=== PATIENT | female | born 1990 | race Caucasian/White ===

== ENCOUNTER 2017-10-27 00:52 | Emergency (ER) | payer OTHER, SELFPAY ==
[2017-10-27 00:55] VITALS: BP 104/71; PULSE 73; RESP 18; TEMP 37.1; O2SAT 98; BMI 22.6
--- NOTE | 2017-10-27 01:07 | ED.DCSUM_ITS ---
- ER Visit Summary Date of Service: 10/27/17 Chief Complaint: Left-sided neck and arm pain History of Present Illness: The patient is a 26 F who has been having the above symptoms since last evening. She does not remember any specific injury. The pain radiates down the proximal left arm. It is worse with movement. She denies any numbness or tingling. She tried ibuprofen and ice without any relief. She denies any chest pain or shortness of breath. Physical Examination: Vital signs reviewed. HEENT exam unremarkable. Heart is regular rate and rhythm without murmurs. Lungs are clear to auscultation. Abdomen is soft and nontender. She has tenderness in the left cervical paraspinal area over the trapezius muscle. Extremities reveal no edema. Skin exam normal. Neurologic exam normal. Test Results: None indicated Emergency Department Course and Treatment: Patient likely has a trapezius strain. She has no DVT or PE risk factors. I have very low suspicion for this. She may be having some cervical radicular symptoms associated with this. I will treat her with naproxen and Flexeril. She will follow-up with her PCP Treatment Plan: [] Disposition: Discharge Impression: Left trapezius strain This note was generated with [employer] dictation software. It may contain incorrect words, spelling, and punctuation that were not noted in review of the chart prior to signing ED Disposition - Plan for ED Patient: Chief Complaint: Back Referrals: Gretel Tapia DO [Primary Care Provider] -
--- NOTE | 2017-10-27 01:07 | ED.DEP ---
ED Disposition - Plan for ED Patient: Disposition: Home or Assisted Living Chief Complaint: Back Instructions: ED Neck Back Pain General Prescriptions: Naproxen [Naprosyn] 500 mg PO BID PRN #20 tab Cyclobenzaprine [Flexeril] 10 mg PO TID PRN #20 tab PRN Reason: Muscle Spasm Referrals: Gretel Tapia DO [Primary Care Provider] -
[2017-10-27] MEDS: Naproxen 500 MG Tablet PO (01:13)
[2017-10-27 01:21] VITALS: PULSE 85; RESP 18
== END 2017-10-27 01:24 | disposition home or self-care (01) ==
LOC: ED 01:15
PROVIDERS: Emergency Provider Emergency Medicine; Family Provider Internal Medicine; PCP Internal Medicine
DX: S46.812A Strain of other muscles, fascia and tendons at shoulder and upper arm level, left arm, initial encounter (principal); X58.XXXA Exposure to other specified factors, initial encounter; Y93.9 Activity, unspecified; Y92.9 Unspecified place or not applicable; Y99.9 Unspecified external cause status
CPT/HCPCS: 99283

== ENCOUNTER → 2017-11-20 18:41 | Outpatient (CLI) | payer OTHER, SELFPAY ==
[2017-11-20 19:24] LABS: Hematocrit 36.6 % (37-47); Hemoglobin 12.3 g/dl (12.0-15.0); Mean Corp Hgb Conc 33.6 g/gl (32-36); Mean Corpuscular Volume 92.2 fL (81-99); Mean Platelet Vol. 11.1 fl (6.2-12.0); Platelet Count 153 K/mm3 (150-450); RBC Distribution Width CV 13.4 % (11.6-14.6); RBC Distribution Width SD 44.7 fl (35.1-43.9); Red Blood Count 3.97 M/mm3 (4.2-5.4); White Blood Count 6.1 K/mm3 (4.4-11.0)
[2017-11-20 19:25] LABS: Scan Indicated on CBC? Y/N NO
[2017-11-20 20:07] LABS: ALB/GLOB Ratio 1.3 RATIO (0.9-2.4); AST(SGOT) 14 U/L (15-37); Alanine Aminotransfer ALT/SGPT 16 U/L (13-56); Albumin, Serum 3.9 g/dL (3.2-5.0); Alkaline Phosphatase 65 U/L (45-117); Anion Gap 5 (5-15); BUN 19 mg/dL (7-18); BUN/Creat Ratio 25.7 RATIO (10-20); Calcium,Total 8.2 mg/dL (8.5-10.1); Chloride 109 mmol/L (98-107); Creatinine, Serum 0.74 mg/dL (0.55-1.02); EST Glomerular Filtration Rate 99 mL/min (>60); Est Glom Filt Rate - Afr Amer 119 mL/min (>60); Ferritin 19 ng/mL (8-252); Globulin 2.9 g/dL (2.2-4.2); Glucose 75 mg/dL (74-106); Potassium 3.7 mmol/L (3.5-5.1); Protein, Total 6.8 g/dL (6.4-8.2); Sodium Level 142 mmol/L (136-145); T4 Free Direct 0.83 ng/dL (0.76-1.46); Thyroid Stim Hormone (TSH) 4.25 uIU/mL (0.358-3.74)
[2017-11-20 20:25] LABS: Pregnancy, Serum, hCG Quali. NEGATIVE Negative (0-9 Nonpreg)
[2017-11-20 20:29] LABS: Vitamin B12 746 pg/mL (211-911)
[2017-11-24 11:30] LABS: Vitamin D 1,25-Dihydroxy 50.2 pg/mL (19.9-79.3)
== END ==
PROVIDERS: Family Provider Internal Medicine; PCP Internal Medicine; Visit Provider Internal Medicine
DX: R53.83 Other fatigue (principal)
CPT/HCPCS: 36415; 80053; 82607; 82652; 82728; 84439; 84443; 84703; 85027

== ENCOUNTER 2017-12-22 17:52 | Emergency (ER) | payer OTHER, SELFPAY ==
[2017-12-22 17:54] VITALS: BP 97/65; PULSE 65; RESP 16; TEMP 36.8; O2SAT 100; BMI 21.7
--- NOTE | 2017-12-22 18:40 | ED.VISSUMM ---
- ER Visit Summary Date of Service: 12/22/17 Chief Complaint: Sent to ER because of low blood pressure. History of Present Illness: The patient is a 27 F who was diagnosed with hypothyroidism 3 weeks ago. She did not fill her prescription for Synthroid. Her and her are trying to have a child. Last menses 2-3 weeks ago. She complains of generalized weakness, fatigue and lack of energy. She complains of dizziness but does not describe orthostatic symptoms. She denies fever, chills night sweats. Denies weight gain or weight loss. She denies any ocular, visual or auditory symptoms. She denies cardiac respiratory symptoms. She denies myalgias, arthralgias or back pain. She denies polyuria, polydipsia polyphagia. She denies problems with bruising or any skin lesions. As I was leaving the room after completing my history and physical patient told me that she drinks a lot of water. She could not give me a specific amount. Physical Examination: Blood pressure is 97/65. Temperature 98 heart rate 65 respiratory rate 16 and pulse ox 100% on room air. She appears in no distress. Head is atraumatic normocephalic. Pupils are equal round reactive. Extraocular muscles are intact. TMs are pearly white with landmarks noted. Nares patent with no drainage. Posterior pharynx without erythema or exudate. Uvula is midline. There is no dysphonia or dysphasia. Trachea is midline. There is no stridor with auscultation of the neck. Heart is regular without murmur, gallop or rub. S1 and S2 are normal. Lungs are clear to auscultation with good movement of air bilaterally. Abdomen is soft and nontender. There is no guarding or peritoneal findings. There is no palpable pulsatile mass. There is no abdominal bruit. Tenorio sign is negative. Negative Rovsing sign. There is no evidence of inguinal or umbilical hernia. There is no asymmetry, swelling, discoloration, leg vein distention, palpable cords or tenderness along the distribution of the deep venous system. Patient is alert and oriented ?3. Motor is 5 over 5. Sensory is intact. DTRs are symmetric with no clonus or Babinski sign. Cranial 2 through 12 are intact. Cerebellar testing is normal. Test Results: BMP is unremarkable. CBC is normal. Serum test is negative. Emergency Department Course and Treatment: Patient has vague symptoms. This may be related to the fact that she has hypothyroidism and has not filled her prescription for Synthroid. Because she reports drinking significant amount of free fluid will obtain electro panel to assess for hyponatremia. A CBC was obtained to evaluate for anemia. A test was ordered as well since she and her are trying to have a child. Treatment Plan: Patient was instructed to fill her prescription for Synthroid and start taking her medication. Disposition: Discharged to home Impression: Weakness and fatigue secondary to hypothyroidism This note was generated with [employer] dictation software. It may contain incorrect words, spelling, and punctuation that were not noted in review of the chart prior to signing ED Disposition - Plan for ED Patient: Disposition: Home or Assisted Living Chief Complaint: Hypotension Instructions: ED Hypothyroidism Referrals: Gretel Tapia DO [Primary Care Provider] - 10-14 Days if not better Additional Instructions: You must feel your prescription for Synthroid and take it daily as instructed
[2017-12-22 19:00] LABS: Anion Gap 8 (5-15); BUN 19 mg/dL (7-18); BUN/Creat Ratio 22.2 RATIO (10-20); Calcium,Total 8.9 mg/dL (8.5-10.1); Chloride 106 mmol/L (98-107); Creatinine, Serum 0.86 mg/dL (0.55-1.02); EST Glomerular Filtration Rate 83 mL/min (>60); Est Glom Filt Rate - Afr Amer 101 mL/min (>60); Estimated Creatinine Clearance 79.84 ml/min; Glucose 79 mg/dL (74-106); Hematocrit 38.4 % (37-47); Mean Corp Hgb Conc 33.9 g/gl (32-36); Mean Corpuscular Hgb 30.4 pg (27.0-32.0); Mean Corpuscular Volume 89.7 fL (81-99); Mean Platelet Vol. 11.6 fl (6.2-12.0); Platelet Count 183 K/mm3 (150-450); Potassium 3.7 mmol/L (3.5-5.1); RBC Distribution Width CV 12.9 % (11.6-14.6); RBC Distribution Width SD 41.6 fl (35.1-43.9); Red Blood Count 4.28 M/mm3 (4.2-5.4); Sodium Level 143 mmol/L (136-145); White Blood Count 4.6 K/mm3 (4.4-11.0)
[2017-12-22 19:04] LABS: Scan Indicated on CBC? Y/N NO
[2017-12-22 19:05] LABS: Pregnancy, Serum, hCG Quali. NEGATIVE Negative (0-9 Nonpreg)
[2017-12-22 20:11] VITALS: BP 92/63; PULSE 61; RESP 16; O2SAT 100
--- NOTE | 2017-12-22 20:11 | ED.RN ---
REVIEWED D/C INSTRUCTIONS, FOLLOW UP CARE, AND S/S THAT WOULD WARRANT A RETURN TO THE ED WITH PT. PT VERBALIZED AN UNDERSTANDING AND DENIES FURTHER QUESTIONS FOR THIS RN. PT SKIN P/W/D, RESP EVEN AND UNLABORED, PT A&O X 3, NO DISTRESS NOTED. PT AMBULATED OUT OF ED, GAIT STEADY.
== END 2017-12-22 20:12 | disposition home or self-care (01) ==
PROVIDERS: Emergency Provider Emergency Medicine; Family Provider Internal Medicine; PCP Internal Medicine
DX: E03.9 Hypothyroidism, unspecified (principal)
CPT/HCPCS: 80048; 84703; 85027; 99283; A4216

== ENCOUNTER → 2018-01-05 14:18 | Outpatient (CLI) | payer OTHER, SELFPAY ==
[2018-01-05 14:53] LABS: Pregnancy, Serum, hCG Quali. NEGATIVE Negative (0-9 Nonpreg)
== END ==
PROVIDERS: Family Provider Internal Medicine; PCP Internal Medicine; Visit Provider Internal Medicine
DX: N92.6 Irregular menstruation, unspecified (principal)
CPT/HCPCS: 84703

== ENCOUNTER → 2018-01-23 09:46 | Outpatient (CLI) | payer OTHER, SELFPAY ==
--- NOTE | 2018-01-23 09:56 | RAD_ITS ---
STUDY: X-RAY - ESOPHAGUS (BARIUM SWALLOW) WITH FLUOROSCOPY REASON FOR EXAM: Female, 27 years old. Dysphagia. Gastroesophageal reflux disease. TECHNIQUE: 15 view(s) of the esophagus were obtained following swallowing of barium. FLUOROSCOPY TIME (if supplied): (0:29) minutes/seconds COMPARISON: Comparison is made with prior study dated May 09, 2016. FINDINGS: There is no demonstrated esophageal foreign body. There is no demonstrated stricture or mucosal abnormality. Normal gastroesophageal junction, without a demonstrated hiatal hernia. The patient ingested a 12 mm tablet of barium without any difficulty. Normal visualized aortic arch and descending thoracic aorta. Normal visualized pulmonary parenchyma. Normal visualized osseous structures of the thorax. RAD/Esophagus Only IMPRESSION: Normal plain film x-ray examination (barium swallow) of the esophagus. Electronically Signed: Nitin Young MD at 13:31 EDT Tel [phone], Service support ,
== END ==
LOC: RAD 09:48
PROVIDERS: Family Provider Internal Medicine; PCP Internal Medicine; Visit Provider Internal Medicine
DX: R13.19 Other dysphagia (principal)
CPT/HCPCS: 74220

== ENCOUNTER → 2018-02-06 20:40 | Outpatient (CLI) | payer OTHER, SELFPAY ==
[2018-02-13 09:18] LABS: HPV APTIMA, High Risk Negative (Negative)
== END ==
PROVIDERS: Visit Provider Nurse Practitioner Women's Health
DX: Z12.4 Encounter for screening for malignant neoplasm of cervix (principal)
CPT/HCPCS: 88175; G0145

== ENCOUNTER → 2018-06-13 15:22 | Outpatient (CLI) | payer OTHER, SELFPAY ==
[2018-06-13 17:38] LABS: Absolute Lymphocyte Count 1.88 X10^3/ul (0.83-4.51); Absolute Neutrophil Count 3.4 X10^3/uL (2.0-7.7); Basophil# 0.01 X10^3/uL; Basophil% 0.2 % (0-1); Eosinophil# 0.05 X10^3/uL; Eosinophils% 0.9 % (0-5); Hematocrit 37.9 % (37-47); Hemoglobin 12.9 g/dl (12.0-15.0); Lymphocyte # 1.88 X10^3/ul (4.0); Lymphocyte % 32.9 % (19-41); Mean Corpuscular Hgb 30.7 pg (27.0-32.0); Mean Corpuscular Volume 90.2 fL (81-99); Mean Platelet Vol. 12.2 fl (6.2-12.0); Monocyte# 0.42 X10^3/uL; Monocyte% 7.3 % (0-10); Neutrophil # 3.36 X10^3/uL (2.7-7.7); Neutrophil % 58.7 % (47-70); Platelet Count 205 K/mm3 (150-450); RBC Distribution Width CV 12.4 % (11.6-14.6); RBC Distribution Width SD 39.8 fl (35.1-43.9); White Blood Count 5.7 K/mm3 (4.4-11.0)
[2018-06-13 18:00] LABS: POSITIVE COUNT NO; POSITIVE DIFFERENTIAL NO; POSITIVE MORPHOLOGY NO
[2018-06-13 18:08] LABS: ALB/GLOB Ratio 1.3 RATIO (0.9-2.4); AST(SGOT) 15 U/L (15-37); Alanine Aminotransfer ALT/SGPT 19 U/L (13-56); Albumin, Serum 3.9 g/dL (3.2-5.0); Alkaline Phosphatase 54 U/L (45-117); Anion Gap 9 (5-15); BUN 27 mg/dL (7-18); BUN/Creat Ratio 22.1 RATIO (10-20); Calcium,Total 8.7 mg/dL (8.5-10.1); Chloride 103 mmol/L (98-107); Creatinine, Serum 1.22 mg/dL (0.55-1.02); EST Glomerular Filtration Rate 55 mL/min (>60); Est Glom Filt Rate - Afr Amer 67 mL/min (>60); Globulin 2.9 g/dL (2.2-4.2); Glucose 85 mg/dL (74-106); Potassium 4.3 mmol/L (3.5-5.1); Protein, Total 6.8 g/dL (6.4-8.2); Sodium Level 140 mmol/L (136-145); T4 Free Direct 1.06 ng/dL (0.76-1.46); Thyroid Stim Hormone (TSH) 1.15 uIU/mL (0.358-3.74)
== END ==
LOC: MTLAB 15:25
PROVIDERS: Family Provider Internal Medicine; PCP Internal Medicine; Referring Provider Nurse Practitioner Family; Visit Provider Nurse Practitioner Family
DX: E03.9 Hypothyroidism, unspecified (principal); Z13.0 Encounter for screening for diseases of the blood and blood-forming organs and certain disorders involving the immune mechanism
CPT/HCPCS: 36415; 80053; 84439; 84443; 85025

== ENCOUNTER → 2018-08-21 16:00 | Outpatient (CLI) | payer OTHER, SELFPAY ==
[2018-06-13 14:26] VITALS: BMI 22.4
[2018-08-21 18:15] LABS: Anion Gap 8 (5-15); BUN 15 mg/dL (7-18); BUN/Creat Ratio 20.1 RATIO (10-20); Calcium,Total 8.9 mg/dL (8.5-10.1); Chloride 106 mmol/L (98-107); Creatinine, Serum 0.75 mg/dL (0.55-1.02); EST Glomerular Filtration Rate 97 mL/min (>60); Est Glom Filt Rate - Afr Amer 117 mL/min (>60); Glucose 77 mg/dL (74-106); Sodium Level 139 mmol/L (136-145)
[2018-08-22 10:24] LABS: T4 Free Direct 0.85 ng/dL (0.76-1.46); Thyroid Stim Hormone (TSH) 2.13 uIU/mL (0.358-3.74)
== END ==
LOC: MTLAB 16:03
PROVIDERS: Family Provider Internal Medicine; PCP Internal Medicine; Referring Provider Nurse Practitioner Family; Visit Provider Nurse Practitioner Family
DX: E03.9 Hypothyroidism, unspecified (principal); R94.4 Abnormal results of kidney function studies
CPT/HCPCS: 36415; 80048; 84439; 84443

== ENCOUNTER → 2018-09-27 11:40 | Outpatient (CLI) | payer MEDICAID, SELFPAY ==
[2018-09-27 12:45] LABS: hCG Titer Quant., Serum < 1 mIU/mL (<9 non-preg)
== END ==
PROVIDERS: Family Provider Internal Medicine; PCP Internal Medicine; Visit Provider Obstetrics & Gynecology
DX: N91.2 Amenorrhea, unspecified (principal)
CPT/HCPCS: 36415; 84702

== ENCOUNTER 2018-10-21 12:44 | Emergency (ER) | payer MEDICAID, SELFPAY ==
[2018-10-21 12:46] VITALS: BP 94/55; PULSE 77; RESP 16; TEMP 36.8; O2SAT 100; BMI 23.2
--- NOTE | 2018-10-21 13:06 | US_ITS ---
STUDY: ULTRASOUND TRANSVAGINAL CLINICAL: Female, 27 years old. Pelvic pain TECHNIQUE: Transvaginal COMPARISON: None. FINDINGS: Normal uterine size measuring 7.4 x 5.4 x 4.6 cm in maximal craniocaudal dimension. There are no myometrial masses. Normal endometrial thickness measuring 13 mm. There are no endometrial masses, and there is no fluid in the endometrial cavity. Normal uterine cervix. Normal right ovary, measuring 5.5 x 3.5 x 3.3 cm. Complex right ovarian cyst measuring 3.4 x 2.1 x 3.0 cm Normal left ovary, measuring 4.7 x 2.3 x 2.4 cm. There are multiple follicles without a dominant cyst. Moderate pelvic free fluid US/Transvaginal Non- IMPRESSION: Complex right ovarian cyst with moderate pelvic free fluid. Possibly recently ruptured ovarian cyst. Remainder is within normal limits. Electronically Signed: Harvey Moyer DO at 14:44 EDT Tel , Service support ,
--- NOTE | 2018-10-21 13:08 | ED.VISSUMM ---
- ER Visit Summary Date of Service: 10/21/18 Chief Complaint: Pelvic pain History of Present Illness: The patient is a 27 F complaining of pelvic pain for the past 2 hours after intercourse. She had a similar episode about 3 days ago again after intercourse. She denies any vaginal discharge. She denies any back pain flank pain or dysuria. There is no vaginal bleeding. Last menstrual cycle was 3 weeks ago and normal. No fever or chills. Physical Examination: Otherwise she has a normal exam. She has suprapubic tenderness to palpation without any guarding or rebound. No right lower quadrant pain no pain at McBurney's. There is no CVA tenderness pelvic exam reveals a parous cervix without any cervicitis, no vaginal discharge. There is some tenderness of the cervix and uterus to palpation although this is mild most of the pain is in the suprapubic region and uterine region. Emergency Department Course and Treatment: Patient has an unremarkable workup. Her ultrasound however does show a right ovarian cyst with free fluid. This explains her symptoms. I will discharge her with reassurance and analgesia she can follow-up with her HEALTHCARE RISK CONTROL CONSULTANT, Dr. Cristina Disposition: Discharge stable condition Impression: Pelvic pain This note was generated with [employer] dictation software. It may contain incorrect words, spelling, and punctuation that were not noted in review of the chart prior to signing ED Disposition - Plan for ED Patient: Disposition: Home or Assisted Living Instructions: ED Cyst Ovarian Prescriptions: Hydrocodone Bitart/Apap 5-325 [[place] 5MG-325MG] 1 tab PO Q4H PRN PRN 2 Days #10 tab PRN Reason: Pain Naproxen [Naprosyn] 500 mg PO BID PRN #20 tab Referrals: Rosalind Cristina MD [STAFF PHYSICIAN] -
--- NOTE | 2018-10-21 13:11 | ED.DCSUM_ITS ---
- ER Visit Summary Date of Service: 10/21/18 Chief Complaint: Pelvic pain History of Present Illness: The patient is a 27 F complaining of pelvic pain for the past 2 hours after intercourse. She had a similar episode about 3 days ago again after intercourse. She denies any vaginal discharge. She denies any back pain flank pain or dysuria. There is no vaginal bleeding. Last menstrual cycle was 3 weeks ago and normal. No fever or chills. Physical Examination: Otherwise she has a normal exam. She has suprapubic tenderness to palpation without any guarding or rebound. No right lower quadrant pain no pain at McBurney's. There is no CVA tenderness pelvic exam reveals a parous cervix without any cervicitis, no vaginal discharge. There is some tenderness of the cervix and uterus to palpation although this is mild most of the pain is in the suprapubic region and uterine region. Emergency Department Course and Treatment: Patient has an unremarkable workup. Her ultrasound however does show a right ovarian cyst with free fluid. This explains her symptoms. I will discharge her with reassurance and analgesia she can follow-up with her PARAPROFESSIONAL AIDE, Dr. Cristina Disposition: Discharge stable condition Impression: Pelvic pain This note was generated with [employer] dictation software. It may contain incorrect words, spelling, and punctuation that were not noted in review of the chart prior to signing ED Disposition - Plan for ED Patient: Disposition: Home or Assisted Living Instructions: ED Cyst Ovarian Prescriptions: Hydrocodone Bitart/Apap 5-325 [[place] 5MG-325MG] 1 tab PO Q4H PRN PRN 2 Days #10 tab PRN Reason: Pain Naproxen [Naprosyn] 500 mg PO BID PRN #20 tab Referrals: Rosalind Cristina MD [STAFF PHYSICIAN] -
[2018-10-21 13:24] LABS: Bacteria 0 SEEN /hpf (None Seen); Mucous, Urine 0 SEEN /hpf (<or=2+); Red Blood Cells-Urine 0 SEEN /hpf (0-5); Squamous Epithelial Cells - UA 0 SEEN /hpf (5-10); White Blood Cells 0 SEEN /hpf (0-5)
[2018-10-21 13:34] LABS: Color, Urine Yellow (Yellow); Glucose, Dipstick Normal (Normal); Ketone-Dipstick Negative (Negative); Leukocyte Esterase-Dipstick Negative /ul (Negative); Nitrite-Dipstick Negative (Negative); Occult Blood-Urine Negative /ul (Negative); Protein-Dipstick Negative (Negative); Specific Gravity, Urine 1.005 (1.002-1.030); Urine Bilirubin Dipstick Negative (Negative); Urine Clarity Clear (Clear); Urine Urobilinogen Normal (Normal)
[2018-10-21 13:35] LABS: Internal QC Validated? YES +Cl - CLEAR BKGD; Pregnancy, Urine Negative Negative
[2018-10-21 13:42] LABS: Transitional Epithelial - Ur 0-5 SEEN /hpf (0-5)
[2018-10-21 15:31] VITALS: PULSE 88
[2018-10-21 15:34] LABS: Chlamydia Trachomatis by PCR Negative (Negative); Neisserai gonorrhoeae by PCR Negative (Negative); Probe Check PASS; Sample Adequacy Control PASS; Specimen Processing Control PASS
== END 2018-10-21 15:32 | disposition home or self-care (01) ==
PROVIDERS: Emergency Provider Emergency Medicine; Family Provider Internal Medicine; PCP Internal Medicine
DX: R10.2 Pelvic and perineal pain (principal); N83.201 Unspecified ovarian cyst, right side; Z79.899 Other long term (current) drug therapy
CPT/HCPCS: 76830; 81001; 81025; 87491; 87591; 93976; 99282

== ENCOUNTER 2018-10-22 17:03 | Emergency (ER) | payer MEDICAID, SELFPAY ==
[2018-10-21 12:46] VITALS: BMI 23.2
[2018-10-22 17:03] VITALS: BP 96/59; PULSE 88; RESP 16; TEMP 37.2; O2SAT 98; BMI 23.2
--- NOTE | 2018-10-22 17:27 | CT_ITS ---
STUDY: CT ABDOMEN AND PELVIS WITH CONTRAST REASON FOR EXAM: Female, 27 years old. Upper abdominal pain RADIATION DOSAGE (If Supplied By Facility): CTDIvol = ( 5.19 ) mGy, DLP = ( 326.74 ) mGycm TECHNIQUE: Transaxial images were obtained from the dome of the diaphragm to the symphysis pubis with oral contrast. Isovue 300 100 IV/Oral was administered. Sagittal and coronal images were reconstructed. Individualized dose optimization techniques were used for this CT. COMPARISON: October 21 2018 describing pelvic pain. FINDINGS: The visualized lung bases are unremarkable. The visualized portions of the heart are within normal limits. There is a right renal cyst measuring 1.1 x 1.1 cm. The gallbladder is contracted. Normal spleen. Normal pancreas. Normal bilateral adrenal glands. There is a 4.6 mm right renal cyst. Normal left kidney. Stomach is distended with fluid and oral contrast. There is a contrast filled appearance of the proximal small bowel within normal caliber. There is abundant stool in the colon. This is best appreciated on images such as 35 coronal views. There is a low-lying appearance of the cecum. The appendix is partially visualized and gas-filled. Normal abdominal aorta. Normal inferior vena cava. Normal retroperitoneum. The bladder is thick walled measuring up to 9.1 mm and moderately distended. The uterus is retroflexed. The endometrium almost appears septated. There is a right-sided adnexal cyst deep in the right pelvis measuring 3.6 x 2.2 cm which appears to be a embolism due to recently ruptured cyst surrounded by fluid. There is a [id number]-qqkuofnz amount of fluid within the pelvis. Normal abdominal wall. Normal osseous structures. CT/Abdomen/Pelvis WITH Contrast IMPRESSION: Moderate to severe constipation. Right adnexal cyst which may have recently partially ruptured now measuring 3.6 x 2.2 cm. This was described on the recent ultrasound pelvis. There is mild to moderate free fluid in the pelvis. The appendix is partially visualized and appears gas filled and normal in caliber. Otherwise there is a normal appearance of the small bowel. There is a too small to characterize right renal cyst. There is a 1 cm low attenuating structure within the liver which may represent a small hemangioma or cyst. Electronically Signed: Mira Cordova MD at 19:33 EDT Tel , Service support ,
--- NOTE | 2018-10-22 17:28 | ED.VISSUMM ---
- ER Visit Summary Date of Service: 10/22/18 Chief Complaint: Abdominal pain History of Present Illness: The patient is a 27 F presenting with abdominal pain. Patient was seen in the ED yesterday for lower abdominal pain. At that time she was diagnosed with a ruptured ovarian cyst. She states this pain has improved but she now has upper abdominal pain. She denies nausea, vomiting, diarrhea, constipation. Denies fever. She states it does sometimes get worse when she eats. She states she has felt bloated and has had weight gain over the past week. She denies other complaints. Physical Examination: Vitals are stable. Patient is afebrile. Alert no acute distress. HEENT exam is unremarkable. Neck is supple. Lungs are clear and equal bilaterally. Heart is regular rate and rhythm. Abdomen is soft epigastric and right upper quadrant tenderness with no rebound or guarding Extremities are unremarkable. Skin is warm and dry. Remainder of exam is unremarkable. Emergency Department Course and Treatment: Patient was given IV fluids. CBC, chemistries unremarkable. Liver lipase are normal. HCG negative. CT abdomen pelvis shows moderate to severe constipation. Right adnexal cyst which may have recently partially ruptured now measuring 3.6 x 2.2 cm. This was described on the recent ultrasound pelvis. There is mild to moderate free fluid in the pelvis. The appendix is partially visualized and appears gas filled and normal in caliber. Otherwise there is a normal appearance of the small bowel. There is a too small to characterize right renal cyst. There is a 1 cm low attenuating structure within the liver which may represent a small hemangioma or cyst. Following CT scan patient had itching. She was given Benadryl. She had improvement of her symptoms. She then complained of more epigastric pain. She was given a GI cocktail with improvement. She is now resting comfortably. She is given prescription for Bentyl, Zofran, MiraLAX. She is advised to follow-up with her primary care physician. Advised return to ED if worsening complaints. Disposition: Discharge home Impression: Abdominal pain, constipation This note was generated with [employer] dictation software. It may contain incorrect words, spelling, and punctuation that were not noted in review of the chart prior to signing ED Disposition - Plan for ED Patient: Referrals: Cat Mccoy MD [Primary Care Provider] -
[2018-10-22 18:02] LABS: Absolute Lymphocyte Count 1.99 X10^3/ul (0.83-4.51); Absolute Neutrophil Count 2.6 X10^3/uL (2.0-7.7); Basophil# 0.02 X10^3/uL; Basophil% 0.4 % (0-1); Hematocrit 37.8 % (37-47); Hemoglobin 12.5 g/dl (12.0-15.0); Lymphocyte # 1.99 X10^3/ul (4.0); Mean Corp Hgb Conc 33.1 g/gl (32-36); Mean Corpuscular Hgb 29.8 pg (27.0-32.0); Mean Corpuscular Volume 90.2 fL (81-99); Mean Platelet Vol. 11.1 fl (6.2-12.0); Monocyte# 0.29 X10^3/uL; Monocyte% 5.8 % (0-10); Neutrophil # 2.58 X10^3/uL (2.7-7.7); Neutrophil % 51.8 % (47-70); POSITIVE COUNT NO; POSITIVE DIFFERENTIAL NO; POSITIVE MORPHOLOGY NO; Platelet Count 176 K/mm3 (150-450); RBC Distribution Width SD 42.9 fl (35.1-43.9); Red Blood Count 4.19 M/mm3 (4.2-5.4)
[2018-10-22 18:16] LABS: AST(SGOT) 14 U/L (15-37); Alanine Aminotransfer ALT/SGPT 15 U/L (13-56); Alkaline Phosphatase 44 U/L (45-117); Anion Gap 1 (5-15); BUN 15 mg/dL (7-18); BUN/Creat Ratio 18.1 RATIO (10-20); Bilirubin, Direct 0.17 mg/dL (0.00-0.30); Calcium,Total 8.2 mg/dL (8.5-10.1); Chloride 112 mmol/L (98-107); Creatinine, Serum 0.83 mg/dL (0.55-1.02); EST Glomerular Filtration Rate 86 mL/min (>60); Est Glom Filt Rate - Afr Amer 104 mL/min (>60); Estimated Creatinine Clearance 82.73 ml/min; Globulin 2.4 g/dL (2.2-4.2); Glucose 76 mg/dL (74-106); Lipase 136 U/L (73-393); Potassium 4.2 mmol/L (3.5-5.1); Protein, Total 6.4 g/dL (6.4-8.2); Sodium Level 141 mmol/L (136-145)
[2018-10-22 18:21] LABS: Pregnancy, Serum, hCG Quali. NEGATIVE Negative (0-9 Nonpreg)
[2018-10-22 19:25] LABS: Bacteria 0 SEEN /hpf (None Seen); Mucous, Urine 0 SEEN /hpf (<or=2+)
[2018-10-22] MEDS: DiphenhydrAMINE 25 MG Capsule PO (19:41)
[2018-10-22 19:53] LABS: Color, Urine Straw (Yellow); Glucose, Dipstick Normal (Normal); Ketone-Dipstick Negative (Negative); Leukocyte Esterase-Dipstick Negative /ul (Negative); Nitrite-Dipstick Negative (Negative); Occult Blood-Urine Negative /ul (Negative); Protein-Dipstick Negative (Negative); Specific Gravity, Urine 1.015 (1.002-1.030); Urine Bilirubin Dipstick Negative (Negative); Urine Clarity Clear (Clear); Urine Urobilinogen Normal (Normal)
[2018-10-22 20:05] VITALS: BP 90/73; PULSE 82; RESP 16; O2SAT 100
[2018-10-22 20:21] LABS: Squamous Epithelial Cells - UA 0-5 SEEN /hpf (5-10)
[2018-10-22 20:22] LABS: Red Blood Cells-Urine 0-5 SEEN /hpf (0-5); White Blood Cells 0-5 SEEN /hpf (0-5)
[2018-10-22] MEDS: Mag Hydrox/Al Hydrox/Simeth 30 ML UDC PO (22:07)
--- NOTE | 2018-10-22 23:20 | ED.DEP ---
ED Disposition - Plan for ED Patient: Instructions: ED Abdominal Pain Unkn Cause, ED Constipation Prescriptions: Hydrocodone Bitart/Apap 5-325 [[place] 5MG-325MG] 1 tablet PO Q6H PRN PRN 3 Days #10 tablet PRN Reason: Pain Ondansetron [Zofran Odt] 4 mg PO Q8H PRN PRN #10 tablet PRN Reason: Nausea Dicyclomine HCl [Bentyl] 20 mg PO TIDAC #20 capsule Polyethylene Glycol 3350 [Miralax] 17 gm PO DAILY #7 packet Referrals: Cat Mccoy MD [Primary Care Provider] -
[2018-10-22 23:33] VITALS: BP 100/65; PULSE 84; RESP 16; O2SAT 97
== END 2018-10-22 23:37 | disposition home or self-care (01) ==
LOC: ED 17:44
PROVIDERS: Emergency Provider Emergency Medicine; Family Provider Internal Medicine; PCP Internal Medicine
DX: R10.10 Upper abdominal pain, unspecified (principal); K59.00 Constipation, unspecified; N83.201 Unspecified ovarian cyst, right side; N28.1 Cyst of kidney, acquired; Z79.899 Other long term (current) drug therapy
CPT/HCPCS: 74177; 80048; 80076; 81001; 83690; 84703; 85025; 99284; J7040; Q9967; A4216

== ENCOUNTER → 2019-01-21 17:05 | Outpatient (CLI) | payer MEDICAID, SELFPAY ==
[2019-01-21 18:16] LABS: hCG Titer Quant., Serum < 1 mIU/mL (1-3)
== END ==
PROVIDERS: Family Provider Internal Medicine; PCP Internal Medicine; Referring Provider Obstetrics & Gynecology; Visit Provider Obstetrics & Gynecology
DX: Z32.00 Encounter for pregnancy test, result unknown (principal)
CPT/HCPCS: 36415; 84702

== ENCOUNTER → 2019-01-24 13:04 | Outpatient (CLI) | payer MEDICAID, SELFPAY ==
[2019-01-24 14:41] LABS: Thyroid Stim Hormone (TSH) 2.55 uIU/mL (0.358-3.74)
== END ==
PROVIDERS: Family Provider Internal Medicine; PCP Internal Medicine; Referring Provider Family Medicine; Visit Provider Family Medicine
DX: E03.9 Hypothyroidism, unspecified (principal)
CPT/HCPCS: 36415; 84443

== ENCOUNTER 2019-04-04 16:22 | Emergency (ER) | payer MEDICAID, SELFPAY ==
[2019-03-29 10:09] VITALS: BMI 23.2
[2019-04-04 16:23] VITALS: BP 101/80; PULSE 102; RESP 17; TEMP 36.4; O2SAT 99; BMI 24.5
[2019-04-04 16:32] VITALS: RESP 16
--- NOTE | 2019-04-04 16:37 | ED.VIS.GEN ---
History of Present Illness Chief Complaint: Back Detail of Chief Complaint: Bilateral low back pain Informant: Patient Onset: Today Context: Sudden Onset Timing: Continuous Quality: Pain Location: Bilateral low back Current Severity: Mild Maximum Severity: Severe Worsened by: Any type of movement Relieved by: Nothing Associated Symptoms: None Narrative: Patient a 28-year-old woman who bent over and was pulling on something when she felt severe pain in her lower back. Silvia-lumbar discomfort right and left side without radiculopathy. There is no pain to palpation the distribution of sciatic nerve or the femoral nerve. She denies bowel bladder dysfunction. She denies saddle paresthesia or anesthesia. She prefers to stand over sitting. She did not note foot drop. She has not gone up or down steps since this occurred. She denies fever, chills or night sweats. She denies urologic symptoms. Prior similar symptoms: No Recent Illness/Hospitalization: No - Past Medical History (1) Anxiety Status: Chronic (2) Asthma Status: Chronic (3) Chronic headaches Status: Chronic Past Medical History - Allergies and Home Meds Allergies/Adverse Reactions: Allergies poison oak extract Allergy (Verified 04/04/19 16:23) Unknown Latex, Natural Rubber Adverse Reaction (Verified 04/04/19 16:23) Rash sensitive not allergic Primary Care Physician: Cat Mccoy MD [Primary Care Provider] - Prior records reviewed: Yes - Presently taking prednisone for bronchitis Surgical History: noncontributory Lives: With Family Smoking Status: Never smoker Alcohol: None Drugs: None Review of Systems General: Denies: Chills, Fever, Malaise, Subjective, Sweats, Weight loss, - ENT: Denies: Rhinorrhea, Sore throat Cardiovascular: Denies: Chest pain, Palpitations Respiratory: Denies: Dyspnea, Cough, Dyspnea on exertion Gastrointestinal: Denies: Abdominal pain, Nausea, Vomiting, Diarrhea, Melena, Hematochezia Genitourinary: Denies: Dysuria, Hematuria, Frequency Musculoskeletal: Reports: Back pain. Denies: Myalgias, Arthralgias, Neck pain, Swelling, Extremity Pain Skin: Denies: Rash, Wounds Neurological: Denies: Headache, Weakness, Parasthesia, Numbness, -, - Hematologic: Denies: Easy bruising, Easy bleeding Allergy: Denies: Uticaria, Swelling of the mouth, Swelling of the tongue Physical Exam Vital Signs/Narrative: Vital Signs Temp Pulse Resp BP Pulse Ox 04/04/19 16:32 16 04/04/19 16:23 97.5 F L 102 H 17 101/80 99 Inital Vital Signs reviewed: Yes General: Well nourished, Well developed, Acute Distress Head: Normocephalic, Atraumatic Eyes: Perrl, EOMI. Negative for: Pale conjunctiva, Scleral icterus ENT: Moist mucous membranes, No rhinorrhea, TM's clear Neck: Supple, Nontender Cardiovascular: Regular rate, Regular rhythm, No murmurs, Normal S1, Normal S2 Respiratory: No distress, CTA bilaterally, Chest nontender Abdomen: Soft, Nontender, Nondistended, Normal bowel sounds Rectal: Deferred, - - Normal perianal sensation Back: Normal Inspection, - - Straight leg test in the sitting position is negative.. Negative for: Nontender, CVA tenderness, Spinal tenderness Extremities: Nontender, No edema. Negative for: Calf Tenderness Skin: Normal color, No rash, Cyanosis, Diaphoresis, Jaundice, No Trauma Neurological: Alert, Oriented x3, Cranial nerves II-XII grossly intact, Normal Strength, Normal Sensation, Normal DTR, - - Gait observed and no foot drop. She is able to walk on her heels and toes. She is able to perform a one legged squat right and left.. Negative for: Normal Gait Psychological: Normal affect, Normal Mood Diagnostic/Tx/Re-eval - Medical Decision Making Patient with acute back pain secondary to muscle skeletal strain. She has no contraindication to NSAIDs. She states she is present on prednisone because she was recently diagnosed with bronchitis. She received first dose of Naprosyn in the department and discharged prescription for Naprosyn. She was instructed to apply ice for the next several days. She was informed that application of heat will make her pain worse. Differential is herniated disc, muscle skeletal strain, doubt epidural hematoma or abscess. ED Disposition - Plan for ED Patient: Disposition: Home or Assisted Living Diagnosis: Bilateral low back pain without sciatica Instructions: Back Sprain/Strain Prescriptions: Naproxen [Naprosyn] 500 mg PO BID #14 tab Transmission Status: Pending to [facility] Referrals: Cat Mccoy MD [Primary Care Provider] - 3-5 Days if not improving Additional Instructions: Your prescription was electronically transmitted to pharmacy of choice
[2019-04-04] MEDS: Naproxen 250 MG Tablet 500 MG PO (17:02)
[2019-04-04 17:04] VITALS: RESP 16
== END 2019-04-04 17:05 | disposition home or self-care (01) ==
LOC: ED 16:49
PROVIDERS: Emergency Provider Emergency Medicine; Family Provider Internal Medicine; PCP Internal Medicine
DX: M54.5 Low back pain (principal); J45.909 Unspecified asthma, uncomplicated; Z79.899 Other long term (current) drug therapy
CPT/HCPCS: 99283

== ENCOUNTER → 2019-06-22 13:25 | Outpatient (CLI) | payer MEDICAID, SELFPAY ==
[2019-05-29 10:31] VITALS: BMI 24.5
[2019-06-22 14:12] LABS: Estradiol 32.8 pg/mL; Prolactin 5.5 ng/mL
== END ==
PROVIDERS: Nurse Practitioner Women's Health; Family Provider Internal Medicine; PCP Internal Medicine; Visit Provider Obstetrics & Gynecology
DX: N97.0 Female infertility associated with anovulation (principal)
CPT/HCPCS: 36415; 82670; 84146

== ENCOUNTER → 2019-07-02 10:46 | Outpatient (CLI) | payer MEDICAID, SELFPAY ==
[2019-07-02 10:14] VITALS: BMI 26.4
[2019-07-02 12:52] LABS: Hematocrit 38.6 % (37-47); Hemoglobin 12.8 g/dL (12.0-15.0); Mean Corp Hgb Conc 33.2 g/dL (32-36); Mean Corpuscular Hgb 29.4 pg (27.0-32.0); Mean Corpuscular Volume 88.5 fL (81-99); Mean Platelet Vol. 11.6 fl (6.2-12.0); Platelet Count 204 K/mm3 (150-450); RBC Distribution Width SD 38.5 fl (35.1-43.9); Red Blood Count 4.36 M/mm3 (4.2-5.4); White Blood Count 3.8 K/mm3 (4.4-11.0)
[2019-07-02 13:21] LABS: T4 Free Direct 0.93 ng/dL (0.76-1.46); Thyroid Stim Hormone (TSH) 2.35 uIU/mL (0.358-3.74)
[2019-07-02 13:22] LABS: Vitamin D,25 Hydroxy 34.2 ng/mL (29.95-100.01)
== END ==
PROVIDERS: Family Provider Internal Medicine; PCP Internal Medicine; Visit Provider Nurse Practitioner Family
DX: R40.0 Somnolence (principal); R53.83 Other fatigue; E55.9 Vitamin D deficiency, unspecified
CPT/HCPCS: 36415; 82306; 84439; 84443; 85027

== ENCOUNTER → 2019-07-10 11:34 | Outpatient (CLI) | payer MEDICAID, SELFPAY ==
[2019-07-02 10:14] VITALS: BMI 26.4
== END ==
PROVIDERS: Family Provider Internal Medicine; PCP Internal Medicine; Referring Provider Nurse Practitioner Women's Health; Visit Provider Nurse Practitioner Women's Health
DX: N97.9 Female infertility, unspecified (principal)
CPT/HCPCS: 36415; 84144

== ENCOUNTER 2019-07-12 22:00 | Emergency (ER) | payer MEDICAID, SELFPAY ==
[2019-07-02 10:14] VITALS: BMI 26.4
[2019-07-12 22:00] VITALS: BP 114/71; PULSE 74; RESP 18; TEMP 36.4; O2SAT 99; BMI 26.4
--- NOTE | 2019-07-12 22:37 | US_ITS ---
STUDY: ULTRASOUND OF THE FEMALE PELVIS - COMPLETE REASON FOR EXAM: Female, 28 years old. Midline pelvic pain LMP: June 19, 2019. TECHNIQUE: Transvaginal. Transvaginal imaging is performed for improved visualization of the endometrium and adnexal regions. TECHNICAL QUALITY: Adequate. COMPARISON: Pelvic ultrasound dated October 21, 2018. FINDINGS: The uterus is anteverted and is in a midline position. The uterus measures 8.7 x 5.1 x 5.8 cm. Normal uterine cervix. The endometrium measures 18.1 mm in thickness, and is hyperechoic. There is no demonstrated endometrial mass. There is no demonstrated myometrial mass. I.U.D. - The patient does not have an I.U.D. The right ovary is visualized. The right ovary measures 5.8 x 2.5 x 3.0 cm. There are multiple follicles of the right ovary with a dominant cyst. The dominant cyst measures 3.6 x 1.8 x 2.3 cm. The cyst has some septations within it suggesting may be involuting or may have some hemorrhage within it. There is no visualized right adnexal mass or complex lesion. There is normal arterial and normal venous vascularity. The left ovary is visualized. The left ovary measures 4.3 x 2.1 x 2.0 cm. There are multiple follicles of the left ovary without a dominant cyst. There is no visualized left adnexal mass or complex lesion. There is normal arterial and normal venous vascularity. There is a large volume of fluid in the cul-de-sac. The fluid appears to have diffuse echoes within it. The urinary bladder is not visualized on this study. Polycystic ovary disease: No. US/Transvaginal Non- IMPRESSION: 1. Large amount of pelvic fluid which appears echogenic. Differential considerations include sequela of hemorrhagic cyst, or PID. 2. Normal sonographic appearance of the uterus and both ovaries. Electronically Signed: Monserrat Eddy MD at 0:13 EST , Service support ,
--- NOTE | 2019-07-12 22:39 | ED.VISSUMM ---
- ER Visit Summary Date of Service: 07/12/19 Chief Complaint: Pelvic pain History of Present Illness: The patient is a 28 F presenting with pelvic pain. She states this started suddenly during sexual intercourse approximately one hour ago. She has suprapubic pain. She has had a history of previous ovarian cyst and states this feels similar. She denies vaginal bleeding or discharge. Denies fever. She complains of dysuria. She has nausea with no vomiting. Denies other complaints. Physical Examination: Vitals are stable. Patient is afebrile. Alert no acute distress. HEENT exam is unremarkable. Neck is supple. Lungs are clear and equal bilaterally. Heart is regular rate and rhythm. Abdomen is soft suprapubic tenderness with no rebound or guarding : Cervix is normal, no cervical motion tenderness, no adnexal tenderness. Extremities are unremarkable. Skin is warm and dry. Remainder of exam is unremarkable. Emergency Department Course and Treatment: She declined IV fluids, Zofran. Urine hCG negative. Urinalysis shows 10-25 white blood cells, 0 red blood cells. Pelvic ultrasound shows large amount of pelvic fluid which appears echogenic. Differential considerations include sequela of hemorrhagic cyst, or PID. Normal sonographic appearance of the uterus and both ovaries. CBC, chemistries unremarkable. Patient remains hemodynamically stable. Discussed with Dr. Cristina. Patient will follow-up in the office. She is given prescription for [place] and Keflex. Advised return to the ED for worsening complaints. Disposition: Discharge home Impression: Ovarian cyst, UTI This note was generated with [employer] dictation software. It may contain incorrect words, spelling, and punctuation that were not noted in review of the chart prior to signing ED Disposition - Plan for ED Patient: Instructions: Ovarian Cyst Prescriptions: Cephalexin [Keflex] 500 mg PO Q12 #14 cap Prescription Printed Hydrocodone Bitart/Apap 5-325 [[place] 5MG-325MG] 1 tab PO Q6H PRN PRN 3 Days #10 tab PRN Reason: Pain Prescription Printed Referrals: Cat Mccoy MD [Primary Care Provider] - Rosalind Cristina MD [STAFF PHYSICIAN] -
--- NOTE | 2019-07-12 23:07 | ED.RN ---
PT REFUSED IV AND IV ZOFRAN, PT REQUESTED PO CHALLENGE ONLY, WATER WAS GIVEN.
[2019-07-12 23:24] LABS: Bacteria 0 SEEN /hpf (None Seen); Mucous, Urine 0 SEEN /hpf (<or=2+); Red Blood Cells-Urine 0 SEEN /hpf (0-5); Squamous Epithelial Cells - UA 0 SEEN /hpf (5-10)
[2019-07-12 23:27] LABS: Color, Urine Yellow (Yellow); Glucose, Dipstick Normal (Normal); Internal QC Validated? YES +Cl - CLEAR BKGD; Ketone-Dipstick Negative (Negative); Leukocyte Esterase-Dipstick 500 /ul (Negative); Nitrite-Dipstick Negative (Negative); Occult Blood-Urine Negative /ul (Negative); Pregnancy, Urine Negative Negative; Protein-Dipstick 30 mg/dl (Negative); Specific Gravity, Urine 1.015 (1.002-1.030); Urine Bilirubin Dipstick Negative (Negative); Urine Clarity Sl. Cloudy (Clear); Urine Urobilinogen Normal (Normal)
[2019-07-12 23:41] LABS: Amorphous Sediment 2+; White Blood Cells 10-25 SEEN /hpf (0-5)
[2019-07-13] VITALS: BP 98/62; PULSE 71; RESP 16; O2SAT 99
[2019-07-13 00:42] LABS: Absolute Lymphocyte Count 1.86 X10^3/uL (0.83-4.51); Absolute Neutrophil Count 4.3 X10^3/uL (2.0-7.7); Basophil# 0.02 X10^3/uL; Basophil% 0.3 % (0-1); Eosinophil# 0.08 X10^3/uL; Eosinophils% 1.2 % (0-5); Hematocrit 36.9 % (37-47); Hemoglobin 12.6 g/dL (12.0-15.0); Lymphocyte # 1.86 X10^3/ul (4.0); Lymphocyte % 27.8 % (19-41); Mean Corp Hgb Conc 34.1 g/dL (32-36); Mean Corpuscular Hgb 29.8 pg (27.0-32.0); Mean Corpuscular Volume 87.2 fL (81-99); Mean Platelet Vol. 10.3 fl (6.2-12.0); NRBC Flagged by Analyzer 0 % (0-5); Neutrophil # 4.32 X10^3/uL (2.7-7.7); Neutrophil % 64.6 % (47-70); Platelet Count 211 K/mm3 (150-450); RBC Distribution Width SD 38.5 fl (35.1-43.9); Red Blood Count 4.23 M/mm3 (4.2-5.4); White Blood Count 6.7 K/mm3 (4.4-11.0)
[2019-07-13 01:00] LABS: Anion Gap 6 (5-15); BUN 17 mg/dL (7-18); BUN/Creat Ratio 21.8 RATIO (10-20); Calcium,Total 8.7 mg/dL (8.5-10.1); Chloride 112 mmol/L (98-107); Creatinine, Serum 0.78 mg/dL (0.55-1.02); EST Glomerular Filtration Rate 92 mL/min (>60); Est Glom Filt Rate - Afr Amer 111 mL/min (>60); Estimated Creatinine Clearance 87.24 ml/min; Glucose 86 mg/dL (74-106); Potassium 3.8 mmol/L (3.5-5.1); Sodium Level 143 mmol/L (136-145)
--- NOTE | 2019-07-13 01:15 | ED.DEP ---
ED Disposition - Plan for ED Patient: Instructions: Ovarian Cyst Prescriptions: Cephalexin [Keflex] 500 mg PO Q12 #14 cap Prescription Printed Hydrocodone Bitart/Apap 5-325 [[place] 5MG-325MG] 1 tablet PO Q6H PRN PRN 3 Days #10 tablet PRN Reason: Pain Referrals: Cat Mccoy MD [Primary Care Provider] - Rosalind Cristina MD [STAFF PHYSICIAN] -
[2019-07-13] MEDS: Cephalexin 250 MG Capsule 500 MG PO (01:22)
--- NOTE | 2019-07-13 01:27 | ED.RN ---
pt reports dizziness. MD at bedside to evaluate patient. PT refused IV fluids. She is driving home herself as her spouse is at home with her children. pt feels safe to drive home. Cookies given to patient. All questions answered, no further concerns. PT ambulated to lobby with a steady and independent gait.
== END 2019-07-13 01:28 | disposition home or self-care (01) ==
LOC: ED 22:48
PROVIDERS: Emergency Provider Emergency Medicine; Family Provider Internal Medicine; PCP Internal Medicine
DX: N83.209 Unspecified ovarian cyst, unspecified side (principal); N39.0 Urinary tract infection, site not specified
CPT/HCPCS: 36415; 76830; 80048; 81001; 81025; 85025; 93976; 99283; J2405

== ENCOUNTER → 2019-08-27 09:25 | Outpatient (CLI) | payer SELFPAY ==
[2019-08-27 10:17] LABS: hCG Titer Quant., Serum < 1 mIU/mL (1-3)
== END ==
PROVIDERS: PCP Internal Medicine; Referring Provider Obstetrics & Gynecology; Visit Provider Obstetrics & Gynecology
DX: N91.2 Amenorrhea, unspecified (principal)
CPT/HCPCS: 36415; 84702

== ENCOUNTER → 2019-09-02 16:24 | Outpatient (CLI) | payer SELFPAY ==
[2019-09-02 17:07] LABS: hCG Titer Quant., Serum < 1 mIU/mL (1-3)
== END ==
LOC: LAB 16:26
PROVIDERS: PCP Internal Medicine; Referring Provider Nurse Practitioner Women's Health; Visit Provider Nurse Practitioner Women's Health
DX: N91.2 Amenorrhea, unspecified (principal)
CPT/HCPCS: 36415; 84702

== ENCOUNTER 2019-09-07 13:05 | Emergency (ER) | payer SELFPAY ==
[2019-09-07 13:07] VITALS: BP 104/65; PULSE 76; RESP 17; TEMP 37.1; O2SAT 98; BMI 25.9
--- NOTE | 2019-09-07 13:37 | ED.DCSUM_ITS ---
History of Present Illness Informant: Patient Onset: Days - 3 days Context: Gradual Onset Timing: Continuous Quality: Burning Location: tongue and inside of mouth on cheek Current Severity: Severe Maximum Severity: Severe Worsened by: eating/drinking Relieved by: nothing Associated Symptoms: myalgias Prior similar symptoms: No Recent Illness/Hospitalization: No <CandifamiliaQuentin - Last Filed: 09/07/19 14:04> <Jennifer Zavala - Last Filed: 09/07/19 14:40> Chief Complaint: Other, Pain/Inj Past Medical History Prior records reviewed: Yes Past Medical History: - - hypothyroidism Surgical History: noncontributory Lives: With Family Smoking Status: Never smoker <uQentin Subramanian - Last Filed: 09/07/19 14:04> <Jennifer Zavala - Last Filed: 09/07/19 14:40> - Allergies and Home Meds Allergies/Adverse Reactions: Allergies poison oak extract Allergy (Verified 09/07/19 13:06) Unknown Latex, Natural Rubber Adverse Reaction (Verified 09/07/19 13:06) Rash sensitive not allergic Primary Care Physician: Cat Mccoy MD [Primary Care Provider] - 5-7 Days Review of Systems All systems negative except as indicated General: Denies: Chills, Fever, Malaise Eyes: Denies: Visual changes - bilaterally, Blurred Vision - bilaterally, Diplopia ENT: Denies: Rhinorrhea, Sore throat Cardiovascular: Denies: Chest pain, Palpitations, Heart racing Respiratory: Denies: Dyspnea, Cough, Sputum Gastrointestinal: Denies: Abdominal pain, Nausea, Vomiting, Diarrhea Genitourinary: Denies: Dysuria, Hematuria, Frequency Musculoskeletal: Reports: Myalgias. Denies: Arthralgias, Neck pain, Back pain, Swelling, Extremity Pain Skin: Reports: Rash. Denies: Abscess, Abrasions, Wounds Neurological: Denies: Headache, Weakness, Parasthesia, Numbness Hematologic: Denies: Easy bruising, Easy bleeding <CandifamiliauQentin - Last Filed: 09/07/19 14:04> Physical Exam Vital Signs/Narrative: Vital Signs Temp Pulse Resp BP Pulse Ox 09/07/19 13:07 98.7 F 76 17 104/65 98 Inital Vital Signs reviewed: Yes General: Well nourished, Well developed, No Acute Distress Head: Normocephalic, Atraumatic Eyes: Perrl, EOMI ENT: Moist mucous membranes, - - vesicular lesions left lateral tongue and inside left cheek. Neck: Supple, Nontender Cardiovascular: Regular rate, Regular rhythm Respiratory: No distress, CTA bilaterally, Chest nontender Abdomen: Soft, Nontender, Nondistended, Normal bowel sounds Back: Nontender, Normal Inspection Extremities: Nontender, No edema. Negative for: Tenderness Skin: Normal color, Rash Neurological: Alert, Oriented x3 Psychological: Normal affect <Quentin Subramanian - Last Filed: 09/07/19 14:04> Vital Signs/Narrative: Vital Signs Temp Pulse Resp BP Pulse Ox 09/07/19 13:07 98.7 F 76 17 104/65 98 <Jennifer Zaavla - Last Filed: 09/07/19 14:40> Diagnostic/Tx/Re-eval - Medical Decision Making Patient's lesions in her mouth and on her tongue are consistent with herpes. She was offered testing to confirm with cultures but she declines because she states that her was diagnosed with this on his genitalia last week. She will be placed on acyclovir and referred back to her primary for follow-up. She is able to tolerate by mouth she has a normal airway she has no constitutional symptoms and she is agreeable with our plan of care. <Quentin Subramanian - Last Filed: 09/07/19 14:04> - Medical Decision Making Patient was seen with [facility] agree with history and physical exit exam as above, patient presents with some vesicles over her tongue and cheek indicates her recent was diagnosed with culture positive herpes on exam she does have some scattered vesicles to the tongue and the cheek her airways i ntact the rest of her exam is unremarkable she does not wish to undergo any type of testing and has appointment to see outpatient providers for all the above see the chart for full details <Jennifer Zavala - Last Filed: 09/07/19 14:40> ED Disposition <Quentin Subramanian - Last Filed: 09/07/19 14:04> <Jennifer Zavala - Last Filed: 09/07/19 14:40> - Plan for ED Patient: Disposition: Home or Assisted Living Diagnosis: Herpes simplex, Gingivostomatitis Instructions: Herpes, Herpes: Caring for Sores Prescriptions: Acyclovir 400 mg PO TID #30 tab Prescription Printed predniSONE tablet 40 mg PO DAILY #10 tab Prescription Printed Referrals: Cat Mccoy MD [Primary Care Provider] - 5-7 Days
[2019-09-07] MEDS: predniSONE 20 MG Tablet 60 MG PO (14:53)
[2019-09-07] MEDS: Acyclovir 800 MG Tablet PO (14:53)
== END 2019-09-07 15:04 | disposition home or self-care (01) ==
PROVIDERS: Emergency Provider Physician Assistant Medical; PCP Internal Medicine
DX: B00.2 Herpesviral gingivostomatitis and pharyngotonsillitis (principal); E03.9 Hypothyroidism, unspecified; Z91.040 Latex allergy status; Z79.899 Other long term (current) drug therapy
CPT/HCPCS: 99283

== ENCOUNTER → 2019-10-30 17:02 | Outpatient (CLI) | payer SELFPAY ==
[2019-10-30 18:03] LABS: hCG Titer Quant., Serum < 1 mIU/mL (1-3)
== END ==
LOC: LAB 17:04
PROVIDERS: PCP Internal Medicine; Referring Provider Obstetrics & Gynecology; Visit Provider Obstetrics & Gynecology
DX: N91.2 Amenorrhea, unspecified (principal)
CPT/HCPCS: 36415; 84702

== ENCOUNTER 2019-12-07 22:19 | Emergency (ER) | payer SELFPAY ==
[2019-12-07 22:21] VITALS: BP 139/68; PULSE 87; RESP 16; RESP 18; TEMP 36.6; O2SAT 98; BMI 25.7
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
[2019-12-08] MEDS: Ibuprofen 600 MG Tablet PO (00:21)
[2019-12-08 01:36] VITALS: RESP 16
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
[2019-12-08 02:05] VITALS: BP 106/65; PULSE 76; RESP 16; O2SAT 100
== END 2019-12-08 02:05 | disposition home or self-care (01) ==
PROVIDERS: Emergency Provider Emergency Medicine; PCP Internal Medicine
DX: S16.1XXA Strain of muscle, fascia and tendon at neck level, initial encounter (principal); M62.838 Other muscle spasm; V44.5XXA Car driver injured in collision with heavy transport vehicle or bus in traffic accident, initial encounter; Y93.9 Activity, unspecified; Y92.9 Unspecified place or not applicable; Y99.9 Unspecified external cause status; E03.9 Hypothyroidism, unspecified; Z79.899 Other long term (current) drug therapy
CPT/HCPCS: 70450; 72125; 99283

== ENCOUNTER → 2020-04-01 10:05 | Outpatient (CLI) | payer SELFPAY ==
[2020-04-01 09:37] VITALS: BMI 25.7
[2020-04-01 10:05] LABS: Bacteria 0 SEEN /hpf (None Seen); Mucous, Urine 0 SEEN /hpf (<or=2+); Red Blood Cells-Urine 0 SEEN /hpf (0-5)
[2020-04-01 12:40] LABS: Absolute Neutrophil Count 2.9 X10^3/uL (2.0-7.7); Basophil# 0.03 X10^3/uL; Basophil% 0.6 % (0-1); Eosinophil# 0.08 X10^3/uL; Eosinophils% 1.7 % (0-5); Hematocrit 39.1 % (37-47); Lymphocyte % 27.8 % (19-41); Mean Corp Hgb Conc 33.2 g/dL (32-36); Mean Corpuscular Hgb 29.9 pg (27.0-32.0); Mean Corpuscular Volume 89.9 fL (81-99); Mean Platelet Vol. 11.4 fl (6.2-12.0); Monocyte# 0.39 X10^3/uL; Monocyte% 8.4 % (0-10); NRBC Flagged by Analyzer 0 % (0-5); Neutrophil # 2.86 X10^3/uL (2.7-7.7); Neutrophil % 61.3 % (47-70); Platelet Count 202 K/mm3 (150-450); RBC Distribution Width CV 12.2 % (11.6-14.6); RBC Distribution Width SD 40.4 fl (35.1-43.9); Red Blood Count 4.35 M/mm3 (4.2-5.4); White Blood Count 4.7 K/mm3 (4.4-11.0)
[2020-04-01 12:56] LABS: Color, Urine Yellow (Yellow); Glucose, Dipstick Normal (Normal); Ketone-Dipstick Negative (Negative); Leukocyte Esterase-Dipstick 100 /ul (Negative); Nitrite-Dipstick Negative (Negative); Occult Blood-Urine Negative /ul (Negative); Protein-Dipstick Negative (Negative); Urine Bilirubin Dipstick Negative (Negative); Urine Clarity Sl. Cloudy (Clear); Urine Urobilinogen Normal (Normal)
[2020-04-01 13:06] LABS: ALB/GLOB Ratio 1.2 RATIO (0.9-2.4); AST(SGOT) 15 U/L (15-37); Alanine Aminotransfer ALT/SGPT 18 U/L (13-56); Albumin, Serum 3.7 g/dL (3.2-5.0); Alkaline Phosphatase 62 U/L (45-117); Anion Gap 5 (5-15); BUN 13 mg/dL (7-18); BUN/Creat Ratio 15.1 RATIO (10-20); Calcium,Total 8.3 mg/dL (8.5-10.1); Chloride 109 mmol/L (98-107); Creatinine, Serum 0.86 mg/dL (0.55-1.02); EST Glomerular Filtration Rate 82 mL/min (>60); Est Glom Filt Rate - Afr Amer 99 mL/min (>60); Globulin 3.1 g/dL (2.2-4.2); Glucose 76 mg/dL (74-106); Potassium 4.2 mmol/L (3.5-5.1); Protein, Total 6.8 g/dL (6.4-8.2); Sodium Level 139 mmol/L (136-145)
[2020-04-01 13:07] LABS: Squamous Epithelial Cells - UA 0-5 SEEN /hpf (5-10); White Blood Cells 10-25 SEEN /hpf (0-5)
== END ==
LOC: BIMLAB 10:05
PROVIDERS: PCP Internal Medicine; Referring Provider Internal Medicine; Visit Provider Internal Medicine
DX: E03.9 Hypothyroidism, unspecified (principal); R53.81 Other malaise; R53.83 Other fatigue; R30.0 Dysuria
CPT/HCPCS: 36415; 80053; 81001; 84443; 85025

== ENCOUNTER → 2020-07-13 15:58 | Outpatient (CLI) | payer MEDICAID, SELFPAY ==
[2020-07-13 13:48] VITALS: BMI 30.2
--- NOTE | 2020-07-13 16:01 | US_ITS ---
STUDY: ULTRASOUND OF THE FEMALE PELVIS - COMPLETE REASON FOR EXAM: Female, 29 years old. PCOS, AUB INFERTILITY LMP: 07/06/2020 TECHNIQUE: Endovaginal and transabdominal TECHNICAL QUALITY: Adequate. COMPARISON: None. FINDINGS: The uterus is retroverted and is in a midline position. The uterus measures 6.4 x 6.4 x 4.2 cm. Normal uterine cervix. The endometrium measures 6 mm in thickness, and is hyperechoic. There is no demonstrated endometrial mass. There is heterogeneity of the myometrium without defined mass. The patient does not have an I.U.D. The right ovary is visualized. The right ovary measures 4.1 x 2.4 x 1.8 cm. There is no right ovarian cyst or ovarian mass. There is no visualized right adnexal mass or complex lesion. There is normal arterial and normal venous vascularity. The left ovary is visualized. The left ovary measures 4.2 x 2.7 x 2.0 cm. There is a 1.4 cm left ovarian cyst. There is normal arterial and normal venous vascularity. There is moderate fluid in the cul-de-sac. The urinary bladder has a volume of 211 cc. US/Transvaginal Non- IMPRESSION: Retroverted uterus with heterogeneous myometrium. Moderate pelvic fluid. Left ovarian cyst. Electronically Signed: Reddy Peralta DO at 23:52 EST Tel [phone], Service support ,
--- NOTE | 2020-07-13 16:01 | US_ITS ---
STUDY: ULTRASOUND OF THE FEMALE PELVIS - COMPLETE REASON FOR EXAM: Female, 29 years old. PCOS, AUB INFERTILITY LMP: 07/06/2020 TECHNIQUE: Endovaginal and transabdominal TECHNICAL QUALITY: Adequate. COMPARISON: None. FINDINGS: The uterus is retroverted and is in a midline position. The uterus measures 6.4 x 6.4 x 4.2 cm. Normal uterine cervix. The endometrium measures 6 mm in thickness, and is hyperechoic. There is no demonstrated endometrial mass. There is heterogeneity of the myometrium without defined mass. The patient does not have an I.U.D. The right ovary is visualized. The right ovary measures 4.1 x 2.4 x 1.8 cm. There is no right ovarian cyst or ovarian mass. There is no visualized right adnexal mass or complex lesion. There is normal arterial and normal venous vascularity. The left ovary is visualized. The left ovary measures 4.2 x 2.7 x 2.0 cm. There is a 1.4 cm left ovarian cyst. There is normal arterial and normal venous vascularity. There is moderate fluid in the cul-de-sac. The urinary bladder has a volume of 211 cc. US/Pelvic (Non ) IMPRESSION: Retroverted uterus with heterogeneous myometrium. Moderate pelvic fluid. Left ovarian cyst. Electronically Signed: Redyd Peralta DO at 23:52 EST Tel [phone], Service support ,
== END ==
PROVIDERS: PCP Internal Medicine; Referring Provider Obstetrics & Gynecology; Visit Provider Obstetrics & Gynecology
DX: N93.9 Abnormal uterine and vaginal bleeding, unspecified (principal)
CPT/HCPCS: 76830; 76856

== ENCOUNTER → 2020-08-09 19:13 | Outpatient (CLI) | payer MEDICAID, SELFPAY ==
[2020-07-13 13:48] VITALS: BMI 30.2
[2020-08-09 21:03] LABS: Estradiol 33.9 pg/mL; Follicle Stimulating Hormone 5.5 mIU/mL; Luteinizing Hormone 4.9 mIU/mL; Prolactin 8.2 ng/mL; Thyroid Stim Hormone (TSH) 2.97 uIU/mL (0.358-3.74)
[2020-08-14 16:24] LABS: Anti-Mullerian Hormone,Serum 8.33 ng/mL (.)
== END ==
PROVIDERS: PCP Nurse Practitioner Family; Visit Provider Obstetrics & Gynecology
DX: N93.9 Abnormal uterine and vaginal bleeding, unspecified (principal)
CPT/HCPCS: 36415; 82627; 82670; 83001; 83002; 83516; 84146; 84403; 84443; 82626

== ENCOUNTER → 2020-09-08 15:46 | Outpatient (CLI) | payer MEDICAID, SELFPAY ==
[2020-08-13 14:18] VITALS: BMI 30.9
[2020-09-08 16:21] LABS: hCG Titer Quant., Serum < 1 mIU/mL (1-3)
== END ==
PROVIDERS: PCP Nurse Practitioner Family; Referring Provider Obstetrics & Gynecology; Visit Provider Obstetrics & Gynecology
DX: N91.2 Amenorrhea, unspecified (principal)
CPT/HCPCS: 36415; 84702

== ENCOUNTER 2020-11-27 19:43 | Emergency (ER) | payer MEDICAID, SELFPAY ==
[2020-08-13 14:18] VITALS: BMI 30.9
[2020-11-27 19:44] VITALS: BP 119/65; PULSE 83; RESP 18; TEMP 36.4; O2SAT 98; BMI 29.5
--- NOTE | 2020-11-27 20:14 | ED.DCSUM_ITS ---
History of Present Illness Chief Complaint: Cold Sx Informant: Patient Narrative: Patient is a 30-year-old female that denies any significant medical history presenting with right eye pain. Patient states that for the past week she has had pain and pressure in her right ear. Yesterday she started to get pain and her right lower eyelid. She was in urgent care who thought she might have the beginning of an ear infection. Told her to come back if her symptoms worsen. Today her ear feels better but the eye pain worsened and she said swelling the bottom inner eyelid. She is unsure if her vision is been blurry if she does not wear her glasses. She does have associated headache. She has chronic ringing in her ears which is unchanged. Patient states has had very mild sinus pressure. She denies any rhinorrhea, sore throat, fever or chills. She denies any GI symptoms. She notes that she did have an abnormal period last week as she only bled for 1 day which is unusual for her. To note she is currently trying to conceive. No other complaints at this time. No sick contacts. Past Medical History - Allergies and Home Meds Allergies/Adverse Reactions: Allergies poison oak extract Allergy (Verified 08/13/20 14:18) Unknown Latex, Natural Rubber Adverse Reaction (Verified 08/13/20 14:18) Rash sensitive not allergic Primary Care Physician: Rajeev Pino NP, [employer] [Primary Care Provider] - Surgical History: noncontributory Lives: Spouse/ Significant Other Smoking Status: Former smoker Review of Systems General: Denies: Chills, Fever, Sweats Eyes: Reports: Blurred vision - right, - - right eyelid pain and swelling . Denies: Visual changes - bilaterally, Diplopia ENT: Reports: Right ear pain. Denies: Rhinorrhea, Sore throat Cardiovascular: Denies: Chest pain, Palpitations Respiratory: Denies: Dyspnea, Cough, Dyspnea on exertion Gastrointestinal: Denies: Abdominal pain, Nausea, Vomiting, Diarrhea, Melena, Hematochezia Genitourinary: Denies: Dysuria, Hematuria, Frequency Musculoskeletal: Denies: Back pain, Extremity Pain Skin: Denies: Rash, Wounds Neurological: Reports: Headache. Denies: Weakness, Numbness Physical Exam Vital Signs/Narrative: Vital Signs Temp Pulse Resp BP Pulse Ox 11/27/20 19:44 97.5 F L 83 18 119/65 98 Inital Vital Signs reviewed: Yes General: Well nourished, Well developed, No Acute Distress Head: Normocephalic, Atraumatic Eyes: Perrl, EOMI, - - Is range of motion of the eyes. No proptosis. Minor swelling and tenderness palpation of the right medial lower eyelid. This is consistent with stye. ENT: Moist mucous membranes, No rhinorrhea, TM's clear. Negative for: Nasal congestion, Sinus tenderness Neck: Supple, Nontender, No lymphadenopathy Cardiovascular: Regular rate, Regular rhythm, No murmurs Respiratory: No distress, CTA bilaterally, Chest nontender Abdomen: Soft, Nontender, Nondistended, Normal bowel sounds Back: Nontender, Normal Inspection Extremities: Nontender, No edema Skin: Normal color, No rash Neurological: Alert, Oriented x3, Cranial nerves II-XII grossly intact Psychological: Normal affect, Normal Mood Diagnostic/Tx/Re-eval - Medical Decision Making Patient evaluated for concern of eye infection/upper respiratory infection. Physical exam is consistent with a stye. No signs of abscess. No signs of preseptal or other cellulitis. She does not appear to vision changes. I suspect she is a little bit of dry eye associated with her stye. She started on erythromycin ointment for the eye and instructed on using warm compresses. She does admit to me that she is been doing warm compresses at home and it feels better when she does it. Patient does not have findings consistent with an acute sinusitis or otitis media. I do not suspect a viral syndrome. She had an irregular. 1 week ago and will take a home test. Patient does not have meningeal signs. She has no focal neurologic deficits. Patient is counseled on signs and symptoms requiring return to the emergency room. Patient verbalizes agreement and understand this plan. Patient discharged home in stable and improved condition. ED Disposition - Plan for ED Patient: Disposition: Home or Assisted Living Diagnosis: Hordeolum internum right lower eyelid Instructions: ED Sty Prescriptions: Peg 400/Hypromellose/Glycerin [Visine Tears Drops] 1 drp OP Q6H PRN PRN #15 ml PRN Reason: Dry Eye Prescription Printed Referrals: Rajeev Pino NP, [employer] [Primary Care Provider] - Adán Schaffer MD [STAFF PHYSICIAN] - Additional Instructions: Apply erythromycin ointment to the right lower eyelid where it is painful 2-3 times a day until resolved. More importantly, continue to do warm compresses at least 4 times a day until swelling and pain resolved. If you do not have improvement of your symptoms you been referred to an eye doctor for further evaluation.
[2020-11-27] MEDS: Erythromycin Base 1 OPTH.TUBE 1 APPLIC RIGHT EYE (20:25)
[2020-11-27 20:26] VITALS: BP 103/62
== END 2020-11-27 20:33 | disposition home or self-care (01) ==
PROVIDERS: Emergency Provider Emergency Medicine; PCP Nurse Practitioner Family
DX: H00.022 Hordeolum internum right lower eyelid (principal); R51.9 Headache, unspecified; H93.13 Tinnitus, bilateral; Z87.891 Personal history of nicotine dependence
CPT/HCPCS: 99282

== ENCOUNTER 2020-11-29 22:51 | Emergency (ER) | payer MEDICAID, SELFPAY ==
[2020-11-29 22:51] VITALS: BP 111/75; PULSE 92; RESP 15; TEMP 36.8; O2SAT 98; BMI 30.1
[2020-11-29 22:54] VITALS: BP 111/75; PULSE 104; RESP 15; O2SAT 98
--- NOTE | 2020-11-29 23:01 | ED.VIS.GEN ---
History of Present Illness Chief Complaint: Fall Informant: Patient Onset: Today Current Severity: Mild Maximum Severity: Moderate Narrative: Patient presents with right hip pain after a fall. Patient was in a local store and slipped in the bathroom falling onto her right hip. She states she was able to get up and go to the restroom following this. She is unsure if she may be stating that she has recently been on fertility treatment. She denies striking her head or any other neck or back pain. - Past Medical History (1) GERD (gastroesophageal reflux disease) Status: Chronic (2) Hypothyroid Status: Chronic (3) Anxiety Status: Chronic (4) Chronic headaches Status: Chronic Past Medical History - Allergies and Home Meds Allergies/Adverse Reactions: Allergies poison oak extract Allergy (Verified 08/13/20 14:18) Unknown Latex, Natural Rubber Adverse Reaction (Verified 08/13/20 14:18) Rash sensitive not allergic Primary Care Physician: Rajeev Pino REEL REPAIRER, [employer] [Primary Care Provider] - Prior records reviewed: Yes Surgical History: noncontributory Lives: With Family Smoking Status: Former smoker Review of Systems General: Denies: Chills, Fever Eyes: Denies: Visual changes - bilaterally ENT: Denies: Bilateral ear pain Cardiovascular: Denies: Chest pain Respiratory: Denies: Dyspnea, Cough Gastrointestinal: Denies: Abdominal pain, Nausea, Vomiting Musculoskeletal: Reports: Extremity Pain Skin: Denies: Rash Neurological: Denies: Headache Hematologic: Denies: Easy bruising, Easy bleeding Allergy: Denies: Uticaria Physical Exam Vital Signs/Narrative: Vital Signs Temp Pulse Resp BP Pulse Ox 11/29/20 22:54 104 H 15 111/75 98 11/29/20 22:51 98.2 F 92 15 111/75 98 Inital Vital Signs reviewed: Yes General: Well nourished, Well developed Head: Normocephalic ENT: Moist mucous membranes Cardiovascular: Regular rate, Regular rhythm Respiratory: No distress, CTA bilaterally Abdomen: Soft, Nontender Back: - - No thoracic or lumbar tenderness. Tenderness to the right posterior pelvis. Extremities: - - Tenderness over the greater trochanter of the right hip. Positive pain with logroll. Neurological: Alert, Oriented x3 Psychological: Normal affect Diagnostic/Tx/Re-eval 11/29/20 23:40 Pelvis 1 or 2 Views [RAD] Stat 11/29/20 23:41 Femur Min 2 Views [RAD] Stat Laboratory Results 11/29/20 23:20 Urine Test Negative - Medical Decision Making test is obtained and negative. Patient is given Tylenol for pain. Pelvis and right femur x-rays are normal per my interpretation. Test results discussed with the patient. She will continue Tylenol or ibuprofen at home for pain. She will be given crutches as she has significant right hip pain with weightbearing and feels like her leg gives out on her. If not improving in the next 3 to 5 days she will follow-up with her PCP. ED Disposition - Plan for ED Patient: Disposition: Home or Assisted Living Diagnosis: Contusion of right hip Instructions: ED Hip Contusion Referrals: Rajeev Pino REEL REPAIRER, [employer] [Primary Care Provider] - 3-5 Days if not improving
[2020-11-29 23:40] LABS: Internal QC Validated? YES +Cl - CLEAR BKGD; Pregnancy, Urine Negative Negative
--- NOTE | 2020-11-29 23:42 | RAD_ITS ---
STUDY: X-RAY - RIGHT FEMUR REASON FOR STUDY: Female, 30 years old. fall TECHNIQUE: 2 view(s) of the femur. COMPARISON: None. FINDINGS: Normal visualized femur. Normal visualized soft tissue structure. RAD/Femur Min 2 Views IMPRESSION: Normal x-ray examination of the femur. Electronically Signed: Cipriano Caro MD at 0:40 EDT Tel , Service support ,
--- NOTE | 2020-11-29 23:42 | RAD_ITS ---
STUDY: X-RAY - PELVIS REASON FOR EXAM: Female, 30 years old. fall TECHNIQUE: One view of the pelvis was obtained. COMPARISON: None. FINDINGS: Phleboliths within the pelvis. Moderate stool in the colon. No acute fracture or dislocation identified. RAD/Pelvis 1 or 2 Views IMPRESSION: No acute fracture. Electronically Signed: Cipriano Caro MD at 0:41 EDT Tel , Service support ,
[2020-11-30] MEDS: Acetaminophen 500 MG Tablet 1000 MG PO (00:06)
[2020-11-30 00:25] VITALS: PULSE 80; RESP 18; O2SAT 100
== END 2020-11-30 00:25 | disposition home or self-care (01) ==
PROVIDERS: Emergency Provider Emergency Medicine; PCP Nurse Practitioner Family
DX: S70.01XA Contusion of right hip, initial encounter (principal); W01.0XXA Fall on same level from slipping, tripping and stumbling without subsequent striking against object, initial encounter; Y93.9 Activity, unspecified; Y92.512 Supermarket, store or market as the place of occurrence of the external cause; Y99.9 Unspecified external cause status; E03.9 Hypothyroidism, unspecified; K21.9 Gastro-esophageal reflux disease without esophagitis; Z79.890 Hormone replacement therapy; Z87.891 Personal history of nicotine dependence
CPT/HCPCS: 72170; 73552; 81025; 99285

== ENCOUNTER 2020-12-15 17:23 | Emergency (ER) | payer MEDICAID, SELFPAY ==
[2020-12-15 17:23] VITALS: BP 122/64; PULSE 86; RESP 15; TEMP 36.3; O2SAT 98; BMI 29.2
--- NOTE | 2020-12-15 17:36 | EDS_ITS ---
HPI HPI - GI History of Present Illness Chief Complaint: Abd Pain Informant: patient Abdominal Pain/Flank Pain Onset: Days Narrative Narrative: Patient is a 30-year-old female presented with abdominal pain. Patient states she has had intermittent right-sided and periumbilical pain over the past few days. Patient describes the pain as sharp in nature. It lasted about 30 seconds at a time. It was actually worse last night. Took Tylenol with relief. Patient states she is actively trying to conceive and had a negative test yesterday but had a faint positive test today. She has had 3 prior pregnancies notes 3 children at home. She denies any abnormal vaginal bleeding or discharge. She denies any urinary symptoms. She denies any nausea, vomiting or change in bowel habits. She denies any prior abdominal surgeries. Patient has any fever or chills. No other complaints at this time. PFSH FOR[facility], [facility] Medical History (Updated 12/15/20 @ 19:[address] Iman Clarke, DO) Anxiety Asthma Chronic headaches Hypothyroid Seasonal allergies UTI (urinary tract infection) Home Medications levothyroxine 25 mcg tablet 25 mcg PO DAILY #90 tab 08/26/20 [Rx Last Taken Unknown] peg [id number] 1 drp OP Q6H PRN PRN #15 ml 11/27/20 [Rx Last Taken Unknown] Allergy/AdvReac Type Severity Reaction Status Date / Time poison oak extract Allergy Unknown Verified 12/15/20 17:25 Latex, Natural Rubber AdvReac Rash Verified 12/15/20 17:25 Family History Mother Anxiety Sleep apnea Sister Sleep apnea Surgical History No history of previous surgery Social History (Updated 08/13/20 @ 20:[address] Indira Lee MD) Smoking Status: Former smoker alcohol intake: never substance use type: does not use what type of physical activity do you participate in: weight training and other details: Cardio frequency: daily duration: 30-45 minutes/day seatbelt use: always do you feel safe at home: Yes additional social history: Onesimo JASON ROS ED Constitutional Constitutional ED: Denies chills, fever(s) or malaise Eyes Eyes: Denies blurry vision or loss of vision ENT ENT ED: Denies rhinorrhea or sore throat Cardiovascular Cardiovascular: Denies chest pain or dizziness Respiratory/Chest Respiratory/Chest: Denies cough or dyspnea Gastrointestinal Gastrointestinal: Reports abdominal pain; Denies constipation, diarrhea, nausea or vomiting Genitourinary Genitourinary ED: Reports LMP (females 10-50) Details: Comment: (November 16); Denies dysuria or hematuria Musculoskeletal Musculoskeletal: Denies arthralgias or myalgias Integumentary Denies rash or wounds Neurologic Neurologic: Denies focal weakness or headache(s) Psychiatric Psychiatric: Denies anxiety or behavioral changes EXAM Physical Exam Const Vital Signs: 12/15/20 17:23 Temperature 97.3 F L Temperature Source Temporal Pulse Rate 86 Respiratory Rate 15 Blood Pressure 122/64 H Blood Pressure Mean 83 Pulse Ox 98 Oxygen Delivery Method Room Air Positive well nourished, well developed and no apparent distress General Appearance ED: well developed HEENT Reports normocephalic atraumatic Nose: no nasal discharge General Ear: hearing grossly impaired External Ear: external ears normal Mouth ED: Yes moist mucous membranes abnormal Mouth: moist mucous membranes abnormal Eyes PERRL and EOMs intact bilaterally Neck full ROM, supple, no meningeal signs and no JVD Chest Wall inspection of chest normal Resp normal respiratory effort and normal air movement Cardio regular rate and regular rhythm GI normal to inspection, nondistended, normoactive bowel sounds and non-distended Palpation: soft and tender LLQ and suprapubic; Negative for guarding or rigid Back/Spine no CVA tenderness Extremity normal to inspection and full ROM Neuro oriented x3 and no focal motor deficits Neuro Narrative: No focal deficits Sensorium / Orientation: alert Psych mental status grossly normal and thought process normal Skin no rashes or lesions noted and no wounds Rashes: no rashes MDM MDM MDM Narrative Medical decision making narrative: Patient evaluated for intermittent abdominal pain. She appears nontoxic no acute distress. She is also concerned she is possibly . She had a faint positive on home test today. On exam her abdomen is soft. She has mild tenderness in her suprapubic region/left lower quadrant. Her work-up is largely negative. CBC is normal. BMP does not show any acute abnormalities. Liver panel and lipase are normal. hCG quant is negative. I presume this must been a false positive test today. Urinalysis shows 0-5 white blood cells but 5-10 squamous cells and no bacteria. I do not think she has UTI. Patient is offered CT scan to rule out any acute intra-abdominal pathology since I do not have a good cause to her pain. At this time she declines. She states she lives close and will turn to the emergency room if her pain worsens. She is counseled that we could be missing something like diverticulitis or an acute surgical abnormality. She verbalizes understanding of this. She will alternate Tylenol and ibuprofen at home as needed for pain. She will follow up with her primary care doctor. Patient is counseled on signs and symptoms requiring return to the emergency room. Patient verbalizes agreement and understand this plan. Patient discharged home in stable and improved condition. Lab Data Labs: Laboratory Results - last 24 hr 12/15/20 12/15/20 12/15/20 17:50 17:55 17:55 WBC 6.3 RBC 4.45 Hgb 13.1 Hct 39.4 MCV 88.5 MCH 29.4 MCHC 33.2 RDW Std Deviation 38.5 RDW Coeff of Cindy 11.9 Plt Count 215 MPV 11.0 Immature Gran % (Auto) 0.300 Neut % (Auto) 60.7 Lymph % (Auto) 29.7 [place] % (Auto) 6.9 Eos % (Auto) 1.9 Baso % (Auto) 0.5 Absolute Neuts (auto) 3.9 Absolute Lymphs (auto) 1.88 Nucleated RBC % 0 Sodium 140 Potassium 3.7 Chloride 108 H Carbon Dioxide 27.0 Anion Gap 5 BUN 16 Creatinine 0.82 Estim Creat Clear Calc 81.48 Est GFR (MDRD) Af Amer 104 Est GFR (MDRD) Non-Af 86 BUN/Creatinine Ratio 19.5 Glucose 89 Calcium 8.4 L Total Bilirubin 0.50 AST 15 ALT 26 Alkaline Phosphatase 91 Total Protein 7.1 Albumin 3.8 Globulin 3.3 Albumin/Globulin Ratio 1.2 Lipase 93 HCG, Quant Urine Color Yellow Urine Clarity Sl. Cloudy Urine pH 6.5 Ur Specific [place] 1.015 Urine Protein Negative Urine Glucose (UA) Normal Urine Ketones Negative Urine Occult Blood Negative Urine Nitrite Negative Urine Bilirubin Negative Urine Urobilinogen Normal Ur Leukocyte Esterase 25 H Urine RBC 0 SEEN Urine WBC 0-5 SEEN Ur Squamous Epith Cells 5-10 SEEN Amorphous Sediment 1+ URATE Urine Bacteria 0 SEEN Urine Mucus 0 SEEN 05/11/21 17:55 WBC RBC Hgb Hct MCV MCH MCHC RDW Std Deviation RDW Coeff of Cindy Plt Count MPV Immature Gran % (Auto) Neut % (Auto) Lymph % (Auto) [place] % (Auto) Eos % (Auto) Baso % (Auto) Absolute Neuts (auto) Absolute Lymphs (auto) Nucleated RBC % Sodium Potassium Chloride Carbon Dioxide Anion Gap BUN Creatinine Estim Creat Clear Calc Est GFR (MDRD) Af Amer Est GFR (MDRD) Non-Af BUN/Creatinine Ratio Glucose Calcium Total Bilirubin AST ALT Alkaline Phosphatase Total Protein Albumin Globulin Albumin/Globulin Ratio Lipase HCG, Quant < 1 Urine Color Urine Clarity Urine pH Ur Specific [place] Urine Protein Urine Glucose (UA) Urine Ketones Urine Occult Blood Urine Nitrite Urine Bilirubin Urine Urobilinogen Ur Leukocyte Esterase Urine RBC Urine WBC Ur Squamous Epith Cells Amorphous Sediment Urine Bacteria Urine Mucus Discharge Plan Triage Chief Complaint: Abd Pain ED Provider: Iman Clarke Dx/Rx/DC Orders Clinical Impression: Abdominal pain of unknown cause, Negative test Instructions: ED Abdominal Pain Unkn Cause Fem Prescriptions: No Action peg [id number] 15 ML drops 1 drp OP Q6H PRN PRN (Reason: Dry Eye) Qty: 15 RF: 0 levothyroxine 25 mcg tablet 25 mcg PO DAILY Qty: 90 RF: 1 Primary Care Provider: Rajeev Pino NP Referrals: Rajeev Pino NP, PROGRAM MANAGEMENT ANALYST-C [Primary Care Provider] - Activity Restrictions/Additional Instructions: Please return to the emergency room if you develop worsening pain. That time he might require further imaging. Currently your work-up was normal. No signs of infection based on your blood work or urine. Your test was negative. Disposition Disposition: Home, self care Discharge Date/Time: 12/15/20 19:11
[2020-12-15 18:04] LABS: Bacteria 0 SEEN /hpf (None Seen); Mucous, Urine 0 SEEN /hpf (<or=2+); Red Blood Cells-Urine 0 SEEN /hpf (0-5)
[2020-12-15 18:07] LABS: Absolute Lymphocyte Count 1.88 X10^3/uL (0.83-4.51); Absolute Neutrophil Count 3.9 X10^3/uL (2.0-7.7); Basophil# 0.03 X10^3/uL; Basophil% 0.5 % (0-1); Eosinophil# 0.12 X10^3/uL; Eosinophils% 1.9 % (0-5); Hematocrit 39.4 % (37-47); Hemoglobin 13.1 g/dL (12.0-15.0); Lymphocyte # 1.88 X10^3/ul (0.83-4.51); Lymphocyte % 29.7 % (19-41); Mean Corp Hgb Conc 33.2 g/dL (32-36); Mean Corpuscular Hgb 29.4 pg (27.0-32.0); Mean Corpuscular Volume 88.5 fL (81-99); Monocyte# 0.44 X10^3/uL; Monocyte% 6.9 % (0-10); NRBC Flagged by Analyzer 0 % (0-5); Neutrophil # 3.85 X10^3/uL (2.7-7.7); Neutrophil % 60.7 % (47-70); Platelet Count 215 K/mm3 (150-450); RBC Distribution Width CV 11.9 % (11.6-14.6); RBC Distribution Width SD 38.5 fl (35.1-43.9); Red Blood Count 4.45 M/mm3 (4.2-5.4); White Blood Count 6.3 K/mm3 (4.4-11.0)
[2020-12-15 18:35] LABS: Color, Urine Yellow (Yellow); Glucose, Dipstick Normal (Normal); Ketone-Dipstick Negative (Negative); Leukocyte Esterase-Dipstick 25 /ul (Negative); Nitrite-Dipstick Negative (Negative); Occult Blood-Urine Negative /ul (Negative); Protein-Dipstick Negative (Negative); Specific Gravity, Urine 1.015 (1.002-1.030); Urine Bilirubin Dipstick Negative (Negative); Urine Clarity Sl. Cloudy (Clear); Urine Urobilinogen Normal (Normal); Urine pH 6.5 (5.0 - 8.0)
[2020-12-15 18:36] LABS: BUN 16 mg/dL (7-18); Glucose 89 mg/dL (74-106)
[2020-12-15 18:37] LABS: ALB/GLOB Ratio 1.2 RATIO (0.9-2.4); AST(SGOT) 15 U/L (15-37); Alanine Aminotransfer ALT/SGPT 26 U/L (13-56); Albumin, Serum 3.8 g/dL (3.2-5.0); Alkaline Phosphatase 91 U/L (45-117); Anion Gap 5 (5-15); BUN/Creat Ratio 19.5 RATIO (10-20); Calcium,Total 8.4 mg/dL (8.5-10.1); Chloride 108 mmol/L (98-107); Creatinine, Serum 0.82 mg/dL (0.55-1.02); EST Glomerular Filtration Rate 86 mL/min (>60); Est Glom Filt Rate - Afr Amer 104 mL/min (>60); Estimated Creatinine Clearance 81.48 ml/min; Globulin 3.3 g/dL (2.2-4.2); Lipase 93 U/L (73-393); Potassium 3.7 mmol/L (3.5-5.1); Protein, Total 7.1 g/dL (6.4-8.2); Sodium Level 140 mmol/L (136-145)
[2020-12-15 18:39] LABS: hCG Titer Quant., Serum < 1 mIU/mL (1-3)
[2020-12-15 18:57] LABS: Squamous Epithelial Cells - UA 5-10 SEEN /hpf (5-10); White Blood Cells 0-5 SEEN /hpf (0-5)
[2020-12-15 18:58] LABS: Amorphous Sediment 1+ URATE
== END 2020-12-15 19:11 | disposition home or self-care (01) ==
PROVIDERS: Emergency Provider Emergency Medicine; PCP Nurse Practitioner Family
DX: R10.9 Unspecified abdominal pain (principal); E03.9 Hypothyroidism, unspecified; Z87.891 Personal history of nicotine dependence; Z79.899 Other long term (current) drug therapy
CPT/HCPCS: 80053; 81001; 83690; 84702; 85025; 99282; A4216

== ENCOUNTER → 2021-04-22 11:15 | Outpatient (CLI) | payer MEDICAID, SELFPAY ==
[2021-04-22 13:25] LABS: T4 Free Direct 0.99 ng/dL (0.76-1.46)
== END ==
PROVIDERS: PCP Nurse Practitioner Family; Referring Provider Physician Assistant; Visit Provider Physician Assistant
DX: E03.9 Hypothyroidism, unspecified (principal)
CPT/HCPCS: 36415; 84439; 84443

== ENCOUNTER → 2021-04-30 14:55 | Outpatient (CLI) | payer MEDICAID, SELFPAY ==
[2021-05-03 17:07] LABS: Endomysial Antibody IgA Negative (Negative); Immunoglobulin A 56 mg/dL (87-352)
[2021-05-03 18:08] LABS: t-Transglutaminase IgA <2 U/mL (0-3)
== END ==
PROVIDERS: PCP Nurse Practitioner Family; Referring Provider Nurse Practitioner Family; Visit Provider Nurse Practitioner Family
DX: E73.9 Lactose intolerance, unspecified (principal); K90.41 Non-celiac gluten sensitivity
CPT/HCPCS: 36415; 82784; 83516; 86255

== ENCOUNTER 2021-05-15 18:00 | Emergency (ER) | payer MEDICAID, SELFPAY ==
[2021-05-15 18:02] VITALS: BP 111/76; PULSE 72; RESP 14; TEMP 36.8; O2SAT 96; BMI 29.9
--- NOTE | 2021-05-15 19:25 | EX.ED.UPPERE ---
HPI History of Present Illness Chief Complaint: Upper Extremity Injury Informant: patient Narrative Narrative: Patient states that a couple days ago piece of glass caused a right palmar laceration. She thinks there may be a piece of glass still in there. [facility] Medical History Anxiety Asthma Chronic headaches Gluten intolerance Hypothyroid Lactose intolerance Seasonal allergies UTI (urinary tract infection) Home Medications levothyroxine 25 mcg tablet 25 mcg PO DAILY #90 tab 04/22/21 [Rx Last Taken Unknown] nystatin 100,000 unit/gram topical cream 1 applic TOPICAL BID #30 g 04/22/21 [Rx Last Taken Unknown] epinephrine 0.3 mg/0.3 mL injection, auto-injector 0.3 ml IM ONCE #1 ea 05/03/21 [Rx Last Taken Unknown] Allergy/AdvReac Type Severity Reaction Status Date / Time poison oak extract Allergy Unknown Verified 05/15/21 18:01 Latex, Natural Rubber AdvReac Rash Verified 05/15/21 18:01 Family History Mother Anxiety Sleep apnea Sister Sleep apnea Surgical History No history of previous surgery Social History Smoking Status: Former smoker alcohol intake: never substance use type: does not use what type of physical activity do you participate in: weight training and other details: Cardio frequency: daily duration: 30-45 minutes/day seatbelt use: always do you feel safe at home: Yes additional social history: Onesimo GOMEZ ED Constitutional Constitutional ED: Denies chills or weight loss Eyes Eyes: Denies change in vision or diplopia ENT ENT ED: Denies ear pain, rhinorrhea or sore throat Cardiovascular Cardiovascular: Denies chest pain, orthopnea, palpitations or racing heartbeat Respiratory/Chest Respiratory/Chest: Denies cough, dyspnea or orthopnea Gastrointestinal Gastrointestinal: Denies abdominal pain, diarrhea, nausea or vomiting Genitourinary Genitourinary ED: Denies dysuria, hematuria or urinary frequency Musculoskeletal Musculoskeletal: Denies arthralgias or myalgias Integumentary Reports other Details: See history of present illness ; Denies abscess or rash Neurologic Neurologic: Denies headache(s) or weakness Psychiatric Psychiatric: Denies anxiety, depression, suicidal ideation or suicidal thoughts Endocrine Endocrinology: Denies polydipsia, polyphagia or polyuria Allergic/Immunologic Allergic/Immunologic ED: Denies mouth swelling, tongue swelling or urticaria EXAM Physical Exam Const Vital Signs: 05/15/21 18:02 Temperature 98.2 F Temperature Source Temporal Pulse Rate 72 Respiratory Rate 14 Blood Pressure 111/76 Blood Pressure Mean 87 Pulse Ox 96 Oxygen Delivery Method Room Air Positive well nourished and well developed General Appearance ED: well developed HEENT Reports normocephalic, head/scalp atraumatic and moist mucous membranes Eyes PERRL and EOMs intact bilaterally Neck no lymphadenopathy, supple and no JVD Resp normal respiratory effort and clear to auscultation bilaterally Cardio regular rate, regular rhythm and no murmurs GI normal to inspection, nondistended, normoactive bowel sounds and non-tender Palpation: soft Back/Spine no CVA tenderness and normal ROM Extremity normal to inspection General Extremety ED: Negative for edema General Extremity: Negative for edema Neuro oriented x3 and CN's II-XII intact bilaterally Sensorium / Orientation: alert Motor Exam: strength 5/5 throughout Psych mental status grossly normal Mood & Affect: Negative for depressed or tearful Skin no rashes or lesions noted and no wounds Skin Narrative: Right palm near the fifth MCP joint is a small laceration measuring approximately 1 to 2 mm. Tender to palpation MDM MDM MDM Narrative Medical decision making narrative: The wound was locally anesthetized with 1% lidocaine. I used a 25-gauge needle to feel around the wound and could feel it contacting a piece of glass. I then removed a small 3 mm circular area of the skin and remove the piece of glass. We talked about the possibility of a retained foreign body that I am not feeling. I will refer her to hand surgery if this is the case that she continues to have symptoms Discharge Plan Triage Chief Complaint: Upper Extremity Injury ED Provider: Ubaldo Montoya Dx/Rx/DC Orders Clinical Impression: Foreign body (FB) in soft tissue Instructions: ED Foreign Body, Soft Tissue (Removed) Prescriptions: No Action nystatin 100,000 unit/gram cream 1 applic topical BID Qty: 30 RF: 0 levothyroxine 25 mcg tablet 25 mcg PO DAILY Qty: 90 RF: 1 epinephrine 0.3 mg/0.3 mL auto-injector 0.3 ml IM ONCE Qty: 1 RF: 0 Primary Care Provider: Rajeev Pino NP Referrals: Rajeev Pino NP, FELT HAT FLANGING OPERATOR-C [Primary Care Provider] - Kenan Hernandez MD [STAFF PHYSICIAN] - As Needed (for hand surgery if continued concern for foreign body) Disposition Disposition: Home, Self Care
== END 2021-05-15 20:01 | disposition home or self-care (01) ==
PROVIDERS: Emergency Provider Emergency Medicine; PCP Nurse Practitioner Family
DX: S61.421A Laceration with foreign body of right hand, initial encounter (principal); W25.XXXA Contact with sharp glass, initial encounter; W45.8XXA Other foreign body or object entering through skin, initial encounter; Y93.9 Activity, unspecified; Y92.9 Unspecified place or not applicable; Y99.9 Unspecified external cause status; E03.9 Hypothyroidism, unspecified; J45.909 Unspecified asthma, uncomplicated; Z79.890 Hormone replacement therapy; Z87.891 Personal history of nicotine dependence
CPT/HCPCS: 10120; 99282

== ENCOUNTER 2021-06-07 17:48 | Emergency (ER) | payer MEDICAID, SELFPAY ==
[2021-06-07 17:49] VITALS: BP 126/69; PULSE 77; RESP 16; TEMP 36.1; O2SAT 100; BMI 29.2
--- NOTE | 2021-06-07 20:25 | EDS_ITS ---
HPI HPI - Female History of Present Illness Chief Complaint: Vag Bleeding Detail of Chief Complaint: Abnormal vaginal bleeding Informant: patient Pain Pain: Positive for Pelvic Pain; Negative for Vulvar Pain and Vaginal Pain Onset: Today Context: Sudden Onset Timing: Intermittent and Waxes and wanes Quality: Positive for Cramping Current Severity: Mild Maximum Severity: Moderate Worsened by: Movement and [place] Relieved by: Remaining Still and NSAIDS Bleeding Issue: Positive for Vaginal bleeding and Passing clots Onset: - (May 07 and , middle of the month for 6 days in the past 4 days) Context: Sudden Onset Timing: Intermittent Current Severity: Heavy Current pads/hr: 1 Maximum Severity: Heavy Maximum pads/hr: 1 Vaginal Discharge Onset: Today Associated Symptoms Associated Symptoms: Positive for Irregular Period; Negative for Dysuria, Frequency, Urgency, Hematuria and Missed Period Test: - (Has not been done a home test) Sexually: Positive for Active and Single Partner Control: No control P: 3 Ab: 0 Narrative Narrative: Patient is a 30-year-old woman who presents with vaginal bleeding. She had 2 days of heavier than normal bleeding May 07. She then states in the middle of the month she bled for approximately 6 days heavy at that time. The past 4 days she has had heavy bleeding with passage of clots. She states she is going through 1 pad per hour. She gets orthostatic symptoms. She does not have any symptoms of . She has not been compliant with her le vothyroxine. She denies bruising easily. Denies bleeding of her gums. Denies blood in her urine. She has apycn-dnhxur-heicxat stool. Prior similar symptoms: No Recent Illness/Hospitalization: No [facility] Medical History Anxiety Asthma Chronic headaches Gluten intolerance Hypothyroid Lactose intolerance Seasonal allergies UTI (urinary tract infection) Home Medications levothyroxine 25 mcg tablet 25 mcg PO DAILY #90 tab 04/22/21 [Rx Last Taken Unknown] nystatin 100,000 unit/gram topical cream 1 applic TOPICAL BID #30 g 04/22/21 [Rx Last Taken Unknown] epinephrine 0.3 mg/0.3 mL injection, auto-injector 0.3 ml IM ONCE #1 ea 05/03/21 [Rx Last Taken Unknown] Allergy/AdvReac Type Severity Reaction Status Date / Time poison oak extract Allergy Unknown Verified 06/07/21 17:49 Latex, Natural Rubber AdvReac Rash Verified 06/07/21 17:49 Family History Mother Anxiety Sleep apnea Sister Sleep apnea Surgical History No history of previous surgery Social History (Updated 06/07/21 @ 20:[address] Delbert Bass MD) household members: significant other and children Smoking Status: Former smoker alcohol intake: never substance use type: does not use what type of physical activity do you participate in: weight training and other details: Cardio frequency: daily duration: 30-45 minutes/day seatbelt use: always do you feel safe at home: Yes additional social history: Onesimo GOMEZ JASON ED Constitutional Constitutional ED: Denies chills, fever(s) or subjective Eyes Eyes: Denies blurry vision or change in vision ENT ENT ED: Denies ear pain, rhinorrhea or sore throat Cardiovascular Cardiovascular: Denies orthopnea, palpitations or racing heartbeat Respiratory/Chest Respiratory/Chest: Reports dyspnea and dyspnea on exertion; Denies cough, orthopnea, sputum or stridor Gastrointestinal Gastrointestinal: Denies abdominal pain, constipation, diarrhea, nausea or vomiting Genitourinary Genitourinary ED: Reports vaginal bleeding; Denies dysuria, hematuria or urinary frequency Musculoskeletal Musculoskeletal: Denies arthralgias, myalgias or other Integumentary Denies rash Neurologic Neurologic: Denies paresthesias or weakness Endocrine Endocrinology: Denies polydipsia or polyuria Hematologic/Lymphatic Hematologic/Lymphatic: Denies easy bleeding or easy bruising EXAM Physical Exam Const Vital Signs: 06/07/21 17:49 06/07/21 22:05 Temperature 96.9 F L Temperature Source Temporal Pulse Rate 77 Respiratory Rate 16 17 Blood Pressure 126/69 H Blood Pressure Mean 88 Pulse Ox 100 Oxygen Delivery Method Room Air Positive well nourished and well developed General Appearance ED: well developed and NAD; Negative for pallor HEENT HEENT Narrative: Head is atraumatic normocephalic. Mucosa is moist. Ears normal. Nares patent. Eyes PERRL and EOMs intact bilaterally General Eye ED: Negative for pale conjunctiva or scleral icterus Neck no lymphadenopathy, supple and no JVD Resp normal respiratory effort and clear to auscultation bilaterally Cardio regular rate, regular rhythm, S1 normal heart sound, no murmurs and no JVD GI normal to inspection, nondistended, normoactive bowel sounds and soft to palpation External Female Exam: normal appearance of the urethra Speculum Exam - Vagina: vaginal bleeding small/minimal Speculum Exam - Cervix: cervical os closed; Negative for cervical lesion or cervical tenderness Bimanual Exam - Vag & Uterus: normal bimanual exam, normal vaginal palpation, normal cervical palpation, bladder normal to palpation, uterine size normal, uterine mobility normal and uterus non-tender Bimanual Exam - Adnexa, Other: normal adnexae Back/Spine no CVA tenderness Extremity normal to inspection and full ROM General Extremety ED: Negative for edema General Extremity: Negative for edema Neuro oriented x3, CN's II-XII intact bilaterally and no sensory deficits noted Sensorium / Orientation: alert Motor Exam: strength 5/5 throughout Psych mental status grossly normal Psych Narrative: Affect is flat Skin no rashes or lesions noted and no wounds General Skin Exam: Negative for jaundice or pallor MDM MDM MDM Narrative Medical decision making narrative: Patient presents with abnormal vaginal bleeding. Need to rule out versus other causes. Patient was informed of her laboratory results. Since she contacted Dr. Rajeev Saavedra who recommended she come to the [facility] she was paged to inform her of her laboratory results and findings. Lab Data Attestation: I reviewed the patient's lab results. Labs: Laboratory Results - last 24 hr 06/07/21 06/07/21 06/07/21 20:33 20:33 20:33 Hgb 13.2 Hct 39.5 TSH 2.73 Serum , Qual NEGATIVE Discharge Plan Triage Chief Complaint: Vag Bleeding ED Provider: Delbert Bass Dx/Rx/DC Orders Clinical Impression: Abnormal vaginal bleeding Instructions: ED Dysfunctional Uterine Bleeding Prescriptions: No Action nystatin 100,000 unit/gram cream 1 applic topical BID Qty: 30 RF: 0 levothyroxine 25 mcg tablet 25 mcg PO DAILY Qty: 90 RF: 1 epinephrine 0.3 mg/0.3 mL auto-injector 0.3 ml IM ONCE Qty: 1 RF: 0 Primary Care Provider: Rajeev Pino NP Referrals: Rosalind Cristina MD [STAFF PHYSICIAN] - 1 Week if not improving Rajeev Pino PRODUCTION FINISHER, PRODUCTION FINISHER-C [Primary Care Provider] - Disposition Disposition: Home, Self Care
--- NOTE | 2021-06-07 20:39 | ED.RN ---
Patient declined IV but let this nurse draw blood for now
[2021-06-07 20:45] LABS: Hematocrit 39.5 % (37-47); Hemoglobin 13.2 g/dL (12.0-15.0)
[2021-06-07 20:59] LABS: Internal QC Validated? YES +Cl - CLEAR BKGD; Pregnancy, Serum, hCG Quali. NEGATIVE Negative
[2021-06-07 21:07] LABS: Thyroid Stim Hormone (TSH) 2.73 uIU/mL (0.358-3.74)
[2021-06-07 22:05] VITALS: RESP 17
--- NOTE | 2021-06-07 22:06 | ED.RN ---
Witnessed pelvic exam with Dr Bass
== END 2021-06-07 23:07 | disposition home or self-care (01) ==
PROVIDERS: Emergency Provider Emergency Medicine; PCP Nurse Practitioner Family
DX: N93.9 Abnormal uterine and vaginal bleeding, unspecified (principal); E03.9 Hypothyroidism, unspecified; J45.909 Unspecified asthma, uncomplicated; Z79.890 Hormone replacement therapy; Z87.891 Personal history of nicotine dependence
CPT/HCPCS: 84443; 84703; 85014; 85018; 99282

== ENCOUNTER → 2021-06-23 14:06 | Outpatient (CLI) | payer MEDICAID, SELFPAY ==
--- NOTE | 2021-06-23 14:08 | US_ITS ---
STUDY: ULTRASOUND OF THE FEMALE PELVIS - COMPLETE REASON FOR EXAM: Female, 30 years old. Menorrhagia LMP: 06/09/2021. TECHNIQUE: Transabdominal and Transvaginal TECHNICAL QUALITY: Adequate. COMPARISON: Comparison is made with prior examination dated 07/13/2020. FINDINGS: The uterus is retroflexed and is in a midline position. The uterus measures 7.2 cm x 6.3 cm x 4.3 cm. Normal uterine cervix. The endometrium measures 2 mm in thickness, and is hyperechoic. There is no demonstrated endometrial mass. There is no demonstrated myometrial mass. I.U.D. - The patient does not have an I.U.D. The right ovary is visualized. The right ovary measures 3.5 cm x 3.1 cm x 2.3 cm. Follicles are seen within the ovary. There is no visualized right adnexal mass or complex lesion. There is normal arterial and normal venous vascularity. The left ovary is visualized. The left ovary measures 3.4 cm x 2.4 cm x 2.2 cm. There is no left ovarian cyst or ovarian mass. There is no visualized left adnexal mass or complex lesion. There is normal arterial and normal venous vascularity. There is minimal fluid adjacent to the frontal portion of the uterus. The pre void volume of the bladder was 167 ml. US/Pelvic (Non ) IMPRESSION: Follicles are seen in the right ovary. Electronically Signed: Nitin Young MD at 8:50 EST , Service support ,
--- NOTE | 2021-06-23 14:08 | US_ITS ---
STUDY: ULTRASOUND OF THE FEMALE PELVIS - COMPLETE REASON FOR EXAM: Female, 30 years old. Menorrhagia LMP: 06/09/2021. TECHNIQUE: Transabdominal and Transvaginal TECHNICAL QUALITY: Adequate. COMPARISON: Comparison is made with prior examination dated 07/13/2020. FINDINGS: The uterus is retroflexed and is in a midline position. The uterus measures 7.2 cm x 6.3 cm x 4.3 cm. Normal uterine cervix. The endometrium measures 2 mm in thickness, and is hyperechoic. There is no demonstrated endometrial mass. There is no demonstrated myometrial mass. I.U.D. - The patient does not have an I.U.D. The right ovary is visualized. The right ovary measures 3.5 cm x 3.1 cm x 2.3 cm. Follicles are seen within the ovary. There is no visualized right adnexal mass or complex lesion. There is normal arterial and normal venous vascularity. The left ovary is visualized. The left ovary measures 3.4 cm x 2.4 cm x 2.2 cm. There is no left ovarian cyst or ovarian mass. There is no visualized left adnexal mass or complex lesion. There is normal arterial and normal venous vascularity. There is minimal fluid adjacent to the frontal portion of the uterus. The pre void volume of the bladder was 167 ml. US/Transvaginal Non- IMPRESSION: Follicles are seen in the right ovary. Electronically Signed: Nitin Young MD at 8:50 EST , Service support ,
== END ==
PROVIDERS: PCP Nurse Practitioner Family; Visit Provider Nurse Practitioner Women's Health
DX: N92.1 Excessive and frequent menstruation with irregular cycle (principal)
CPT/HCPCS: 76830; 76856

== ENCOUNTER → 2021-07-19 | Outpatient (CLI) | payer MEDICAID, SELFPAY | END | disposition home or self-care (01) | LOC: LABSPEC 14:40 | PROVIDERS: PCP Nurse Practitioner Family; Visit Provider Physician Assistant | DX: Z11.52 Encounter for screening for COVID-19 (principal) | CPT/HCPCS: 87635; U0005; U0003 ==

== ENCOUNTER → 2022-05-11 | Outpatient (CLI) | payer MEDICAID, SELFPAY ==
[2022-05-11 17:58] LABS: hCG Titer Quant., Serum 18 mIU/mL (1-3)
== END | disposition home or self-care (01) ==
PROVIDERS: PCP Nurse Practitioner Family; Visit Provider Obstetrics & Gynecology
DX: N91.2 Amenorrhea, unspecified (principal)
CPT/HCPCS: 36415; 84702

== ENCOUNTER → 2022-05-13 | Outpatient (CLI) | payer MEDICAID, SELFPAY ==
[2022-05-13 17:49] LABS: hCG Titer Quant., Serum 41 mIU/mL (1-3)
== END | disposition home or self-care (01) ==
LOC: LAB 15:50
PROVIDERS: PCP Nurse Practitioner Family; Visit Provider Obstetrics & Gynecology
DX: N91.2 Amenorrhea, unspecified (principal)
CPT/HCPCS: 36415; 84702

== ENCOUNTER 2022-05-17 17:20 | Emergency (ER) | payer MEDICAID, SELFPAY ==
[2022-05-17 17:21] VITALS: BP 108/70; PULSE 92; RESP 16; TEMP 36.4; O2SAT 98; BMI 32.1
--- NOTE | 2022-05-17 18:00 | US_ITS ---
STUDY: FIRST TRIMESTER OBSTETRICAL ULTRASOUND REASON FOR EXAM: Female, 31 years old. Falling quant, left adnexal pain evaluate ectopic, -- Need to evaluate for torsion as well versus TECHNIQUE: Transvaginal US was obtained to better visualized the ovaries. TECHNICAL QUALITY: Adequate. PRIOR ULTRASOUND: None. FINDINGS: There is no demonstrated intrauterine gestational sac. There is no demonstrated yolk sac. The placenta is non-visualized. There is no demonstrated embryo ( pole). The estimated gestation age (EGA) by LMP is 5 weeks, 1 days. The estimated date of delivery (KLAUS) by LMP is 6.12.23. The uterus measures 7.7 x 6.6 cm. There is no demonstrated uterine fibroid. The cervix is closed. Endometrial stripe is 13 mm. The right ovary measures in cm: 3.2. Cyst measures 21 mm. There is no visualized right adnexal mass or complex lesion. The left ovary measures 3.5 cm. There is no left ovarian cyst. There is no visualized left adnexal mass or complex lesion. There is minimal fluid in the cul de sac. This contains debris. Debris in the urinary bladder. US/Transvaginal w/Preg US IMPRESSION: There is no intrauterine Debris visualized in the urinary bladder may suggest a cystitis. Delivery in the pelvic ascites. Electronically Signed: Yang Trivedi MD at 19:01 EDT ,
--- NOTE | 2022-05-17 18:02 | NURSING ---
pt refusing iv and stated that have horrible experience with iv's and if i need surgery then its ok but untill then id rather not
--- NOTE | 2022-05-17 18:37 | EDS_ITS ---
HPI HPI - Female History of Present Illness Chief Complaint: Detail of Chief Complaint: First trimester with pelvic pain and falling hCG Informant: patient Pain Pain: Positive for Pelvic Pain Onset: Days (Onset 2 to 3 days ago. Became abruptly worse several hours prior to presentation) Context: Gradual Onset Timing: Continuous and Waxes and wanes Quality: Positive for Cramping Location: LLQ and Suprapubic Current Severity: Moderate Maximum Severity: Severe Worsened by: Movement Relieved by: - (Nothing) Bleeding Issue: Negative for Vaginal bleeding, Passing clots or Passing tissue Vaginal Discharge Onset: - (None) Associated Symptoms Associated Symptoms: Positive for Frequency and Urgency; Negative for Dysuria or Hematuria Last known menstrual period: 4 weeks gestation Test: Positive Sexually: Positive for Active P: 2 Ab: 0 Narrative Narrative: Patient is a Ab0 female who presents with cramping pelvic left lower quadrant abdominal pain that started 2 to 3 days ago. Abruptly became worse today. First hCG was 17. Second hCG was 47. Third hCG was 41. She denies history of STI or endometriosis. There is history ovarian cyst. She does endorse frequency and urgency and denies dysuria and hematuria. She denies vaginal bleeding or discharge. She denies nausea, vomiting or diarrhea. She denies history of trauma. She denies experiencing pain like this before with her prior pregnancies. She denies history of renal ureterolithiasis. She denies flank pain. Prior similar symptoms: No Recent Illness/Hospitalization: No [facility] Medical History Asthma Chronic headaches Gluten intolerance Hypothyroid Lactose intolerance Seasonal allergies Home Medications epinephrine 0.3 mg/0.3 mL injection, auto-injector 0.3 ml IM ONCE #1 ea 05/03/21 [Rx Last Taken Unknown] medroxyprogesterone 10 mg tablet 10 mg PO .COMPLEX #45 tabs 06/17/21 [Rx Last Taken Unknown] levothyroxine 25 mcg tablet 25 mcg PO DAILY #30 tabs 05/16/22 [Rx Last Taken Unknown] Allergy/AdvReac Type Severity Reaction Status Date / Time poison oak extract Allergy Unknown Verified 05/17/22 17:21 Latex, Natural Rubber AdvReac Rash Verified 05/17/22 17:21 Family History Mother Anxiety Sleep apnea Sister Sleep apnea Surgical History No history of previous surgery Social History household members: significant other and children Smoking Status: Former smoker alcohol intake: never substance use type: does not use what type of physical activity do you participate in: weight training and other details: Cardio frequency: daily duration: 30-45 minutes/day seatbelt use: always do you feel safe at home: Yes additional social history: Onesimo GOMEZ ED Constitutional Constitutional ED: Denies chills, fever(s), subjective or sweats Eyes Eyes: Denies blurry vision, change in vision or diplopia ENT ENT ED: Denies ear pain, rhinorrhea or sore throat Cardiovascular Cardiovascular: Denies chest pain or palpitations Respiratory/Chest Respiratory/Chest: Denies cough, dyspnea or dyspnea on exertion Gastrointestinal Gastrointestinal: Reports abdominal pain; Denies constipation, diarrhea, melena, nausea or vomiting Genitourinary Genitourinary ED: Reports urinary frequency; Denies dysuria or hematuria Musculoskeletal Musculoskeletal: Denies arthralgias, myalgias or neck pain Integumentary Denies Abrasions or rash Neurologic Neurologic: Denies headache(s), paresthesias or weakness Psychiatric Psychiatric: Reports anxiety Hematologic/Lymphatic Hematologic/Lymphatic: Denies easy bleeding, easy bruising or lymphadenopathy EXAM Physical Exam Const Vital Signs: 05/17/22 17:21 Temperature 97.6 F L Temperature Source Temporal Pulse Rate 92 Respiratory Rate 16 Blood Pressure 108/70 Blood Pressure Mean 82 Pulse Ox 98 Oxygen Delivery Method Room Air Positive well nourished, well developed and obese General Appearance ED: well developed and NAD; Negative for odor of alcohol dete cted Nutritional Appearance: obese HEENT Reports TM's clear and moist mucous membranes HEENT Narrative: Head is atraumatic normocephalic. Nares patent. Mucosa moist. Uvula midline. No abnormality the posterior pharynx. Tympanic Membrane ED: Yes TM's clear Eyes PERRL and EOMs intact bilaterally General Eye ED: Negative for pale conjunctiva or scleral icterus Neck no lymphadenopathy, supple and no JVD Resp normal respiratory effort and clear to auscultation bilaterally Cardio regular rate, regular rhythm, S1 normal heart sound, no murmurs and no JVD GI normal to inspection, nondistended, normoactive bowel sounds, soft to palpation, non-distended and no masses; Negative for non-tender GI Narrative: There is tenderness in the suprapubic and left lower quadrant/inguinal area. Auscultation: normoactive bowel sounds Back/Spine no CVA tenderness Thoracic Spine / Upper Back: Negative for thoracic spinal tenderness Lumbar Spine / Lower Back: Negative for lumbar spinal tenderness Extremity normal to inspection and full ROM Neuro oriented x3, CN's II-XII intact bilaterally and no sensory deficits noted Sensorium / Orientation: alert Motor Exam: strength 5/5 throughout Psych mental status grossly normal Skin no rashes or lesions noted and no wounds MDM MDM MDM Narrative Medical decision making narrative: With falling quant dative hCG, lower pelvic pain need to evaluate for demise versus torsion versus ectopic . Pelvic ultrasound was ordered. Patient declined IV that was ordered. She states if she needs to go to surgery she will tell the nurse to put in IVN and allow her to draw blood. Ultrasound reveals no pole. Since hCG is declining patient had a complete miscarriage. Patient has O+ blood. RhoGAM is not indicated. Radiography Diagnostic Testing: Clinical Impression(s) from Imaging Studies Obstetrics Ultrasound 05/17/22 18:00 IMPRESSION: There is no intrauterine Debris visualized in the urinary bladder may suggest a cystitis. Delivery in the pelvic ascites. Electronically Signed: Yang Trivedi MD at 19:01 EDT Reading Location ID and State: [facility] / [place] , Service support , Discharge Plan Triage Chief Complaint: ED Provider: Delbert Bass Dx/Rx/DC Orders Clinical Impression: Complete Instructions: ED Miscarriage Spontaneous Prescriptions: No Action medroxyprogesterone 10 mg tablet 10 mg PO .COMPLEX Qty: 45 0RF Rx Instructions: 10 mg PO tid until bleeding stops X 24 hour then bid to finish Rx; epinephrine 0.3 mg/0.3 mL auto-injector 0.3 ml IM ONCE Qty: 1 0RF Rx Instructions: as a single dose; may repeat once levothyroxine 25 mcg tablet 25 mcg PO DAILY Qty: 30 0RF Primary Care Provider: Rajeev Pino NP Referrals: Rajeev Pino BUSINESS APPLICATIONS DEVELOPER, BUSINESS APPLICATIONS DEVELOPER-C [Primary Care Provider] - As Needed Disposition Disposition: Home, Self Care
[2022-05-17 20:29] VITALS: BP 106/82; PULSE 85; RESP 15; O2SAT 98
== END 2022-05-17 20:30 | disposition home or self-care (01) ==
PROVIDERS: Emergency Provider Emergency Medicine; PCP Nurse Practitioner Family; Visit Provider Emergency Medicine
DX: O03.9 Complete or unspecified spontaneous abortion without complication (principal); N92.1 Excessive and frequent menstruation with irregular cycle; R10.2 Pelvic and perineal pain; R10.32 Left lower quadrant pain; J45.909 Unspecified asthma, uncomplicated; E03.9 Hypothyroidism, unspecified; Z79.890 Hormone replacement therapy; Z79.899 Other long term (current) drug therapy; Z87.891 Personal history of nicotine dependence; Z13.29 Encounter for screening for other suspected endocrine disorder
CPT/HCPCS: 36415; 76817; 84702; 99282

== ENCOUNTER → 2022-05-17 | Outpatient (CLI) | payer MEDICAID, SELFPAY ==
[2022-05-17 14:39] LABS: hCG Titer Quant., Serum 26 mIU/mL (1-3)
== END | disposition home or self-care (01) ==
LOC: LAB 12:53
PROVIDERS: PCP Nurse Practitioner Family; Referring Provider Nurse Practitioner Women's Health; Visit Provider Nurse Practitioner Women's Health
DX: N92.1 Excessive and frequent menstruation with irregular cycle (principal); Z13.29 Encounter for screening for other suspected endocrine disorder
CPT/HCPCS: 84702; 36415

== ENCOUNTER → 2022-06-20 | Outpatient (CLI) | payer MEDICAID, SELFPAY ==
[2022-06-20 10:51] LABS: hCG Titer Quant., Serum < 1 mIU/mL (1-3)
== END | disposition home or self-care (01) ==
LOC: LAB 10:07
PROVIDERS: PCP Nurse Practitioner Family; Visit Provider Obstetrics & Gynecology
DX: O20.0 Threatened abortion (principal); Z3A.00 Weeks of gestation of pregnancy not specified
CPT/HCPCS: 36415; 84702

== ENCOUNTER 2022-11-12 01:40 | Emergency (ER) | payer MEDICAID, SELFPAY ==
[2022-11-12 01:44] VITALS: BP 106/67; PULSE 82; RESP 16; TEMP 36.4; O2SAT 97; BMI 26.7
--- NOTE | 2022-11-12 02:24 | EDS_ITS ---
HPI History of Present Illness Chief Complaint: Other, Pain/Inj Informant: patient Onset/Context/Timing Onset: Today Location of pain/injuries: Right thigh, Right Knee, Right lower leg, Left thigh, Left knee and Left lower leg Quality of Pain: Sharp and Dull Location: Bilateral lower extremities Worsened by: Nothing Relieved by: Nothing Associated Symptoms Associated Symptoms: Negative for Parasthesias, Weakness, Loss of function, Inability to ambulate, Loss of consciousness or Amnesia Narrative Narrative: Patient presents with bilateral lower extremity pain that began today. Patient states it can came on suddenly. Patient states it started in both knees. Patient states it then radiated to both thighs and both calves. Patient describes the pain as dull but sharp at times. Patient states nothing makes it better nothing makes it worse. Patient states she had an abdominoplasty and liposuction earlier today. Patient states she was told that if she got any discomfort in her legs to get checked for a blood clot. [facility] Medical History Asthma Chronic headaches Gluten intolerance Hypothyroid Lactose intolerance Seasonal allergies Home Medications epinephrine 0.3 mg/0.3 mL injection, auto-injector 0.3 ml IM ONCE #1 ea 05/03/21 [Rx Last Taken Unknown] levothyroxine 25 mcg tablet See Rx Instructions .Route .COMPLEX #30 tabs 10/11/22 [Rx Last Taken Unknown] cephalexin 500 mg capsule 500 mg PO DAILY 11/12/22 [History Last Taken Unknown] Allergy/AdvReac Type Severity Reaction Status Date / Time poison oak extract Allergy Unknown Verified 11/12/22 01:42 Latex, Natural Rubber AdvReac Rash Verified 11/12/22 01:42 Family History Mother Anxiety Sleep apnea Sister Sleep apnea Surgical History H/O abdominoplasty No history of previous surgery Social History household members: significant other and children Smoking Status: Former smoker alcohol intake: never substance use type: does not use what type of physical activity do you participate in: weight training and other details: Cardio frequency: daily duration: 30-45 minutes/day seatbelt use: always do you feel safe at home: Yes additional social history: Onesimo GOMEZ ROS ED Constitutional Constitutional ED: Denies chills or fever(s) Eyes Eyes: Denies blurry vision or change in vision ENT ENT ED: Denies rhinorrhea or sore throat Cardiovascular Cardiovascular: Denies chest pain or palpitations Respiratory/Chest Respiratory/Chest: Denies cough or dyspnea Gastrointestinal Gastrointestinal: Denies nausea or vomiting Genitourinary Genitourinary ED: Denies dysuria or hematuria Musculoskeletal Musculoskeletal: Reports back pain; Denies neck pain Integumentary Denies abscess or rash Neurologic Neurologic: Denies headache(s) or weakness Allergic/Immunologic Allergic/Immunologic ED: Denies mouth swelling or urticaria EXAM Physical Exam Const Vital Signs: 11/12/22 01:44 11/12/22 01:49 Temperature 97.5 F L Temperature Source Oral Pulse Rate 82 Respiratory Rate 16 Respiratory Effort Normal Respiratory Pattern Normal Blood Pressure 106/67 Blood Pressure Mean 80 Pulse Ox 97 Oxygen Delivery Method Room Air Positive well nourished and well developed General Appearance ED: well developed and NAD HEENT atraumatic Neck full ROM Extremity normal to inspection Extremity Narrative: There is mild tenderness of the bilateral thighs and calves. There is mild tenderness bilateral knees. There are no effusions noted. There is good range of motion of the lower extremities bilaterally. There is mild edema. There is no ecchymosis. General Extremety ED: Yes edema and tenderness General Extremity: edema Neuro oriented x3, CN's II-XII intact bilaterally, moves all extremities, no focal motor deficits and no sensory deficits noted Sensorium / Orientation: alert Motor Exam: strength 5/5 throughout Psych mental status grossly normal and thought process normal Skin no rashes or lesions noted MDM MDM MDM Narrative Medical decision making narrative: Differential diagnosis includes DVT and muscular strain. Patient was advised that venous Dopplers are unable to be performed at this time. Patient was given a dose of Lovenox. Patient was given a prescription for an outpatient venous Doppler to be done tomorrow. For that. Patient understood and was agreeable with plan. All questions were answered. Discharge Plan Triage Chief Complaint: Other, Pain/Inj ED Provider: Nehemias Hurd Dx/Rx/DC Orders Clinical Impression: Bilateral lower extremity pain Instructions: ED Pain, Acute, Uncertain Cause Prescriptions: No Action cephalexin 500 mg capsule 500 mg PO DAILY epinephrine 0.3 mg/0.3 mL auto-injector 0.3 ml IM ONCE Qty: 1 0RF Rx Instructions: as a single dose; may repeat once levothyroxine 25 mcg tablet See Rx Instructions .ROUTE .COMPLEX Qty: 30 0RF Dose Instruction: take 1 tablet by mouth once daily Rx Instructions: take 1 tablet by mouth once daily Other Ambulatory Orders: Venous Duplex US - Gasper Extrem (Stat) Facility: [facility] - Location: [facility] Ordered By: Dr. Nehemias Hurd Primary Care Provider: Rajeev Pino NP Referrals: Rajeev Pino NP, ROOF PANEL HANGER-C [Primary Care Provider] - 3-5 Days Disposition Disposition: Home, Self Care
[2022-11-12] MEDS: Enoxaparin 80 MG/0.8 ML Syringe 70 MG SC (03:04)
== END 2022-11-12 03:41 | disposition home or self-care (01) ==
LOC: ED 02:45
PROVIDERS: Emergency Provider Emergency Medicine; PCP Nurse Practitioner Family; Visit Provider Emergency Medicine
DX: M79.662 Pain in left lower leg (principal); J45.909 Unspecified asthma, uncomplicated; M79.661 Pain in right lower leg; Z87.891 Personal history of nicotine dependence; M79.651 Pain in right thigh; M79.652 Pain in left thigh; M25.561 Pain in right knee; M25.562 Pain in left knee
CPT/HCPCS: 93970; 96372; 99282

== ENCOUNTER → 2022-11-12 | Outpatient (CLI) | payer MEDICAID, SELFPAY ==
--- NOTE | 2022-11-12 12:36 | VDLE_ITS ---
Reason For Study: Pain RIGHT LEFT GSV is normal. GSV is normal. CFV is compressible, spontaneous, phasic, CFV is compressible, spontaneous, phasic, competent and demonstrates normal competent, and demonstrates normal augmentation. augmentation. FV is compressible, spontaneous, phasic, FV is compressible, spontaneous, phasic, competent and demonstrates normal competent and demonstrates normal augmentation. augmentation. POP V is compressible, spontaneous, phasic, POP V is compressible, spontaneous, phasic, competent and demonstrates normal competent and demonstrates normal augmentation. augmentation. T/P Trunk is compressible. T/P Trunk is compressible. PTV is compressible. PTV is compressible. RT PerV is compressible. LT PerV is compressible. Procedure This is a venous duplex using B-mode, color flow and spectral Doppler. Exam performed in department. A preliminary report was called and/or faxed to Rajeev Pino NP. VL/Venous Duplex US - Gasper Extrem Interpretation Summary Deep veins of the bilateral lower extremities are patent and compressible segme ntally. There is no evidence of bilateral lower extremity deep vein thrombosis. The bilateral great saphenous veins appear patent and compressible segmentally. Ordering Physician: Nehemias Hurd Referring Physician: Rajeev Pino Performed By: Krissy Willis, TONO, RVT
== END | disposition home or self-care (01) ==
LOC: US 12:36 → CVS 12:39
PROVIDERS: PCP Nurse Practitioner Family; Referring Provider Emergency Medicine; Visit Provider Emergency Medicine
DX: M79.606 Pain in leg, unspecified (principal)
CPT/HCPCS: 93970

== ENCOUNTER → 2022-11-30 | Outpatient (CLI) | payer MEDICAID, SELFPAY ==
[2022-11-30 16:28] LABS: Absolute Neutrophil Count 2.5 X10^3/uL (2.0-7.7); Basophil# 0.03 X10^3/uL; Basophil% 0.7 % (0-1); Eosinophil# 0.08 X10^3/uL; Eosinophils% 1.9 % (0-5); Hematocrit 38.8 % (37-47); Hemoglobin 12.6 g/dL (12.0-15.0); Lymphocyte % 30.3 % (19-41); Mean Corp Hgb Conc 32.5 g/dL (32-36); Mean Corpuscular Hgb 29.2 pg (27.0-32.0); Mean Platelet Vol. 11.1 fl (6.2-12.0); Monocyte# 0.35 X10^3/uL; Monocyte% 8.2 % (0-10); NRBC Flagged by Analyzer 0 % (0-5); Neutrophil # 2.52 X10^3/uL (2.7-7.7); Neutrophil % 58.7 % (47-70); Platelet Count 352 K/mm3 (150-450); RBC Distribution Width CV 12.8 % (11.6-14.6); RBC Distribution Width SD 42.4 fl (35.1-43.9); Red Blood Count 4.31 M/mm3 (4.2-5.4); White Blood Count 4.3 K/mm3 (4.4-11.0)
[2022-11-30 17:02] LABS: ALB/GLOB Ratio 1.2 RATIO (0.9-2.4); AST(SGOT) 12 U/L (15-37); Alanine Aminotransfer ALT/SGPT 19 U/L (13-56); Alkaline Phosphatase 69 U/L (45-117); Anion Gap 5 (5-15); BUN 12 mg/dL (7-18); BUN/Creat Ratio 15.7 RATIO (10-20); Calcium,Total 9.1 mg/dL (8.5-10.1); Chloride 106 mmol/L (98-107); Creatinine, Serum 0.76 mg/dL (0.55-1.02); EST Glomerular Filtration Rate 92 mL/min (>60); Est Glom Filt Rate - Afr Amer 112 mL/min (>60); Globulin 3.2 g/dL (2.2-4.2); Glucose 102 mg/dL (74-106); Potassium 3.6 mmol/L (3.5-5.1); Protein, Total 7.2 g/dL (6.4-8.2); Sodium Level 137 mmol/L (136-145); Thyroid Stim Hormone (TSH) 1.47 uIU/mL (0.358-3.74)
[2022-12-01 09:34] LABS: Vitamin B12 911 pg/mL (211-911); Vitamin D,25 Hydroxy 53.2 ng/mL
== END | disposition home or self-care (01) ==
LOC: BIMLAB 14:43
PROVIDERS: PCP Nurse Practitioner Family; Visit Provider Nurse Practitioner Family
DX: E03.9 Hypothyroidism, unspecified (principal); E56.9 Vitamin deficiency, unspecified
CPT/HCPCS: 36415; 80053; 82306; 82607; 84443; 85025

== ENCOUNTER → 2023-06-07 | Outpatient (CLI) | payer MEDICAID, SELFPAY ==
--- NOTE | 2023-06-07 09:43 | US_ITS ---
STUDY: ULTRASOUND BREAST - RIGHT REASON FOR EXAM: Female, 32 years old. Pain in the right breast. TECHNIQUE: Axial and longitudinal images of the RIGHT breast were performed with a high resolution ultrasound transducer. # OF IMAGES: 12 COMPARISON: Comparison is made with prior mammogram done earlier today. FINDINGS: RIGHT Breast: The retroareolar region as well as the upper aspect of the right breast was examined with ultrasound. No sonographic abnormality is seen. US/Breast Limited Unilateral IMPRESSION: No sonographic abnormality is seen. ASSESSMENT CATEGORY: BIRADS Category 1: Negative. A letter regarding these results will be sent to the patient by the facility within 30 days. Electronically Signed: Nitin Young MD at 11:12 EDT ,
--- NOTE | 2023-06-07 09:43 | BI_ITS ---
MAMMOGRAPHY - BILATERAL DIAGNOSTIC REASON FOR EXAM: Female, 32 years old. Right breast pain. PERTINENT HISTORY: Non-contributory. TECHNIQUE: Digital bilateral breast stacy (3D mammographic acquisition) in the CC and MLO projections. 2-D mediolateral oblique (MLO) and craniocaudad (CC) views of both breasts were obtained. CAD: Full Field Digital Mammography with Computer Added Detection was performed. COMPARISON: None. Baseline examination. FINDINGS: Breast Composition: The breasts are extremely dense, which lowers the sensitivity of mammography. There are no dominant masses or suspicious calcifications. No other significant abnormalities are identified. BI/DIAG MAMM W/CAD, BILAT IMPRESSION: Negative diagnostic mammogram. With the patient''s history of right breast pain, targeted correlation with ultrasound is recommended. ASSESSMENT CATEGORY: BIRADS Category 0: Incomplete. Need additional imaging evaluation. A letter regarding these results will be sent to the patient by the facility within 30 days. Approximately 10% of breast cancers are not detected by mammography. A normal mammogram should not delay biopsy of a clinically suspicious abnormality. Electronically Signed: Nitin Young MD at 11:13 EDT ,
--- NOTE | 2023-06-07 11:15 | RAD_ITS ---
STUDY: X-RAY - LUMBAR SPINE REASON FOR EXAM: Female, 32 years old. Low back pain. TECHNIQUE: 2 view(s) of the lumbar spine were obtained. COMPARISON: None FINDINGS: There is an exaggerated lumbar lordosis. There is no substantial scoliosis. There is a normal alignment of the vertebrae. Normal vertebral bodies and endplates. Normal disc space heights. The soft tissue structures are unremarkable. RAD/Lumbar Spine 2 or 3 Views IMPRESSION: Exaggerated lordosis. Electronically Signed: Nitin Young MD at 12:24 EDT ,
== END | disposition home or self-care (01) ==
PROVIDERS: PCP Nurse Practitioner Family; Referring Provider Nurse Practitioner Women's Health; Visit Provider Nurse Practitioner Women's Health
DX: N64.4 Mastodynia (principal); M54.50 Low back pain, unspecified
CPT/HCPCS: 77062; 72100; 76642; 77066; G0279

== ENCOUNTER 2023-07-04 20:16 | Emergency (ER) | payer MEDICAID, SELFPAY ==
[2023-07-04 20:19] VITALS: BP 109/71; PULSE 84; RESP 16; TEMP 36.6; O2SAT 99; BMI 25.7
--- NOTE | 2023-07-04 20:39 | EDS_ITS ---
HPI History of Present Illness Chief Complaint: Sore Throat Narrative Narrative: Patient presents with sore throat. Patient states that she has had a little sore throat for couple days. It was just last night that it started getting worse. She is able to eat and drink but it sore. She went to urgent care today. They did do a rapid strep which was positive. They have started on amoxicillin. They also gave her some lidocaine swish and swallow. She states this helps and she can eat and drink but it is just that it is very sore and she was surprised. She has a minimal cough but no productivity and not short of breath. No nasal congestion. When I asked, it seems like there was not Decadron or other steroid given. Patient has taken prednisone in the past for illnesses. PFSH PFS Medical History Acute lumbar myofascial strain Asthma Chronic headaches Gluten intolerance Hypothyroid Lactose intolerance Seasonal allergies Vitamin deficiency Home Medications epinephrine 0.3 mg/0.3 mL injection, auto-injector 0.3 ml IM ONCE #1 ea 12/01/22 [Rx Last Taken Unknown] levothyroxine 25 mcg tablet See Rx Instructions .Route .COMPLEX #30 tabs 03/06/23 [Rx Last Taken Unknown] amoxicillin 500 mg capsule 500 mg PO Q12H 07/04/23 [History Last Taken Unknown] hydrocodone-acetaminophen 5-325mg 5mg-325mg 1 tab PO Q6H PRN PRN Pain 3 days #10 TABLETS 07/04/23 [Rx Last Taken Unknown] Allergy/AdvReac Type Severity Reaction Status Date / Time poison oak extract Allergy Unknown Verified 07/04/23 20:17 Latex, Natural Rubber AdvReac Rash Verified 07/04/23 20:17 Family History Mother Anxiety Sleep apnea Sister Sleep apnea Surgical History H/O abdominoplasty No history of previous surgery Social History household members: significant other and children Smoking Status: Never smoker alcohol intake: never substance use type: does not use what type of physical activity do you participate in: weight training and other details: Cardio frequency: daily duration: 30-45 minutes/day seatbelt use: always do you feel safe at home: Yes additional social history: Onesimo GOMEZ ROS ED Constitutional Constitutional ED: Denies chills, fever(s), subjective or sweats Eyes Eyes: Denies blurry vision ENT ENT ED: Reports sore throat; Denies ear pain or rhinorrhea Cardiovascular Cardiovascular: Denies chest pain Respiratory/Chest Respiratory/Chest: Reports cough; Denies dyspnea or sputum Gastrointestinal Gastrointestinal: Denies abdominal pain, nausea or vomiting Musculoskeletal Musculoskeletal: Denies myalgias Integumentary Denies rash Neurologic Neurologic: Denies headache(s) Hematologic/Lymphatic Hematologic/Lymphatic: Denies easy bleeding Allergic/Immunologic Allergic/Immunologic ED: Denies mouth swelling, tongue swelling or urticaria EXAM Physical Exam Narrative Exam Narrative: CONSTITUTIONAL: Patient is nontoxic in appearance. The patient looks comfortable. Work of breathing looks normal. HEENT: No notable trauma. Mucous membranes moist. There is erythema of the posterior pharynx. There is erythema of the tonsils but they are really not enlarged. There is no visible exudate. Uvula is slightly red but not enlarged either. It does not point to 1 side or the other. She handles secretions well. Her voice is normal. Tongue motion is normal and without pain. There is no clinical indication of an abscess. EYES: No conjunctival injection. No pallor. NECK:No JVD. No stridor can be heard. CARDIOVASCULAR: Regular rate. Regular rhythm. No notable murmur. No JVD. RESPIRATORY: No respiratory distress. Breathing is unlabored. No wheezes. MUSCULOSKELETAL: Atraumatic. No peripheral edema. NEUROLOGICAL: Patient is alert and appropriate. No focal deficit noted. SKIN: No noted rashes. No diaphoresis. PSYCHIATRIC: Patient is calm. Mood is appropriate. Const Vital Signs: 07/04/23 20:19 Temperature 97.9 F Temperature Source Temporal Pulse Rate 84 Respiratory Rate 16 Blood Pressure 109/71 Blood Pressure Mean 83 Pulse Ox 99 MDM MDM MDM Narrative Medical decision making narrative: I talked with the patient about options. This patient has had symptoms for couple days. Her tonsils are not swollen or asymmetric. Her voice is normal. She is swallowing well. I do not think a CAT scan is needed at this time. There is really no clinical indication of abscess. Certainly this may develop and we discussed about signs and reasons to return. I do not think blood work is going to help us. She is a young healthy person and this would not diagnose her condition. I do not think we need to repeat her rapid strep since this was already done today. I will give her a dose of Decadron here. I will write for some pain meds for couple days. I did review an online prescribing report. She has 2 prescriptions for small numbers of narcotics over the last couple years. I do not think she is seeking pain meds. I do believe she is seeking some pain control. She should stay on her amoxicillin. Discharge Plan Triage Chief Complaint: Sore Throat ED Provider: Pablo Vora Dx/Rx/DC Orders Clinical Impression: Acute streptococcal pharyngitis Instructions: ED Pharyngitis, Strep (Confirmed) Prescriptions: New hydrocodone-acetaminophen [hydrocodone-acetaminophen] 5-325 mg tablet 1 tab PO Q6H PRN PRN (Reason: Pain) 3 Days Qty: 10 0RF No Action amoxicillin 500 mg capsule 500 mg PO Q12H epinephrine 0.3 mg/0.3 mL auto-injector 0.3 ml IM ONCE Qty: 1 0RF Rx Instructions: as a single dose; may repeat once levothyroxine 25 mcg tablet See Rx Instructions .ROUTE .COMPLEX Qty: 30 2RF Dose Instruction: take 1 tablet by mouth once daily Rx Instructions: take 1 tablet by mouth once daily Primary Care Provider: Rajeev Pino NP Referrals: Rajeev Pino NP, MEDICAL LABORATORY ASSISTANT-C [Primary Care Provider] - 3-5 Days if not improving Disposition Disposition: Home, Self Care
[2023-07-04] MEDS: dexAMETHasone 10 MG/ML Vial PO.IVFORM (21:01)
[2023-07-04 21:05] VITALS: BP 128/71; PULSE 74; RESP 16; O2SAT 97
== END 2023-07-04 22:04 | disposition home or self-care (01) ==
LOC: ED 20:49
PROVIDERS: Emergency Provider Emergency Medicine; PCP Nurse Practitioner Family; Visit Provider Emergency Medicine
DX: J02.0 Streptococcal pharyngitis (principal); J45.909 Unspecified asthma, uncomplicated; E03.9 Hypothyroidism, unspecified; Z79.890 Hormone replacement therapy; Z79.899 Other long term (current) drug therapy
CPT/HCPCS: 99282

== ENCOUNTER → 2023-07-24 | Outpatient (CLI) | payer MEDICAID, SELFPAY ==
[2023-07-29 06:08] LABS: HPV APTIMA, High Risk Positive (Negative); HPV Genotype 16, Aptima Negative (Negative); HPV Genotype 18,45 Aptima Negative (Negative)
== END | disposition home or self-care (01) ==
LOC: LABSPEC 16:36
PROVIDERS: PCP Nurse Practitioner Family; Referring Provider Obstetrics & Gynecology; Visit Provider Obstetrics & Gynecology
DX: Z12.4 Encounter for screening for malignant neoplasm of cervix (principal)
CPT/HCPCS: 87624; 88175; G0145

== ENCOUNTER → 2023-09-01 | Outpatient (CLI) | payer MEDICAID, SELFPAY ==
--- OUTSIDE RECORDS SUMMARY | 2023-09-01 10:34 | XMS RPT_ITS | CCD ---
Author Name Unknown Address [address] [place] [address] Organization [facility] Care Team Providers Care Automobile Contract Clerk Name Role Phone Gretel Tapia Unavailable Kishor Erickson Unavailable Willem Alarcon Unavailable Kishor Schwab Unavailable Jeanna Henry Unavailable Unavailable Lisbet Fernandez Unavailable Unavailable Jeanna Lyman Unavailable Unavailable Angelito Bardales Unavailable Unavailable Ana Gunderson Unavailable Unavailable Roxanne Perkins Unavailable Unavailable Rosaline Barajas Unavailable Unavailable Unavailable Unavailable Unavailable Primary Care Provider UnavailGENE Kennedy Attending Unavailable PROVIDER, UNKNOWN Admitting Unavailable Rosa Mccoy MD Primary Care Provider [phone] Rosa Mccoy MD Primary Care Provider [phone] Rosa Mccoy MD Primary Care Provider [phone] COLE SCOTT MD Primary Care Physician [phone] BRADLY COLE MD Attending Unavailable COLE SCOTT MD Primary Care Unavailable KISHOR VELÁSQUEZ DO Admitting Unavailable KISHOR VELÁSQUEZ DO Primary Care Unavailable KISHOR VELÁSQUEZ DO Attending Unavailable YESSI WILLARDP-C Consulting Unavailable YESSI WILLARD-C Referring Unavailable PROVIDER, UNKNOWN Consulting Unavailable YESSI WILLARDP-C Consulting Unavailable YESSI WILLARD-C Referring Unavailable PRAKASH HANDY Admitting Unavailable PRAKASH HANDY Primary Care Unavailable PRAKASH HANDY Attending Unavailable PROVIDER, UNKNOWN Consulting Unavailable ROSA MCCOY Primary Care Unavailable OLEGHE, EFEWONGBE B Primary Care Unavailable ROSA MCCOY B Primary Care Unavailable ROSIBEL MCCOYBE B Primary Care Unavailable ROSIBEL MCCOYBE B Primary Care Unavailable ROSIBEL MCCOYBE B Primary Care Unavailable ROSIBEL MCCOYBE B Primary Care Unavailable ROSIBEL MCCOYBE B Primary Care Unavailable ROSIBEL MCCOYBE B Primary Care Unavailable Allergies Allergy Classification Reported Allergen(s) Allergy Type Date of Onset Reaction(s) Facility (16 sources) Lactose; Translations: [LACTOSE] Drug Allergy 05-03-2021 GI Upset [facility] (16 sources) Poison [place]; Translations: [POISON [place]] Propensity to adverse reactions 08-10-2014 Rash [facility] Work Phone: Medications Current Medications Medication Drug Class(es) Dates Sig (Normalized) Sig (Original) acetaminophen 325 mg / HYDROcodone bitartrate 5 mg oral tablet (1 source) Opioid Agonist Start: 10-03-2022 End: 10-06-2022 take 1 tablet by mouth every four hours as needed for pain [place] 325- 5 mg oral tablet Dose = 1 tab(s), Oral, q4h, PRN for pain, X 3 day(s), # 8 tab(s), 0 Refill(s), Otitis media, 77.3 Start Date: 10/03/22 Stop Date: 10/06/22 Status: Ordered amoxicillin 500 mg oral capsule (4 sources) Penicillin-class Antibacterial Start: 07-04-2023 End: 07-14-2023 take 1 capsule by mouth twice daily amoxicillin (AMOXIL) 500 mg capsule Take 1 capsule by mouth two times a day for 10 days. 20 capsule 0 07/04/2023 07/14/2023 Active Completed/Discontinued Medications Medication Drug Class(es) Dates Sig (Normalized) Sig (Original) acetaminophen 325 mg oral tablet (1 source) Start: 02-02-2022 End: 02-02-2022 acetaminophen (TYLENOL) tablet 200 actuat albuterol 0.09 mg/actuat metered dose inhaler (18 sources) beta2-Adrenergic Agonist Start: 05-01-2017 End: 11-20-2017 Ventolin HFA 108 (90 Base) MCG/ACT Inhalation Aerosol Solution 1 (one) Aerosol Soln every six hours, as needed for 30 days Quantity: 1 {Inhaler} Refills: 1 Ordered: 20-Nov-2017 Angelito Bardales Start : 01-May-2017 End : 20-Nov-2017 Inactive Comments: Medication taken as needed. Problems Active Problems Problem Classification Problem Date Documented Da te Episodic/Chronic Abdominal pain (6 sources) Acute abdominal pain; Translations: [Right upper quadrant pain] 04-03-2018 Episodic Past or Other Problems Problem Classification Problem Date Documented Da te Episodic/Chronic Acute and chronic tonsillitis (1 source) Acute and chronic tonsillitis Conditions associated with dizziness or vertigo (1 source) Conditions associated with dizziness or vertigo Esophageal disorders (3 sources) Esophageal disorders Essential hypertension (1 source) Unspecified essential hypertension; Translations: [Blood pressure elevated] Resolved: 08-15-2016 05-12-2017 Chronic Other connective tissue disease (1 source) Cramp; Translations: [Muscle cramp] Resolved: 08-15-2016 05-12-2017 Episodic Other injuries and conditions due to external causes (1 source) Tick bite; Translations: [Tick bite of abdomen] Resolved: 08-15-2016 05-12-2017 Episodic Results Test Name Value Interpretation Reference Range Facil ity Vital Signs Date Time Vital Sign Value Performing Clinician Facility 07-04-2023 07:16-0500 Body temperature 97.39 [degF] Anna Fletchery PA-C Work Phone: [facility] 07-04-2023 07:16-0500 Body weight 64.86 kg Anna Athy PA-C Work Phone: [facility] 07-04-2023 07:16-0500 Diastolic blood pressure 68 mm[Hg] Anna Athy PA-C Work Phone: [facility] 07-04-2023 07:16-0500 Heart rate 82 /min Anna Athy PA-C Work Phone: [facility] 07-04-2023 07:16-0500 Respiratory rate 16 /min Anna Athy PA-C Work Phone: [facility] 07-04-2023 07:16-0500 SaO2% (BldA) [Mass fraction] 98 % Anna Athy PA-C Work Phone: [place] [address]-28-2023 07:16-0500 Systolic blood pressure 116 mm[Hg] Anna Almendarez PA-C Work Phone: [facility] 04-17-2023 09:16-0400 Body temperature 97.11 [degF] Ori Pendlebury SATELLITE DISH INSTALLER.CANE FLUME FEEDING MACHINE OPERATOR Work Phone: [facility] 04-17-2023 09:16-0400 Body weight 66.22 kg Ori Pendlebury SATELLITE DISH INSTALLER.CANE FLUME FEEDING MACHINE OPERATOR Work Phone: [facility] 04-17-2023 09:16-0400 Diastolic blood pressure 80 mm[Hg] Ori Pendlebury SATELLITE DISH INSTALLER.CANE FLUME FEEDING MACHINE OPERATOR Work Phone: [facility] 04-17-2023 09:16-0400 Heart rate 78 /min Ori Pendlebury SATELLITE DISH INSTALLER.CANE FLUME FEEDING MACHINE OPERATOR Work Phone: [facility] 04-17-2023 09:16-0400 Respiratory rate 16 /min Ori Pendlebury SATELLITE DISH INSTALLER.CANE FLUME FEEDING MACHINE OPERATOR Work Phone: [facility] 04-17-2023 09:16-0400 SaO2% (BldA) [Mass fraction] 97 % Ori Pendlebury SATELLITE DISH INSTALLER.CANE FLUME FEEDING MACHINE OPERATOR Work Phone: [facility] 04-17-2023 09:16-0400 Systolic blood pressure 122 mm[Hg] Ori Pendlebury SATELLITE DISH INSTALLER.CANE FLUME FEEDING MACHINE OPERATOR Work Phone: [facility] 04-14-2023 17:39-0400 Body temperature 98.01 [degF] Ori Pendlebury SATELLITE DISH INSTALLER.CANE FLUME FEEDING MACHINE OPERATOR Work Phone: [facility] 04-14-2023 17:39-0400 Body weight 66.95 kg Ori Pendlebury SATELLITE DISH INSTALLER.CANE FLUME FEEDING MACHINE OPERATOR Work Phone: [facility] 04-14-2023 17:39-0400 Diastolic blood pressure 76 mm[Hg] Ori Pendlebury SATELLITE DISH INSTALLER.CANE FLUME FEEDING MACHINE OPERATOR Work Phone: [facility] 04-14-2023 17:39-0400 Heart rate 74 /min Ori Pendlebury SATELLITE DISH INSTALLER.CANE FLUME FEEDING MACHINE OPERATOR Work Phone: [facility] 04-14-2023 17:39-0400 Respiratory rate 18 /min Ori Pendlebury SATELLITE DISH INSTALLER.CANE FLUME FEEDING MACHINE OPERATOR Work Phone: [facility] 04-14-2023 17:39-0400 SaO2% (BldA) [Mass fraction] 100 % Ori Pendlebury SATELLITE DISH INSTALLER.CANE FLUME FEEDING MACHINE OPERATOR Work Phone: [facility] 04-14-2023 17:39-0400 Systolic blood pressure 111 mm[Hg] Ori Pendlebury SATELLITE DISH INSTALLER.CANE FLUME FEEDING MACHINE OPERATOR Work Phone: [facility] 03-06-2023 19:47-0400 Body temperature 97.2 [degF] Ori Pendlebury SATELLITE DISH INSTALLER.CANE FLUME FEEDING MACHINE OPERATOR Work Phone: [facility] 03-06-2023 19:47-0400 Body weight 68.04 kg Ori Pendlebury SATELLITE DISH INSTALLER.CANE FLUME FEEDING MACHINE OPERATOR Work Phone: [facility] 03-06-2023 19:47-0400 Diastolic blood pressure 80 mm[Hg] Ori Pendlebury SATELLITE DISH INSTALLER.CANE FLUME FEEDING MACHINE OPERATOR Work Phone: [facility] 03-06-2023 19:47-0400 Heart rate 78 /min Ori Pendlebury SATELLITE DISH INSTALLER.CANE FLUME FEEDING MACHINE OPERATOR Work Phone: [facility] 03-06-2023 19:47-0400 Respiratory rate 16 /min Ori Pendlebury SATELLITE DISH INSTALLER.CANE FLUME FEEDING MACHINE OPERATOR Work Phone: [facility] 03-06-2023 19:47-0400 SaO2% (BldA) [Mass fraction] 98 % Ori Pendlebury SATELLITE DISH INSTALLER.CANE FLUME FEEDING MACHINE OPERATOR Work Phone: [facility] 03-06-2023 19:47-0400 Systolic blood pressure 126 mm[Hg] Ori Pendlebury SATELLITE DISH INSTALLER.CANE FLUME FEEDING MACHINE OPERATOR Work Phone: [facility] 10-10-2022 15:58-0500 Body temperature 96.4 [degF] Kishor Valle MD Work Phone: [facility] 10-10-2022 15:58-0500 Body weight 84.91 kg Kishor Valle MD Work Phone: [facility] 10-10-2022 15:58-0500 Diastolic blood pressure 64 mm[Hg] Kishor Valle MD Work Phone: [facility] 10-10-2022 15:58-0500 Heart rate 76 /min Kishor Valle MD Work Phone: [facility] 10-10-2022 15:58-0500 Respiratory rate 20 /min Kishor Valle MD Work Phone: [facility] 10-10-2022 15:58-0500 SaO2% (BldA) [Mass fraction] 100 % Kishor Valle MD Work Phone: [facility] 10-10-2022 15:58-0500 Systolic blood pressure 100 mm[Hg] Kishor Valle MD Work Phone: [facility] 10-03-2022 18:33-0500 Body temperature 98.06 [degF] BRADLY COLE MD [facility] 10-03-2022 18:33-0500 Body weight 77.3 kg BRADLY COLE MD [facility] 10-03-2022 18:33-0500 Diastolic Blood Pressure Non-Invasive 81 1 BRADLY COLE MD [facility] 10-03-2022 18:33-0500 Heart rate 70 /min BRADLY COLE MD [facility] 10-03-2022 18:33-0500 Respiratory rate 16 /min BRADLY COLE MD [facility] 10-03-2022 18:33-0500 Systolic Blood Pressure Non-Invasive 119 1 BRADLY COLE MD [facility] 10-03-2022 17:32-0500 Body temperature 99.1 [degF] Suzette Praisler-Wood SATELLITE DISH INSTALLER.CANE FLUME FEEDING MACHINE OPERATOR Work Phone: [facility] 10-03-2022 17:32-0500 Body weight 85.73 kg Suzette Praisler-Wood SATELLITE DISH INSTALLER.CANE FLUME FEEDING MACHINE OPERATOR Work Phone: [facility] 10-03-2022 17:32-0500 Diastolic blood pressure 96 mm[Hg] Suzette Praisler-Wood SATELLITE DISH INSTALLER.CANE FLUME FEEDING MACHINE OPERATOR Work Phone: [facility] 10-03-2022 17:32-0500 Heart rate 98 /min Suzette Praisler-Wood SATELLITE DISH INSTALLER.CANE FLUME FEEDING MACHINE OPERATOR Work Phone: [facility] 10-03-2022 17:32-0500 Respiratory rate 18 /min Suzette Praisler-Wood SATELLITE DISH INSTALLER.CANE FLUME FEEDING MACHINE OPERATOR Work Phone: [facility] 10-03-2022 17:32-0500 SaO2% (BldA) [Mass fraction] 99 % Suzette Praisler-Wood SATELLITE DISH INSTALLER.CANE FLUME FEEDING MACHINE OPERATOR Work Phone: [facility] 10-03-2022 17:32-0500 Systolic blood pressure 146 mm[Hg] Suzette Praisler-Wood SATELLITE DISH INSTALLER.CANE FLUME FEEDING MACHINE OPERATOR Work Phone: [facility] 09-30-2022 13:29-0500 Body temperature 98.01 [degF] Suzette Praisler-Wood SATELLITE DISH INSTALLER.CANE FLUME FEEDING MACHINE OPERATOR Work Phone: [facility] 09-30-2022 13:29-0500 Body weight 86.09 kg Suzette Praisler-Wood SATELLITE DISH INSTALLER.CANE FLUME FEEDING MACHINE OPERATOR Work Phone: [facility] 09-30-2022 13:29-0500 Diastolic blood pressure 66 mm[Hg] Suzette Praisler-Wood SATELLITE DISH INSTALLER.CANE FLUME FEEDING MACHINE OPERATOR Work Phone: [facility] 09-30-2022 13:29-0500 Heart rate 93 /min Suzette Praisler-Wood SATELLITE DISH INSTALLER.CANE FLUME FEEDING MACHINE OPERATOR Work Phone: [facility] 09-30-2022 13:29-0500 Respiratory rate 18 /min Suzette Praisler-Wood SATELLITE DISH INSTALLER.CANE FLUME FEEDING MACHINE OPERATOR Work Phone: [facility] 09-30-2022 13:29-0500 SaO2% (BldA) [Mass fraction] 97 % Suzette Malikler-Wood SATELLITE DISH INSTALLER.CANE FLUME FEEDING MACHINE OPERATOR Work Phone: [facility] 09-30-2022 13:29-0500 Systolic blood pressure 98 mm[Hg] Suzette Praisler-Wood SATELLITE DISH INSTALLER.CANE FLUME FEEDING MACHINE OPERATOR Work Phone: [facility] 09-27-2022 19:34-0500 Body temperature 97.3 [degF] Seth Chuckie SATELLITE DISH INSTALLER.CANE FLUME FEEDING MACHINE OPERATOR Work Phone: [facility] 09-27-2022 19:34-0500 Body weight 87.54 kg Seth Chuckie SATELLITE DISH INSTALLER.CANE FLUME FEEDING MACHINE OPERATOR Work Phone: [facility] 09-27-2022 19:34-0500 Diastolic blood pressure 72 mm[Hg] Seth Chuckie SATELLITE DISH INSTALLER.CANE FLUME FEEDING MACHINE OPERATOR Work Phone: [facility] 09-27-2022 19:34-0500 Heart rate 86 /min Seth Chuckie SATELLITE DISH INSTALLER.CANE FLUME FEEDING MACHINE OPERATOR Work Phone: [facility] 09-27-2022 19:34-0500 Respiratory rate 16 /min Seth Chuckie SATELLITE DISH INSTALLER.CANE FLUME FEEDING MACHINE OPERATOR Work Phone: [facility] 09-27-2022 19:34-0500 SaO2% (BldA) [Mass fraction] 98 % Seth Chuckie SATELLITE DISH INSTALLER.CANE FLUME FEEDING MACHINE OPERATOR Work Phone: [facility] 09-27-2022 19:34-0500 Systolic blood pressure 110 mm[Hg] Seth Chuckie SATELLITE DISH INSTALLER.CANE FLUME FEEDING MACHINE OPERATOR Work Phone: [facility] 09-24-2022 12:51-0500 Body temperature 98.2 [degF] Hillary Amelia SATELLITE DISH INSTALLER.CANE FLUME FEEDING MACHINE OPERATOR Work Phone: [facility] 09-24-2022 12:51-0500 Body weight 85.73 kg Hillary Amelia SATELLITE DISH INSTALLER.CANE FLUME FEEDING MACHINE OPERATOR Work Phone: [facility] 09-24-2022 12:51-0500 Diastolic blood pressure 70 mm[Hg] Hillary Amelia SATELLITE DISH INSTALLER.CANE FLUME FEEDING MACHINE OPERATOR Work Phone: [facility] 09-24-2022 12:51-0500 Heart rate 91 /min Hillary Cisneros SATELLITE DISH INSTALLER.CANE FLUME FEEDING MACHINE OPERATOR Work Phone: [facility] 09-24-2022 12:51-0500 SaO2% (BldA) [Mass fraction] 98 % Hillary Cisneros SATELLITE DISH INSTALLER.CANE FLUME FEEDING MACHINE OPERATOR Work Phone: [facility] 09-24-2022 12:51-0500 Systolic blood pressure 110 mm[Hg] Hillary Amelia SATELLITE DISH INSTALLER.CANE FLUME FEEDING MACHINE OPERATOR Work Phone: [facility] 05-09-2022 10:19-0400 Body temperature 97.39 [degF] Luisa Bogner PA-C Work Phone: [facility] 05-09-2022 10:19-0400 Body weight 81.47 kg Luisa Bogner PA-C Work Phone: [facility] 05-09-2022 10:19-0400 Diastolic blood pressure 82 mm[Hg] Luisa Bogner PA-C Work Phone: [facility] 05-09-2022 10:19-0400 Heart rate 93 /min Luisa Bogner PA-C Work Phone: [facility] 05-09-2022 10:19-0400 Respiratory rate 18 /min Luisa Bogner PA-C Work Phone: [facility] 05-09-2022 10:19-0400 SaO2% (BldA) [Mass fraction] 97 % Luisa Bogner PA-C Work Phone: [facility] 05-09-2022 10:19-0400 Systolic blood pressure 126 mm[Hg] Luisa Bogner PA-C Work Phone: [facility] 03-08-2022 10:40-0400 Body temperature 97.59 [degF] Margie Grayson SATELLITE DISH INSTALLER.CANE FLUME FEEDING MACHINE OPERATOR Work Phone: [facility] 03-08-2022 10:40-0400 Diastolic blood pressure 76 mm[Hg] Margie Grayson APRN.CANE FLUME FEEDING MACHINE OPERATOR Work Phone: [facility] 03-08-2022 10:40-0400 Heart rate 93 /min Margie Grayson APRN.CANE FLUME FEEDING MACHINE OPERATOR Work Phone: [facility] 03-08-2022 10:40-0400 Respiratory rate 18 /min Margie Grayson APRN.CANE FLUME FEEDING MACHINE OPERATOR Work Phone: [facility] 03-08-2022 10:40-0400 SaO2% (BldA) [Mass fraction] 98 % Margie Grayson APRN.CANE FLUME FEEDING MACHINE OPERATOR Work Phone: [facility] 03-08-2022 10:40-0400 Systolic blood pressure 122 mm[Hg] Margie Grayson APRN.CANE FLUME FEEDING MACHINE OPERATOR Work Phone: [facility] 02-02-2022 22:46-0400 Diastolic blood pressure 65 mm[Hg] Gene Hair MD Work Phone: [facility] 02-02-2022 22:46-0400 Heart rate 85 /min Gene Hair MD Work Phone: [facility] [place] 02-02-2022 22:46-0400 Respiratory rate 16 /min Gene Hair MD Work Phone: [facility] [place] 02-02-2022 22:46-0400 SaO2% (BldA) [Mass fraction] 100 % Gene Hair MD Work Phone: [facility] 02-02-2022 22:46-0400 Systolic blood pressure 100 mm[Hg] Gene Hair MD Work Phone: [facility] [place] 02-02-2022 21:13-0400 Body temperature 98.4 [degF] [facility] Hair [facility] 02-02-2022 21:13-0400 Body weight 74.84 kg Gene Hair MD [facility] 04-03-2018 15:00-0400 BMI (Body Mass Index) 20.77 kg/m2 Gretel Tapia [facility] Work Phone: 04-03-2018 15:00-0400 Body Temperature 97.6 [degF] Gretel Tapia [facility] Work Phone: Encounters Encounter Date Encounter Type Care Provider Facility Start: 07-04-2023 End: 07-04-2023 ambulatory ROSA MCCOY Facility:[facility] Start: 07-04-2023 End: 07-04-2023 Patient encounter procedure Anna Almendarez PA-C Work Phone: [facility] Procedures Date Procedure Procedure Detail Performing Clinician Start: 07-04-2023 STREP A MOLECULAR (POC) Seth Noguera SATELLITE DISH INSTALLER.CANE FLUME FEEDING MACHINE OPERATOR Work Phone: Start: 09-30-2022 STREP A MOLECULAR (POC) Suzette duncan SATELLITE DISH INSTALLER.CANE FLUME FEEDING MACHINE OPERATOR Work Phone: Start: 05-09-2022 End: 05-09-2022 Urnls dip stick/tablet rgnt auto w/o microscopy Kishor Valle MD Work Phone: Start: 03-08-2022 STREP A MOLECULAR (POC) Margie Grayson SATELLITE DISH INSTALLER.CANE FLUME FEEDING MACHINE OPERATOR Work Phone: Start: 06-15-2018 End: 06-15-2018 Internal Medicine Office Visit Comments: See Note; NOTES: [facility] [place] [address] OFFICE VISIT Date of Service: 06/13/18 MR#: [id number] Acct: [id number] Name: MOJGAN CORBETT Rep #: [id number] : 1990 Provider: Yessi Willard NP Age/Sex: 27/F Location: [facility] [place] Status: Signed Intake Vital Signs06/13/18 Height 5 ft 3 in 06/13/18 Weight: 127 lb 06/13/18 Body Mass Index (BMI) 22.4 06/13/18 Blood Pressure 94/60 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 Chief Complaint: refill thyroid medication Allergies poison oak extract Allergy (Verified 06/13/18 14:28) Unknown Latex, Natural Rubber Adverse Reaction (Verified 06/13/18 14:28) Rash Medications albuterol sulfate HFA 90 mcg/actuation aerosol inhaler INHALATION 25 Days #18 12/22/17 [History Confirmed 06/13/18] Biotin PO 06/13/18 [History Confirmed 06/13/18] Probiotic PO 06/13/18 [History Confirmed 06/13/18] collagen PO 06/13/18 [History Confirmed 06/13/18] digestive enzymes tablet 1 tab PO DAILY 06/13/18 [History Confirmed 06/13/18] levothyroxine 25 mcg tablet 25 mcg PO DAILY #90 tab 06/13/18 [Rx Confirmed 06/13/18] multivitamin tablet 1 tab PO DAILY 06/13/18 [History Confirmed 06/13/18] turmeric 400 mg capsule mg PO cap 06/13/18 [History Confirmed 06/13/18] vitamin B complex tablet 1 tab PO DAILY 06/13/18 [History Confirmed 06/13/18] PFS Medical History Anxiety (Chronic) Chronic headaches (Chronic) UTI (urinary tract infection) (Resolved) Asthma (Chronic) Seasonal allergies (Chronic) Family History Mother Anxiety Social History Smoking Status: Never smoker alcohol intake: never substance use type: does not use what type of physical activity do you participate in: weight training, other details: Cardio frequency: daily duration: 30-45 minutes/day HPI HPI Chief Complaint: refill thyroid medication Details: MOJGAN CORBETT, is a 27 F who presents to the office today for medication refills and to check her thyroid labs. She has a past medical history significant for anxiety and hypothyroidism. She is also new to our establishment. The patient states that she is due to have her thyroid labs checked. She currently takes 25 mcg of levothyroxine daily. She denies denies any signs of hyperthyroidism, she does state however that she is occasionally lightheaded with position changes but is thought to be due to her blood pressure as she typically runs low and her office BP today is 94/60. She does state that she has been more tired lately. However she denies any other signs of hypothyroidism. She does also note occasional sharp breast pain for the last 2 weeks, but states she is following up with IRRIGATION SPECIALIST in the near future. she denies any acute complaints at this time and she declines the influenza vaccination. The patient otherwise denies any fever, chills, nausea, vomiting, shortness of breath, chest pain or pressure, palpitations, orthopnea, lower extremity edema, syncope or presyncopal episodes. ROS Const Constitutional: Positive for fatigue; no chills, fever(s), frequent falls, malaise, weakness, sleep problems or change in appetite Eyes Eyes: No blurry vision, change in vision, double vision, discharge or visual disturbances ENT ENT: No abnormal hearing, ear pain, ear pressure, tinnitus or dizziness/vertigo Resp Respiratory: No cough, shortness of breath or wheezing Cardio Cardiology: No chest pain at rest, chest pain with exertion, shortness of breath, dyspnea on exertion, generalized swelling, irregular heart rhythm, lightheadedness, orthopnea, fast heart rate or palpitations Gastro GI: No abdominal pain, change in bowel habits, constipation, diarrhea, nausea/dyspepsia or vomiting Genitourinary-Female: No difficulty urinating, burning urination, painful urination, urinary incontinence, urinary frequency, urinary urgency, urinary hesitancy, urinary retention, Frequent nighttime urination/ nocturia, sexual problems, genital lesions, abnormal vaginal bleeding, pelvic pain, vaginal dryness, vaginal odor or Vaginal Itching Musc Musculoskeletal: No joint pain, back pain, joint swelling, limited range of motion, muscle weakness, numbness or tingling Skin Skin: No change in skin color, itching, rash or wounds Breast Breast: No breast lump or breast pain Neuro Neurology: No frequent falls, weakness, abnormal hearing, numbness, tingling, unsteady gait/balance, dizziness, loss of vision, memory loss or visual disturbances Psych Psychiatric: No memory loss, No anxiety, No change in appetite, No depression, No Thoughts of harming yourself/Others Endo Endocrine: Positive for fatigue and cold intolerance; no heat intolerance, increased thirst/drinking, increased hunger or increased urination Aller/Imm Allergy/Immunologic: No wheezing, itchy eyes or seasonal allergy symptoms Sidney/Lymp Hematologic/Lymphatic: No easy bleeding, easy bruising or enlarged lymph nodes Exam Const General: cooperative, comfortable, no acute distress Nutritional Appearance: average body habitus, well nourished Orientation: alert, oriented x3 Limitations: mental status not altered HENMT Head: normal to inspection Ears: hearing grossly normal bilaterally Nose: external nose normal Resp Effort AND Inspection: normal respiratory effort, able to speak in complete sentences, normal respiratory pattern, symmetric chest movement, no audible wheezes, no cough Auscultation: Bilateral: Clear to Auscultation Cardio Palpation: normal PMI Rate: regular rate Heart Sounds: S1 normal, S2 normal, normal S1 and S2, no click, no gallops, no murmurs, no rubs Musc Musculoskeletal: No muscle weakness Skin General: no rashes or lesions noted, elasticity normal, turgor normal Lesions: no lesions Rashes: no rashes Neuro General: alert, awake, oriented x3, CN's II-XI intact bilaterally Speech: speech normal Gait: normal gait Motor: muscle tone normal throughout Extrem General: normal to inspection, normal gait, no edema, no pedal edema Psych Appearance: grossly normal Mental Status: mental status grossly normal Affect: normal affect Attitude: cooperative Thought Process: normal Results Office , Urine Office , Urine Negative Last Edit by Marium Brannon on 06/13/18 15:22 Assessment AND Plan 1. Hypothyroidism E03.9 Plan Per patient, she is due to have her thyroid labs rechecked. Will request records from prior PCP. Refill of her levothyroxine was called to her pharmacy and instructed on its proper use. Declines any obvious signs of hypo-or hyperthyroidism at this time. Will follow and make adjustments as necessary. Baseline blood work ordered Orders Orders: 2. Pain of both breasts N64.4 Plan Patient does have new onset intermittent sharp breast pain times 2 weeks. She is following up with [facility] next week for this. A test was done in the office which was negative. Orders Orders: 3. Positional lightheadedness R42 Plan Patient does have occasional intermittent positional lightheadedness with position changes which is an ongoing issue for her. Her blood pressure does run on the low side at 90/60. Discussed conservative management and to increase her fluid intake, change positions slowly, and the use of compression stockings. Discussed red flag symptoms requiring urgent medical attention. Patient verbalized understanding. Patient to follow-up in 3 months or sooner if needed. Plan Detail Other Orders Orders: Other Medications Changed: Coding Level of Care Code Off vis,est,level 3 Diagnoses Hypothyroidism E03.9 Pain of both breasts N64.4 Positional lightheadedness R42 11/09/18 1022 <Electronically signed by Yessi PENA> Date Yessi PENA Cosigner Signature: Date (if applicable) CC: Gretel Tapia Start: 02-06-2018 End: 02-06-2018 [employer] Office Visit Report Comments: See Note; NOTES: [facility] [address] [place] [address]. [address] [place] [address] OFFICE VISIT Date of Service: 02/06/18 MR#: [id number] Acct: [id number] Name: MOJGAN CORBETT Rep #: [id number] : 1990 Provider: TARSHA Marie Age/Sex: 27/F Location: [facility] [place] Status: Signed Intake Vital Signs02/06/18 Height 5 ft 3 in 02/06/18 Weight: 126 lb 4 oz 02/06/18 Body Mass Index (BMI) 22.4 02/06/18 Blood Pressure 95/57 Intake Visit Reasons: IRREGULAR BLEEDING Chief Complaint: Irregular bleeding and also have been trying to get for 1 year. Is patient in pain?: No Allergies poison oak extract Allergy (Verified 02/06/18 13:17) Unknown Latex, Natural Rubber Adverse Reaction (Verified 02/06/18 13:17) Rash Medications Levothyroxine [Synthroid] 1 tab PO DAILY 12/22/17 [History Confirmed 02/06/18] albuterol sulfate HFA 90 mcg/actuation aerosol inhaler INHALATION 25 Days #18 12/22/17 [History Confirmed 02/06/18] Is last menstrual period known: Yes Last Menstral Period: 01/05/18 [facility] Social History Smoking Status: Never smoker HPI IRREGULAR BLEEDING: Details: MOJGAN CORBETT is a 27 year old who presents for irregular menses at least 6 months. States has normal 5-6 day menses then will have 1-4 days of spotting about 2 weeks later. Started thyroid medication about 6 weeks ago. Has not had follow up labs done. Wants . Youngest child almost 2 yr old. No contraception >1 year. is father of children. Denies STD concerns. History of ovarian cyst, last on May 2017 Female Reproductive History Last Menstral Period: 01/05/18 Exam Const General: cooperative, well groomed Nutritional Appearance: well nourished Orientation: oriented x3 External Female Exam: normal external appearance, normal appearance of the urethra Urethra: normal appearance of the urethra Speculum Exam - Vagina: normal appearance of the vagina, normal vaginal discharge Speculum Exam - Cervix: normal appearance of the cervix, other (pap collected) Bimanual Exam- Vagina AND Uterus: normal bimanual exam, uterine size normal, uterus non-tender Bimanual Exam- Adnexa, other: normal adnexae, adnexae non-tender, no adnexal masses Assessment AND Plan Problems 1. Irregular menstrual cycle N92.6 2. Pap smear for cervical cancer screening Z12.4 Plan Ultrasound Home UPT negative last night. Call if no menses X 1 week and negative home UPT, will proceed with provera challenge Thinprep pap with reflex HPV Orders Orders: Coding Level of Care Code Off vis,new,level 3 Diagnoses Irregular menstrual cycle N92.6 Pap smear for cervical cancer screening Z12.4 02/06/18 1339 <Electronically signed by Poly PENA> Date Poly PENA Cosigner Signature: Date (if applicable) CC: Gretel Tapia Start: 01-23-2018 End: 01-23-2018 Esophagus Only Comments: See Note; NOTES: [facility] Imaging Services [address] [place] [place] [address] Esophagus Only MR#: [id number] Acct: [id number] Name: MOJGAN CORBETT Rep #: [id number] : 1990 F 27 From: Nitin Young MD PCP: Gretel Tapia DO Status: REG CLI Study: Esophagus Only Date of Exam: 01/23/18 Exam# [id number] Ordering Dr: Gretel Tapia DO STUDY: X-RAY - ESOPHAGUS (BARIUM SWALLOW) WITH FLUOROSCOPY REASON FOR EXAM: Female, 27 years old. Dysphagia. Gastroesophageal reflux disease. TECHNIQUE: 15 view(s) of the esophagus were obtained following swallowing of barium. FLUOROSCOPY TIME (if supplied): (0:29) minutes/seconds COMPARISON: Comparison is made with prior study dated May 09, 2016. FINDINGS: There is no demonstrated esophageal foreign body. There is no demonstrated stricture or mucosal abnormality. Normal gastroesophageal junction, without a demonstrated hiatal hernia. The patient ingested a 12 mm tablet of barium without any difficulty. Normal visualized aortic arch and descending thoracic aorta. Normal visualized pulmonary parenchyma. Normal visualized osseous structures of the thorax. RAD/Esophagus Only IMPRESSION: Normal plain film x-ray examination (barium swallow) of the esophagus. Electronically Signed: Nitin Young MD at 13:31 EDT Tel [phone], Service support , CC: Gretel Tapia DO Geriatric Social Work Professor: Signed Gretel Tapia Work Phone: Start: 12-22-2017 End: 12-22-2017 Emergency Department Summary Comments: See Note; NOTES: [facility] Medical Records Department [address] [facility] [place] [address] Emergency Department Summary 12/22/17 1840 MR#: [id number] Acct: [id number] Name: MOJGAN CORBETT Rep #: [id number] : 1990 27 From: Delbert Bass MD PCP: Gretel Tapia DO Status: REG ER - ER Visit Summary Date of Service: 12/22/17 Chief Complaint: Sent to ER because of low blood pressure. History of Present Illness: The patient is a 27 F who was diagnosed with hypothyroidism 3 weeks ago. She did not fill her prescription for Synthroid. Her and her are trying to have a child. Last menses 2-3 weeks ago. She complains of generalized weakness, fatigue and lack of energy. She complains of dizziness but does not describe orthostatic symptoms. She denies fever, chills night sweats. Denies weight gain or weight loss. She denies any ocular, visual or auditory symptoms. She denies cardiac respiratory symptoms. She denies myalgias, arthralgias or back pain. She denies polyuria, polydipsia polyphagia. She denies problems with bruising or any skin lesions. As I was leaving the room after completing my history and physical patient told me that she drinks a lot of water . She could not give me a specific amount. Physical Examination: Blood pressure is 97/65. Temperature 98 heart rate 65 respiratory rate 16 and pulse ox 100% on room air. She appears in no distress. Head is atraumatic normocephalic. Pupils are equal round reactive. Extraocular muscles are intact. TMs are pearly white with landmarks noted. Nares patent with no drainage. Posterior pharynx without erythema or exudate. Uvula is midline. There is no dysphonia or dysphasia. Trachea is midline. There is no stridor with auscultation of the neck. Heart is regular without murmur, gallop or rub. S1 and S2 are normal. Lungs are clear to auscultation with good movement of air bilaterally. Abdomen is soft and nontender. There is no guarding or peritoneal findings. There is no palpable pulsatile mass. There is no abdominal bruit. Tenorio sign is negative. Negative Rovsing sign. There is no evidence of inguinal or umbilical hernia. There is no asymmetry, swelling, discoloration, leg vein distention, palpable cords or tenderness along the distribution of the deep venous system. Patient is alert and oriented 3. Motor is 5 over 5. Sensory is intact. DTRs are symmetric with no clonus or Babinski sign. Cranial 2 through 12 are intact. Cerebellar testing is normal. Test Results: BMP is unremarkable. CBC is normal. Serum test is negative. Emergency Department Course and Treatment: Patient has vague symptoms. This may be related to the fact that she has hypothyroidism and has not filled her prescription for Synthroid. Because she reports drinking significant amount of free fluid will obtain electro panel to assess for hyponatremia. A CBC was obtained to evaluate for anemia. A test was ordered as well since she and her are trying to have a child. Treatment Plan: Patient was instructed to fill her prescription for Synthroid and start taking her medication. Disposition: Discharged to home Impression: Weakness and fatigue secondary to hypothyroidism This note was generated with Ansibleation software. It may contain incorrect words, spelling, and punctuation that were not noted in review of the chart prior to signing ED Disposition - Plan for ED Patient: Disposition: Home or Assisted Living Chief Complaint: Hypotension Instructions: ED Hypothyroidism Referrals: Gretel Tapia DO [Primary Care Provider] - 10-14 Days if not better Additional Instructions: You must feel your prescription for Synthroid and take it daily as instructed What to do if you have Problems For any increased pain, shortness of breath, bleeding, nausea or vomiting, chest pain, or any unexpected problems, contact your Primary Care Provider. Call [facility] ([phone]) or report to the closest Emergency Room. Call 911 if necessary. 12/22/171940 <Electronically signed by Delbert Bass MD> Date Delbert Bass MD Cosigner Signature (If Indicated): Date CC: Gretel Shelley Start: 12-22-2017 End: 12-22-2017 Office Visit Report Comments: See Note; NOTES: [place] [address] [address] [place] [address] OFFICE VISIT Date of Service: 12/22/17 MR#: [id number] Acct: [id number] Patient: MOJGAN CORBETT Rep #: [id number] : 1990 Provider: Venkat ENCINAS Age/Sex: 27/F Location: [facility] [place] Status: Signed Intake Vital Signs12/22/17 Body Mass Index (BMI) 22.4 Intake Visit Reasons: bp check Is patient in pain?: No Allergies poison oak extract Allergy (Verified 12/22/17 16:02) Unknown Latex, Natural Rubber Adverse Reaction (Verified 10/26/16 16:33) Rash Medications albuterol sulfate HFA 90 mcg/actuation aerosol inhaler INHALATION 25 Days #18 12/22/17 [History Confirmed 12/22/17] Assessment AND Plan Medications Discontinued: cyclobenzaprine Discontinued Reason: Pt no longer takin10 mg PO TID PRN Muscle Spasm g 12/22/17 7533 <Electronically signed by Venkat ENCINAS> Date Venkat ENCINAS Cosigner Signature: Date (if applicable) CC: Gretelbonita Tapia Start: 12-22-2017 End: 12-22-2017 Urgent Care Visit Report Comments: See Note; NOTES: [facility] [address] [place] [address] OFFICE VISIT Date of Service: 12/22/17 MR#: [id number] Acct: [id number] Name: BERTAMOJGAN [place] Rep #: [id number] : 1990 Provider: Venkat ENCINAS Age/Sex: 27/F Location: [facility] [place] Status: Signed Intake Vital Signs12/22/17 Height 5 ft 3 in 12/22/17 Weight: 127 lb 12/22/17 Body Mass Index (BMI) 22.4 12/22/17 Blood Pressure 82/54 12/22/17 Blood Pressure Location Lt brachial Intake Visit Reasons: bp check Allergies poison oak extract Allergy (Verified 12/22/17 16:02) Unknown Latex, Natural Rubber Adverse Reaction (Verified 03/22/17 16:33) Rash Medications albuterol sulfate HFA 90 mcg/actuation aerosol inhaler INHALATION 25 Days #18 12/22/17 [History Confirmed 12/22/17] [facility] Social History Smoking Status: Never smoker HPI HPI Details: MOJGAN CORBETT, is a 27 F who presents to the office today for concern for low blood pressure. Patient states that she has been working out and drinking a lot of water. She does report that she did have a feeling of lightheadedness when moving from a seated to a standing position earlier and checked her blood pressure while at a store. She states that the bright blood pressure at that time was 96/62. Her blood pressure was rechecked here in the office and found initially to be 86/58 however later upon reexamination her blood pressure was 94/68. She denies any syncopal or near syncopal episodes. No change in vision or blurry vision. No recent illnesses. No nausea, vomiting, diarrhea. No shortness of breath or difficulty breathing. No other associated symptoms or alleviating/aggravating factors. ROS Const Constitutional: No chills, fever(s), fatigue, abnormal sleep pattern, headache(s) or change in appetite ENT ENT: No headache(s), dizziness/vertigo or hearing loss Resp Respiratory: No shortness of breath or chest congestion Cardio Cardiology: No chest pain at rest, chest pain with exertion or shortness of breath Skin Skin: No wounds or lesions Neuro Neurology: Positive for other (Lightheaded when going from a seated to a standing position); no behavioral changes, confusion or headache(s) Psych Psychiatric: No behavioral changes, No confusion, No abnormal sleep pattern, No change in appetite Endo Endocrine: No fatigue Exam Const General: cooperative, healthy appearing [facility] Head: normocephalic, atraumatic Ears: hearing grossly normal bilaterally Nose: external nose normal Face and sinus: face symmetric, normal facial exam Mouth: oral mucosae normal Throat: posterior oropharynx normal Eyes General: appearance normal, both eyes and all related structures Pupils: PERRL Resp Effort AND Inspection: normal respiratory effort Auscultation: Bilateral: Clear to Auscultation Cardio Palpation: normal PMI Rate: regular rate Rhythm: regular rhythm Skin General: no rashes or lesions noted Neuro General: alert, CN's II-XI intact bilaterally, oriented x3, moves all extremities, gait normal Cognition: normal cognition Speech: speech normal Gait: normal gait Motor: muscle tone normal throughout Sensory Exam: no sensory deficits noted Psych Appearance: grossly normal Mental Status: mental status grossly normal Assessment AND Plan Problems 1. Positional lightheadedness R42 Status Acute Plan Patient advised to make sure she is drinking adequate amount of water however not too much. Advised of potential red flags when appropriate report to the ED. Patient advised to follow-up with her PCP for further evaluation and treatment of her hypotension. Patient verbalized understanding and agreement with all the above. This note was generated with Ansibleation software. It may contain incorrect words, spelling, and punctuation that were not noted in checking the note before signing. Medications Discontinued: cyclobenzaprine Discontinued Reason: Pt no longer takin10 mg PO TID PRN Muscle Spasm g Coding Level of Care Code Off vis,est,level 3 Diagnoses Positional lightheadedness R42 12/22/17 1135 <Electronically signed by Venkat ENCINAS> Date Venkat ENCINAS Cosigner Signature: Date (if applicable) CC: Gretel Tapia Start: 10-27-2017 End: 10-27-2017 Discharge Instruction Comments: See Note; NOTES: [facility] Medical Records Department [address] [place] [address] Discharge Instruction 10/27/17 0107 MR#: [id number] Acct: [id number] Name: MOJGAN CORBETT Rep #: [id number] : 1990 26 From: Donavan Watt MD PCP: Gretel Tapia DO Status: PRE ER ED Disposition - Plan for ED Patient: Disposition: Home or Assisted Living Chief Complaint: Back Instructions: ED Neck Back Pain General Prescriptions: Naproxen [Naprosyn] 500 mg PO BID PRN #20 tab Cyclobenzaprine [Flexeril] 10 mg PO TID PRN #20 tab PRN Reason: Muscle Spasm Referrals: Gretel Tapia DO [Primary Care Provider] - What to do if you have Problems For any increased pain, shortness of breath, bleeding, nausea or vomiting, chest pain, or any unexpected problems, contact your Primary Care Provider. Call [facility] ([phone]) or report to the closest Emergency Room. Call 911 if necessary. 10/27/17 0108 <Electronically signed by Donavan Watt MD> Date Donavan Watt MD Cosigner Signature (If Indicated): Date CC: Gretel Shelley Start: 10-27-2017 End: 10-27-2017 Emergency Department Summary Comments: See Note; NOTES: [facility] Medical Records Department [address] [place] [address] Emergency Department Summary 10/27/17 0106 MR#: [id number] Acct: [id number] Name: MOJGAN CORBETT Rep #: [id number] : 1990 26 From: Donavan Watt MD PCP: Gretel Tapia DO Status: PRE ER - ER Visit Summary Date of Service: 10/27/17 Chief Complaint: Left-sided neck and arm pain History of Present Illness: The patient is a 26 F who has been having the above symptoms since last evening. She does not remember any specific injury. The pain radiates down the proximal left arm. It is worse with movement. She denies any numbness or tingling. She tried ibuprofen and ice without any relief. She denies any chest pain or shortness of breath. Physical Examination: Vital signs reviewed. HEENT exam unremarkable. Heart is regular rate and rhythm without murmurs. Lungs are clear to auscultation. Abdomen is soft and nontender. She has tenderness in the left cervical paraspinal area over the trapezius muscle. Extremities reveal no edema. Skin exam normal. Neurologic exam normal. Test Results: None indicated Emergency Department Course and Treatment: Patient likely has a trapezius strain. She has no DVT or PE risk factors. I have very low suspicion for this. She may be having some cervical radicular symptoms associated with this. I will treat her with naproxen and Flexeril. She will follow-up with her PCP Treatment Plan: [] Disposition: Discharge Impression: Left trapezius strain This note was generated with [employer] dictation software. It may contain incorrect words, spelling, and punctuation that were not noted in review of the chart prior to signing ED Disposition - Plan for ED Patient: Chief Complaint: Back Referrals: Gretel Tapia DO [Primary Care Provider] - What to do if you have Problems For any increased pain, shortness of breath, bleeding, nausea or vomiting, chest pain, or any unexpected problems, contact your Primary Care Provider. Call [facility] ([phone]) or report to the closest Emergency Room. Call 911 if necessary. 10/27/17 0107 <Electronically signed by Donavan Watt MD> Date Donavan Watt MD Cosigner Signature (If Indicated): Date CC: Gretel Shelley Start: 05-18-2017 End: 05-19-2017 Hepatobilliary Imaging Comments: See Note; NOTES: [facility] Imaging Services [address] [place] [address] Hepatobilliary Imaging MR#: [id number] Acct: [id number] Name: BERTAMOJGAN [place] Rep #: [id number] : 1990 F 26 From: Cole Bains DO PCP: Gretel Tapia DO Status: [facility] CLI Study: Hepatobilliary Imaging Date of Exam: 05/18/17 Exam# [id number] Ordering Dr: Gretel Tapia DO CLINICAL: 26-year-old female with reported history of epigastric pain. RADIONUCLIDE HEPATOBILIARY SCINTIGRAPHY COMPARISON: Abdominal ultrasound report 05/13/2017 FINDINGS: Following the intravenous administration of 5.2 mCi of 99m Tc Mebrofenin, hepatobiliary images reveal: 1. Relatively prompt and homogeneous radiopharmaceutical concentration is noted by a normal sized liver. No parenchymal defects are identified. 2. Gallbladder activity is identified at 10 minutes post radiopharmaceutical administration. 3. Small intestinal tract is observed at 30 minutes following tracer injection. 4. Washout of the radiopharmaceutical by the hepatic parenchyma appears qualitatively normal. The patient was administered a fatty meal (8 ounces BOOST-30 grams fat). The post fatty meal consumption gallbladder ejection fraction calculated at 60 minutes was noted to be 60.0 % (normal greater than 30%). NM/Hepatobilliary Imaging IMPRESSION: 1. NORMAL 99m Tc Mebrofenin hepatobiliary imaging examination with fatty meal ingestion. A. A gallbladder ejection fraction calculated to be greater than 30% following the administration of a consumed fatty meal makes the probability of functional hepatobiliary disease (gallbladder and/or sphincter of Oddi dyskinesia) and/or organic hepatobiliary disease (chronic acalculous cholecystitis and/or cystic duct syndrome) to be low. (Kristin and Dmitri, J Nucl Med 43: 1603, 2002). Electronically Signed: Cole Bains DO at 9:25 EDT Tel , Service support , CC: Gretel Tapia DO Geriatric Social Work Professor: Signed Gretel Tapia Work Phone: Start: 05-13-2017 End: 05-13-2017 Abdomen Complete Comments: See Note; NOTES: [facility] Imaging Services [address] [place] [address] Abdomen Complete MR#: [id number] Acct: [id number] Name: MOJGAN CORBETT Rep #: [id number] : 1990 F 26 From: Harvey Moyer DO PCP: Gretel Tapia DO Status: REG CLI Study: Abdomen Complete Date of Exam: 05/13/17 Exam# [id number] Ordering Dr: Gretel Tapia DO STUDY: ABDOMINAL ULTRASOUND REASON FOR EXAM: Female, 26 years old. Abdominal pain TECHNIQUE: Transabdominal ultrasound was performed with real-time and static cohen scale imaging. TECHNICAL QUALITY: Adequate. COMPARISON: None. FINDINGS: Liver: The liver measures 14.4 cm. There is normal echogenicity of the liver. The bile ducts are within normal limits. There is hepatic color flow. The direction of portal flow is hepatopetal. There is no demonstrated mass lesion. Portal vein measurement: Gallbladder: Normal distended gallbladder. The gallbladder wall measures 2 mm. There is a negative sonographic Tenorio's sign. There is no pericholecystic fluid. There are no gallstones. Common Bile Duct (C.B.D.): The common bile duct measures 3 mm. Pancreas: Normal size of the head, body and tail of the pancreas. There is normal echogenicity of the pancreas. There is no demonstrated pancreatic mass or cyst. Spleen: There is splenomegaly. The spleen measures 13.5 cm. Right Kidney: Normal size of the right kidney. The right kidney measures 9.5 cm. Normal renal cortex. The right cortex measures 1.2 cm. There is no demonstrated renal mass or cyst. There is no right hydronephrosis. Left Kidney: Normal size of the left kidney. The left kidney measures 9.3 cm. Normal renal cortex. The left cortex measures 1.4 cm. There is no demonstrated renal mass or cyst. There is no left hydronephrosis. Aorta: Within normal limits I.V.C.: The IVC is patent. There is no ascites. US/Abdomen Complete IMPRESSION: Borderline splenomegaly, remainder is within normal limits Electronically Signed: Harvey Moyer DO at 11:44 EDT Tel , Service support , CC: Gretel Tapia DO Geriatric Social Work Professor: Signed Gretel Tapia Work Phone: Start: 05-12-2017 End: 05-12-2017 Pelvic (Non ) Comments: See Note; NOTES: [facility] Imaging Services [address] [place] [address] Pelvic (Non ) MR#: [id number] Acct: [id number] Name: MOJGAN CORBETT Rep #: [id number] : 1990 F 26 From: Lyndsay Bradford MD PCP: Gretel Tapia DO Status: REG CLI Study: Pelvic (Non ) Date of Exam: 05/12/17 Exam# [id number] Ordering Dr: Gretel Tapia DO STUDY: ULTRASOUND OF THE FEMALE PELVIS - COMPLETE REASON FOR EXAM: Female, 26 years old. Pelvic pain LMP: April 19, 2017 TECHNIQUE: Transabdominal and Transvaginal TECHNICAL QUALITY: Adequate. COMPARISON: October 15, 2014 FINDINGS: The uterus is retroflexed and is in a midline position. The uterus measures 7.6 x 4.8 x 5.7 cm. Normal uterine cervix. The endometrium measures 16.2 mm in thickness, and is hyperechoic. There is no demonstrated endometrial mass. There is no demonstrated myometrial mass. I.U.D. - The patient does not have an I.U.D. The right ovary is visualized. The right ovary measures 4.2 x 1.9 x 1.9 cm. There are follicles of the right ovary without a dominant cyst. There is no visualized right adnexal mass or complex lesion. There is normal arterial and normal venous vascularity. The left ovary is visualized. The left ovary measures 4.7 x 2.5 x 2.6 cm. There are follicles of the left ovary without a dominant cyst. There is no visualized left adnexal mass or complex lesion. There is normal arterial and normal venous vascularity. There is a moderate amount of fluid in the cul-de-sac. The volume of the bladder was 281 ml. US/Pelvic (Non ) IMPRESSION: There is moderate fluid in the pelvis which is nonspecific and can be seen with a recently ruptured cyst or follicle. There are no suspicious masses in the ovaries. Numerous follicles are seen in both ovaries. Electronically Signed: Lyndsay Bradford MD at 18:26 EDT Tel [phone], Service support , CC: Gretel Tapia DO Geriatric Social Work Professor: Signed Gretel Tapia Work Phone: Start: 05-12-2017 End: 05-12-2017 Transvaginal Non- Comments: See Note; NOTES: [facility] Imaging Services [address] [place] [address] Transvaginal Non- MR#: [id number] Acct: [id number] Name: MOJGAN CORBETT Rep #: [id number] : 1990 F 26 From: Lyndsay Bradford MD PCP: Gretel Tapia DO Status: REG CLI Study: Transvaginal Non- Date of Exam: 05/12/17 Exam# [id number] Ordering Dr: Gretel Tapia DO STUDY: ULTRASOUND OF THE FEMALE PELVIS - COMPLETE REASON FOR EXAM: Female, 26 years old. Pelvic pain LMP: April 19, 2017 TECHNIQUE: Transabdominal and Transvaginal TECHNICAL QUALITY: Adequate. COMPARISON: October 15, 2014 FINDINGS: The uterus is retroflexed and is in a midline position. The uterus measures 7.6 x 4.8 x 5.7 cm. Normal uterine cervix. The endometrium measures 16.2 mm in thickness, and is hyperechoic. There is no demonstrated endometrial mass. There is no demonstrated myometrial mass. I.U.D. - The patient does not have an I.U.D. The right ovary is visualized. The right ovary measures 4.2 x 1.9 x 1.9 cm. There are follicles of the right ovary without a dominant cyst. There is no visualized right adnexal mass or complex lesion. There is normal arterial and normal venous vascularity. The left ovary is visualized. The left ovary measures 4.7 x 2.5 x 2.6 cm. There are follicles of the left ovary without a dominant cyst. There is no visualized left adnexal mass or complex lesion. There is normal arterial and normal venous vascularity. There is a moderate amount of fluid in the cul-de-sac. The volume of the bladder was 281 ml. US/Transvaginal Non- IMPRESSION: There is moderate fluid in the pelvis which is nonspecific and can be seen with a recently ruptured cyst or follicle. There are no suspicious masses in the ovaries. Numerous follicles are seen in both ovaries. Electronically Signed: Lyndsay Bradford MD at 18:26 EDT Tel [phone], Service support , CC: Gretel Tapia DO Geriatric Social Work Professor: Signed Gretel Tapia Work Phone: Start: 11-05-2016 End: 11-05-2016 Discharge Instruction Comments: See Note; NOTES: [facility] Medical Records Department [address] [place] [address] Discharge Instruction 10/26/16 1820 MR#: [id number] Acct: [id number] Name: MOJGAN CORBETT Rep #: [id number] : 1990 25 From: Justo Graf PCP: Gretel Tapia DO Status: DEP ER ED Disposition - Plan for ED Patient: Disposition: Home or Assisted Living Chief Complaint: Chest Other Instructions: ED Chest Pain Costochondritis Referrals: Gretel Tapia DO [Primary Care Provider] - What to do if you have Problems For any increased pain, shortness of breath, bleeding, nausea or vomiting, chest pain, or any unexpected problems, contact your Primary Care Provider. Call [facility] ([phone]) or report to the closest Emergency Room. Call 911 if necessary. 11/01/16 1903 <Electronically signed by Justo Graf > Date Justo Graf 11/05/16 0808<Electronically signed by Percy Sanchez MD> Cosigner Signature (If Indicated): Date Percy Sanchez MD CC: Gretel Shelley Start: 10-31-2016 End: 10-31-2016 12 lead ECG Comments: See Note; NOTES: [facility] Cardiovascular Services [address] [place] [address] 12 Lead EKG 10/26/161731 MR#: [id number] Acct: [id number] Name: MOJGAN CORBETT Rep #: [id number] : 1990 From: John Franco MD Attending Dr: Status: DEP ER Ordering Dr: Justo Graf Date: 10/26/16 Location: ED Sex: F C Admitted: Test Reason : CHEST OTHER Blood Pressure : / mmHG Vent. Rate : 069 BPM Atrial Rate : 069 BPM P-R Int : 146 ms QRS Dur : 088 ms QT Int : 400 ms P-R-T Axes : -08 084 015 degrees QTc Int : 428 ms Normal sinus rhythm Normal ECG Confirmed by CALLIE PADILLA, JOHN ([id number]), general expeditor DONYA BUSTAMANTE ([id number]) on 10/31/2016 3:16:16 PM Referred By: GOYO Confirmed By:JOHN FRANCO MD 10/31/16 1516 Date John Franco MD CC: Gretel Tapia DO Date Dictated: 10/26/161731 Date Transcribed: 10/26/161731 Geriatric Social Work Professor: Signed Gretel Tapia Start: 10-27-2016 End: 10-27-2016 Emergency Department Summary Comments: See Note; NOTES: [facility] Medical Records Department [address] [place] [address] Emergency Department Summary MR#: [id number] Acct: [id number] Name: MOJGAN CORBETT Rep #: [id number] : 1990 25 From: Justo Graf PCP: Gretel Tapia DO Status: DEP ER DATE OF SERVICE: 10/26/2016 HISTORY OF PRESENT ILLNESS: The patient is a 25-year-old female presenting to the Emergency Department for intermittent chest pain for the past week in duration. She describes a sharp stabbing sensation localized to the anterior chest wall. She reports that her pain occurs at random times with no specific exacerbating or relieving factors. It lasts approximately 10-15 minutes in duration. She denies any associated palpitations, lightheadedness, shortness of breath, productive cough or recent trauma; however, she does state that she has 3 young kids at home and is often picking them up. Additionally, she is also complaining of bilateral intermittent breast pain. She states that she is currently , but she denies any overlying skin changes or nipple discharge. She states that she has remote history of mastitis; however, this feels different in nature. She has not seen her IRRIGATION SPECIALIST for this complaint. She does not have any cardiac or PE risk factors. Remaining review of systems is negative. PAST MEDICAL HISTORY: Negative. PHYSICAL EXAMINATION: VITAL SIGNS: Blood pressure 126/79, heart rate 86, respiratory rate 15 at 98% on room air, temperature 98.1. GENERAL: Well-appearing female resting comfortably in bed and in no acute distress. HEENT: Normocephalic, atraumatic. Pupils are equal, round and reactive to light bilaterally. Extraocular movements intact. Moist mucous membranes. NECK: Supple. CARDIAC: Regular rate and rhythm. No murmurs. Normal S1, S2. RESPIRATORY: No distress. Clear to auscultation bilaterally. Mild tenderness to palpation of the anterior chest wall. BREASTS: Bilateral breast appeared normal with no evidence of erythema or tenderness to palpation. No nipple discharge. ABDOMEN: Soft, nontender, nondistended. EXTREMITIES: Nontender, no edema. SKIN: Normal color, no rash. NEUROLOGIC: She is alert and oriented with normal speech pattern. EMERGENCY DEPARTMENT COURSE: Upon arrival, the patient's vital signs are within normal limits and she is in no acute distress. EKG demonstrates a normal sinus rhythm with a rate of 69 with no evidence of acute ischemia or arrhythmia. She declined Toradol here in the Emergency Department. Two-view chest x-ray is negative for any acute cardiopulmonary process. Upon re-evaluation at 1820 hours, she is resting comfortably. Repeat CVS exam is unchanged with a regular rate and rhythm and lungs clear to auscultation bilaterally. We feel that her symptoms are likely secondary to costochondritis or concerned for ACS or PE, it is very low. Therefore, we feel she is appropriate for discharge. She is to follow up with her primary care physician should her symptoms fail to improve over the next 5-7 days. She is encouraged to take ibuprofen or Tylenol to address her symptoms. Reasons to return to the Emergency Department were discussed and agreed upon. CLINICAL IMPRESSION: Costochondritis. Justo Graf MD T: NTS JOB: [id number] Date Justo Graf 10/27/16 0055 <Electronically signed by Percy Sanchez MD> Cosigner Signature (If Indicated): Date Bert Sanchez MD CC: Gretel Tapia DO Date Dictated: 10/26/161823 Date Transcribed: 10/26/161823 Geriatric Social Work Professor: Signed Gretel Tapia Start: 10-26-2016 End: 10-26-2016 Chest PA and Lateral Comments: See Note; NOTES: [facility] Imaging Services [address] [place] [address] Verdana 4d Chest PA and Lateral MR#: [id number] Acct: [id number] Name: STEVEKATLINMOJGAN Charlotte Rep #: [id number] : 1990 F 25 From: Reddy Peralta DO PCP: Gretel Tapia DO Status: REG ER Study: Chest PA and Lateral Date of Exam: 10/26/16 Exam# [id number] Ordering Dr: Justo Graf STUDY: X-RAY CHEST REASON FOR EXAM: Female, 25 years old. Chest pain TECHNIQUE: Frontal and lateral views COMPARISON: November 16, 2015 FINDINGS: The lungs are clear and expanded. There is no demonstrated pleural abnormality. Normal size heart. Normal mediastinum and rancho. Normal visualized pulmonary arteries. Normal visualized aortic arch and descending thoracic aorta. Normal visualized thoracic spine. Normal visualized ribs, clavicles, and shoulders. There is no demonstrated abnormality of the visualized soft tissue structures of the upper abdomen. RAD/Chest PA and Lateral IMPRESSION: Normal x-ray examination of the chest. Electronically Signed: Reddy Peralta DO at 18:09 EDT Tel [phone], Service support [phone], CC: JUSTO GRAF M.D.; Gretel Tapia DO Geriatric Social Work Professor: Signed Gretel Tapia Work Phone: Start: 08-29-2016 End: 08-29-2016 Discharge Instruction Comments: See Note; NOTES: [facility] Medical Records Department [address] [place] [address] Discharge Instruction 08/27/16 0345 MR#: [id number] Acct: [id number] Name: MOJGAN CORBETT Rep #: [id number] : 1990 25 From: Pablo Castillo MD PCP: Gretel Tapia DO Status: DEP ER ED Disposition - Plan for ED Patient: Disposition: Home or Assisted Living Chief Complaint: Abscess Instructions: ED Blank Diagnosis Form Prescriptions: Clindamycin Phosphate [Cleocin T] 60 ml TP BID #1 lotion Referrals: Gretel Tapia DO [Primary Care Provider] - Additional Instructions: This appears like an irritated skin pimple. use the antibiotic lotion as directed. What to do if you have Problems For any increased pain, shortness of breath, bleeding, nausea or vomiting, chest pain, or any unexpected problems, contact your Primary Care Provider. Call [facility] ([phone]) or report to the closest Emergency Room. Call 911 if necessary. 08/29/162 <Electronically signed by Pablo Castillo MD> Date Pablo Castillo MD Cosigner Signature (If Indicated): Date CC: Gretel Shelley Start: 08-29-2016 End: 08-29-2016 Emergency Department Summary Comments: See Note; NOTES: [facility] Medical Records Department [address] [place] [address] Emergency Department Summary MR#: [id number] Acct: [id number] Name: MOJGAN CORBETT Rep #: [id number] : 1990 25 From: Pablo Castillo MD PCP: Gretel Tapia DO Status: [facility] DATE OF SERVICE: 08/27/2016 CHIEF COMPLAINT: Right cheek sore. MODE OF TRANSPORT: Private vehicle. HISTORY OF PRESENT ILLNESS: Three days ago, she picked a blackhead and noticed she developed a sore on her right cheek. She came in for further evaluation of it. PHYSICAL EXAMINATION: VITAL SIGNS: Reviewed. EXTREMITIES: She has a very small pimple on her right cheek with some very mild inflammation, no cellulitis. Rest of her physical unremarkable. EMERGENCY DEPARTMENT COURSE: The patient was told that she can maybe pop this on her own. She did not want me to pop it. She was given clindamycin lotion. This is just a small cheek pustule. DISPOSITION: Home. IMPRESSION: Face or cheek pimple. Pablo Castillo MD T: NTS JOB: [id number] 08/29/16 2202 <Electronically signed by Pablo Castillo MD> Date Pablo Castillo MD Cosigner Signature (If Indicated): Date CC: Gretel Tapia DO Date Dictated: 08/27/16348 Date Transcribed: 08/27/16348 Geriatric Social Work Professor: Signed Gretel Tapia Start: 05-09-2016 End: 05-09-2016 Esophagus Only Comments: See Note; NOTES: [facility] Imaging Services [address] [place] [address] Verdana 4d Esophagus Only MR#: [id number] Acct: [id number] Name: MOJGAN CORBETT Rep #: [id number] : 1990 F 25 From: Nitin Young MD PCP: Gretel Tapia DO Status: REG CLI Study: Esophagus Only Date of Exam: 05/09/16 Exam# [id number] Ordering Dr: Percy Morales MD STUDY: X-RAY - ESOPHAGUS (BARIUM SWALLOW) WITH FLUOROSCOPY REASON FOR EXAM: Female, 25 years old. Dysphagia. TECHNIQUE: 18 view(s) of the esophagus were obtained following swallowing of barium. FLUOROSCOPY TIME (if supplied): (0:43) minutes/seconds COMPARISON: None. FINDINGS: There is no demonstrated esophageal foreign body. There is no demonstrated stricture or mucosal abnormality. Normal gastroesophageal junction, without a demonstrated hiatal hernia. The patient ingested a 12 mm tablet of barium without any difficulty. Normal visualized aortic arch and descending thoracic aorta. Normal visualized pulmonary parenchyma. Normal visualized osseous structures of the thorax. RAD/Esophagus Only IMPRESSION: Normal plain film x-ray examination (barium swallow) of the esophagus. Electronically Signed: Nitin Young MD at 10:35 EDT Tel [phone], Service support [phone], CC: Bert Morales MD; Gretel Tapia DO Geriatric Social Work Professor: Signed Gretel Tapia Start: 04-24-2016 End: 04-24-2016 OB Triage Physician Note Comments: See Note; NOTES: [facility] Medical Records Department [address] [place] [address] OB Triage Physician Note 04/24/16 1330 MR#: [id number] Acct: [id number] Name: MOJGAN CORBETT Rep #: [id number] : 1990 25 From: Lyndsay Arevalo DO PCP: Gretel Tapia DO Status: DEP CLI Y Location: [facility] History of Present Illness - History of Present Illness Reason For Visit: R/O LABOR - Medications Home Medications: Home Medications Medication Instructions Recorded Albuterol Inhaler [Ventolin Hfa 1 - 2 puff INHALATION Q4H PRN PRN 11/16/15 (SP)] Omeprazole [Prilosec] 20 mg PO DAILY 11/16/15 Vits [Prenatabs FA] 1 tablet PO DAILY 11/16/15 Naproxen [Naprosyn] 250 - 500 mg PO Q8H PRN PRN #30 03/17/16 tablet - Allergies Allergies/Adverse Reactions: Allergies Latex, Natural Rubber Adverse Reaction (Verified 03/15/16 08:01) Rash sensitive not allergic Physical Exam Vitals: Vital Signs Temp Pulse Resp BP Pulse Ox 18 03/13/16 20:45 NST - FHR Rate Baby A Baseline: 120 Variability:: Moderate Accelerations:: 15 x 15 Decelerations:: Variable NST Reactive:: Yes FHR Category:: Category I Uterine Activity:: none Impression/Plan False labor and reactive nst the variable that occurred immediately after placement of the montor could be artifact as the rest of the pattern was normal. pt reassured. follow up in 1 week in office. 04/24/16 1333 <Electronically signed by Lyndsay Arevalo DO> Date Lyndsay Arevalo DO Cosigner Signature (if applicable): Date CC: Lyndsay Arevalo DO; Gretel Tapia DO Signed Gretel Tapia Start: 04-05-2016 End: 04-05-2016 OB Triage Physician Note Comments: See Note; NOTES: [facility] Medical Records Department [address] [place] [address] OB Triage Physician Note 03/16/16800 MR#: [id number] Acct: [id number] Name: MOJGAN CORBETT Rep #: [id number] : 1990 25 From: Lyndsay Arevalo DO PCP: Gretel Tapia DO Status: [facility] CLI Y Location: [facility] History of Present Illness - History of Present Illness Reason For Visit: DECREASED MOVEMENT - Medications Home Medications: Home Medications Medication Instructions Recorded Albuterol Inhaler [Ventolin Hfa 1 - 2 puff INHALATION Q4H PRN PRN 11/16/15 (SP)] Omeprazole [Prilosec] 20 mg PO DAILY 11/16/15 Vits [Prenatabs FA] 1 tablet PO DAILY 11/16/15 Naproxen [Naprosyn] 250 - 500 mg PO Q8H PRN PRN #30 03/17/16 tablet - Allergies Allergies/Adverse Reactions: Allergies Latex, Natural Rubber Adverse Reaction (Verified 03/15/16 08:01) Rash sensitive not allergic NST - FHR Rate Baby A Baseline: started at 160 with change 120 Variability:: Moderate Accelerations:: 15 x 15 Decelerations:: None NST Reactive:: Yes FHR Category:: Category I Uterine Activity:: some contractions. irregular Impression/Plan Decreased movement in -NST showed change in baseline from 160's to 120's. moderate variability noted with accelerations. -patient reassured. -rto for follow up this week 04/05/16 0842 <Electronically signed by Lyndsay Arevalo DO> Date Lyndsay Arevalo DO Cosigner Signature (if applicable): Date CC: Lyndsay Arevalo DO; Gretel Tapia DO Signed Gretel Tapia Start: 04-01-2016 End: 04-01-2016 OB Triage Physician Note Comments: See Note; NOTES: [facility] Medical Records Department [address] [place] [address] OB Triage Physician Note 04/01/16 1311 MR#: [id number] Acct: [id number] Name: MOJGAN CORBETT Rep #: [id number] : 1990 25 From: Lyndsay Arevalo DO PCP: Gretel Tapia DO Status: [facility] Y Location: [facility] History of Present Illness - History of Present Illness Reason For Visit: DECREASED MOVEMENT - Medications Home Medications: Home Medications Medication Instructions Recorded Albuterol Inhaler [Ventolin Hfa 1 - 2 puff INHALATION Q4H PRN PRN 11/16/15 (SP)] Omeprazole [Prilosec] 20 mg PO DAILY 11/16/15 Vits [Prenatabs FA] 1 tablet PO DAILY 11/16/15 Naproxen [Naprosyn] 250 - 500 mg PO Q8H PRN PRN #30 03/17/16 tablet - Allergies Allergies/Adverse Reactions: Allergies Latex, Natural Rubber Adverse Reaction (Verified 03/15/16 08:01) Rash sensitive not allergic NST - FHR Rate Baby A Baseline: 120's Variability:: Moderate Accelerations:: 15 x 15 Decelerations:: None NST Reactive:: Yes FHR Category:: Category I Uterine Activity:: none Impression/Plan Decreased movement with documented reactive NST -kick counts reviewed -dc home to follow up in 1 week 04/01/16 1312 <Electronically signed by Lyndsay Arevalo DO> Date Lyndsay Arevalo DO Cosigner Signature (if applicable): Date CC: Lyndsay Arevalo DO; Gretel Tapia DO Signed Gretel Tapia Start: 03-24-2016 End: 03-24-2016 Brain without Contrast Comments: See Note; NOTES: [facility] Imaging Services [address] [place] [address] Verdana 4d Brain without Contrast MR#: [id number] Acct: [id number] Name: MOJGAN CORBETT Rep #: [id number] : 1990 F 25 From: Ori Green MD PCP: Gretel Tapia DO Status: REG CLI Study: Brain without Contrast Date of Exam: 03/24/16 Exam# [id number] Ordering Dr: Mari Meza MD STUDY: MRI BRAIN WITHOUT CONTRAST REASON FOR EXAM: Female, 25 years old. headache for 5 days TECHNIQUE: Standardized multiplanar fat and water weighted pulse sequences were obtained. COMPARISON: None. FINDINGS: Normal size of the ventricles and extra-axial spaces for the patient's age. Normal white matter tracts of the supratentorial brain. Normal bilateral basal ganglia. Normal thalami. There is no extra-axial fluid accumulation. Normal flow voids within the major intracranial circulation suggesting patency by spin echo criteria. Normal sella turcica, pituitary gland, infundibular stalk, optic chiasm and hypothalamus. Normal tectal plate and pineal gland. Normal midbrain, kamari and medulla. Normal cerebellum. Normal basal cisterns. Normal bilateral temporal bones. Normal bilateral internal auditory canals. No demonstrated orbital abnormality, within the constraints of a routine brain study. Mucosal thickening and fluid level within the left maxillary sinus which may be consistent with acute sinusitis.. Normal calvarium and skull base. Normal visualized soft tissue structures. Normal visualized upper cervical spine. MRI/Brain without Contrast IMPRESSION: Normal unenhanced MRI of the brain. Left maxillary sinusitis Electronically Signed: Ori Green MD at 18:08 EDT , Service support [phone], CC: Mari Meza MD; Gretel Tapia DO Geriatric Social Work Professor: Signed Mari Meza Work Phone: Start: 03-21-2016 Adult depression screening assessment Margie Grayson APRN.[facility] Work Phone: Start: 03-16-2016 End: 03-16-2016 OB Triage Physician Note Comments: See Note; NOTES: [facility] Medical Records Department [address] [place] [address] OB Triage Physician Note 03/16/16 0801 MR#: [id number] Acct: [id number] Name: MOJGAN CORBETT Rep #: [id number] : 1990 25 From: Lyndsay Arevalo DO PCP: Gretel Tapia DO Status: [facility] Y Location: [facility] History of Present Illness - History of Present Illness Reason For Visit: DECREASED MOVEMENT - Medications Home Medications: Home Medications Medication Instructions Recorded Albuterol Inhaler [Ventolin Hfa 1 - 2 puff INHALATION Q4H PRN PRN 11/16/15 (SP)] Omeprazole [Prilosec] 20 mg PO DAILY 11/16/15 Vits [Prenatabs FA] 1 tablet PO DAILY 11/16/15 - Allergies Allergies/Adverse Reactions: Allergies Latex, Natural Rubber Adverse Reaction (Verified 03/15/16 08:01) Rash sensitive not allergic NST - FHR Rate Baby A Baseline: started at 160 with change 120 Variability:: Moderate Accelerations:: 15 x 15 Decelerations:: None NST Reactive:: Yes FHR Category:: Category I Uterine Activity:: some contractions. irregular Impression/Plan Decreased movement in -NST showed change in baseline from 160's to 120's. moderate variability noted with accelerations. -patient reassured. -rto for follow up this week 03/16/16 08 <Electronically signed by Lyndsay Arevalo DO> Date Lyndsay Arevalo DO Cosigner Signature (if applicable): Date CC: Lyndsay Arevalo DO; Gretel Tapia DO Signed Gretel Tapia Start: 03-03-2016 End: 03-03-2016 OB Triage Physician Note Comments: See Note; NOTES: [facility] Medical Records Department [address] [place] [address] OB Triage Physician Note 03/03/169 MR#: [id number] Acct: [id number] Name: MOJGAN CORBETT Rep #: [id number] : 1990 25 From: Patti Temple MD PCP: Gretel Tapia DO Status: REG CLI Y Location: [place] [id number] History of Present Illness - History of Present Illness Reason For Visit: R/O - Medications Home Medications: Home Medications Medication Instructions Recorded Albuterol Inhaler [Ventolin Hfa 1 - 2 puff INHALATION Q4H PRN PRN 11/16/15 (SP)] Omeprazole [Prilosec] 20 mg PO DAILY 11/16/15 Vits [Prenatabs FA] 1 tablet PO DAILY 11/16/15 - Allergies Allergies/Adverse Reactions: Allergies No Known Allergies Allergy (Verified 03/03/16 19:19) Physical Exam General: Alert, Oriented x3 Abdomen: Soft, - - gravid, no rebound, no guarding Cervix Dilation (cm): 1 Station: -3 Effacement (%): 50 NST - FHR Rate Baby A Baseline: 135 Variability:: Moderate Accelerations:: 15 x 15 Decelerations:: None NST Reactive:: Yes FHR Category:: Category I Uterine Activity:: occasional contractions Impression/Plan 39.2 wks gestations with abdominal pain, not in labor cbc done- wnl pt counseled to notify physician if n/v, fevers, bleeding, LOF. dc home 03/03/162040 <Electronically signed by Patti Temple MD> Date Patti Temple MD Cosigner Signature (if applicable): Date CC: Patti Temple MD; Gretel Olsen Start: 02-10-2016 End: 02-10-2016 OB Triage Physician Note Comments: See Note; NOTES: [facility] Medical Records Department [address] [place] [address] OB Triage Physician Note 02/10/16 0813 MR#: [id number] Acct: [id number] Name: MOJGAN CORBETT Rep #: [id number] : 1990 25 From: Patti Temple MD PCP: Gretel Tapia DO Status: DEP CLI Y Location: [facility] History of Present Illness - History of Present Illness Reason For Visit: R/O LABOR Gestational age: 34 - Medications Home Medications: Home Medications Medication Instructions Recorded Albuterol Inhaler [Ventolin Hfa 1 - 2 puff INHALATION Q4H PRN PRN 11/16/15 (SP)] Omeprazole [Prilosec] 20 mg PO DAILY 11/16/15 Vits [Prenatabs FA] 1 tablet PO DAILY 11/16/15 Ranitidine [Zantac] 150 mg PO DAILY 11/16/15 Acetaminophen [Tylenol] 325 mg PO Q6H PRN PRN 02/08/16 DiphenhydrAMINE [Benadryl] 25 mg PO PRN PRN 02/08/16 - Allergies Allergies/Adverse Reactions: Allergies No Known Allergies Allergy (Verified 02/08/16 20:21) NST - FHR Baseline Rate Baby A Variability:: Moderate Accelerations:: 15 x 15 Decelerations:: None NST Reactive:: Yes FHR Category:: Category I Uterine Activity:: no contractions Impression/Plan @ 36 wks false labor dc home 02/10/16814 <Electronically signed by Patti Temple MD> Date Patti Temple MD Cosigner Signature (if applicable): Date CC: Patti Temple MD; Gretel Tapia DO Signed Gretel Tapia Start: 02-09-2016 End: 02-09-2016 OB Triage Physician Note Comments: See Note; NOTES: [facility] Medical Records Department [address] [place] [address] OB Triage Physician Note 02/09/16706 MR#: [id number] Acct: [id number] Name: MOJGAN CORBETT Rep #: [id number] : 1990 25 From: Letty Gonzalez MD PCP: Gretel Tapia DO Status: DEP CLI Y Location: [facility] History of Present Illness - History of Present Illness Reason For Visit: R/O LABO Gestational age: 33 - Medications Home Medications: Home Medications Medication Instructions Recorded Albuterol Inhaler [Ventolin Hfa 1 - 2 puff INHALATION Q4H PRN PRN 11/16/15 (SP)] Omeprazole [Prilosec] 20 mg PO DAILY 11/16/15 Vits [Prenatabs FA] 1 tablet PO DAILY 11/16/15 Ranitidine [Zantac] 150 mg PO DAILY 11/16/15 Acetaminophen [Tylenol] 325 mg PO Q6H PRN PRN 02/08/16 DiphenhydrAMINE [Benadryl] 25 mg PO PRN PRN 02/08/16 - Allergies Allergies/Adverse Reactions: Allergies No Known Allergies Allergy (Verified 02/08/16 20:21) Physical Exam Vitals: Vital Signs Temp Pulse Resp BP Pulse Ox 18 02/08/16 21:12 NST - FHR Baseline Rate Baby A Variability:: Moderate - baseline 130 bpm Accelerations:: 15 x 15 Decelerations:: None NST Reactive:: Yes FHR Category:: Category I Uterine Activity:: irritability, no regular ctxs Impression/Plan high risk multigravid threatened labor 35 weeks 02/09/16 0709 <Electronically signed by Letty Gonzalez MD> Date Letty Gonzalez MD Cosigner Signature (if applicable): Date CC: Gretel Tapia DO; Letty Gonzalez MD Signed Gretel Tapia Start: 12-10-2015 End: 12-10-2015 Pulmonary Function Report Comp Comments: See Note; NOTES: [facility] Pulmonary Services/Neurology [address] [place] [address] Pulmonary Function Test (Comp) MR#: [id number] Acct: [id number] Name: MOJGAN CORBETT Rep #: [id number] : 1990 From: Cristopher Bosch MD Referring Dr: Mandie Gandhi Status: REG CLI Ordering Dr: Mandie Gandhi Date: 12/08/15 Location: [facility] Sex: F C DATE OF SERVICE: 12/08/2015 DATE OF SERVICE: December 08, 2015 BRIEF HISTORY OF PRESENT ILLNESS: The patient is a 25-year-old female, currently under the care of Mandie Gandhi, who presents for a complete pulmonary function test secondary to a diagnosis of asthma. The respiratory therapist reported good patient effort and reproducible results. The patient is 27 weeks . INTERPRETATION: Forced expiration spirometry demonstrates no large airways obstructive ventilatory defect. There is no significant response to bronchodilators noted. Spirograms are of good quality and plateau normally. The respiratory flow volume loop appears normal. Lung volumes by body plethysmography show all lung volumes within normal limits. Diffusion capacity by single breath carbon monoxide is preserved at 86% of predicted. Airway resistance is normal. No previous studies are available for comparison. IMPRESSION: These pulmonary function tests are within normal limits and consistent with quiescence asthma. MD Dary ESPITIA C: Mandie Gandhi T: NTS JOB: [id number] 12/10/15 0452 <Electronically signed by Cristopher Bosch MD> Date Cristopher Bosch MD CC: Mandie Gandhi; Cristopher Bosch MD; Gretel Tapia DO Date Dictated: 12/09/15 0759 Date Transcribed: 12/09/15758 Geriatric Social Work Professor: Signed Carolann Oksana Work Phone: Start: 12-02-2015 End: 12-02-2015 Echocardiogram Complete Comments: See Note; NOTES: [facility] Cardiovascular Services [address] [place] [address] Echo Complete 12/02/15 1402 MR#: [id number] Acct: [id number] Name: MOJGAN CORBETT Rep #: [id number] : 1990 From: Ubaldo Nye MD Attending Dr: Chas Mcclain MD Status: REG CLI Ordering Dr: Chas Mcclain MD Date: 12/02/15 Location: [facility] Sex: F C Admitted: Reason For Study: Chest pain Procedure This was a 2D Doppler, Color Flow transthoracic echocardiogram. Exam performed in department. Left Ventricle Normal size and thickness. The estimated ejection fraction is 65 %. Normal diastology for age. No regional wall motion abnormalities noted. Right Ventricle Normal size and thickness. Normal systolic function. Atria Normal left atrium. Normal right atrium. Normal atrial septum. Mitral Valve The mitral valve is structurally normal. No prolapse or stenosis seen. Tricuspid Valve Normal tricuspid valve. Trivial tricuspid valve insufficiency. Unable to estimate RV systolic pressure. Aortic Valve Normal aortic valve. Trisinus/trileaflet aortic valve. Pulmonic Valve Normal pulmonic valve. Great Vessels Normal aortic root. Normal arch. Normal inferior vena cava. Inferior vena cava collapse with sniff. Pericardium/Pleural No pericardial effusion. MMode/2D Measurements AND Calculations LVIDd: 4.5 cm IVSd: 0.84 cm Ao root diam: 2.3 cm LVIDs: 2.8 cm LVPWd: 0.91 cm LA dimension: 3.2 cm RVDd: 3.1 cm FS: 37.7 % LAV(MOD-bp): 30.6 ml LA A4 area: 13.3 cm2 RA A4 area: 12.4 cm2 LAV(MOD-bp) Indexed: 16.5 ml/m2 LAV(MOD-sp2): 30.7 ml LAV(MOD-sp4): 29.1 ml Doppler Measurements AND Calculations MV E max rayne: 85.5 cm/sec Lat Peak E' Rayne: 19.6 cm/sec Med Peak E' Rayne: 10.3 cm/sec MV A max rayne: 71.2 cm/sec E/E' lat: 4.4 E/E' med: 8.3 MV E/A: 1.2 Ao V2 max: 159.2 cm/sec LV V1 max: 121.7 cm/sec PA V2 max: 104.7 cm/sec Ao max P.1 mmHg LV V1 max P.9 mmHg Ao max PG (full): 4.2 mmHg Interpretation Summary The estimated ejection fraction is 65 %. Unable to estimate RV systolic pressure. Normal diastology for age. There is no comparison study available. Ordering Physician: Chas Mcclain Referring Physician: Gretel Tapia M.D. Performed By: Екатерина Rodriguez RDCS 12/02/15 1554 Date Ubaldo Nye MD CC: Chas Mcclain MD; Gretel Tapia DO Date Dictated: 12/02/15 1402 Date Transcribed: 12/02/15 1554 Geriatric Social Work Professor: Signed Gretel Tapia Start: 11-24-2015 End: 11-24-2015 12 lead ECG Comments: See Note; NOTES: [facility] Cardiovascular Services [address] [place] [address] 12 Lead EKG 11/20/15 1716 MR#: [id number] Acct: [id number] Name: MOJGAN CORBETT Rep #: [id number] : 1990 25 From: John Franco MD Attending Dr: Status: DEP ER Ordering Dr: Chas Mcclain MD Date: 11/20/15 Location: ED Sex: F C Admitted: Test Reason : WEAKNESS Blood Pressure : / mmHG Vent. Rate : 090 BPM Atrial Rate : 090 BPM P-R Int : 138 ms QRS Dur : 080 ms QT Int : 362 ms P-R-T Axes : 024 088 026 degrees QTc Int : 442 ms Normal sinus rhythm Normal ECG Confirmed by CALLIE PADILLA, JOHN ([id number]), general expeditor DONYA BUSTAMANTE ([id number]) on 11/24/2015 12:53:14 PM Referred By: WOLFGANG Confirmed By:JOHN FRANCO MD 11/24/15 1253 Date John Franco MD CC: Gretel Tapia DO Date Dictated: 11/20/151715 Date Transcribed: 11/20/151715 Geriatric Social Work Professor: Signed Gretel Tapia Start: 11-24-2015 End: 11-24-2015 Spmtry w/vc expiratory yara w/wo mxml vol vntj _ Mandie Gandhi Work Phone: Start: 11-21-2015 End: 11-21-2015 Emergency Department Summary Comments: See Note; NOTES: [facility] Medical Records Department [address] [place] [address] Emergency Department Summary MR#: [id number] Acct: [id number] Name: MOJGAN CORBETT Rep #: [id number] : 1990 25 From: Chas Mcclain MD PCP: Gretel Tapia DO Status: DEP ER DATE OF SERVICE: 11/20/2015 CHIEF COMPLAINT: Possible Lyme disease. HISTORY OF PRESENT ILLNESS: This is a 25-year-old female who is 24 weeks , who had a tick bite this morning. She was seen by a nurse practitioner at her primary care physician's office who was concerned that the patient had a target lesion, was concerned for Lyme disease. The patient was also bit by a tick about a year ago. She states that ever since that time, she has had intermittent episodes of chest pain and shortness of breath. She was seen just 4 days ago and had an extensive workup including EKG, laboratory studies, D-dimer, CTA of the chest, all of which was normal. The patient was sent to obtain a stat echocardiogram and possibly be admitted. PHYSICAL EXAMINATION: VITAL SIGNS: Afebrile. Vital signs are stable. Heart rate 104. GENERAL: The patient is well appearing. HEENT: She has moist mucous membranes. HEART: Regular rhythm, slightly tachycardic as expected with . LUNGS: Clear. ABDOMEN: Soft and nontender. SKIN: There is a small lesion in the right lower quadrant of the abdomen with about 1 cm of local erythema consistent with cellulitis. This is not a target lesion. EMERGENCY DEPARTMENT COURSE: EKG shows normal sinus rhythm at a rate of 90 with no AV block. Her lab work is normal including troponin and CK-MB. The patient was just bit by a tick earlier today. She does not have a target lesion. I do not believe she has Lyme disease. She would not develop a target or complications such as myocarditis or complete heart block in less than 1 day. Additionally, her healthcare provider and the patient were concerned because they were bit by tick about 1 year ago and has had some intermittent episodes of chest pain, shortness of breath since that time. Again, the patient has normal EKG and she has no signs of myocarditis. She has no congestive heart failure on recent imaging. She has negative cardiac enzymes. I do not at this time see an indication for stat echocardiogram. I did send off Lyme titer. The patient has already been started on amoxicillin. I believe if her healthcare provider is an echocardiogram is indicated from a tick bite 1 year ago that this can be done on an outpatient basis. I spoke to the patient's covering primary care doctor, Dr. Loya who is covering for the patient's physician, Dr. Tapia, who agreed with the plan for outpatient echocardiogram and an outpatient followup. The patient has already been started von amoxicillin, which will cover her for cellulitis and for the possibility of Lyme disease and the patient was discharged to home. IMPRESSION: 1. Abdominal cellulitis. 2. Tick bite. DISPOSITION: Discharge. Dr. Chas Mcclain MD T: [facility] JOB: [id number] 11/21/152024 <Electronically signed by Chas Mcclain MD> Date Chas Mcclain MD Cosigner Signature (If Indicated): Date _ CC: Gretel Tapia DO Date Dictated: 11/20/151812 Date Transcribed: 11/20/151812 Geriatric Social Work Professor: Signed Gretel Tapia Start: 11-20-2015 End: 11-20-2015 Discharge Instruction Comments: See Note; NOTES: [facility] Medical Records Department [address] [place] [address] Discharge Instruction 11/20/151812 MR#: [id number] Acct: [id number] Name: STEVEKATLINMOJGAN CHERY Rep #: [id number] : 1990 25 From: Chas Mcclain MD PCP: Gretel Tapia DO Status: REG ER ED Disposition - Plan for ED Patient: Chief Complaint: Bite Instructions: ED Cellulitis Skin Infection What to do if you have Problems For any increased pain, shortness of breath, bleeding, nausea or vomiting, chest pain, or any unexpected problems, contact your doctor. Call [facility] ([phone]) or report to the closest Emergency Room. Call 911 if necessary. 11/20/151813 <Electronically signed by Chas Mcclain MD> Date Chas Mcclain MD Cosigner Signature (If Indicated): Date CC: Gretel Shelley Start: 05-18-2015 End: 05-19-2015 Thyroid Comments: See Note; NOTES: [facility] Imaging Services [address] [place] [address] Ultrasound Report MR#: [id number] Acct: [id number] Name: MOJGAN CORBETT Rep #: [id number] : 1990 F 24 From: Nitin Young MD PCP: Gretel Tapia DO Status: REG CLI Study: Thyroid Date of Exam: 05/18/15 Exam# [id number] Ordering Dr: Gretel Tapia DO STUDY: THYROID ULTRASOUND REASON FOR EXAM: Female, 24 years old. Enlargement of the thyroid and tightness of the throat. TECHNIQUE: Ultrasound evaluation of the thyroid was performed with real-time and static cohen-scale imaging. COMPARISON: None. FINDINGS: RIGHT LOBE: The right lobe of the thyroid gland measures 5.4 cm x 1.5 cm 1.8 cm. There is a homogeneous echotexture. There is a 5 mm x 5 mm x 3 mm well-defined hypoechoic nodule in the lower pole of the right lobe. This most likely represents a small adenoma. LEFT LOBE: The left lobe of the thyroid gland measures 4.8 cm x 1.5 cm x 1.3 cm. There is a homogeneous echotexture. There are no demonstrated solid, cystic or complex lesions. ISTHMUS: The isthmus measures 3.0 mm. The regional lymph nodes are normal. IMPRESSION: 5 mm x 5 mm x 3 mm well-defined hypoechoic solid nodule in the lower pole of the right lobe of the thyroid. This most likely represents a small adenoma. Electronically Signed: Nitin Young MD at 12:27 EDT Tel [phone], Service support [phone], CC: Gretel Tapia DO Geriatric Social Work Professor: Signed Gretel Tapia Work Phone: Start: 05-01-2015 End: 05-01-2015 Spmtry w/vc expiratory yara w/wo mxml vol vntj _ Mandie Gandhi Work Phone: Plan of Treatment Date Care Activity Detail Author Start: 2038 Shingles (RZV) Vacci ne (1 of 2) Shingles (RZV) Vaccine (1 of 2) [facility] Start: 04-07-2023 Influenza vaccination [facility] Start: 08-07-2022 DEPRESSION ASSESSMENT DEPRESSION ASS ESSMENT [facility] Start: 05-09-2022 End: 07-09-2022 Bacteria identified in Urine by Culture [facility] Work Phone: Immunizations Immunization Date Immunization Notes Care Provider Venkat duarte 03-20-2007 tetanus toxoid, redu tim diphtheria toxoid, and acellular pertussis vaccine, adsorbed Margie Grayson APRN.[facility] Work Phone: [facility] Work Phone: Payers Date Payer Category Payer Unknown [id number] 2021 Medicaid [id number] 2021 Medicaid [id number] 2021 Medicaid [employer] [id number] 2021-Present [phone] [address] [place] [address] Medicaid [id number] 1990 Unknown [id number] 1990 Unknown [id number] 1990 Unknown [id number] 1990 Unknown [id number] Unknown Social History Date Type Detail Facility Tobacco smoking status HIIS Tobacco smoking consumption unknown [facility] Start: 1990 [facility] Start: 02-03-2011 End: 09-24-2022 Tobacco smoking status NHIS Ex-smoker [facility] End: 08-07-2007 History of tobacco use Current smoker [facility] Work Phone: Start: 03-08-2022 End: 04-17-2023 Alcohol intake Current non-drinker of alcohol (finding) [facility] Start: 02-26-2022 End: 05-09-2022 Exposure to SARS-CoV-2 (event) Not sure [facility] Work Phone: End: 08-07-2007 History of tobacco use Cigarette Smoker [facility] Work Phone: Start: 02-03-2011 End: 09-24-2022 Tobacco use and exposure Smokeless tobacco non-user [facility] Work Phone: Tobacco smoking status Never smoked tobacco (finding) [facility] Sex Assigned At Sex [facility] Start: 07-15-2020 End: 03-06-2023 History of Social function [facility] Start: 07-15-2020 End: 03-06-2023 Tobacco use panel [facility] National Score (1-100), lower number is lower risk Not on file [facility] Functional Status Date Assessment Result Facility 10-03-2022 Functional Status Standard Safet y ID band on, Call device within reach, Bed in low position, Wheels locked, Upper/Half-Length side-rails up, Bedside Cart Locked, Safety level maintained [facility] Mental Status Date Assessment Result Facility 10-03-2022 Mental Status Orientation Oriented x 4 [facility] Clinical Notes 08-11-2015 to 07-04-2023 Anna Almendarez PA-C - 07/04/2023 7:49 AM Ori Love APRN.ELLIOT - 04/17/2023 9:19 AM Ori Greer APRN.CANE FLUME FEEDING MACHINE OPERATOR - 04/14/2023 5:42 PM Crystal Valle MD - 10/10/2022 4:02 PM EST Note Date & Type Note Facility 07-04-2023 Note HNO ID: [id number] Author: Anna Almendarez PA-C Service: ? Author Type: Physician Acid Maker Type: Progress Notes Filed: 07/04/2023 7:57 AM Note Text: This note was created using NoteWriter. Subjective Mojgan Corbett is a 32 year old female. HPI Patient presents with a chief complaint of a sore throat over the past 3 days. Last night seem to worsen. She denies fever. She has had a mild cough. No congestion. No ear pain. Denies sick contacts. No vomiting or diarrhea. Review of Systems Constitutional: Negative. HENT: Positive for sore throat. Negative for congestion, ear pain and rhinorrhea. Respiratory: Positive for cough. Cardiovascular: Negative. Gastrointestinal: Negative. Genitourinary: Negative. Musculoskeletal: Negative. All other systems reviewed and are negative. PAST MEDICAL HISTORY Diagnosis Date Trauma Unspecified asthma(493.90) reactive airway disease as child Urinary tract infection, site not specified Recurrent UTI's Current Outpatient Medications Medication Sig Dispense Refill levothyroxine (SYNTHROID) 25 mcg tablet 0 ALBUTEROL INHALATION Inhale as instructed. amoxicillin (AMOXIL) 500 mg capsule Take 1 capsule by mouth two times a day for 10 days. 20 capsule 0 LIDOCAINE VISCOUS 2 % solution Take 5 mL by mouth as needed (gargle and spit out as needed every 4 hours). 100 mL 0 predniSONE (DELTASONE) 10 mg tablet Take 3 tabs daily for 3 days, then 2 tabs daily for 3 days, then 1 tab daily for 3 days with food. (Patient not taking: Reported on 07/04/2023) 18 tablet 0 No current facility-administered medications for this visit. PAST SURGICAL HISTORY Procedure Laterality Date PAST SURGICAL HISTORY OF WISDOM TEETH FAMILY HISTORY Problem Relation Age of Onset Hypertension Mother Cancer Father Throat and tongue Cancer Maternal Grandmother Cancer Maternal Grandfather Coronary Artery Disease Maternal Grandfather Cancer Paternal Grandmother Hypertension Maternal Uncle Cancer Maternal Uncle unsure type Social History Tobacco Use Smoking status: Former Years: 2 Types: Cigarettes Quit date: 08/07/2007 Years since quittin.9 Smokeless tobacco: Never Vaping Use Vaping Use: Never used Substance Use Topics Alcohol use: No Drug use: No Objective BP 116/68 Pulse 82 Temp 36.3 ?C (97.4 ?F) Resp 16 Wt 64.9 kg (143 lb) LMP 09/22/2022 (Approximate) SpO2 98% BMI 25.02 kg/m? Physical Exam Vitals reviewed. Constitutional: Appearance: Normal appearance. HENT: Head: Normocephalic and atraumatic. Right Ear: Tympanic membrane, ear canal and external ear normal. Left Ear: Tympanic membrane, ear canal and external ear normal. Nose: Nose normal. Mouth/Throat: Mouth: Mucous membranes are moist. Pharynx: Posterior oropharyngeal erythema present. No oropharyngeal exudate. Cardiovascular: Rate and Rhythm: Normal rate and regular rhythm. Heart sounds: Normal heart sounds. Pulmonary: Effort: Pulmonary effort is normal. Breath sounds: Normal breath sounds. Musculoskeletal: Cervical back: Neck supple. Skin: General: Skin is warm and dry. Findings: No rash. Neurological: General: No focal deficit present. Mental Status: She is alert. Assessment and Plan ASSESSMENT/PLAN: 1. Strep pharyngitis - ICD9: 034.0, ICD10: J02.0 - Group A strep molecular testing positive - Amoxicillin for 10 days. - Contagious dz precautions discussed- including considered contagious until on antibiotics for 24 hours - The patient should follow up in 3-5 days if symptoms persist or worsen - STREP A MOLECULAR (POC) Anna Almendarez PA-C [facility] 07-04-2023 History of Present illness Narrative This note was created using Orb Networksriter. Subjective oMjgan Corbett is a 32 year old female. HPI Patient presents with a chief complaint of a sore throat over the past 3 days. Last night seem to worsen. She denies fever. She has had a mild cough. No congestion. No ear pain. Denies sick contacts. No vomiting or diarrhea. Review of Systems Constitutional: Negative. HENT: Positive for sore throat. Negative for congestion, ear pain and rhinorrhea. Respiratory: Positive for cough. Cardiovascular: Negative. Gastrointestinal: Negative. Genitourinary: Negative. Musculoskeletal: Negative. All other systems reviewed and are negative. PAST MEDICAL HISTORY Diagnosis Date Trauma Unspecified asthma(493.90) reactive airway disease as child Urinary tract infection, site not specified Recurrent UTI's Current Outpatient Medications Medication Sig Dispense Refill levothyroxine (SYNTHROID) 25 mcg tablet 0 ALBUTEROL INHALATION Inhale as instructed. amoxicillin (AMOXIL) 500 mg capsule Take 1 capsule by mouth two times a day for 10 days. 20 capsule 0 LIDOCAINE VISCOUS 2 % solution Take 5 mL by mouth as needed (gargle and spit out as needed every 4 hours). 100 mL 0 predniSONE (DELTASONE) 10 mg tablet Take 3 tabs daily for 3 days, then 2 tabs daily for 3 days, then 1 tab daily for 3 days with food. (Patient not taking: Reported on 07/04/2023) 18 tablet 0 No current facility-administered medications for this visit. PAST SURGICAL HISTORY Procedure Laterality Date PAST SURGICAL HISTORY OF WISDOM TEETH FAMILY HISTORY Problem Relation Age of Onset Hypertension Mother Cancer Father Throat and tongue Cancer Maternal Grandmother Cancer Maternal Grandfather Coronary Artery Disease Maternal Grandfather Cancer Paternal Grandmother Hypertension Maternal Uncle Cancer Maternal Uncle unsure type Social History Tobacco Use Smoking status: Former Years: 2 Types: Cigarettes Quit date: 08/07/2007 Years since quittin.9 Smokeless tobacco: Never Vaping Use Vaping Use: Never used Substance Use Topics Alcohol use: No Drug use: No Objective BP 116/68 Pulse 82 Temp 36.3 C (97.4 F) Resp 16 Wt 64.9 kg (143 lb) LMP 09/22/2022 (Approximate) SpO2 98% BMI 25.02 kg/m Physical Exam Vitals reviewed. Constitutional: Appearance: Normal appearance. HENT: Head: Normocephalic and atraumatic. Right Ear: Tympanic membrane, ear canal and external ear normal. Left Ear: Tympanic membrane, ear canal and external ear normal. Nose: Nose normal. Mouth/Throat: Mouth: Mucous membranes are moist. Pharynx: Posterior oropharyngeal erythema present. No oropharyngeal exudate. Cardiovascular: Rate and Rhythm: Normal rate and regular rhythm. Heart sounds: Normal heart sounds. Pulmonary: Effort: Pulmonary effort is normal. Breath sounds: Normal breath sounds. Musculoskeletal: Cervical back: Neck supple. Skin: General: Skin is warm and dry. Findings: No rash. Neurological: General: No focal deficit present. Mental Status: She is alert. Assessment and Plan ASSESSMENT/PLAN: 1. Strep pharyngitis - ICD9: 034.0, ICD10: J02.0 - Group A strep molecular testing positive - Amoxicillin for 10 days. - Contagious dz precautions discussed- including considered contagious until on antibiotics for 24 hours - The patient should follow up in 3-5 days if symptoms persist or worsen - STREP A MOLECULAR (POC) Anna Almendarez PA-C documented in this encounter [facility] 04-17-2023 Note HNO ID: [id number] Author: 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 Service: ? Author Type: Nurse Practitioner Type: Progress Notes Filed: 04/17/2023 9:46 AM Note Text: Subjective HPI Nontoxic-appearing female presents urgent care chief complaint rash. Duration of symptoms 10 days. Associated symptoms pruritic erythematous rash. Rash first started on right forearm and now has spread to left hip. Was seen by me last week. Diagnosed with contact dermatitis suspicious for poison armen. Placed on Kenalog cream. Presents today for reevaluation. States rash is still bothersome. Denies any significant pain. No recent environmental lifestyle or medication changes. Denies any fever body aches chills productive cough chest pain shortness of breath pleuritic pain hemoptysis nausea vomiting abdominal pain change in bowel or bladder habits. Past medical history prescription medication use and allergies reviewed. .Patient presents with: Rash: treated with kenalog cream x 10 days, spreading PAST MEDICAL HISTORY Diagnosis Date Trauma Unspecified asthma(493.90) reactive airway disease as child Urinary tract infection, site not specified Recurrent UTI's PAST SURGICAL HISTORY Procedure Laterality Date PAST SURGICAL HISTORY OF WISDOM TEETH ALLERGIES Lactose and Poison [place] MEDICATIONS triamcinolone acetonide (KENALOG) 0.1 % cream Apply 1 application to affected area twice daily for 7 days. Apply sparingly to area for rash/itching. levothyroxine (SYNTHROID) 25 mcg tablet ALBUTEROL INHALATION Inhale as instructed. FAMILY HISTORY Problem Relation Age of Onset Hypertension Mother Cancer Father Throat and tongue Cancer Maternal Grandmother Cancer Maternal Grandfather Coronary Artery Disease Maternal Grandfather Cancer Paternal Grandmother Hypertension Maternal Uncle Cancer Maternal Uncle unsure type Social History Tobacco Use Smoking status: Former Years: 2 Types: Cigarettes Quit date: 08/07/2007 Years since quittin.7 Smokeless tobacco: Never Vaping Use Vaping Use: Never used Substance Use Topics Alcohol use: No Drug use: No BP 122/80 Pulse 78 Temp 36.2 ?C (97.1 ?F) Resp 16 Wt 66.2 kg (146 lb) LMP 09/22/2022 (Approximate) SpO2 97% BMI 25.55 kg/m? Review of Systems Constitutional: Negative for chills, fever and malaise/fatigue. HENT: Negative for congestion, ear discharge, ear pain, sinus pain and sore throat. Eyes: Negative for blurred vision, pain, discharge and redness. Respiratory: Negative for cough, hemoptysis, sputum production, shortness of breath, wheezing and stridor. Cardiovascular: Negative for chest pain. Gastrointestinal: Negative for abdominal pain, diarrhea, nausea and vomiting. Musculoskeletal: Negative for myalgias. Skin: Positive for itching and rash. Neurological: Negative for dizziness and headaches. Objective Physical Exam Constitutional: General: She is not in acute distress. Appearance: She is not toxic-appearing. HENT: Head: Normocephalic. Nose: Nose normal. Eyes: Pupils: Pupils are equal, round, and reactive to light. Cardiovascular: Rate and Rhythm: Normal rate. Pulmonary: Effort: Pulmonary effort is normal. No respiratory distress. Musculoskeletal: Cervical back: Normal range of motion. Skin: General: Skin is warm and dry. Comments: Erythematous macular papular rash with fluid-filled vesicles noted highlighted area. No remote redness. No evidence of bacterial infection. Spares palms of hands. No desquamation of skin. No mucosal membrane involvement. Neurological: General: No focal deficit present. Mental Status: She is alert. ASSESSMENT/PLAN: 1. Rash - ICD9: 782.1, ICD10: R21 Diagnosed with rash. Suspicious of contact dermatitis. Will start steroid taper due to rash spreading to different parts of body. Patient was educated on supportive therapies. Patient will follow up with primary care provider as needed. Patient was instructed to immediately proceed to emergency room for any new, worsening, or symptoms lasting longer than anticipated. The patient's clinical presentation is otherwise unremarkable at this time. Based on exam and clinical finding, the patient is stable for discharge. Plan of care was discussed with patient. Patient verbalizes understanding and agrees to plan of care. This note was generated using [email or web address] software. It may contain errors in wording, punctuation, or spelling. Ori Garcia APRN.[facility] 04-17-2023 History of Present illness Narrative Images from the original note were not included. Subjective HPI Nontoxic-appearing female presents urgent care chief complaint rash. Duration of symptoms 10 days. Associated symptoms pruritic erythematous rash. Rash first started on right forearm and now has spread to left hip. Was seen by me last week. Diagnosed with contact dermatitis suspicious for poison [place]. Placed on Kenalog cream. Presents today for reevaluation. States rash is still bothersome. Denies any significant pain. No recent environmental lifestyle or medication changes. Denies any fever body aches chills productive cough chest pain shortness of breath pleuritic pain hemoptysis nausea vomiting abdominal pain change in bowel or bladder habits. Past medical history prescription medication use and allergies reviewed. .Patient presents with: Rash: treated with kenalog cream x 10 days, spreading PAST MEDICAL HISTORY Diagnosis Date Trauma Unspecified asthma(493.90) reactive airway disease as child Urinary tract infection, site not specified Recurrent UTI's PAST SURGICAL HISTORY Procedure Laterality Date PAST SURGICAL HISTORY OF WISDOM TEETH ALLERGIES Lactose and Poison [place] MEDICATIONS triamcinolone acetonide (KENALOG) 0.1 % cream Apply 1 application to affected area twice daily for 7 days. Apply sparingly to area for rash/itching. levothyroxine (SYNTHROID) 25 mcg tablet ALBUTEROL INHALATION Inhale as instructed. FAMILY HISTORY Problem Relation Age of Onset Hypertension Mother Cancer Father Throat and tongue Cancer Maternal Grandmother Cancer Maternal Grandfather Coronary Artery Disease Maternal Grandfather Cancer Paternal Grandmother Hypertension Maternal Uncle Cancer Maternal Uncle unsure type Social History Tobacco Use Smoking status: Former Years: 2 Types: Cigarettes Quit date: 08/07/2007 Years since quittin.7 Smokeless tobacco: Never Vaping Use Vaping Use: Never used Substance Use Topics Alcohol use: No Drug use: No BP 122/80 Pulse 78 Temp 36.2 C (97.1 F) Resp 16 Wt 66.2 kg (146 lb) LMP 09/22/2022 (Approximate) SpO2 97% BMI 25.55 kg/m Review of Systems Constitutional: Negative for chills, fever and malaise/fatigue. HENT: Negative for congestion, ear discharge, ear pain, sinus pain and sore throat. Eyes: Negative for blurred vision, pain, discharge and redness. Respiratory: Negative for cough, hemoptysis, sputum production, shortness of breath, wheezing and stridor. Cardiovascular: Negative for chest pain. Gastrointestinal: Negative for abdominal pain, diarrhea, nausea and vomiting. Musculoskeletal: Negative for myalgias. Skin: Positive for itching and rash. Neurological: Negative for dizziness and headaches. Objective Physical Exam Constitutional: General: She is not in acute distress. Appearance: She is not toxic-appearing. HENT: Head: Normocephalic. Nose: Nose normal. Eyes: Pupils: Pupils are equal, round, and reactive to light. Cardiovascular: Rate and Rhythm: Normal rate. Pulmonary: Effort: Pulmonary effort is normal. No respiratory distress. Musculoskeletal: Cervical back: Normal range of motion. Skin: General: Skin is warm and dry. Comments: Erythematous macular papular rash with fluid-filled vesicles noted highlighted area. No remote redness. No evidence of bacterial infection. Spares palms of hands. No desquamation of skin. No mucosal membrane involvement. Neurological: General: No focal deficit present. Mental Status: She is alert. ASSESSMENT/PLAN: 1. Rash - ICD9: 782.1, ICD10: R21 Diagnosed with rash. Suspicious of contact dermatitis. Will start steroid taper due to rash spreading to different parts of body. Patient was educated on supportive therapies. Patient will follow up with primary care provider as needed. Patient was instructed to immediately proceed to emergency room for any new, worsening, or symptoms lasting longer than anticipated. The patient's clinical presentation is otherwise unremarkable at this time. Based on exam and clinical finding, the patient is stable for discharge. Plan of care was discussed with patient. Patient verbalizes understanding and agrees to plan of care. This note was generated using [email or web address] software. It may contain errors in wording, punctuation, or spelling. Ori Garcia APRN.ELL[facility]OT documented in this encounter [facility] 04-14-2023 Note HNO ID: [id number] Author: 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 Service: ? Author Type: Nurse Practitioner Type: Progress Notes Filed: 04/14/2023 6:32 PM Note Text: Subjective HPI Nontoxic-appearing female presents urgent care chief complaint rash. Duration of symptoms 1 week. Associated symptoms pruritus. Patient states rash started shortly after working in garden. Was not sure if this was a mosquito bite that has now become infected or some type of other rash. Has been keeping the area clean and dry. No other concerns. Denies any recent medication changes antibiotic use. Denies any fever body aches chills productive cough chest pain shortness of breath pleuritic pain hemoptysis nausea vomiting abdominal pain change in bowel or bladder habits. Past medical history prescription medication use and allergies reviewed. .Patient presents with: Derm Problem: Bug bite right wrist x 1 week open and seeping PAST MEDICAL HISTORY Diagnosis Date Trauma Unspecified asthma(493.90) reactive airway disease as child Urinary tract infection, site not specified Recurrent UTI's PAST SURGICAL HISTORY Procedure Laterality Date PAST SURGICAL HISTORY OF WISDOM TEETH ALLERGIES Lactose and Poison [place] MEDICATIONS levothyroxine (SYNTHROID) 25 mcg tablet ALBUTEROL INHALATION Inhale as instructed. FAMILY HISTORY Problem Relation Age of Onset Hypertension Mother Cancer Father Throat and tongue Cancer Maternal Grandmother Cancer Maternal Grandfather Coronary Artery Disease Maternal Grandfather Cancer Paternal Grandmother Hypertension Maternal Uncle Cancer Maternal Uncle unsure type Social History Tobacco Use Smoking status: Former Years: 2 Types: Cigarettes Quit date: 08/07/2007 Years since quittin.6 Smokeless tobacco: Never Vaping Use Vaping Use: Never used Substance Use Topics Alcohol use: No Drug use: No BP 111/76 Pulse 74 Temp 36.7 ?C (98 ?F) Resp 18 Wt 67 kg (147 lb 9.6 oz) LMP 09/22/2022 (Approximate) SpO2 100% BMI 25.83 kg/m? Review of Systems Constitutional: Negative for chills, fever and malaise/fatigue. HENT: Negative for congestion, ear discharge, ear pain, sinus pain and sore throat. Eyes: Negative for blurred vision, pain, discharge and redness. Respiratory: Negative for cough, hemoptysis, sputum production, shortness of breath, wheezing and stridor. Cardiovascular: Negative for chest pain. Gastrointestinal: Negative for abdominal pain, diarrhea, nausea and vomiting. Musculoskeletal: Negative for myalgias. Skin: Positive for itching and rash. Neurological: Negative for dizziness and headaches. Objective Physical Exam Constitutional: General: She is not in acute distress. Appearance: She is not toxic-appearing. HENT: Head: Normocephalic. Nose: Nose normal. Mouth/Throat: Mouth: Mucous membranes are moist. Pharynx: Oropharynx is clear. No oropharyngeal exudate or posterior oropharyngeal erythema. Eyes: Pupils: Pupils are equal, round, and reactive to light. Cardiovascular: Rate and Rhythm: Normal rate. Pulmonary: Effort: Pulmonary effort is normal. No respiratory distress. Musculoskeletal: Cervical back: Normal range of motion. Skin: General: Skin is warm and dry. Comments: Erythematous base rash with fluid-filled vesicles linear pattern noted highlighted area. No remote redness. No evidence of bacterial infection. Spares palms of hands. No mucosal membrane involvement. Neurological: General: No focal deficit present. Mental Status: She is alert. ASSESSMENT/PLAN: 1. Rash - ICD9: 782.1, ICD10: R21 Diagnosed with rash. Suspicious of contact dermatitis. No evidence of bacterial infection. Will use triamcinolone cream as instructed. Not on areas of thin skin. Patient was educated on supportive therapies. Patient will follow up with primary care provider as needed. Patient was instructed to immediately proceed to emergency room for any new, worsening, or symptoms lasting longer than anticipated. The patient's clinical presentation is otherwise unremarkable at this time. Based on exam and clinical finding, the patient is stable for discharge. Plan of care was discussed with patient. Patient verbalizes understanding and agrees to plan of care. This note was generated using [email or web address] software. It may contain errors in wording, punctuation, or spelling. Ori Garcia APRN.[facility] 04-14-2023 History of Present illness Narrative Images from the original note were not included. Subjective HPI Nontoxic-appearing female presents urgent care chief complaint rash. Duration of symptoms 1 week. Associated symptoms pruritus. Patient states rash started shortly after working in garden. Was not sure if this was a mosquito bite that has now become infected or some type of other rash. Has been keeping the area clean and dry. No other concerns. Denies any recent medication changes antibiotic use. Denies any fever body aches chills productive cough chest pain shortness of breath pleuritic pain hemoptysis nausea vomiting abdominal pain change in bowel or bladder habits. Past medical history prescription medication use and allergies reviewed. .Patient presents with: Derm Problem: Bug bite right wrist x 1 week open and seeping PAST MEDICAL HISTORY Diagnosis Date Trauma Unspecified asthma(493.90) reactive airway disease as child Urinary tract infection, site not specified Recurrent UTI's PAST SURGICAL HISTORY Procedure Laterality Date PAST SURGICAL HISTORY OF WISDOM TEETH ALLERGIES Lactose and Poison [place] MEDICATIONS levothyroxine (SYNTHROID) 25 mcg tablet ALBUTEROL INHALATION Inhale as instructed. FAMILY HISTORY Problem Relation Age of Onset Hypertension Mother Cancer Father Throat and tongue Cancer Maternal Grandmother Cancer Maternal Grandfather Coronary Artery Disease Maternal Grandfather Cancer Paternal Grandmother Hypertension Maternal Uncle Cancer Maternal Uncle unsure type Social History Tobacco Use Smoking status: Former Years: 2 Types: Cigarettes Quit date: 08/07/2007 Years since quittin.6 Smokeless tobacco: Never Vaping Use Vaping Use: Never used Substance Use Topics Alcohol use: No Drug use: No BP 111/76 Pulse 74 Temp 36.7 C (98 F) Resp 18 Wt 67 kg (147 lb 9.6 oz) LMP 09/22/2022 (Approximate) SpO2 100% BMI 25.83 kg/m Review of Systems Constitutional: Negative for chills, fever and malaise/fatigue. HENT: Negative for congestion, ear discharge, ear pain, sinus pain and sore throat. Eyes: Negative for blurred vision, pain, discharge and redness. Respiratory: Negative for cough, hemoptysis, sputum production, shortness of breath, wheezing and stridor. Cardiovascular: Negative for chest pain. Gastrointestinal: Negative for abdominal pain, diarrhea, nausea and vomiting. Musculoskeletal: Negative for myalgias. Skin: Positive for itching and rash. Neurological: Negative for dizziness and headaches. Objective Physical Exam Constitutional: General: She is not in acute distress. Appearance: She is not toxic-appearing. HENT: Head: Normocephalic. Nose: Nose normal. Mouth/Throat: Mouth: Mucous membranes are moist. Pharynx: Oropharynx is clear. No oropharyngeal exudate or posterior oropharyngeal erythema. Eyes: Pupils: Pupils are equal, round, and reactive to light. Cardiovascular: Rate and Rhythm: Normal rate. Pulmonary: Effort: Pulmonary effort is normal. No respiratory distress. Musculoskeletal: Cervical back: Normal range of motion. Skin: General: Skin is warm and dry. Comments: Erythematous base rash with fluid-filled vesicles linear pattern noted highlighted area. No remote redness. No evidence of bacterial infection. Spares palms of hands. No mucosal membrane involvement. Neurological: General: No focal deficit present. Mental Status: She is alert. ASSESSMENT/PLAN: 1. Rash - ICD9: 782.1, ICD10: R21 Diagnosed with rash. Suspicious of contact dermatitis. No evidence of bacterial infection. Will use triamcinolone cream as instructed. Not on areas of thin skin. Patient was educated on supportive therapies. Patient will follow up with primary care provider as needed. Patient was instructed to immediately proceed to emergency room for any new, worsening, or symptoms lasting longer than anticipated. The patient's clinical presentation is otherwise unremarkable at this time. Based on exam and clinical finding, the patient is stable for discharge. Plan of care was discussed with patient. Patient verbalizes understanding and agrees to plan of care. This note was generated using [email or web address] software. It may contain errors in wording, punctuation, or spelling. 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 documented in this encounter [facility] 03-06-2023 Note HNO ID: [id number] Author: Ori Garcia APRN.ELLIOT Service: ? Author Type: Nurse Practitioner Type: Progress Notes Filed: 03/06/2023 8:06 PM Note Text: Subjective HPI Nontoxic-appearing female presents urgent care chief complaint possible hemorrhoids. Duration of symptoms 1 year. Associated symptoms transient rectal pain. Patient states noticed some blood in the stool at times. States has did warm baths and this has helped. Presents today with increasing pain over the last 2 weeks. Has not noticed any blood in his stool recently. Denies any OTC medications today. Denies any fever body aches chills productive cough chest pain shortness of breath pleuritic pain hemoptysis nausea vomiting abdominal pain change in bowel or bladder habits. Past medical history prescription medication use and allergies reviewed. BP 126/80 Pulse 78 Temp 36.2 ?C (97.2 ?F) Resp 16 Wt 68 kg (150 lb) LMP 09/22/2022 (Approximate) SpO2 98% BMI 26.25 kg/m? .Patient presents with: Rectal Problem: rectal discomfort, some bleeding x 1 year increased x few weeks PAST MEDICAL HISTORY Diagnosis Date Trauma Unspecified asthma(493.90) reactive airway disease as child Urinary tract infection, site not specified Recurrent UTI's PAST SURGICAL HISTORY Procedure Laterality Date PAST SURGICAL HISTORY OF WISDOM TEETH ALLERGIES Lactose and Poison [place] MEDICATIONS levothyroxine (SYNTHROID) 25 mcg tablet ALBUTEROL INHALATION Inhale as instructed. FAMILY HISTORY Problem Relation Age of Onset Hypertension Mother Cancer Father Throat and tongue Cancer Maternal Grandmother Cancer Maternal Grandfather Coronary Artery Disease Maternal Grandfather Cancer Paternal Grandmother Hypertension Maternal Uncle Cancer Maternal Uncle unsure type Social History Tobacco Use Smoking status: Former Years: 2.00 Types: Cigarettes Quit date: 08/07/2007 Years since quittin.5 Smokeless tobacco: Never Vaping Use Vaping Use: Never used Substance Use Topics Alcohol use: No Drug use: No Review of Systems Constitutional: Negative for chills, fever and malaise/fatigue. HENT: Negative for congestion, ear discharge, ear pain, sinus pain and sore throat. Eyes: Negative for blurred vision, pain, discharge and redness. Respiratory: Negative for cough, hemoptysis, sputum production, shortness of breath, wheezing and stridor. Cardiovascular: Negative for chest pain. Gastrointestinal: Negative for abdominal pain, blood in stool, diarrhea, melena, nausea and vomiting. Musculoskeletal: Negative for myalgias. Skin: Negative for itching and rash. Neurological: Negative for dizziness and headaches. Objective Physical Exam Exam conducted with a irrigation specialist present. Constitutional: General: She is not in acute distress. Appearance: She is not toxic-appearing. HENT: Head: Normocephalic. Nose: Nose normal. Eyes: Pupils: Pupils are equal, round, and reactive to light. Cardiovascular: Rate and Rhythm: Normal rate. Pulmonary: Effort: Pulmonary effort is normal. No respiratory distress. Genitourinary: Rectum: External hemorrhoid present. No anal fissure. Musculoskeletal: Cervical back: Normal range of motion. Skin: General: Skin is warm and dry. Neurological: General: No focal deficit present. Mental Status: She is alert. ASSESSMENT/PLAN: 1. External hemorrhoid - ICD9: 455.3, ICD10: K64.4 - CONSULT TO GENERAL SURGERY Diagnosed with external hemorrhoids. No blood noted. No thrombosed hemorrhoids noted. Try OTC medications for hemorrhoids. Follow-up with general surgery if symptoms are not improving next 10 to 14 days. Patient was educated on supportive therapies. Patient will follow up with primary care provider as needed. Patient was instructed to immediately proceed to emergency room for any new, worsening, or symptoms lasting longer than anticipated. The patient's clinical presentation is otherwise unremarkable at this time. Based on exam and clinical finding, the patient is stable for discharge. Plan of care was discussed with patient. Patient verbalizes understanding and agrees to plan of care. This note was generated using [email or web address] software. It may contain errors in wording, punctuation, or spelling. Ori Garcia APRN.[facility]LLIOT [facility] 03-06-2023 Miscellaneous Notes Addended by: ORI GARCIA on: 03/06/2023 08:15 PM Modules accepted: Orders documented in this encounter [facility] 03-06-2023 History of Present illness Narrative Subjective HPI Nontoxic-appearing female presents urgent care chief complaint possible hemorrhoids. Duration of symptoms 1 year. Associated symptoms transient rectal pain. Patient states noticed some blood in the stool at times. States has did warm baths and this has helped. Presents today with increasing pain over the last 2 weeks. Has not noticed any blood in his stool recently. Denies any OTC medications today. Denies any fever body aches chills productive cough chest pain shortness of breath pleuritic pain hemoptysis nausea vomiting abdominal pain change in bowel or bladder habits. Past medical history prescription medication use and allergies reviewed. BP 126/80 Pulse 78 Temp 36.2 C (97.2 F) Resp 16 Wt 68 kg (150 lb) LMP 09/22/2022 (Approximate) SpO2 98% BMI 26.25 kg/m .Patient presents with: Rectal Problem: rectal discomfort, some bleeding x 1 year increased x few weeks PAST MEDICAL HISTORY Diagnosis Date Trauma Unspecified asthma(493.90) reactive airway disease as child Urinary tract infection, site not specified Recurrent UTI's PAST SURGICAL HISTORY Procedure Laterality Date PAST SURGICAL HISTORY OF WISDOM TEETH ALLERGIES Lactose and Poison [place] MEDICATIONS levothyroxine (SYNTHROID) 25 mcg tablet ALBUTEROL INHALATION Inhale as instructed. FAMILY HISTORY Problem Relation Age of Onset Hypertension Mother Cancer Father Throat and tongue Cancer Maternal Grandmother Cancer Maternal Grandfather Coronary Artery Disease Maternal Grandfather Cancer Paternal Grandmother Hypertension Maternal Uncle Cancer Maternal Uncle unsure type Social History Tobacco Use Smoking status: Former Years: 2.00 Types: Cigarettes Quit date: 08/07/2007 Years since quittin.5 Smokeless tobacco: Never Vaping Use Vaping Use: Never used Substance Use Topics Alcohol use: No Drug use: No Review of Systems Constitutional: Negative for chills, fever and malaise/fatigue. HENT: Negative for congestion, ear discharge, ear pain, sinus pain and sore throat. Eyes: Negative for blurred vision, pain, discharge and redness. Respiratory: Negative for cough, hemoptysis, sputum production, shortness of breath, wheezing and stridor. Cardiovascular: Negative for chest pain. Gastrointestinal: Negative for abdominal pain, blood in stool, diarrhea, melena, nausea and vomiting. Musculoskeletal: Negative for myalgias. Skin: Negative for itching and rash. Neurological: Negative for dizziness and headaches. Objective Physical Exam Exam conducted with a irrigation specialist present. Constitutional: General: She is not in acute distress. Appearance: She is not toxic-appearing. HENT: Head: Normocephalic. Nose: Nose normal. Eyes: Pupils: Pupils are equal, round, and reactive to light. Cardiovascular: Rate and Rhythm: Normal rate. Pulmonary: Effort: Pulmonary effort is normal. No respiratory distress. Genitourinary: Rectum: External hemorrhoid present. No anal fissure. Musculoskeletal: Cervical back: Normal range of motion. Skin: General: Skin is warm and dry. Neurological: General: No focal deficit present. Mental Status: She is alert. ASSESSMENT/PLAN: 1. External hemorrhoid - ICD9: 455.3, ICD10: K64.4 - CONSULT TO GENERAL SURGERY Diagnosed with external hemorrhoids. No blood noted. No thrombosed hemorrhoids noted. Try OTC medications for hemorrhoids. Follow-up with general surgery if symptoms are not improving next 10 to 14 days. Patient was educated on supportive therapies. Patient will follow up with primary care provider as needed. Patient was instructed to immediately proceed to emergency room for any new, worsening, or symptoms lasting longer than anticipated. The patient's clinical presentation is otherwise unremarkable at this time. Based on exam and clinical finding, the patient is stable for discharge. Plan of care was discussed with patient. Patient verbalizes understanding and agrees to plan of care. This note was generated using [employer] software. It may contain errors in wording, punctuation, or spelling. Ori Garcia APRN.ELLIOT documented in this encounter [facility] 10-10-2022 Note HNO ID: [id number] Author: Kishor Valle MD Service: ? Author Type: Physician Type: Progress Notes Filed: 10/10/2022 4:28 PM Note Text: Patient presents with: Ear Pain: left ear pain, SOUZA x 1 week HPI: Feeling left ear pain for 1 week. She was seen here and started on amoxicillin for left otitis media. She went to the ER then because of uncontrolled ear pain and was given [place]dale. Her ear drained blood and clear fluid after leaving the ER and pain improved shortly after that. She finished amoxicillin and the left ear pain started again today. Positive symptoms: left earache, tinnitus, frontal headache, decreased hearing, Nasal Congestion, Rhinorrhea, Post nasal drainage, resolved otorrhea 1 week ago, Negative symptoms: Sore throat, Fever, Chills, OTC: drops No regular issues with otitis media. Scheduled to see ENT in 2 days. MEDICATIONS: Current Outpatient Medications Medication Sig levothyroxine (SYNTHROID) 25 mcg tablet ALBUTEROL INHALATION Inhale as instructed. amoxicillin (AMOXIL) 875 mg tablet Take 1 tablet by mouth twice daily for 7 days. (Patient not taking: Reported on 10/10/2022) No current facility-administered medications for this visit. ALLERGIES: ALLERGIES Allergen Reactions Lactose GI Upset Poison [place] Rash VITALS: BP 100/64 Pulse 76 Temp (!) 35.8 ?C (96.4 ?F) Resp 20 Wt 84.9 kg (187 lb 3.2 oz) LMP 09/22/2022 (Approximate) SpO2 100% BMI 32.76 kg/m? PHYSICAL EXAM: GEN: Pleasant, in no acute distress. HEENT: PERRL, EOMI, conjunctiva clear Ears: canals clear. RTM without erythema, bulge, or effusion. Left TM has erythema, hyperemia, and effusion. There is a tiny protrusion anterior to the inferior manubrium. Sinuses: non-tender frontal sinus, non-tender maxillary sinuses Throat: moist mucous membranes, no erythema, no exudate Neck: supple, no thyromegaly, no lymphadenopathy HEART: regular rate and rhythm, no murmurs LUNGS: clear to auscultation, no wheezes or crackles, no increased WOB ASSESSMENT/PLAN: 1. Recurrent acute otitis media of left ear - ICD9: 382.9, ICD10: H66.92 She has inflammation and symptoms of worsening otitis media. Start - AMOXICILLIN 875 MG-POTASSIUM CLAVULANATE 125 MG TABLET Possible healed perforation anterior to the manubrium. Keep follow up with ENT. Otitis media anatomy and physiology reviewed. Kishor Valle MD [facility] 10-10-2022 History of Present illness Narrative Patient presents with: Ear Pain: left ear pain, SOUZA x 1 week HPI: Feeling left ear pain for 1 week. She was seen here and started on amoxicillin for left otitis media. She went to the ER then because of uncontrolled ear pain and was given [place]. Her ear drained blood and clear fluid after leaving the ER and pain improved shortly after that. She finished amoxicillin and the left ear pain started again today. Positive symptoms: left earache, tinnitus, frontal headache, decreased hearing, Nasal Congestion, Rhinorrhea, Post nasal drainage, resolved otorrhea 1 week ago, Negative symptoms: Sore throat, Fever, Chills, OTC: drops No regular issues with otitis media. Scheduled to see ENT in 2 days. MEDICATIONS: Current Outpatient Medications Medication Sig levothyroxine (SYNTHROID) 25 mcg tablet ALBUTEROL INHALATION Inhale as instructed. amoxicillin (AMOXIL) 875 mg tablet Take 1 tablet by mouth twice daily for 7 days. (Patient not taking: Reported on 10/10/2022) No current facility-administered medications for this visit. ALLERGIES: ALLERGIES Allergen Reactions Lactose GI Upset Poison [place] Rash VITALS: BP 100/64 Pulse 76 Temp (!) 35.8 C (96.4 F) Resp 20 Wt 84.9 kg (187 lb 3.2 oz) LMP 09/22/2022 (Approximate) SpO2 100% BMI 32.76 kg/m PHYSICAL EXAM: GEN: Pleasant, in no acute distress. HEENT: PERRL, EOMI, conjunctiva clear Ears: canals clear. RTM without erythema, bulge, or effusion. Left TM has erythema, hyperemia, and effusion. There is a tiny protrusion anterior to the inferior manubrium. Sinuses: non-tender frontal sinus, non-tender maxillary sinuses Throat: moist mucous membranes, no erythema, no exudate Neck: supple, no thyromegaly, no lymphadenopathy HEART: regular rate and rhythm, no murmurs LUNGS: clear to auscultation, no wheezes or crackles, no increased WOB ASSESSMENT/PLAN: 1. Recurrent acute otitis media of left ear - ICD9: 382.9, ICD10: H66.92 She has inflammation and symptoms of worsening otitis media. Start - AMOXICILLIN 875 MG-POTASSIUM CLAVULANATE 125 MG TABLET Possible healed perforation anterior to the manubrium. Keep follow up with ENT. Otitis media anatomy and physiology reviewed. Kishor Valle MD documented in this encounter [facility] 10-03-2022 Hospital Discharge instructions Patient Education 10/03/2022 18:54:33 OTITIS MEDIA, Abx Tx (Adult) Middle Ear Infection (Adult) You have an infection of the middle ear (the space behind the eardrum). It can occur as a result of the common cold. This is because congestion can block the internal passage (eustachian tube) that drains fluid from the middle ear. When the middle ear fills with fluid, bacteria can grow there and cause an infection. Oral antibiotics are used to treat this illness, not ear drops. Symptoms usually start to improve within 1-2 days of treatment. Home Care: Finish all of the antibiotic medicine prescribed, even though you may feel better after the first few days. You may use acetaminophen (Tylenol) or ibuprofen (Motrin, Advil) to control pain, unless something else was prescribed. [NOTE: If you have chronic liver or kidney disease or have ever had a stomach ulcer or GI bleeding, talk with your doctor before using these medicines.] (Do not give aspirin to anyone under 18 years of age who is ill with a fever. It may cause severe liver damage.) Follow Up with your doctor or this facility in two weeks if all symptoms have not cleared, or if hearing does not return to normal within one month. Get Prompt Medical Attention if any of the following occur: Ear pain gets worse or does not improve after three days of treatment Unusual drowsiness or confusion Neck pain, stiff neck or headache Fluid or blood draining from the ear canal Fever of 100.4 F (38 C) or higher after 3 days of antibiotics, or as directed by your healthcare provider Convulsion (seizure) [id number] [employer]. [address] [place] [address]. All rights reserved. This information is not intended as a substitute for professional medical care. Always follow your healthcare professional's instructions. Follow Up Care 10/03/2022 18:28:30 With:COLE SCOTT MD Address: [address] [address] [phone] When:2-4 days With:Go to emergency room if symptoms worsen Address:Unknown When:2-4 days [facility] 10-03-2022 Note HNO ID: [id number] Author: Suzette Perry APRN.[facility] Service: ? Author Type: Nurse Practitioner Type: Progress Notes Filed: 10/03/2022 5:46 PM Note Text: Subjective Ear Pain Associated symptoms include congestion. Pertinent negatives include no chills, fever or headaches. Mojgan Corbett is a 31 year old female who presents with left ear pain for the past 2 hours. She states the pain is 10/10 but has not taken any medication for the pain. She has decreased hearing in the left ear. She has had recent sinus congestion. Was seen here 2 days ago and tested negative for COVID and flu. Review of Systems Constitutional: Negative for chills and fever. HENT: Positive for congestion, ear pain and hearing loss. Negative for ear discharge. Respiratory: Negative. Cardiovascular: Negative. Skin: Negative. Neurological: Negative for headaches. BP 146/96 Pulse 98 Temp 37.3 ?C (99.1 ?F) Resp 18 Wt 85.7 kg (189 lb) LMP 09/22/2022 (Approximate) SpO2 99% BMI 33.07 kg/m? PAST MEDICAL HISTORY Diagnosis Date Trauma Unspecified asthma(493.90) reactive airway disease as child Urinary tract infection, site not specified Recurrent UTI's PAST SURGICAL HISTORY Procedure Laterality Date PAST SURGICAL HISTORY OF WISDOM TEETH ALLERGIES Lactose and Poison [place] MEDICATIONS amoxicillin (AMOXIL) 875 mg tablet Take 1 tablet by mouth twice daily for 7 days. oseltamivir (TAMIFLU) 75 mg capsule Take 1 capsule by mouth twice daily for 5 days. (Patient not taking: Reported on 10/03/2022) mupirocin (BACTROBAN) 2 % ointment Apply 1 application to affected area three times daily for 10 days. (Patient not taking: Reported on 09/27/2022) qalvkowjmxEAKDE-lqeynx-fvzcyrgze (BMX 1:1:1) 1:1:1 liqd Mix in equal amounts - 1 T every 2hrs as needed for mouth pain, Swish/swallow or expectorate. (8oz) (Patient not taking: Reported on 09/24/2022) ofloxacin (FLOXIN) 0.3 % otic solution Use 5 Drops in both ears once daily. (Patient not taking: No sig reported) fluticasone (FLONASE) 50 mcg/actuation nasal spray Use 2 Sprays in each nostril once daily. Rinse mouth after use. (Patient not taking: No sig reported) MULTIVITAMIN ORAL Take by mouth. (Patient not taking: Reported on 09/24/2022) levothyroxine (SYNTHROID) 25 mcg tablet EPINEPHrine (EPIPEN) 0.3 mg/0.3 mL auto-injector Use as directed (Patient not taking: No sig reported) ALBUTEROL INHALATION Inhale as instructed. FAMILY HISTORY Problem Relation Age of Onset Hypertension Mother Cancer Father Throat and tongue Cancer Maternal Grandmother Cancer Maternal Grandfather Coronary Artery Disease Maternal Grandfather Cancer Paternal Grandmother Hypertension Maternal Uncle Cancer Maternal Uncle unsure type Social History Tobacco Use Smoking status: Former Years: 2.00 Types: Cigarettes Quit date: 08/07/2007 Years since quittin.1 Smokeless tobacco: Never Vaping Use Vaping Use: Never used Substance Use Topics Alcohol use: No Drug use: No Objective Physical Exam Vitals and nursing note reviewed. Constitutional: General: She is not in acute distress. Appearance: Normal appearance. She is not toxic-appearing. HENT: Right Ear: Tympanic membrane, ear canal and external ear normal. Left Ear: Ear canal and external ear normal. Tympanic membrane is erythematous and bulging. Nose: Nose normal. Mouth/Throat: Pharynx: Uvula midline. Cardiovascular: Rate and Rhythm: Normal rate. Pulmonary: Effort: Pulmonary effort is normal. Musculoskeletal: Cervical back: Neck supple. Lymphadenopathy: Cervical: No cervical adenopathy. Skin: General: Skin is warm and dry. Findings: No erythema or rash. Neurological: Mental Status: She is alert. ASSESSMENT/PLAN: 1. Other acute nonsuppurative otitis media of left ear, recurrence not specified - ICD9: 381.00, ICD10: H65.192 - Will begin treatment with as per antibiotic as written, see orders - Supportive care with plenty of fluids, rest, and analgesia prn. - AMOXICILLIN 875 MG TABLET - Follow-up with your PCP in 3-5 days if symptoms have not improved or sooner if symptoms worsen - Discussed red flags and need for immediate medical evaluation if any occur. - Discussed supportive care treatment with fluids, rest and analgesia. - Discussed expected course of illness Suzette Perry APRN.[facility] 10-03-2022 Note Discharge Instructions Thank you for allowing [facility] to assist you with your healthcare needs. The following is important discharge information regarding your hospital visit. Diagnosis from Today's Visit Otitis media Ear pain What to Do Next Instructions from Your Care Team Your prescription for amoxicillin 875 is ready to be picked up now at [facility] [place]. No qualifying data available. Post Acute Orders No qualifying data available. You Need to Schedule the Following Appointments Follow Up with COLE SCOTT MD When Within 2-4 days Where: [facility] [address] [place] [address] [phone] Follow Up with Go to emergency room if symptoms worsen When Within 2-4 days Allergies NKA Medications Please ask your primary doctor or pharmacist before taking any other medication not listed, including over the counter drugs, herbal medications, vitamins and or supplements as they may interact with your home medications. What How Much When Why Instructions Last Dose New acetaminophen-hydrocodone ([place]dale 325- 5 mg oral tablet) 1 tab(s) by mouth Every 4 hours as needed for for pain Otitis media Duration: 3 Days Printed Prescription Unchanged fluticasone nasal (Flonase 50 mcg/ inh nasal spray) 2 spray(s) each nostril Once a day Unchanged multivitamin, ( 1) 1 cap by mouth Once a day Please take this list to your next doctor s visit. Bring all medications you take, including over the counter medications, herbals and other supplements with you to your doctor s visit. Patients and families are reminded to discard old lists and to update any records with all medication providers or retail pharmacies. Education Materials Middle Ear Infection (Adult) You have an infection of the middle ear (the space behind the eardrum). It can occur as a result of the common cold. This is because congestion can block the internal passage (eustachian tube) that drains fluid from the middle ear. When the middle ear fills with fluid, bacteria can grow there and cause an infection. Oral antibiotics are used to treat this illness, not ear drops. Symptoms usually start to improve within 1-2 days of treatment. Home Care: Finish all of the antibiotic medicine prescribed, even though you may feel better after the first few days. You may use acetaminophen (Tylenol) or ibuprofen (Motrin, Advil) to control pain, unless something else was prescribed. [NOTE: If you have chronic liver or kidney disease or have ever had a stomach ulcer or GI bleeding, talk with your doctor before using these medicines.] (Do not give aspirin to anyone under 18 years of age who is ill with a fever. It may cause severe liver damage.) Follow Up with your doctor or this facility in two weeks if all symptoms have not cleared, or if hearing does not return to normal within one month. Get Prompt Medical Attention if any of the following occur: Ear pain gets worse or does not improve after three days of treatment Unusual drowsiness or confusion Neck pain, stiff neck or headache Fluid or blood draining from the ear canal Fever of 100.4 F (38 C) or higher after 3 days of antibiotics, or as directed by your healthcare provider Convulsion (seizure) [id number] [employer]. [address] [place] [address], [place] [address]. All rights reserved. This information is not intended as a substitute for professional medical care. Always follow your healthcare professional's instructions. Additional Information VACCINATE! IT SAVES LIVES! Members of the community who have not yet received the COVID-19 vaccine and would like to receive it can visit one of [facility] vaccine clinics. There are many vaccine clinic locations within the [facility]. For locations and available times, please visit [email or web address] It is important to note that some COVID mobile vaccine clinics are held outdoors and may be canceled in rainy or stormy conditions. To learn more about pediatric vaccinations (ages 5-11), we invite you to visit the [facility] webpage. [email or web address] [email or web address] [email or web address].[email or web address] To learn more about the COVID-19 vaccine, we invite you to visit the CDC website for a list of frequently asked questions. https://www.cdc.gov/coronavirus/ 2019-ncov/vaccines/faq.html [facility] Patient Portal Access Instructions: Stay connected with your healthcare team and access your personal medical information anytime with the [facility] Patient Portal. If you would like a full copy of your medical records please contact the [facility] Medical Records Department Monday through Monday between 8a.m. and 4:30p.m. Please follow the directions below to access the portal: 1.Access the email account you provided upon registration to the hospital.2.Look for an invitation email from [facility].3.Open the email and access the invitation link: Accept Invitation to [facility]4.Fill in the required rodriguez to create your account. Sign into [email or web address] with your username and password that you created in the above steps to stay up to date. You can then view a summary of results, a summary of your visits, and the ability to download your summaries to your computer or send the information securely to a physician. Remember that your healthcare information is confidential, so carefully consider who you will allow to register on the [facility] Patient Portal for access to your information. You can also access the [facility] Patient Portal on the beSUCCESS. Simply click on Health Records under Health Data and then click on the [facility] logo. HOW TO SAFELY DISPOSE OF PRESCRIPTION MEDICATIONS Please use one of the following methods to safely dispose of your unused medications. 1.Use a drug disposal kit: the drug disposal pouch allows you to safely discard your old and unused drugs. Ask your nurse to give you one when you are discharged.2.Visit a local take-back location: Many local pharmacies and police departments have programs that collect old and unwanted prescription drugs. Call your local pharmacy or go to http://Break30.ugichem/0P0Bq3x to find one close to you.3.Make use of household items: Use cat litter or old coffee grounds to dispose medications if other options are not available. Mix your drugs with these household products, seal them in an airtight container and throw it into the garbage. Call [facility]: [phone] to be sure your drugs can be disposed of in this way. Some medicines may require a different approach.4.Never flush your medications down the toilet. IF YOU HAVE BEEN PRESCRIBED AN OPIOIDS FOR PAIN If you have been prescribed an opioid (such as hydrocodone, oxycodone or morphine), it is critical to understand the possible side effects and risks of opioid pain medications. Even when taken as directed, opioids can have several side effects including: Tolerance, meaning you might need to take more of a medication for the same pain relief. Nausea, vomiting and/or constipation. Sleepiness, dizziness, dry mouth, confusion, depression or itching. Physical dependence, meaning you have withdrawal symptoms when a medication is stopped ? this can develop within a few days. KNOW YOUR RESPONSIBILITIES It is important to know exactly how much and how often to take the opioid pain medications you are prescribed. Never take opioids in higher amounts or more often than prescribed. Do not combine opioids with alcohol or other drugs that cause drowsiness, such as benzodiazepines, also known as benzos, including diazepam and alprazolam, muscle relaxants or sleep aids. Never sell or share prescription opioids. This is illegal. Store opioids in a secure place and out of reach of others (including children, family, friends and visitors). The last page(s) of this document has been signed and retained as a CHART COPY Signatures Patient Education Materials OTITIS MEDIA, Abx Tx (Adult) Medication Leaflets My discharge plan and instructions have been reviewed and explained to me and I,MOJGAN CORBETT understand my current condition and have read and understand these discharge instructions. I have received a written copy of the plan/instructions. If I have questions, I am aware that I should contact my doctor. Patient/Area Mechanic Signature: Date/Time: Relationship to Patient: Witness Name/Signature: Date/Time: [facility] 10-03-2022 Emergency department Discharge summary Discharge Instructions Thank you for allowing [facility] to assist you with your healthcare needs. The following is important discharge information regarding your hospital visit. Diagnosis from Today's Visit Otitis media Ear pain What to Do Next Instructions from Your Care Team Your prescription for amoxicillin 875 is ready to be picked up now at [facility] in [place]. No qualifying data available. Post Acute Orders No qualifying data available. You Need to Schedule the Following Appointments Follow Up with COLE SCOTT MD When Within 2-4 days Where: [facility] [address] [place] [address] [phone] Follow Up with Go to emergency room if symptoms worsen When Within 2-4 days Allergies NKA Medications Please ask your primary doctor or pharmacist before taking any other medication not listed, including over the counter drugs, herbal medications, vitamins and or supplements as they may interact with your home medications. What How Much When Instructions Last Dose Unchanged fluticasone nasal (Flonase 50 mcg/ inh nasal spray) 2 spray(s) each nostril Once a day Unchanged multivitamin, ( 1) 1 cap by mouth Once a day Please take this list to your next doctor s visit. Bring all medications you take, including over the counter medications, herbals and other supplements with you to your doctor s visit. Patients and families are reminded to discard old lists and to update any records with all medication providers or retail pharmacies. Education Materials Middle Ear Infection (Adult) You have an infection of the middle ear (the space behind the eardrum). It can occur as a result of the common cold. This is because congestion can block the internal passage (eustachian tube) that drains fluid from the middle ear. When the middle ear fills with fluid, bacteria can grow there and cause an infection. Oral antibiotics are used to treat this illness, not ear drops. Symptoms usually start to improve within 1-2 days of treatment. Home Care: Finish all of the antibiotic medicine prescribed, even though you may feel better after the first few days. You may use acetaminophen (Tylenol) or ibuprofen (Motrin, Advil) to control pain, unless something else was prescribed. [NOTE: If you have chronic liver or kidney disease or have ever had a stomach ulcer or GI bleeding, talk with your doctor before using these medicines.] (Do not give aspirin to anyone under 18 years of age who is ill with a fever. It may cause severe liver damage.) Follow Up with your doctor or this facility in two weeks if all symptoms have not cleared, or if hearing does not return to normal within one month. Get Prompt Medical Attention if any of the following occur: Ear pain gets worse or does not improve after three days of treatment Unusual drowsiness or confusion Neck pain, stiff neck or headache Fluid or blood draining from the ear canal Fever of 100.4 F (38 C) or higher after 3 days of antibiotics, or as directed by your healthcare provider Convulsion (seizure) [phone] [employer]. [address] [place] [address]. All rights reserved. This information is not intended as a substitute for professional medical care. Always follow your healthcare professional's instructions. Additional Information VACCINATE! IT SAVES LIVES! Members of the community who have not yet received the COVID-19 vaccine and would like to receive it can visit one of [facility] vaccine clinics. There are many vaccine clinic locations within the [facility]. For locations and available times, please visit [email or web address] It is important to note that some COVID mobile vaccine clinics are held outdoors and may be canceled in rainy or stormy conditions. To learn more about pediatric vaccinations (ages 5-11), we invite you to visit the [facility] webpage. [email or web address] [email or web address]-[email or web address] To learn more about the COVID-19 vaccine, we invite you to visit the CDC website for a list of frequently asked questions. https://www.cdc.gov/coronavirus/ 2019-ncov/vaccines/faq.html [facility] Patient Portal Access Instructions: Stay connected with your healthcare team and access your personal medical information anytime with the [employer] Patient Portal. If you would like a full copy of your medical records please contact the [facility] Medical Records Department Monday through Monday between 8a.m. and 4:30p.m. Please follow the directions below to access the portal: 1.Access the email account you provided upon registration to the [facility].2.Look for an invitation email from [facility].3.Open the email and access the invitation link: Accept Invitation to [facility]4.Fill in the required rodriguez to create your account. Sign into [email or web address] with your username and password that you created in the above steps to stay up to date. You can then view a summary of results, a summary of your visits, and the ability to download your summaries to your computer or send the information securely to a physician. Remember that your healthcare information is confidential, so carefully consider who you will allow to register on the [employer] Patient Portal for access to your information. You can also access the [employer] Patient Portal on the [email or web address] tata. Simply click on Health Records under Health Data and then click on the [employer] logo. HOW TO SAFELY DISPOSE OF PRESCRIPTION MEDICATIONS Please use one of the following methods to safely dispose of your unused medications. 1.Use a drug disposal kit: the drug disposal pouch allows you to safely discard your old and unused drugs. Ask your nurse to give you one when you are discharged.2.Visit a local take-back location: Many local pharmacies and police departments have programs that collect old and unwanted prescription drugs. Call your local pharmacy or go to http://bit.ugichem/5M0Kk9v to find one close to you.3.Make use of household items: Use cat litter or old coffee grounds to dispose medications if other options are not available. Mix your drugs with these household products, seal them in an airtight container and throw it into the garbage. Call [facility]: [phone] to be sure your drugs can be disposed of in this way. Some medicines may require a different approach.4.Never flush your medications down the toilet. IF YOU HAVE BEEN PRESCRIBED AN OPIOIDS FOR PAIN If you have been prescribed an opioid (such as hydrocodone, oxycodone or morphine), it is critical to understand the possible side effects and risks of opioid pain medications. Even when taken as directed, opioids can have several side effects including: Tolerance, meaning you might need to take more of a medication for the same pain relief. Nausea, vomiting and/or constipation. Sleepiness, dizziness, dry mouth, confusion, depression or itching. Physical dependence, meaning you have withdrawal symptoms when a medication is stopped ? this can develop within a few days. KNOW YOUR RESPONSIBILITIES It is important to know exactly how much and how often to take the opioid pain medications you are prescribed. Never take opioids in higher amounts or more often than prescribed. Do not combine opioids with alcohol or other drugs that cause drowsiness, such as benzodiazepines, also known as benzos, including diazepam and alprazolam, muscle relaxants or sleep aids. Never sell or share prescription opioids. This is illegal. Store opioids in a secure place and out of reach of others (including children, family, friends and visitors). The last page(s) of this document has been signed and retained as a CHART COPY Signatures Patient Education Materials OTITIS MEDIA, Abx Tx (Adult) Medication Leaflets My discharge plan and instructions have been reviewed and explained to me and I,MOJGAN CORBETT understand my current condition and have read and understand these discharge instructions. I have received a written copy of the plan/instructions. If I have questions, I am aware that I should contact my doctor. 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 Pertinent negatives include no chills, fever or headaches. Mojgan Corbett is a 31 year old female who presents with left ear pain for the past 2 hours. She states the pain is 10/10 but has not taken any medication for the pain. She has decreased hearing in the left ear. She has had recent sinus congestion. Was seen here 2 days ago and tested negative for COVID and flu. Review of Systems Constitutional: Negative for chills and fever. HENT: Positive for congestion, ear pain and hearing loss. Negative for ear discharge. Respiratory: Negative. Cardiovascular: Negative. Skin: Negative. Neurological: Negative for headaches. BP 146/96 Pulse 98 Temp 37.3 C (99.1 F) Resp 18 Wt 85.7 kg (189 lb) LMP 09/22/2022 (Approximate) SpO2 99% BMI 33.07 kg/m PAST MEDICAL HISTORY Diagnosis Date Trauma Unspecified asthma(493.90) reactive airway disease as child Urinary tract infection, site not specified Recurrent UTI's PAST SURGICAL HISTORY Procedure Laterality Date PAST SURGICAL HISTORY OF WISDOM TEETH ALLERGIES Lactose and Poison [place] MEDICATIONS amoxicillin (AMOXIL) 875 mg tablet Take 1 tablet by mouth twice daily for 7 days. oseltamivir (TAMIFLU) 75 mg capsule Take 1 capsule by mouth twice daily for 5 days. (Patient not taking: Reported on 10/03/2022) mupirocin (BACTROBAN) 2 % ointment Apply 1 application to affected area three times daily for 10 days. (Patient not taking: Reported on 09/27/2022) xbvymyxoavBOICV-tasomi-jnjfselrk (BMX 1:1:1) 1:1:1 liqd Mix in equal amounts - 1 T every 2hrs as needed for mouth pain, Swish/swallow or expectorate. (8oz) (Patient not taking: Reported on 09/24/2022) ofloxacin (FLOXIN) 0.3 % otic solution Use 5 Drops in both ears once daily. (Patient not taking: No sig reported) fluticasone (FLONASE) 50 mcg/actuation nasal spray Use 2 Sprays in each nostril once daily. Rinse mouth after use. (Patient not taking: No sig reported) MULTIVITAMIN ORAL Take by mouth. (Patient not taking: Reported on 09/24/2022) levothyroxine (SYNTHROID) 25 mcg tablet EPINEPHrine (EPIPEN) 0.3 mg/0.3 mL auto-injector Use as directed (Patient not taking: No sig reported) ALBUTEROL INHALATION Inhale as instructed. FAMILY HISTORY Problem Relation Age of Onset Hypertension Mother Cancer Father Throat and tongue Cancer Maternal Grandmother Cancer Maternal Grandfather Coronary Artery Disease Maternal Grandfather Cancer Paternal Grandmother Hypertension Maternal Uncle Cancer Maternal Uncle unsure type Social History Tobacco Use Smoking status: Former Years: 2.00 Types: Cigarettes Quit date: 08/07/2007 Years since quittin.1 Smokeless tobacco: Never Vaping Use Vaping Use: Never used Substance Use Topics Alcohol use: No Drug use: No Objective Physical Exam Vitals and nursing note reviewed. Constitutional: General: She is not in acute distress. Appearance: Normal appearance. She is not toxic-appearing. HENT: Right Ear: Tympanic membrane, ear canal and external ear normal. Left Ear: Ear canal and external ear normal. Tympanic membrane is erythematous and bulging. Nose: Nose normal. Mouth/Throat: Pharynx: Uvula midline. Cardiovascular: Rate and Rhythm: Normal rate. Pulmonary: Effort: Pulmonary effort is normal. Musculoskeletal: Cervical back: Neck supple. Lymphadenopathy: Cervical: No cervical adenopathy. Skin: General: Skin is warm and dry. Findings: No erythema or rash. Neurological: Mental Status: She is alert. ASSESSMENT/PLAN: 1. Other acute nonsuppurative otitis media of left ear, recurrence not specified - ICD9: 381.00, ICD10: H65.192 - Will begin treatment with as per antibiotic as written, see orders - Supportive care with plenty of fluids, rest, and analgesia prn. - AMOXICILLIN 875 MG TABLET - Follow-up with your PCP in 3-5 days if symptoms have not improved or sooner if symptoms worsen - Discussed red flags and need for immediate medical evaluation if any occur. - Discussed supportive care treatment with fluids, rest and analgesia. - Discussed expected course of illness Suzette Perry APRN.CANE [employer]UME FEEDING MACHINE OPERATOR documented in this encounter [facility] 10-03-2022 Instructions Suzette Perry APRN.CNP - 10/03/2022 5:42 PM EST ASSESSMENT/PLAN: 1. Other acute nonsuppurative otitis media of left ear, recurrence not specified - ICD9: 381.00, ICD10: H65.192 - Will begin treatment with as per antibiotic as written, see orders - Supportive care with plenty of fluids, rest, and analgesia prn. - AMOXICILLIN 875 MG TABLET - Follow-up with your PCP in 3-5 days if symptoms have not improved or sooner if symptoms worsen - Discussed red flags and need for immediate medical evaluation if any occur. - Discussed supportive care treatment with fluids, rest and analgesia. - Discussed expected course of illness Suzette Perry APRN.CNP [facility] GENERAL INFORMATION: Otitis media is an infection of the middle ear. The middle ear sits behind the eardrum. This infection may be caused by a virus or bacteria and often follows a cold. Children often have repeat ear infections. Otitis media is not contagious. INSTRUCTIONS: 1. An antibiotic has been prescribed. It should be taken exactly as prescribed. Do not stop the medicine even if the symptoms go away. 2. Ifzv-lmv-ldyknbn pain medication may be taken or other pain medication as prescribed by the doctor. 3. Nothing should be placed in the ear unless instructed by your doctor. 4. The patient may return to school/daycare or work when the temperature is normal (98.6 F or 37 C). 5. The patient should not swim while the ear is infected. CONTACT YOUR DOCTOR IF YOU OR YOUR CHILD: 1. Does not feel better within 36 hours. 2. Develops a temperature over 102E F (39E C). 3. Starts vomiting or has diarrhea. 4. Develops drainage from the affected ear. 5. Has any new problem that may be related to the medicine prescribed. RETURN TO THE ED IF: 1. You or your child has a severe headache or pain around the ear. 2. You or your child notice swelling around the ear. 3. You or your child has a seizure (convulsion), twitching of the facial muscles, or passes out. 4. You or your child is dizzy, has a stiff neck, or cannot walk or talk normally. 5. Your child becomes more irritable or listless (not interested in his or her surroundings, does not get soothed by you holding him or her). documented in this encounter [facility] 10-01-2022 Miscellaneous Notes Patient notified of results, verbalized understanding. Lucina Rodriguez MA Negative for flu and covid please notify thank you documented in this encounter [facility] 09-30-2022 Note HNO ID: [id number] Author: Suzette Perry APRN.ELLIOT Service: ? Author Type: Nurse Practitioner Type: Progress Notes Filed: 09/30/2022 1:46 PM Note Text: Subjective HPI Mojgan Corbett is a 31 year old female who presents with 3 days of cough, body aches, sore throat, and headache. She has had recent exposure to influenza and strep. Her kids were diagnosed with strep recently. Her mother tested positive for influenza. Review of Systems Constitutional: Positive for malaise/fatigue. Negative for chills and fever. HENT: Positive for sore throat. Negative for ear pain. Respiratory: Positive for cough. Cardiovascular: Negative. Gastrointestinal: Negative for diarrhea, nausea and vomiting. Musculoskeletal: Positive for myalgias. Neurological: Positive for headaches. BP 98/66 Pulse 93 Temp 36.7 ?C (98 ?F) (Tympanic) Resp 18 Wt 86.1 kg (189 lb 12.8 oz) LMP 09/22/2022 (Approximate) SpO2 97% BMI 33.21 kg/m? PAST MEDICAL HISTORY Diagnosis Date Trauma Unspecified asthma(493.90) reactive airway disease as child Urinary tract infection, site not specified Recurrent UTI's PAST SURGICAL HISTORY Procedure Laterality Date PAST SURGICAL HISTORY OF WISDOM TEETH ALLERGIES Lactose and Poison [place] MEDICATIONS levothyroxine (SYNTHROID) 25 mcg tablet ALBUTEROL INHALATION Inhale as instructed. mupirocin (BACTROBAN) 2 % ointment Apply 1 application to affected area three times daily for 10 days. (Patient not taking: Reported on 09/27/2022) gqbnsvkxkgAWXIY-skuhov-lvxcrlssz (BMX 1:1:1) 1:1:1 liqd Mix in equal amounts - 1 T every 2hrs as needed for mouth pain, Swish/swallow or expectorate. (8oz) (Patient not taking: Reported on 09/24/2022) ofloxacin (FLOXIN) 0.3 % otic solution Use 5 Drops in both ears once daily. (Patient not taking: No sig reported) fluticasone (FLONASE) 50 mcg/actuation nasal spray Use 2 Sprays in each nostril once daily. Rinse mouth after use. (Patient not taking: No sig reported) MULTIVITAMIN ORAL Take by mouth. (Patient not taking: Reported on 09/24/2022) EPINEPHrine (EPIPEN) 0.3 mg/0.3 mL auto-injector Use as directed (Patient not taking: No sig reported) FAMILY HISTORY Problem Relation Age of Onset Hypertension Mother Cancer Father Throat and tongue Cancer Maternal Grandmother Cancer Maternal Grandfather Coronary Artery Disease Maternal Grandfather Cancer Paternal Grandmother Hypertension Maternal Uncle Cancer Maternal Uncle unsure type Social History Tobacco Use Smoking status: Former Years: 2.00 Types: Cigarettes Quit date: 08/07/2007 Years since quittin.1 Smokeless tobacco: Never Vaping Use Vaping Use: Never used Substance Use Topics Alcohol use: No Drug use: No Objective Physical Exam Vitals and nursing note reviewed. Constitutional: General: She is not in acute distress. Appearance: Normal appearance. She is not toxic-appearing. HENT: Right Ear: Tympanic membrane, ear canal and external ear normal. Left Ear: Tympanic membrane, ear canal and external ear normal. Nose: Nose normal. Mouth/Throat: Mouth: Mucous membranes are moist. Pharynx: Uvula midline. Posterior oropharyngeal erythema present. No oropharyngeal exudate. Cardiovascular: Rate and Rhythm: Normal rate and regular rhythm. Heart sounds: Normal heart sounds. Pulmonary: Effort: Pulmonary effort is normal. No respiratory distress. Breath sounds: Normal breath sounds. No wheezing or rales. Musculoskeletal: Cervical back: Neck supple. Lymphadenopathy: Cervical: No cervical adenopathy. Skin: General: Skin is warm and dry. Findings: No erythema or rash. Neurological: Mental Status: She is alert. ASSESSMENT/PLAN: 1. Streptococcus exposure - ICD9: V01.89, ICD10: Z20.818 (primary diagnosis) - STREP A MOLECULAR (POC)-negative in office 2. Throat pain - ICD9: 784.1, ICD10: R07.0 - STREP A MOLECULAR (POC) 3. Flu-like symptoms - ICD9: 780.99, ICD10: R68.89 - COVID WITH FLUA+B, ROUTINE - OSELTAMIVIR 75 MG CAPSULE- stop medication if flu test is negative. - Follow-up with your PCP in 3-5 days if symptoms have not improved or sooner if symptoms worsen - Discussed red flags and need for immediate medical evaluation if any occur. - Discussed supportive care treatment with fluids, rest and analgesia. - Discussed expected course of illness Suzette Perry APRN.CNP [facility] 09-30-2022 Instructions Suzette Perry APRN.CNP - 09/30/2022 1:45 PM EST ASSESSMENT/PLAN: 1. Streptococcus exposure - ICD9: V01.89, ICD10: Z20.818 (primary diagnosis) - STREP A MOLECULAR (POC)-negative in office 2. Throat pain - ICD9: 784.1, ICD10: R07.0 - STREP A MOLECULAR (POC) 3. Flu-like symptoms - ICD9: 780.99, ICD10: R68.89 - COVID WITH FLUA+B, ROUTINE - OSELTAMIVIR 75 MG CAPSULE- stop medication if flu test is negative. - Follow-up with your PCP in 3-5 days if symptoms have not improved or sooner if symptoms worsen - Discussed red flags and need for immediate medical evaluation if any occur. - Discussed supportive care treatment with fluids, rest and analgesia. - Discussed expected course of illness Suzette Perry APRN.ELLIOT [facility] PATIENT INFO INFLUENZA INTRODUCTION Influenza (commonly called the flu) is a highly contagious illness that can occur in children or adults of any age. It occurs more often in the winter months because people spend more time in close contact with one another. The flu is spread easily from zmqevl-jt-bvzkbx by coughing, sneezing, or touching surfaces. Every year, complications of the flu require more than 200,000 people in the [place] to be hospitalized. Serious illness is more likely in the very young, older adults, women, and people who have certain health problems such as asthma or other forms of lung disease. There have been several widespread flu outbreaks (called pandemics), which led to the deaths of many people worldwide. These outbreaks occurred when new strains of influenza viruses formed (often from pigs or birds) and humans became infected because they had no immunity to these viruses. FLU SYMPTOMS Symptoms of seasonal flu can vary from person to person, but usually include: Fever (temperature higher than 100 F or 37.8 C) Headache and muscle aches Fatigue Cough and sore throat may also be present People with the flu usually have a fever for two to five days. This is different than fever caused by other upper respiratory viruses, which usually resolve after 24 to 48 hours. Some people have cold-like symptoms (runny nose, sore throat) during the flu while others have fever and muscle aches. Flu symptoms usually improve over two to five days, although the illness may last for a week or more. Weakness and fatigue may persist for several weeks Flu complications -- Complications of influenza occur in some people; pneumonia is the most common complication. Pneumonia is a serious infection of the lungs, and is more likely to occur in people over the age of 65, people who live in half-way care facilities (nursing homes), and those with other illnesses such as diabetes or conditions affecting the heart or lungs. FLU DIAGNOSIS Influenza is usually diagnosed based on symptoms (fever, cough and muscle aches). Lab testing for influenza is performed in certain cases, such as during a new influenza outbreak in a community. FLU TREATMENT When to seek help -- Most people with the flu recover within one to two weeks without treatment. However, serious complications of the flu can occur. Call your doctor or nurse immediately if: You feel short of breath or have trouble breathing You have pain or pressure in your chest or stomach You have signs of being dehydrated, such as dizziness when standing or not passing urine You feel confused You cannot stop vomiting or you cannot drink enough fluids There are several groups of people who are at increased risk for flu complications. These include women, young children (<5 years of age, and especially <2 years of age), people ?65 years of age, and people with certain diseases such as chronic lung disease (such as asthma), heart disease, diabetes, immunosuppressing conditions (such as HIV infection or transplantation), and some other diseases. If you or your child has flu symptoms and is at increased risk of flu complications, you should call your healthcare provider. Treat symptoms -- Treating the symptoms of influenza can help you to feel better, but will not make the flu go away faster. Rest until the flu is fully resolved, especially if the illness has been severe Fluids -- Drink enough fluids so that you do not become dehydrated. One way to blender snuff if you are drinking enough is to look at the color of your urine. Normally, urine should be light yellow to nearly colorless. If you are drinking enough, you should pass urine every three to five hours. Acetaminophen (such as Tylenol and other brands) can relieve fever, headache, and muscle aches. Aspirin, and medicines that include aspirin (eg, bismuth subsalicylate; PeptoBismol), are not recommended for children under 18 because aspirin can lead to a serious disease called Bea syndrome. Cough medicines are not usually helpful; cough usually resolves without treatment. We do not recommend cough or cold medicine for children under age six years. Antiviral treatment -- Antiviral medicines can be used to treat or prevent influenza. When used as a treatment, the medicine does not eliminate flu symptoms, although it can reduce the severity and duration of symptoms by about one day. Not every person with influenza needs an antiviral medicine; the decision is based upon your risk of developing complications of influenza. Antiviral treatment is most effective for seasonal influenza when it is taken within the first 48 hours of flu symptoms. Side effects -- Zanamivir and oseltamivir can cause mild side effects, including nausea and vomiting; zanamivir, which is inhaled, can cause difficulty breathing in some cases. Most people are able to continue the medicine despite the side effects. Antibiotics -- Antibiotics are NOT useful for treating viral illnesses such as influenza. Antibiotics should only used if there is a bacterial complication of the flu such as bacterial pneumonia, ear infection, or sinusitis. Antibiotics can cause side effects and lead to development of antibiotic resistance. documented in this encounter [facility] 09-30-2022 History of Present illness Narrative Subjective HPI Mojgan Corbett is a 31 year old female who presents with 3 days of cough, body aches, sore throat, and headache. She has had recent exposure to influenza and strep. Her kids were diagnosed with strep recently. Her mother tested positive for influenza. Review of Systems Constitutional: Positive for malaise/fatigue. Negative for chills and fever. HENT: Positive for sore throat. Negative for ear pain. Respiratory: Positive for cough. Cardiovascular: Negative. Gastrointestinal: Negative for diarrhea, nausea and vomiting. Musculoskeletal: Positive for myalgias. Neurological: Positive for headaches. BP 98/66 Pulse 93 Temp 36.7 C (98 F) (Tympanic) Resp 18 Wt 86.1 kg (189 lb 12.8 oz) LMP 09/22/2022 (Approximate) SpO2 97% BMI 33.21 kg/m PAST MEDICAL HISTORY Diagnosis Date Trauma Unspecified asthma(493.90) reactive airway disease as child Urinary tract infection, site not specified Recurrent UTI's PAST SURGICAL HISTORY Procedure Laterality Date PAST SURGICAL HISTORY OF WISDOM TEETH ALLERGIES Lactose and Poison [place] MEDICATIONS levothyroxine (SYNTHROID) 25 mcg tablet ALBUTEROL INHALATION Inhale as instructed. mupirocin (BACTROBAN) 2 % ointment Apply 1 application to affected area three times daily for 10 days. (Patient not taking: Reported on 09/27/2022) mwmuxareriZYLHP-hymdod-emcepyaxe (BMX 1:1:1) 1:1:1 liqd Mix in equal amounts - 1 T every 2hrs as needed for mouth pain, Swish/swallow or expectorate. (8oz) (Patient not taking: Reported on 09/24/2022) ofloxacin (FLOXIN) 0.3 % otic solution Use 5 Drops in both ears once daily. (Patient not taking: No sig reported) fluticasone (FLONASE) 50 mcg/actuation nasal spray Use 2 Sprays in each nostril once daily. Rinse mouth after use. (Patient not taking: No sig reported) MULTIVITAMIN ORAL Take by mouth. (Patient not taking: Reported on 09/24/2022) EPINEPHrine (EPIPEN) 0.3 mg/0.3 mL auto-injector Use as directed (Patient not taking: No sig reported) FAMILY HISTORY Problem Relation Age of Onset Hypertension Mother Cancer Father Throat and tongue Cancer Maternal Grandmother Cancer Maternal Grandfather Coronary Artery Disease Maternal Grandfather Cancer Paternal Grandmother Hypertension Maternal Uncle Cancer Maternal Uncle unsure type Social History Tobacco Use Smoking status: Former Years: 2.00 Types: Cigarettes Quit date: 08/07/2007 Years since quittin.1 Smokeless tobacco: Never Vaping Use Vaping Use: Never used Substance Use Topics Alcohol use: No Drug use: No Objective Physical Exam Vitals and nursing note reviewed. Constitutional: General: She is not in acute distress. Appearance: Normal appearance. She is not toxic-appearing. HENT: Right Ear: Tympanic membrane, ear canal and external ear normal. Left Ear: Tympanic membrane, ear canal and external ear normal. Nose: Nose normal. Mouth/Throat: Mouth: Mucous membranes are moist. Pharynx: Uvula midline. Posterior oropharyngeal erythema present. No oropharyngeal exudate. Cardiovascular: Rate and Rhythm: Normal rate and regular rhythm. Heart sounds: Normal heart sounds. Pulmonary: Effort: Pulmonary effort is normal. No respiratory distress. Breath sounds: Normal breath sounds. No wheezing or rales. Musculoskeletal: Cervical back: Neck supple. Lymphadenopathy: Cervical: No cervical adenopathy. Skin: General: Skin is warm and dry. Findings: No erythema or rash. Neurological: Mental Status: She is alert. ASSESSMENT/PLAN: 1. Streptococcus exposure - ICD9: V01.89, ICD10: Z20.818 (primary diagnosis) - STREP A MOLECULAR (POC)-negative in office 2. Throat pain - ICD9: 784.1, ICD10: R07.0 - STREP A MOLECULAR (POC) 3. Flu-like symptoms - ICD9: 780.99, ICD10: R68.89 - COVID WITH FLUA+B, ROUTINE - OSELTAMIVIR 75 MG CAPSULE- stop medication if flu test is negative. - Follow-up with your PCP in 3-5 days if symptoms have not improved or sooner if symptoms worsen - Discussed red flags and need for immediate medical evaluation if any occur. - Discussed supportive care treatment with fluids, rest and analgesia. - Discussed expected course of illness Suzette Perry APRN.CANE [employer]UME FEEDING MACHINE OPERATOR documented in this encounter [facility] 09-27-2022 Note HNO ID: [id number] Author: Seth Noguera APRN.ELLIOT Service: ? Author Type: Nurse Practitioner Type: Progress Notes Filed: 09/27/2022 7:48 PM Note Text: Subjective HPI HPI Mojgan Corbett is a 31 year old female who presents today for CC of st, body aches. This started today. Has tried nothing for relief. Symptoms are worsened by nothing. Risk factors sick exposures at home. Denies possibility of being . .Patient presents with: Sore Throat: bodyaches x 1 day PAST MEDICAL HISTORY Diagnosis Date Trauma Unspecified asthma(493.90) reactive airway disease as child Urinary tract infection, site not specified Recurrent UTI's PAST SURGICAL HISTORY Procedure Laterality Date PAST SURGICAL HISTORY OF WISDOM TEETH ALLERGIES Lactose and Poison [place] MEDICATIONS levothyroxine (SYNTHROID) 25 mcg tablet cephALEXin (KEFLEX) 500 mg capsule Take 1 capsule by mouth four times daily for 5 days. (Patient not taking: Reported on 09/27/2022) mupirocin (BACTROBAN) 2 % ointment Apply 1 application to affected area three times daily for 10 days. (Patient not taking: Reported on 09/27/2022) bgfzafqvmmMJYIR-radapa-vewsdwfac (BMX 1:1:1) 1:1:1 liqd Mix in equal amounts - 1 T every 2hrs as needed for mouth pain, Swish/swallow or expectorate. (8oz) (Patient not taking: Reported on 09/24/2022) ofloxacin (FLOXIN) 0.3 % otic solution Use 5 Drops in both ears once daily. (Patient not taking: No sig reported) fluticasone (FLONASE) 50 mcg/actuation nasal spray Use 2 Sprays in each nostril once daily. Rinse mouth after use. (Patient not taking: No sig reported) MULTIVITAMIN ORAL Take by mouth. (Patient not taking: Reported on 09/24/2022) EPINEPHrine (EPIPEN) 0.3 mg/0.3 mL auto-injector Use as directed (Patient not taking: No sig reported) ALBUTEROL INHALATION Inhale as instructed. FAMILY HISTORY Problem Relation Age of Onset Hypertension Mother Cancer Father Throat and tongue Cancer Maternal Grandmother Cancer Maternal Grandfather Coronary Artery Disease Maternal Grandfather Cancer Paternal Grandmother Hypertension Maternal Uncle Cancer Maternal Uncle unsure type Social History Tobacco Use Smoking status: Former Years: 2.00 Types: Cigarettes Quit date: 08/07/2007 Years since quittin.1 Smokeless tobacco: Never Vaping Use Vaping Use: Never used Substance Use Topics Alcohol use: No Drug use: No ROS Objective Blood pressure 110/72, pulse 86, temperature 36.3 ?C (97.3 ?F), resp. rate 16, weight 87.5 kg (193 lb), last menstrual period 03/06/2022, SpO2 98 %. Physical Exam Constitutional: General: She is not in acute distress. Appearance: She is not toxic-appearing or diaphoretic. HENT: Head: Normocephalic and atraumatic. Right Ear: Hearing, tympanic membrane, ear canal and external ear normal. Left Ear: Hearing, tympanic membrane, ear canal and external ear normal. Nose: Nose normal. Mouth/Throat: Pharynx: Uvula midline. No pharyngeal swelling, oropharyngeal exudate, posterior oropharyngeal erythema or uvula swelling. Eyes: General: Lids are normal. No scleral icterus. Right eye: No discharge. Left eye: No discharge. Conjunctiva/sclera: Conjunctivae normal. Pupils: Pupils are equal, round, and reactive to light. Neck: Trachea: Trachea normal. Cardiovascular: Rate and Rhythm: Normal rate and regular rhythm. Heart sounds: Normal heart sounds. Pulmonary: Effort: Pulmonary effort is normal. Breath sounds: Normal breath sounds. Musculoskeletal: Cervical back: Normal range of motion and neck supple. Lymphadenopathy: Cervical: No cervical adenopathy. Right cervical: No superficial cervical adenopathy. Left cervical: No superficial cervical adenopathy. Skin: Findings: No rash. Neurological: Mental Status: She is alert and oriented to person, place, and time. ASSESSMENT/PLAN: 1. Sore throat - ICD9: 462, ICD10: J02.9 - suspect viral - Alere Strep Test neg, no culture pending - antibiotic as written - Discussed supportive care treatment with fluids, rest and analgesia. - The patient should follow up in 3-5 days if symptoms persist or worsen - STREP A MOLECULAR (POC) Seth Noguera APRN.[facility] 09-27-2022 History of Present illness Narrative Subjective HPI HPI Mojgan Corbett is a 31 year old female who presents today for CC of st, body aches. This started today. Has tried nothing for relief. Symptoms are worsened by nothing. Risk factors sick exposures at home. Denies possibility of being . .Patient presents with: Sore Throat: bodyaches x 1 day PAST MEDICAL HISTORY Diagnosis Date Trauma Unspecified asthma(493.90) reactive airway disease as child Urinary tract infection, site not specified Recurrent UTI's PAST SURGICAL HISTORY Procedure Laterality Date PAST SURGICAL HISTORY OF WISDOM TEETH ALLERGIES Lactose and Poison [place] MEDICATIONS levothyroxine (SYNTHROID) 25 mcg tablet cephALEXin (KEFLEX) 500 mg capsule Take 1 capsule by mouth four times daily for 5 days. (Patient not taking: Reported on 09/27/2022) mupirocin (BACTROBAN) 2 % ointment Apply 1 application to affected area three times daily for 10 days. (Patient not taking: Reported on 09/27/2022) pwlfyiqcvgPNJZL-synfup-kmtqkhzws (BMX 1:1:1) 1:1:1 liqd Mix in equal amounts - 1 T every 2hrs as needed for mouth pain, Swish/swallow or expectorate. (8oz) (Patient not taking: Reported on 09/24/2022) ofloxacin (FLOXIN) 0.3 % otic solution Use 5 Drops in both ears once daily. (Patient not taking: No sig reported) fluticasone (FLONASE) 50 mcg/actuation nasal spray Use 2 Sprays in each nostril once daily. Rinse mouth after use. (Patient not taking: No sig reported) MULTIVITAMIN ORAL Take by mouth. (Patient not taking: Reported on 09/24/2022) EPINEPHrine (EPIPEN) 0.3 mg/0.3 mL auto-injector Use as directed (Patient not taking: No sig reported) ALBUTEROL INHALATION Inhale as instructed. FAMILY HISTORY Problem Relation Age of Onset Hypertension Mother Cancer Father Throat and tongue Cancer Maternal Grandmother Cancer Maternal Grandfather Coronary Artery Disease Maternal Grandfather Cancer Paternal Grandmother Hypertension Maternal Uncle Cancer Maternal Uncle unsure type Social History Tobacco Use Smoking status: Former Years: 2.00 Types: Cigarettes Quit date: 08/07/2007 Years since quittin.1 Smokeless tobacco: Never Vaping Use Vaping Use: Never used Substance Use Topics Alcohol use: No Drug use: No ROS Objective Blood pressure 110/72, pulse 86, temperature 36.3 C (97.3 F), resp. rate 16, weight 87.5 kg (193 lb), last menstrual period 03/06/2022, SpO2 98 %. Physical Exam Constitutional: General: She is not in acute distress. Appearance: She is not toxic-appearing or diaphoretic. HENT: Head: Normocephalic and atraumatic. Right Ear: Hearing, tympanic membrane, ear canal and external ear normal. Left Ear: Hearing, tympanic membrane, ear canal and external ear normal. Nose: Nose normal. Mouth/Throat: Pharynx: Uvula midline. No pharyngeal swelling, oropharyngeal exudate, posterior oropharyngeal erythema or uvula swelling. Eyes: General: Lids are normal. No scleral icterus. Right eye: No discharge. Left eye: No discharge. Conjunctiva/sclera: Conjunctivae normal. Pupils: Pupils are equal, round, and reactive to light. Neck: Trachea: Trachea normal. Cardiovascular: Rate and Rhythm: Normal rate and regular rhythm. Heart sounds: Normal heart sounds. Pulmonary: Effort: Pulmonary effort is normal. Breath sounds: Normal breath sounds. Musculoskeletal: Cervical back: Normal range of motion and neck supple. Lymphadenopathy: Cervical: No cervical adenopathy. Right cervical: No superficial cervical adenopathy. Left cervical: No superficial cervical adenopathy. Skin: Findings: No rash. Neurological: Mental Status: She is alert and oriented to person, place, and time. ASSESSMENT/PLAN: 1. Sore throat - ICD9: 462, ICD10: J02.9 - suspect viral - Alere Strep Test neg, no culture pending - antibiotic as written - Discussed supportive care treatment with fluids, rest and analgesia. - The patient should follow up in 3-5 days if symptoms persist or worsen - STREP A MOLECULAR (POC) Seth Noguera APRN.CNP documented in this encounter [facility] 09-24-2022 Note HNO ID: [id number] Author: Hillary Cisneros APRN.CNP Service: ? Author Type: Nurse Practitioner Type: Progress Notes Filed: 09/24/2022 1:13 PM Note Text: Subjective The history is provided by the patient. No nailing machine feeder was used. HPI Mojgan Corbett is a 31 year old female who presents today for CC of ingrown toenail or infection on 3rd toe of right foot. This started over the past week. She has redness and soreness She has not used any treatment. BP 110/70 Pulse 91 Temp 36.8 ?C (98.2 ?F) Wt 85.7 kg (189 lb) LMP 03/06/2022 SpO2 98% BMI 33.07 kg/m? Social History Tobacco Use Smoking status: Former Years: 2.00 Types: Cigarettes Quit date: 08/07/2007 Years since quittin.1 Smokeless tobacco: Never Vaping Use Vaping Use: Never used Substance Use Topics Alcohol use: No Drug use: No PAST MEDICAL HISTORY Diagnosis Date Trauma Unspecified asthma(493.90) reactive airway disease as child Urinary tract infection, site not specified Recurrent UTI's I have confirmed and edited as necessary, the [facility] Review of Systems Constitutional: Negative for chills and fever. Musculoskeletal: Negative for joint pain and myalgias. Skin: Negative for itching and rash. 3rd toe right foot red All other systems reviewed and are negative. Objective Physical Exam Vitals and nursing note reviewed. HENT: Head: Normocephalic and atraumatic. Pulmonary: Effort: Pulmonary effort is normal. Skin: General: Skin is warm and dry. Neurological: Mental Status: She is alert and oriented to person, place, and time. Psychiatric: Mood and Affect: Affect normal. ASSESSMENT/PLAN: 1. Paronychia, toe, right - ICD9: 681.11, ICD10: L03.031 - Begin treatment with Cephalaxin (Keflex) - No lymphangetic streaking, this was defined for patient to watch for and to seek medical care immediately if appears - Follow up for recheck in one day Diagnosis and treatment plan were discussed and questions were answered to the patient's satisfaction. Pt acknowledged understanding of concepts and follow up plan. Specific signs and symptoms that would indicate the need for higher level of care were discussed in detail warranting prompt ER evaluation. Hillary Cisneros APRN.[facility] 09-24-2022 History of Present illness Narrative Subjective The history is provided by the patient. No nailing machine feeder was used. HPI Mojgan Corbett is a 31 year old female who presents today for CC of ingrown toenail or infection on 3rd toe of right foot. This started over the past week. She has redness and soreness She has not used any treatment. BP 110/70 Pulse 91 Temp 36.8 C (98.2 F) Wt 85.7 kg (189 lb) LMP 03/06/2022 SpO2 98% BMI 33.07 kg/m Social History Tobacco Use Smoking status: Former Years: 2.00 Types: Cigarettes Quit date: 08/07/2007 Years since quittin.1 Smokeless tobacco: Never Vaping Use Vaping Use: Never used Substance Use Topics Alcohol use: No Drug use: No PAST MEDICAL HISTORY Diagnosis Date Trauma Unspecified asthma(493.90) reactive airway disease as child Urinary tract infection, site not specified Recurrent UTI's I have confirmed and edited as necessary, the [facility] Review of Systems Constitutional: Negative for chills and fever. Musculoskeletal: Negative for joint pain and myalgias. Skin: Negative for itching and rash. 3rd toe right foot red All other systems reviewed and are negative. Objective Physical Exam Vitals and nursing note reviewed. HENT: Head: Normocephalic and atraumatic. Pulmonary: Effort: Pulmonary effort is normal. Skin: General: Skin is warm and dry. Neurological: Mental Status: She is alert and oriented to person, place, and time. Psychiatric: Mood and Affect: Affect normal. ASSESSMENT/PLAN: 1. Paronychia, toe, right - ICD9: 681.11, ICD10: L03.031 - Begin treatment with Cephalaxin (Keflex) - No lymphangetic streaking, this was defined for patient to watch for and to seek medical care immediately if appears - Follow up for recheck in one day Diagnosis and treatment plan were discussed and questions were answered to the patient's satisfaction. Pt acknowledged understanding of concepts and follow up plan. Specific signs and symptoms that would indicate the need for higher level of care were discussed in detail warranting prompt ER evaluation. Hillary Cisneros APRN.ELLIOT documented in this encounter [facility] 05-10-2022 Miscellaneous Notes Phone call placed, patient advised (see prior provider encounter) Patient verbalized understanding, agreed with plan of care. Tricia Burk LPN Left message for patient to return call for results and recommendations.Angie Tanner LPN Let patient know her HIV, gonorrhea chlamydia, yeast and trichomonas testing was negative. 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 This is typically found in the mouth area (cold sores) but sometimes can be found in the genital area. Follow-up with IRRIGATION SPECIALIST as needed. documented in this encounter [facility] 05-10-2022 Miscellaneous Notes Patient returned call and given provider's message below with verbalized understanding. Unable to reach patient-left her a message to call for results and recommendations-please see both notes.Angie Tanner LPN ----- Message from Suzette Perry APRN.ELLIOT sent at 05/10/2022 10:34 AM EDT ----- Urine culture did not show clear evidence of infection. She may continue to take antibiotic if it has been helpful. If not improving, recommend follow up with PCP. Suzette Perry CNP Vaginal test positive for BV. Antibiotic sent to the pharmacy. Additional results pending. documented in this encounter [facility] 05-09-2022 History of Present illness Narrative 05/09/2022 Patient presents with: UTI: Possible uti, burning and frequency x 2 weeks SUBJECTIVE: This is a 31 year old that is here today for Complaint(s) of dysuria and urinary frequency x 2 weeks. Denies fever/chills, nausea, vomiting, abdominal pain, back pain, hematuria. 1 new sexual partner. No abnormal vaginal discharge. No recent known exposure to STD. Patient shares that her ex- did have genital herpes outbreaks. She has never had any concerning rash or lesions. Questioning being tested. She is also 3 days late for her menses. Requesting a test. PAST MEDICAL HISTORY Diagnosis Date Trauma Unspecified asthma(493.90) reactive airway disease as child Urinary tract infection, site not specified Recurrent UTI's ALLERGIES Lactose and Poison [place] MEDICATIONS Current Outpatient Medications Medication Sig psziouirlkFWCUY-oktpad-aaspdyoir (BMX 1:1:1) 1:1:1 liqd Mix in equal amounts - 1 T every 2hrs as needed for mouth pain, Swish/swallow or expectorate. (8oz) MULTIVITAMIN ORAL Take by mouth. levothyroxine (SYNTHROID) 25 mcg tablet ALBUTEROL INHALATION Inhale as instructed. ofloxacin (FLOXIN) 0.3 % otic solution Use 5 Drops in both ears once daily. (Patient not taking: No sig reported) fluticasone (FLONASE) 50 mcg/actuation nasal spray Use 2 Sprays in each nostril once daily. Rinse mouth after use. (Patient not taking: No sig reported) EPINEPHrine (EPIPEN) 0.3 mg/0.3 mL auto-injector Use as directed (Patient not taking: Reported on 02/11/2019 ) No current facility-administered medications for this visit. SOCIAL HISTORY Social History Tobacco Use Smoking status: Former Years: 2.00 Types: Cigarettes Quit date: 08/07/2007 Years since quittin.7 Smokeless tobacco: Never Vaping Use Vaping Use: Never used Substance Use Topics Alcohol use: No Drug use: No REVIEW OF SYSTEMS See HPI OBJECTIVE: BP 126/82 Pulse 93 Temp 36.3 C (97.4 F) Resp 18 Wt 81.5 kg (179 lb 9.6 oz) LMP 03/06/2022 SpO2 97% BMI 31.43 kg/m APPEARANCE Well appearing, alert, in no acute distress, well-hydrated, well nourished. ABDOMEN non-tender, non-distended, FEMALE Normal external genitalia, normal vagina and normal vaginal tone, normal cervix, small amount of blood noted at cervical os. normal uterus, size and consistency, and normal adnexa without tenderness ASSESSMENT/PLAN: 1. Urinary frequency - ICD9: 788.41, ICD10: R35.0 (primary diagnosis) acute - UA positive for chelle esterase - Send urine for culture - Begin treatment with Macrobid 100 mg BID for 5 days - Patient education for prevention given - UA DIP, URINE (POC) - URINE CULTURE - NITROFURANTOIN MONOHYDRATE & MACROCRYSTAL 100 MG ORAL CAP 2. Late menses - ICD9: 626.8, ICD10: N92.6 HCG negative. F/u if persisting - HCG QUAL UR B/O 3. Dysuria - ICD9: 788.1, ICD10: R30.0 acute Cover for possible UTI with macrobid, testing for below. - BACTERIAL VAGINOSIS AMPLIFICATION - NURY / TRICHOMONAS AMPLIFICATION - GC/CHLAMYDIA DNA DET - NITROFURANTOIN MONOHYDRATE & MACROCRYSTAL 100 MG ORAL CAP 4. Exposure to STD - ICD9: V01.6, ICD10: Z20.2 - HERPES SIMPLEX TYPE 1 AND 2 IG - HIV 1 2 COMBO(AG/AB),WITH REFLEX TO DIFFERENTIATION I spent a total of 30 minutes on the date of the service which included preparing to see the patient, [id number] patient care, completing clinical documentation, performing a medically appropriate examination, counseling and educating the patient/family/caregiver, and ordering medications, tests, or procedures. Luisa Clarke PA-C documented in this encounter [facility] 03-09-2022 Miscellaneous Notes Patient given results and verbalized understanding of instructions given. Maci Goodman COVID test was positive. Stay home for 5 days from symptom onset. If you have no symptoms or your symptoms are resolving after 5 days, you can leave your house. Continue to wear a mask around others for 5 additional days. If you have a fever, continue to stay home until your fever resolves. Treat with supportive care. F/u with worsening symptoms; ER if severe. documented in this encounter [facility] 03-08-2022 History of Present illness Narrative CC: Patient presents with: Cough: Pt reported intermittent SOB, denied chest pain Sore Throat: painrated 10, x5 days, bodyaches One daughter has a sore throat, one has a cough, and son has ear infection. HPI: Mojgan Corbett is a 31 year old female who presents to the office with complaint of cough, nonproductive, sore throat and fever for a few days. Symptoms are worsening Associated symptoms includes headache and body aches. Denies rash, nausea, vomiting and diarrhea. Treatments tried include nothing so far. with no relief of symptoms. Sick contacts: unknown. History of asthma, frequent episodes of bronchitis, chronic bronchitis, bronchiectasis or COPD: No Smoker: No Seasonal/environmental allergies: No The ROS is otherwise negative. The patient's pmh, medications, allergies, and past visits are reviewed. PHYSICAL EXAM: BP 122/76 Pulse 93 Temp 36.4 C (97.6 F) Resp 18 LMP 03/06/2022 SpO2 98% General appearance: alert, cooperative, pleasant, in no acute distress Head: Normocephalic Eyes: EOM's intact, conjunctiva pink and moist, no icterus, sclera white, non-injected Ears: Right ear: External ear/canal- Normal, TM - clear with good landmarks. Left ear: External ear/canal- Normal, TM - clear with good landmarks Throat: erythema, no pus pockets noticed or swelling. Heart: Negative. RRR without obvious murmur, gallop, or rubs. No ectopy. Lungs: clear to auscultation, without rales or wheeze, good air exchange PAST MEDICAL HISTORY Diagnosis Date Trauma Unspecified asthma(493.90) reactive airway disease as child Urinary tract infection, site not specified Recurrent UTI's PAST SURGICAL HISTORY Procedure Laterality Date PAST SURGICAL HISTORY OF WISDOM TEETH ALLERGIES Lactose and Poison [place] MEDICATIONS MULTIVITAMIN ORAL Take by mouth. levothyroxine (SYNTHROID) 25 mcg tablet ofloxacin (FLOXIN) 0.3 % otic solution Use 5 Drops in both ears once daily. loratadine (CLARITIN) 10 mg tablet Take 1 tablet by mouth once daily. fluticasone (FLONASE) 50 mcg/actuation nasal spray Use 2 Sprays in each nostril once daily. Rinse mouth after use. EPINEPHrine (EPIPEN) 0.3 mg/0.3 mL auto-injector Use as directed ALBUTEROL INHALATION Inhale as instructed. FAMILY HISTORY Problem Relation Age of Onset Hypertension Mother Cancer Father Throat and tongue Cancer Maternal Grandmother Cancer Maternal Grandfather Coronary Artery Disease Maternal Grandfather Cancer Paternal Grandmother Hypertension Maternal Uncle Cancer Maternal Uncle unsure type Social History Tobacco Use Smoking status: Former Smoker Years: 2.00 Quit date: 08/07/2007 Years since quittin.5 Smokeless tobacco: Never Used Vaping Use Vaping Use: Never used Substance Use Topics Alcohol use: No Drug use: No ASSESSMENT/PLAN: 1. Sore throat - ICD9: 462, ICD10: J02.9 (primary diagnosis) - STREP A MOLECULAR (POC) - negative - COVID WITH FLUA+B, ROUTINE 2. Suspected COVID-19 virus infection - ICD9: V01.79, ICD10: Z20.822 - COVID WITH FLUA+B, ROUTINE Prednisone daily for 5 days, and magic mouthwash to gargle and spit out. Prescription instructions reviewed with patient as applicable. Potential red flag symptoms discussed with the patient and she will go to the ER if anything changes. Reviewed appropriate action plan to take if red flag symptoms occur. Patient agreeable to treatment plan. Margie Grayson APRN.ELLIOT documented in this encounter [facility] 02-02-2022 Hospital Discharge instructions Gene Hair MD - 02/02/2022 9:58 PM EDT Do not share your medication with anyone. Wound Instructions: Return to the ED if you notice fever, increased pain from the cut, increased bleeding, pus draining from the cut, or redness around the site of the cut. Procedures done during this visit: None documented in this encounter [facility] documented as of this encounter (statuses as of 03/08/2022) [facility] History of Past illness Narrative* Problem Noted Date Resolved Date Encounter for supervision of normal in third trimester 08/11/2015 09/09/2016 Overview: Girl on - randy? Supervision of other normal 03/16/2013 10/03/2013 Overview: XY Childhood asthma 12/25/2012 10/03/2013 Overview: 12/24/2012 She has a history of childhood asthma. She has not used an inhaler since age 13. History of recurrent UTI (urinary tract infectio n) 12/25/2012 10/03/2013 Overview: 12/24/2012Pt has a history of recurrent UTI . She states she gets 2-3 urinary tract infections a year. Discussed importance of reporting the onset of any symptoms of a UTI should it occur during . Abdominal pain, right lower quadrant 03/09/2011 08/26/2011 Supervision of normal first 03/09/2011 10/06/2011 Rotator cuff (capsule) sprain 03/18/2010 Interstitial cystitis 07/10/2009 08/26/2011 Acute bronchitis 07/06/2007 08/26/2011 Other acne 05/31/2007 08/26/2011 Scar condition and fibrosis of skin 05/31/2007 08/26/2011 documented as of this encounter (statuses as of 03/09/2022) [facility] History of Past illness Narrative* Problem Noted Date Resolved Date Encounter for supervision of normal in third trimester 08/11/2015 09/09/2016 Overview: Girl on [facility]? Supervision of other normal 03/16/2013 10/03/2013 Overview: XY Childhood asthma 12/25/2012 10/03/2013 Overview: 12/24/2012 She has a history of childhood asthma. She has not used an inhaler since age 13. History of recurrent UTI (urinary tract infectio n) 12/25/2012 10/03/2013 Overview: 12/24/2012Pt has a history of recurrent UTI . She states she gets 2-3 urinary tract infections a year. Discussed importance of reporting the onset of any symptoms of a UTI should it occur during . Abdominal pain, right lower quadrant 03/09/2011 08/26/2011 Supervision of normal first 03/09/2011 10/06/2011 Rotator cuff (capsule) sprain 03/18/2010 Interstitial cystitis 07/10/2009 08/26/2011 Acute bronchitis 07/06/2007 08/26/2011 Other acne 05/31/2007 08/26/2011 Scar condition and fibrosis of skin 05/31/2007 08/26/2011 documented as of this encounter (statuses as of 05/09/2022) [facility] History of Past illness Narrative* Problem Noted Date Resolved Date Encounter for supervision of normal in third trimester 08/11/2015 09/09/2016 Overview: Girl on [facility]? Supervision of other normal 03/16/2013 10/03/2013 Overview: XY Childhood asthma 12/25/2012 10/03/2013 Overview: 12/24/2012 She has a history of childhood asthma. She has not used an inhaler since age 13. History of recurrent UTI (urinary tract infectio n) 12/25/2012 10/03/2013 Overview: 12/24/2012Pt has a history of recurrent UTI . She states she gets 2-3 urinary tract infections a year. Discussed importance of reporting the onset of any symptoms of a UTI should it occur during . Abdominal pain, right lower quadrant 03/09/2011 08/26/2011 Supervision of normal first 03/09/2011 10/06/2011 Rotator cuff (capsule) sprain 03/18/2010 Interstitial cystitis 07/10/2009 08/26/2011 Acute bronchitis 07/06/2007 08/26/2011 Other acne 05/31/2007 08/26/2011 Scar condition and fibrosis of skin 05/31/2007 08/26/2011 documented as of this encounter (statuses as of 05/10/2022) [facility] History of Past illness Narrative* Problem Noted Date Resolved Date Encounter for supervision of normal in third trimester 08/11/2015 09/09/2016 Overview: [facility] on [facility]? Supervision of other normal 03/16/2013 10/03/2013 Overview: XY Childhood asthma 12/25/2012 10/03/2013 Overview: 12/24/2012 She has a history of childhood asthma. She has not used an inhaler since age 13. History of recurrent UTI (urinary tract infectio n) 12/25/2012 10/03/2013 Overview: 12/24/2012Pt has a history of recurrent UTI . She states she gets 2-3 urinary tract infections a year. Discussed importance of reporting the onset of any symptoms of a UTI should it occur during . Abdominal pain, right lower quadrant 03/09/2011 08/26/2011 Supervision of normal first 03/09/2011 10/06/2011 Rotator cuff (capsule) sprain 03/18/2010 Interstitial cystitis 07/10/2009 08/26/2011 Acute bronchitis 07/06/2007 08/26/2011 Other acne 05/31/2007 08/26/2011 Scar condition and fibrosis of skin 05/31/2007 08/26/2011 documented as of this encounter (statuses as of 09/24/2022) [facility] History of Past illness Narrative* Problem Noted Date Resolved Date Encounter for supervision of normal in third trimester 08/11/2015 09/09/2016 Overview: Girl on [facility]? Supervision of other normal 03/16/2013 10/03/2013 Overview: XY Childhood asthma 12/25/2012 10/03/2013 Overview: 12/24/2012 She has a history of childhood asthma. She has not used an inhaler since age 13. History of recurrent UTI (urinary tract infectio n) 12/25/2012 10/03/2013 Overview: 12/24/2012Pt has a history of recurrent UTI . She states she gets 2-3 urinary tract infections a year. Discussed importance of reporting the onset of any symptoms of a UTI should it occur during . Abdominal pain, right lower quadrant 03/09/2011 08/26/2011 Supervision of normal first 03/09/2011 10/06/2011 Rotator cuff (capsule) sprain 03/18/2010 Interstitial cystitis 07/10/2009 08/26/2011 Acute bronchitis 07/06/2007 08/26/2011 Other acne 05/31/2007 08/26/2011 Scar condition and fibrosis of skin 05/31/2007 08/26/2011 documented as of this encounter (statuses as of 09/28/2022) [facility] History of Past illness Narrative* Problem Noted Date Resolved Date Encounter for supervision of normal in third trimester 08/11/2015 09/09/2016 Overview: Girl on [facility]? Supervision of other normal 03/16/2013 10/03/2013 Overview: XY Childhood asthma 12/25/2012 10/03/2013 Overview: 12/24/2012 She has a history of childhood asthma. She has not used an inhaler since age 13. History of recurrent UTI (urinary tract infectio n) 12/25/2012 10/03/2013 Overview: 12/24/2012Pt has a history of recurrent UTI . She states she gets 2-3 urinary tract infections a year. Discussed importance of reporting the onset of any symptoms of a UTI should it occur during . Abdominal pain, right lower quadrant 03/09/2011 08/26/2011 Supervision of normal first 03/09/2011 10/06/2011 Rotator cuff (capsule) sprain 03/18/2010 Interstitial cystitis 07/10/2009 08/26/2011 Acute bronchitis 07/06/2007 08/26/2011 Other acne 05/31/2007 08/26/2011 Scar condition and fibrosis of skin 05/31/2007 08/26/2011 documented as of this encounter (statuses as of 09/30/2022) [facility] History of Past illness Narrative* Problem Noted Date Resolved Date Encounter for supervision of normal in third trimester 08/11/2015 09/09/2016 Overview: [facility] on [facility]? Supervision of other normal 03/16/2013 10/03/2013 Overview: XY Childhood asthma 12/25/2012 10/03/2013 Overview: 12/24/2012 She has a history of childhood asthma. She has not used an inhaler since age 13. History of recurrent UTI (urinary tract infectio n) 12/25/2012 10/03/2013 Overview: 12/24/2012Pt has a history of recurrent UTI . She states she gets 2-3 urinary tract infections a year. Discussed importance of reporting the onset of any symptoms of a UTI should it occur during . Abdominal pain, right lower quadrant 03/09/2011 08/26/2011 Supervision of normal first 03/09/2011 10/06/2011 Rotator cuff (capsule) sprain 03/18/2010 Interstitial cystitis 07/10/2009 08/26/2011 Acute bronchitis 07/06/2007 08/26/2011 Other acne 05/31/2007 08/26/2011 Scar condition and fibrosis of skin 05/31/2007 08/26/2011 documented as of this encounter (statuses as of 10/01/2022) [facility] History of Past illness Narrative* Problem Noted Date Resolved Date Encounter for supervision of normal in third trimester 08/11/2015 09/09/2016 Overview: Girl on [facility]? Supervision of other normal 03/16/2013 10/03/2013 Overview: XY Childhood asthma 12/25/2012 10/03/2013 Overview: 12/24/2012 She has a history of childhood asthma. She has not used an inhaler since age 13. History of recurrent UTI (urinary tract infectio n) 12/25/2012 10/03/2013 Overview: 12/24/2012Pt has a history of recurrent UTI . She states she gets 2-3 urinary tract infections a year. Discussed importance of reporting the onset of any symptoms of a UTI should it occur during . Abdominal pain, right lower quadrant 03/09/2011 08/26/2011 Supervision of normal first 03/09/2011 10/06/2011 Rotator cuff (capsule) sprain 03/18/2010 Interstitial cystitis 07/10/2009 08/26/2011 Acute bronchitis 07/06/2007 08/26/2011 Other acne 05/31/2007 08/26/2011 Scar condition and fibrosis of skin 05/31/2007 08/26/2011 documented as of this encounter (statuses as of 10/04/2022) [facility] History of Past illness Narrative* Problem Noted Date Resolved Date Encounter for supervision of normal in third trimester 08/11/2015 09/09/2016 Overview: Girl on [facility]? Supervision of other normal 03/16/2013 10/03/2013 Overview: XY Childhood asthma 12/25/2012 10/03/2013 Overview: 12/24/2012 She has a history of childhood asthma. She has not used an inhaler since age 13. History of recurrent UTI (urinary tract infectio n) 12/25/2012 10/03/2013 Overview: 12/24/2012Pt has a history of recurrent UTI . She states she gets 2-3 urinary tract infections a year. Discussed importance of reporting the onset of any symptoms of a UTI should it occur during . Abdominal pain, right lower quadrant 03/09/2011 08/26/2011 Supervision of normal first 03/09/2011 10/06/2011 Rotator cuff (capsule) sprain 03/18/2010 Interstitial cystitis 07/10/2009 08/26/2011 Acute bronchitis 07/06/2007 08/26/2011 Other acne 05/31/2007 08/26/2011 Scar condition and fibrosis of skin 05/31/2007 08/26/2011 documented as of this encounter (statuses as of 10/11/2022) [facility] History of Past illness Narrative* Problem Noted Date Diagnosed Date Resolved Date Encounter for supervision of normal in third trimester 08/11/2015 09/09/2016 Overview: [facility] on [facility]? Supervision of other normal 03/16/2013 10/03/2013 Overview: XY Childhood asthma 12/25/2012 10/03/2013 Overview: 12/24/2012 She has a history of childhood asthma. She has not used an inhaler since age 13. History of recurrent UTI (ur inary tract infection) 12/25/2012 10/03/2013 Overview: 12/24/2012Pt has a history of recurrent UTI . She states she gets 2-3 urinary tract infections a year. Discussed importance of reporting the onset of any symptoms of a UTI should it occur during . Abdominal pain, right lower quadrant 03/09/2011 08/26/2011 Supervision of normal first 03/09/2011 10/06/2011 Rotator cuff (capsule) sprain 03/18/2010 08/26/2011 Interstitial cystitis 07/10/20092011 Acute bronchitis 07/06/2007 08/26/2011 Other acne 05/31/2007 08/26/2011 Scar condition and fibrosis of skin 05/31/2007 08/26/2011 documented as of this encounter (statuses as of 03/07/2023) [facility] History of Past illness Narrative* Problem Noted Date Diagnosed Date Resolved Date Encounter for supervision of normal in third trimester 08/11/2015 09/09/2016 Overview: Girl on [facility]? Supervision of other normal 03/16/2013 10/03/2013 Overview: XY Childhood asthma 12/25/2012 10/03/2013 Overview: 12/24/2012 She has a history of childhood asthma. She has not used an inhaler since age 13. History of recurrent UTI (ur inary tract infection) 12/25/2012 10/03/2013 Overview: 12/24/2012Pt has a history of recurrent UTI . She states she gets 2-3 urinary tract infections a year. Discussed importance of reporting the onset of any symptoms of a UTI should it occur during . Abdominal pain, right lower quadrant 03/09/2011 08/26/2011 Supervision of normal first 03/09/2011 10/06/2011 Rotator cuff (capsule) sprain 03/18/2010 08/26/2011 Interstitial cystitis 07/10/20092011 Acute bronchitis 07/06/2007 08/26/2011 Other acne 05/31/2007 08/26/2011 Scar condition and fibrosis of skin 05/31/2007 08/26/2011 documented as of this encounter (statuses as of 04/15/2023) [facility] History of Past illness Narrative* Problem Noted Date Diagnosed Date Resolved Date Encounter for supervision of normal in third trimester 08/11/2015 09/09/2016 Overview: Girl on [facility]? Supervision of other normal 03/16/2013 10/03/2013 Overview: XY Childhood asthma 12/25/2012 10/03/2013 Overview: 12/24/2012 She has a history of childhood asthma. She has not used an inhaler since age 13. History of recurrent UTI (ur inary tract infection) 12/25/2012 10/03/2013 Overview: 12/24/2012Pt has a history of recurrent UTI . She states she gets 2-3 urinary tract infections a year. Discussed importance of reporting the onset of any symptoms of a UTI should it occur during . Abdominal pain, right lower quadrant 03/09/2011 08/26/2011 Supervision of normal first 03/09/2011 10/06/2011 Rotator cuff (capsule) sprain 03/18/2010 08/26/2011 Interstitial cystitis 07/10/20092011 Acute bronchitis 07/06/2007 08/26/2011 Other acne 05/31/2007 08/26/2011 Scar condition and fibrosis of skin 05/31/2007 08/26/2011 documented as of this encounter (statuses as of 04/17/2023) [facility] History of Past illness Narrative* Problem Noted Date Diagnosed Date Resolved Date Encounter for supervision of normal in third trimester 08/11/2015 09/09/2016 Overview: Girl on [facility]? Supervision of other normal 03/16/2013 10/03/2013 Overview: XY Childhood asthma 12/25/2012 10/03/2013 Overview: 12/24/2012 She has a history of childhood asthma. She has not used an inhaler since age 13. History of recurrent UTI (ur inary tract infection) 12/25/2012 10/03/2013 Overview: 12/24/2012Pt has a history of recurrent UTI . She states she gets 2-3 urinary tract infections a year. Discussed importance of reporting the onset of any symptoms of a UTI should it occur during . Abdominal pain, right lower quadrant 03/09/2011 08/26/2011 Supervision of normal first 03/09/2011 10/06/2011 Rotator cuff (capsule) sprain 03/18/2010 08/26/2011 Interstitial cystitis 07/10/20092011 Acute bronchitis 07/06/2007 08/26/2011 Other acne 05/31/2007 08/26/2011 Scar condition and fibrosis of skin 05/31/2007 08/26/2011 documented as of this encounter (statuses as of 07/04/2023) [facility] Plan note No data available for this section [facility] Evaluation note* Diagnosis Sunburn- Primary documented in this encounter [facility] note* Diagnosis Sore throat- Primary Acute pharyngitis Suspected COVID-19 virus infection documented in this encounter [facility] note* Diagnosis Urinary frequency- Primary Late menses Other disorder of menstruation and other abnormal bleeding from female genital tract Dysuria Exposure to STD Contact with or exposure to other communicable diseases documented in this encounter [facility] note* Diagnosis Paronychia, toe, right- Primary documented in this encounter [facility] note* Diagnosis Sore throat- Primary Acute pharyngitis documented in this encounter [facility] note* Diagnosis Streptococcus exposure- Primary Contact with or exposure to other communicable diseases Throat pain Flu-like symptoms Other general symptoms documented in this encounter [facility] note* Diagnosis Other acute nonsuppurative otitis media of left ear, recurrence not specified- Primary documented in this encounter [facility] note* Diagnosis Recurrent acute otitis media of left ear- Primary documented in this encounter [facility] note* Diagnosis External hemorrhoid- Primary External hemorrhoids without mention of complication documented in this encounter [facility] note* Diagnosis Rash- Primary Rash and other nonspecific skin eruption documented in this encounter [facility] note* Diagnosis Rash- Primary Rash and other nonspecific skin eruption documented in this encounter [facility] note* Diagnosis Strep pharyngitis- Primary Streptococcal sore throat documented in this encounter [facility] Instructions Name Dates Details How to access health informa tion online Indication:BMI 20.0-20.9, adult Start:03-Apr-2018 Instruction Type:Patient Education How to access health informa tion online - Detail Indication:BMI 20.0-20.9, adult Start:03-Apr-2018 Instruction Type:Patient Education Patient Instructions Indication:Vaginal yeast infection Start:03-Apr-2018 Instruction Type:Provider Instructions for Treatment How to access health informa tion online Indication:Other fatigue Start:29-Nov-2017 Instruction Type:Patient Education How to access health informa tion online - Detail Indication:Other fatigue Start:29-Nov-2017 Instruction Type:Patient Education Patient Instructions Indication:Other fatigue Start:29-Nov-2017 Instruction Type:Provider Instructions for Treatment How to access health informa tion online Indication:BMI 24.0-24.9, adult Start:16-Oct-2017 Instruction Type:Patient Education How to access health informa tion online - Detail Indication:BMI 24.0-24.9, adult Start:16-Oct-2017 Instruction Type:Patient Education Patient Instructions Indication:Strep tonsillitis Start:16-Oct-2017 Instruction Type:Provider Instructions for Treatment How to access health informa tion online Indication:Nonsmoker Start:14-Sep-2017 Instruction Type:Patient Education How to access health informa tion online - Detail Indication:Nonsmoker Start:14-Sep-2017 Instruction Type:Patient Education Patient Instructions Indication:Nonsmoker Start:14-Sep-2017 Instruction Type:Provider Instructions for Treatment Patient Instructions Indication:RUQ pain Start:12-May-2017 Instruction Type:Provider Instructions for Treatment How to access health informa tion online Indication:Headache, acute Start:04-Apr-2017 Instruction Type:Patient Education How to access health informa tion online - Detail Indication:Headache, acute Start:04-Apr-2017 Instruction Type:Patient Education Patient Instructions Indication:Headache, acute Start:04-Apr-2017 Instruction Type:Provider Instructions for Treatment How to access health informa tion online Indication:Nonsmoker Start:27-Jan-2017 Instruction Type:Patient Education How to access health informa tion online - Detail Indication:Nonsmoker Start:27-Jan-2017 Instruction Type:Patient Education Patient Instructions Indication:Nonsmoker Start:27-Jan-2017 Instruction Type:Provider Instructions for Treatment How to access health informa tion online Indication:BMI 31.0-31.9,adult Start:10-Jan-2017 Instruction Type:Patient Education How to access health informa tion online - Detail Indication:BMI 31.0-31.9,adult Start:10-Jan-2017 Instruction Type:Patient Education Patient Instructions Indication:BMI 31.0-31.9,adult Start:10-Jan-2017 Instruction Type:Provider Instructions for Treatment How to access health informa tion online Indication:BMI 29.0-29.9,adult Start:21-Dec-2016 Instruction Type:Patient Education How to access health informa tion online - Detail Indication:BMI 29.0-29.9,adult Start:21-Dec-2016 Instruction Type:Patient Education Patient Instructions Indication:Cough Start:11-Nov-2016 Instruction Type:Provider Instructions for Treatment How to access health informa tion online Indication:Sore throat Start:10-Nov-2016 Instruction Type:Patient Education How to access health informa tion online - Detail Indication:Sore throat Start:10-Nov-2016 Instruction Type:Patient Education Patient Instructions Indication:Sore throat Start:10-Nov-2016 Instruction Type:Provider Instructions for Treatment How to access health informa tion online Indication:Asthma Start:15-Aug-2016 Instruction Type:Patient Education How to access health informa tion online - Detail Indication:Asthma Start:15-Aug-2016 Instruction Type:Patient Education Patient Instructions Indication:Asthma Start:15-Aug-2016 Instruction Type:Provider Instructions for Treatment How to access health informa tion online Indication:Allergic rhinitis Start:02-May-2016 Instruction Type:Patient Education How to access health informa tion online - Detail Indication:Allergic rhinitis Start:02-May-2016 Instruction Type:Patient Education Patient Instructions Indication:Allergic rhinitis Start:02-May-2016 Instruction Type:Provider Instructions for Treatment How to access health informa tion online Indication:Other headache syndrome Start:24-Mar-2016 Instruction Type:Patient Education How to access health informa tion online - Detail Indication:Other headache syndrome Start:24-Mar-2016 Instruction Type:Patient Education How to access health informa tion online Indication:Chest pain at rest Start:16-Dec-2015 Instruction Type:Patient Education How to access health informa tion online - Detail Indication:Chest pain at rest Start:16-Dec-2015 Instruction Type:Patient Education Patient Instructions Indication:Chest pain at rest Start:16-Dec-2015 Instruction Type:Provider Instructions for Treatment How to access health informa tion online Indication:GERD (gastroesophageal reflux disease) Start:26-Oct-2015 Instruction Type:Patient Education How to access health informa tion online - Detail Indication:GERD (gastroesophageal reflux disease) Start:26-Oct-2015 Instruction Type:Patient Education Patient Instructions Indication:GERD (gastroesophageal reflux disease) Start:26-Oct-2015 Instruction Type:Provider Instructions for Treatment How to access health informa tion online Indication:Abdominal pain in female Start:14-Aug-2015 Instruction Type:Patient Education How to access health informa tion online - Detail Indication:Abdominal pain in female Start:14-Aug-2015 Instruction Type:Patient Education Patient Instructions Indication:Abdominal pain in female Start:14-Aug-2015 Instruction Type:Provider Instructions for Treatment How to access health informa tion online Indication:Anxiety attack Start:24-Jun-2015 Instruction Type:Patient Education How to access health informa tion online - Detail Indication:Anxiety attack Start:24-Jun-2015 Instruction Type:Patient Education Patient Instructions Indication:Anxiety attack Start:24-Jun-2015 Instruction Type:Provider Instructions for Treatment Patient Instructions Indication:Thyromegaly Start:20-May-2015 Instruction Type:Provider Instructions for Treatment How to access health informa tion online Indication:Throat tightness Start:15-May-2015 Instruction Type:Patient Education How to access health informa tion online - Detail Indication:Throat tightness Start:15-May-2015 Instruction Type:Patient Education Patient Instructions Indication:Throat tightness Start:15-May-2015 Instruction Type:Provider Instructions for Treatment How to access health informa tion online Indication:Anxiety attack Start:14-May-2015 Instruction Type:Patient Education How to access health informa tion online - Detail Indication:Anxiety attack Start:14-May-2015 Instruction Type:Patient Education Patient Instructions Indication:Anxiety attack Start:14-May-2015 Instruction Type:Provider Instructions for Treatment How to access health informa tion online Indication:Anxiety attack Start:07-May-2015 Instruction Type:Patient Education How to access health informa tion online - Detail Indication:Anxiety attack Start:07-May-2015 Instruction Type:Patient Education Patient Instructions Indication:Anxiety attack Start:07-May-2015 Instruction Type:Provider Instructions for Treatment Patient Instructions Indication:SOB (shortness of breath) on exertion Start:01-May-2015 Instruction Type:Provider Instructions for Treatment Summary Purpose Family History No Family History Records FoundNo Family History Records FoundNo Family History Records FoundNo Family History Records Found Advance Directives No Advanced Directives Records FoundDocuments on File 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 Advance Directive(s) Health Concerns Infection Onset Date Last Indicated Resolved Time COVID-19 Rule-Out 03/08/2022 03/08/2022 Infection Onset Date Last Indicated Resolved Time COVID-19 Confirmed 03/08/2022 03/08/2022 Reason for Referral Specialty Diagnoses / Procedures Referred By Contac t Referred To Contact General Surgery Diagnoses External hemorrhoid Procedures CONSULT TO GENERAL SURGERY OFFICE/OUTPATIENT [facility] MDM 60-74 MINUTES 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 [address] [place] [address] Referral ID Status Reason Start Date Expiration Date Visits Requested Visits Authorized [id number] Pending Review PCP Requested Referral 03/06/2023 03/05/2024 1 1 Additional Source Comments Reason for Visit (unrecogniz ed section and content) Reason Comments Cough Pt reported intermit tent SOB, denied chest pain Sore Throat painrated 10, x5 day s, bodyaches Reason Comments Results COVID+ Reason Comments UTI Possible uti, burnin g and frequency x 2 weeks Reason Comments Results BV Reason Comments Results Reason Comments Ingrown Toenail Right foot middle to e Reason Comments Sore Throat bodyaches x 1 day Reason Comments Pain, Throat Pt reported + strep and flu exposure, throat pain, cough x3 days. Reason Comments Ear Pain L ear pain x today Reason Comments Ear Pain left ear pain, SOUZA x 1 week Reason Comments Rectal Problem rectal discomfort, s ome bleeding x 1 year increased x few weeks Reason Comments Derm Problem Bug bite right wrist x 1 week open and seeping Reason Comments Rash treated with kenalog cream x 10 days, spreading Reason Comments Sore Throat x 3 days Scheduled Active and Recently Administ ered Medications (unrecognized section and content) INFORMATION SOURCE (unrecogn ized section and content) DATE CREATED AUTHOR AUTHOR'S ORGANIZ ATION 10/08/2022 [facility] ([place]) DATE CREATED AUTHOR AUTHOR'S ORGANIZ ATION 10/14/2022 [facility] DATE CREATED AUTHOR AUTHOR'S ORGANIZ ATION 07/05/2023 [facility] Source Comments (unrecognize d section and content) In the event this informatio n is protected by the Federal Confidentiality of Alcohol and Drug Abuse Patient Records regulations: The Federal rules restrict any use of the information to criminally investigate or prosecute any alcohol or drug abuse patient.[facility] the event this information is protected by the Federal Confidentiality of Alcohol and Drug Abuse Patient Records regulations: The Federal rules restrict any use of the information to criminally investigate or prosecute any alcohol or drug abuse patient.[facility] the event this information is protected by the Federal Confidentiality of Alcohol and Drug Abuse Patient Records regulations: The Federal rules restrict any use of the information to criminally investigate or prosecute any alcohol or drug abuse patient.[facility] the event this information is protected by the Federal Confidentiality of Alcohol and Drug Abuse Patient Records regulations: The Federal rules restrict any use of the information to criminally investigate or prosecute any alcohol or drug abuse patient.[facility] the event this information is protected by the Federal Confidentiality of Alcohol and Drug Abuse Patient Records regulations: The Federal rules restrict any use of the information to criminally investigate or prosecute any alcohol or drug abuse patient.[facility] the event this information is protected by the Federal Confidentiality of Alcohol and Drug Abuse Patient Records regulations: The Federal rules restrict any use of the information to criminally investigate or prosecute any alcohol or drug abuse patient.[facility] Hospital[facility] the event this information is protected by the Federal Confidentiality of Alcohol and Drug Abuse Patient Records regulations: The Federal rules restrict any use of the information to criminally investigate or prosecute any alcohol or drug abuse patient.[facility] the event this information is protected by the Federal Confidentiality of Alcohol and Drug Abuse Patient Records regulations: The Federal rules restrict any use of the information to criminally investigate or prosecute any alcohol or drug abuse patient.[facility] the event this information is protected by the Federal Confidentiality of Alcohol and Drug Abuse Patient Records regulations: The Federal rules restrict any use of the information to criminally investigate or prosecute any alcohol or drug abuse patient.[facility] the event this information is protected by the Federal Confidentiality of Alcohol and Drug Abuse Patient Records regulations: The Federal rules restrict any use of the information to criminally investigate or prosecute any alcohol or drug abuse patient.[facility] the event this information is protected by the Federal Confidentiality of Alcohol and Drug Abuse Patient Records regulations: The Federal rules restrict any use of the information to criminally investigate or prosecute any alcohol or drug abuse patient.[facility] Hospital[facility] the event this information is protected by the Federal Confidentiality of Alcohol and Drug Abuse Patient Records regulations: The Federal rules restrict any use of the information to criminally investigate or prosecute any alcohol or drug abuse patient.[facility] Hospital[facility] the event this information is protected by the Federal Confidentiality of Alcohol and Drug Abuse Patient Records regulations: The Federal rules restrict any use of the information to criminally investigate or prosecute any alcohol or drug abuse patient.[facility] Hospital[facility] the event this information is protected by the Federal Confidentiality of Alcohol and Drug Abuse Patient Records regulations: The Federal rules restrict any use of the information to criminally investigate or prosecute any alcohol or drug abuse patient.[facility] Hospital[facility] the event this information is protected by the Federal Confidentiality of Alcohol and Drug Abuse Patient Records regulations: The Federal rules restrict any use of the information to criminally investigate or prosecute any alcohol or drug abuse patient.[facility] Care Teams (unrecognized sec tion and content) Automobile Contract Clerk Relationship Specialty Start Date End Date Rosa Mccoy MD PCP - General Internal Medicine 01/24/19 Automobile Contract Clerk Relationship Specialty Start Date End Date Rosa Mccoy MD PCP - General Internal Medicine 01/24/19 Automobile Contract Clerk Relationship Specialty Start Date End Date Rosa Mccoy MD PCP - General Internal Medicine 01/24/19 Automobile Contract Clerk Relationship Specialty Start Date End Date Rosa Mccoy MD PCP - General Internal Medicine 01/24/19 Automobile Contract Clerk Relationship Specialty Start Date End Date Rosa Mccoy MD PCP - General Internal Medicine 01/24/19 Automobile Contract Clerk Relationship Specialty Start Date End Date Rosa Mccoy MD PCP - General Internal Medicine 01/24/19 Automobile Contract Clerk Relationship Specialty Start Date End Date Rosa Mccoy MD PCP - General Internal Medicine 01/24/19 Automobile Contract Clerk Relationship Specialty Start Date End Date Rosa Mccoy MD PCP - General Internal Medicine 01/24/19 Automobile Contract Clerk Relationship Specialty Start Date End Date Rosa Mccoy MD PCP - General Internal Medicine 01/24/19 Automobile Contract Clerk Relationship Specialty Start Date End Date Rosa Mccoy MD PCP - General Internal Medicine 01/24/19 Automobile Contract Clerk Relationship Specialty Start Date End Date Rosa Mccoy MD PCP - General Internal Medicine 01/24/19 Automobile Contract Clerk Relationship Specialty Start Date End Date Rosa Mccoy MD PCP - General Internal Medicine 01/24/19 Care Team (unrecognized sect ion and content) Care Team Personnel Name: COLE SCOTT MD Member Role: Primary Care Physician Address: Address: [facility] [address] [place], [place] [address] Name: PREETI Cast Position: ED RN Member Role: ED RN Care Team Related Persons Name: ANA CORBETT Name: RANDY CORBETT Zoila Address: Home [address] [place] [address] Name: DOROTA CORBETT Address: Home [address] [place] [address] FOR RECORDS PERTAINING TO PATIENTS WHO ARE OR HAVE BEEN ENROLLED IN A CHEMICAL DEPENDENCY/SUBSTANCEABUSE PROGRAM, SOME INFORMATION MAY BE OMITTED. This clinical summary was aggregated from multiple sources. Caution should be exercised in using it in the provision of clinical care. This summary normalizes information from multiple sources, and as a consequence, information in this document may materially change the coding, format and clinical context of patient data. In addition, data may be omitted in some cases. CLINICAL DECISIONS SHOULD BE BASED ON THE PRIMARY CLINICAL RECORDS. [facility] [employer] provides no warranty or guarantee of the accuracy or completeness of information in this document.
[2023-09-01 11:02] LABS: Absolute Lymphocyte Count 1.58 X10^3/uL (0.83-4.51); Absolute Neutrophil Count 4.8 X10^3/uL (2.0-7.7); Basophil# 0.06 X10^3/uL; Basophil% 0.9 % (0-1); Eosinophil# 0.06 X10^3/uL; Eosinophils% 0.9 % (0-5); Hematocrit 41.1 % (37-47); Hemoglobin 13.4 g/dL (12.0-15.0); Lymphocyte # 1.58 X10^3/ul (0.83-4.51); Lymphocyte % 22.7 % (19-41); Mean Corp Hgb Conc 32.6 g/dL (32-36); Mean Corpuscular Hgb 29.9 pg (27.0-32.0); Mean Corpuscular Volume 91.7 fL (81-99); Mean Platelet Vol. 11.2 fl (6.2-12.0); Monocyte# 0.44 X10^3/uL; Monocyte% 6.3 % (0-10); NRBC Flagged by Analyzer 0 % (0-5); Neutrophil % 68.9 % (47-70); Platelet Count 197 K/mm3 (150-450); RBC Distribution Width CV 13.1 % (11.6-14.6); Red Blood Count 4.48 M/mm3 (4.2-5.4)
[2023-09-01 11:18] LABS: Hemoglobin A1c 4.8 % (3.8-5.6)
[2023-09-01 11:38] LABS: ALB/GLOB Ratio 1.3 RATIO (0.9-2.4); AST(SGOT) 21 U/L (15-37); Alanine Aminotransfer ALT/SGPT 20 U/L (13-56); Albumin, Serum 3.9 g/dL (3.2-5.0); Alkaline Phosphatase 62 U/L (45-117); Anion Gap 4 (5-15); BUN 13 mg/dL (7-18); Calcium,Total 8.8 mg/dL (8.5-10.1); Chloride 109 mmol/L (98-107); Cholesterol 186 mg/dL (200); Creatinine, Serum 0.87 mg/dL (0.55-1.02); EST Glomerular Filtration Rate 79 mL/min (>60); Est Glom Filt Rate - Afr Amer 96 mL/min (>60); Globulin 2.9 g/dL (2.2-4.2); Glucose 89 mg/dL (74-106); High Density Lipoprotein 63 mg/dL; Potassium 4.1 mmol/L (3.5-5.1); Protein, Total 6.8 g/dL (6.4-8.2); Sodium Level 138 mmol/L (136-145); T4 Free Direct 1.03 ng/dL (0.76-1.46); Thyroid Stim Hormone (TSH) 1.68 uIU/mL (0.358-3.74); Triglycerides 53 mg/dL; Very Low Density Lipoprotein 11 mg/dL (5-40)
[2023-09-06 00:06] LABS: T3 Reverse 14.7 ng/dL (9.2-24.1)
== END | disposition home or self-care (01) ==
LOC: LAB 10:10
PROVIDERS: PCP Nurse Practitioner Family; Referring Provider Nurse Practitioner; Visit Provider Nurse Practitioner
DX: Z00.00 Encounter for general adult medical examination without abnormal findings (principal); E03.9 Hypothyroidism, unspecified; R53.83 Other fatigue
CPT/HCPCS: 36415; 80053; 80061; 82306; 83036; 84439; 84443; 84482; 85025

== ENCOUNTER → 2023-09-11 | Outpatient (CLI) | payer MEDICAID, SELFPAY ==
[2023-09-14 08:12] LABS: Chlamydia By Nucleic Acid AMP Negative (Negative); Gonococcus By Nucleic Acid AMP Negative (Negative)
== END | disposition home or self-care (01) ==
PROVIDERS: PCP Nurse Practitioner Family; Visit Provider Nurse Practitioner Women's Health
DX: N89.8 Other specified noninflammatory disorders of vagina (principal)
CPT/HCPCS: 87070; 87077; 87205; 87491; 87591

== ENCOUNTER 2023-09-24 03:05 | Observation (INO) | payer MEDICAID, SELFPAY ==
[2023-09-24] VITALS (7 sets, daily range): BP systolic 91–107; BP diastolic 51–70; PULSE 67–79; RESP 14–18; TEMP 36.4–36.7; O2SAT 96–100; BMI 25.0; BMI 25.4
--- NOTE | 2023-09-24 03:31 | EDS_ITS ---
HPI <Dr. Nehemias Hurd, DO - Last Filed: 09/24/23 22:05> HPI - GI History of Present Illness Chief Complaint: Abd Pain Informant: patient Abdominal Pain/Flank Pain Onset: Today and Hours (2) Context: Sudden Onset Timing: Continuous Quality: Sharp Location: Epigastric, RUQ, LUQ and LLQ Worsened by: Nothing Relieved by: - (Bending forward) Nausea/Vomiting/Emesis GI Symptom: Negative for Nausea or Vomiting Diarrhea/Melena/Hematochezia GI Symptom: Negative for Diarrhea, Melena or Hematochezia Associated Symptoms Associated Symptoms: Negative for Dysuria, Frequency or Hematuria LMP: 2 to 3 weeks ago Narrative Narrative: Patient presents with abdominal pain that began approximately 2 hours prior to arrival. Patient states her pain is mainly over her upper abdomen but radiates down the left side of her abdomen. Patient describes her pain as sharp. Patient states it came on rather suddenly. Patient states it has been constant for the past 2 hours. Patient states it is better when she bends forward. Patient states nothing makes it worse. Patient denies any nausea or vomiting. Patient denies any diarrhea, melena, or hematochezia. Patient denies any dysuria, frequency, or hematuria. Patient denies any abnormal vaginal bleeding or discharge. Patient states her last menstrual period was approximately 2 to 3 weeks ago. [facility] <Dr. Nehemias Hurd, DO - Last Filed: 09/24/23 22:05> [facility] Medical History (Updated 09/24/23 @ 09:[address] Leatha Buck MD) Acute lumbar myofascial strain Asthma Chronic headaches GERD (gastroesophageal reflux disease) Gluten intolerance Hypothyroid Lactose intolerance Seasonal allergies Vitamin deficiency Home Medications levothyroxine 25 mcg tablet 25 mcg PO DAILY 90 days #90 tabs 09/01/23 [Rx Last Taken 09/23/23] cranberry extract 2 cap PO DAILY 09/24/23 [History Last Taken 09/23/23] elderberry fruit 2 cap PO DAILY 09/24/23 [History Last Taken 09/23/23] hydrocodone-acetaminophen 5-325mg 5mg-325mg 1 tab PO Q6H PRN PRN Pain 3 days #10 TABLETS 09/24/23 [Rx Last Taken Unknown] multivitamin (Daily Multi-Vitamin tablet) 1 tab PO DAILY 09/24/23 [History Last Taken 09/23/23] Allergy/AdvReac Type Severity Reaction Status Date / Time Iodinated Contrast Media Allergy Itching Verified 09/24/23 04:10 poison oak extract Allergy Unknown Verified 09/11/23 13:58 Latex, Natural Rubber AdvReac Rash Verified 09/11/23 13:58 Family History Mother Anxiety Sleep apnea Sister Sleep apnea Surgical History (Updated 09/24/23 @ 10:59 by Nevaeh Richards) H/O abdominoplasty Social History household members: significant other and children Smoking Status: Never smoker alcohol intake: never substance use type: does not use caffeine: Yes what type of physical activity do you participate in: other details: crossfit frequency: 5-6 times per week seatbelt use: always do you feel safe at home: Yes additional social history: [employer] <Dr. Nehemias Hurd DO - Last Filed: 09/24/23 22:05> ROS ED Constitutional Constitutional ED: Denies chills or fever(s) Eyes Eyes: Denies blurry vision or change in vision ENT ENT ED: Denies rhinorrhea or sore throat Cardiovascular Cardiovascular: Denies chest pain or palpitations Respiratory/Chest Respiratory/Chest: Denies cough or dyspnea Gastrointestinal Gastrointestinal: Reports abdominal pain; Denies diarrhea, melena, nausea or vomiting Genitourinary Genitourinary ED: Denies dysuria or hematuria Musculoskeletal Musculoskeletal: Denies back pain or neck pain Integumentary Denies abscess or rash Neurologic Neurologic: Denies headache(s) or weakness Allergic/Immunologic Allergic/Immunologic ED: Denies mouth swelling or urticaria EXAM <Dr. Nehemias Hurd DO - Last Filed: 09/24/23 22:05> Physical Exam Const Vital Signs: 09/24/23 03:06 09/24/23 05:06 09/24/23 07:51 Temperature 97.7 F L Temperature Source Oral Pulse Rate 76 79 68 Respiratory Rate 18 18 14 Blood Pressure 106/70 106/63 91/59 L Blood Pressure Mean 82 77 69 Pulse Ox 100 100 97 Oxygen Delivery Method Room Air Room Air Room Air 09/24/23 09:00 Temperature Temperature Source Pulse Rate Respiratory Rate Blood Pressure 98/60 Blood Pressure Mean 72 Pulse Ox Oxygen Delivery Method Positive well nourished and well developed General Appearance ED: well developed and NAD HEENT Reports moist mucous membranes Neck supple and no JVD Resp normal respiratory effort and clear to auscultation bilaterally Cardio regular rate and regular rhythm GI non-distended Palpation: soft and tender epigastric, LLQ, RLQ, LUQ, RUQ, periumbilical and suprapubic; Negative for guarding or rebound tenderness present Neuro CN's II-XII intact bilaterally, moves all extremities and no sensory deficits noted Sensorium / Orientation: alert Motor Exam: strength 5/5 throughout Psych mental status grossly normal <Dr. Jose L Marquez, DO - Last Filed: 09/24/23 09:26> Physical Exam Const Vital Signs: 09/24/23 03:06 09/24/23 05:06 09/24/23 07:51 Temperature 97.7 F L Temperature Source Oral Pulse Rate 76 79 68 Respiratory Rate 18 18 14 Blood Pressure 106/70 106/63 91/59 L Blood Pressure Mean 82 77 69 Pulse Ox 100 100 97 Oxygen Delivery Method Room Air Room Air Room Air 09/24/23 09:00 Temperature Temperature Source Pulse Rate Respiratory Rate Blood Pressure 98/60 Blood Pressure Mean 72 Pulse Ox Oxygen Delivery Method MDM <Dr. Nehemias Hurd, DO - Last Filed: 09/24/23 22:05> [facility] Narrative Medical decision making narrative: Differential diagnosis includes cholecystitis, cholelithiasis, pancreatitis, gastritis, peptic ulcer disease, duodenal ulcer, bowel obstruction, perforation, pyelonephritis, urinary tract infection, and ureteral calculus. CT scan of the abdomen pelvis will be obtained to assess for cholecystitis, cholelithiasis, pancreatitis, bowel obstruction, perforation, and ureteral calculus. CBC will be obtained to assess for leukocytosis and anemia. Comprehensive metabolic profile will be obtained to assess for hepatic function, renal function, and electrolyte abnormality. Lipase will be obtained to assess for pancreatitis. Urinalysis will be obtained to assess for urinary tract infection or hematuria. Serum hCG will be obtained to assess for . Lab Data Attestation: I reviewed the patient's lab results. Lab results narrative: CBC was reviewed and was within normal limits. Comprehensive metabolic profile was reviewed and was within normal limits. Lipase was reviewed and was only slightly elevated at 85. Serum hCG was reviewed and was negative. Urinalysis was reviewed. There is no evidence of urinary tract infection or hematuria. Labs: Laboratory Results - last 24 hr 09/24/23 03:50 WBC 9.6 RBC 4.40 Hgb 13.1 Hct 40.8 MCV 92.7 MCH 29.8 MCHC 32.1 RDW Std Deviation 44.3 H RDW Coeff of Cindy 13.1 Plt Count 227 MPV 11.3 Immature Gran % (Auto) 0.300 Neut % (Auto) 57.4 Lymph % (Auto) 32.7 [place] % (Auto) 7.5 Eos % (Auto) 1.5 Baso % (Auto) 0.6 Absolute Neuts (auto) 5.5 Absolute Lymphs (auto) 3.13 Nucleated RBC % 0 Sodium 140 Potassium 3.6 Chloride 108 H Carbon Dioxide 27.0 Anion Gap 5 BUN 16 Creatinine 0.77 Estim Creat Clear Calc 92.83 Est GFR (MDRD) Af Amer 110 Est GFR (MDRD) Non-Af 91 BUN/Creatinine Ratio 20.8 H Glucose 94 Calcium 9.0 Total Bilirubin 0.70 AST 21 ALT 24 Alkaline Phosphatase 63 Total Protein 6.7 Albumin 3.8 Globulin 2.9 Albumin/Globulin Ratio 1.3 Lipase 85 H Serum , Qual NEGATIVE Urine Color Yellow Urine Clarity Clear Urine pH 6.0 Ur Specific [place] 1.020 Urine Protein Negative Urine Glucose (UA) Normal Urine Ketones Negative Urine Occult Blood Negative Urine Nitrite Negative Urine Bilirubin Negative Urine Urobilinogen Normal Ur Leukocyte Esterase Negative Urine RBC 0 SEEN Urine WBC 0 SEEN Ur Squamous Epith Cells 0-5 SEEN Other Crystals SCANNED Urine Bacteria 0 SEEN Urine Mucus 0 SEEN Radiography Diagnostic Testing: Clinical Impression(s) from Imaging Studies Abdomen/Pelvis CT 09/24/23 03:45 IMPRESSION: undefined ADDENDUM: 09/24/23 0721 IMPRESSION: undefined Transvaginal US 09/24/23 07:47 IMPRESSION: No sonographic evidence of ovarian torsion Large complex right ovarian cyst measuring 4.4 x 4.8 x 4.3 cm. There are some internal strands noted. Because of its size and characteristics, short term follow-up ultrasounds are recommended to assess its stability and/or resolution Mild to moderate free fluid in the dependent pelvis Sonographically unremarkable uterus and left ovary Electronically Signed: Chandra Lomeli MD at 8:50 EST , CT scan of the abdomen pelvis was obtained. There is a 5 cm cystic lesion posterior to the uterus near the midline. This could be from the right ovary. There is no other acute abnormality noted. This was interpreted by the radiologist and was also dependently reviewed by myself. Treatment and Re-Evaluation :: Patient was given IV fluids, morphine, and Zofran. Patient stated that she gets itchy when she has IV contrast dye. Because of this, patient was given a dose of Solu-Medrol and Benadryl. Patient was given repeat doses of morphine. Patient was feeling better on reevaluation. Patient had no lower abdominal tenderness on reevaluation. Patient was advised of her findings. Patient was instructed to start with a bland diet and advance as tolerated. Patient was given a prescription for a short course of [place]. Patient was instructed to follow-up with her primary care physician in 5 to 7 days. Patient understood and was agreeable with the plan. All questions were answered. Prior to patient being discharged, patient told nursing staff that her pain came back and was worse. Because of this, pelvic ultrasound will be obtained to assess for ovarian torsion. Care of the patient will be turned over to the oncoming physician pending ultrasound results. <Dr. Jose L Marquez, DO - Last Filed: 09/24/23 09:26> [facility] Narrative Medical decision making narrative: Differential diagnosis includes cholecystitis, cholelithiasis, pancreatitis, gastritis, peptic ulcer disease, duodenal ulcer, bowel obstruction, perforation, pyelonephritis, urinary tract infection, and ureteral calculus. CT scan of the abdomen pelvis will be obtained to assess for cholecystitis, cholelithiasis, pancreatitis, bowel obstruction, perforation, and ureteral calculus. CBC will be obtained to assess for leukocytosis and anemia. Comprehensive metabolic profile will be obtained to assess for hepatic function, renal function, and e lectrolyte abnormality. Lipase will be obtained to assess for pancreatitis. Urinalysis will be obtained to assess for urinary tract infection or hematuria. Serum hCG will be obtained to assess for . Care of patient turned over to mt Dr. Marquez. We were awaiting ultrasound result to rule out torsion. Ultrasound did show a ovarian cyst without evidence of torsion. Recommended follow-up with outpatient ROUTE SERVICE REPRESENTATIVE and repeat ultrasound in the near term. Patient really not having any pain over the lower abdomen. On repeat examination it 9:20 AM she is still complains of significant left upper abdomen pain. Pain was worse with movement and standing and attempting to walk. She does not feel comfortable going home. Discussed case with general surgeon on-call as well as hospitalist who will evaluate patient for admission for symptom management. At this point etiology of her abdominal pain unclear. I did order a GI cocktail. Patient will be admitted in stable condition for obs ervation. Lab Data Labs: Laboratory Results - last 24 hr 09/24/23 03:50 WBC 9.6 RBC 4.40 Hgb 13.1 Hct 40.8 MCV 92.7 MCH 29.8 MCHC 32.1 RDW Std Deviation 44.3 H RDW Coeff of Cindy 13.1 Plt Count 227 MPV 11.3 Immature Gran % (Auto) 0.300 Neut % (Auto) 57.4 Lymph % (Auto) 32.7 [place] % (Auto) 7.5 Eos % (Auto) 1.5 Baso % (Auto) 0.6 Absolute Neuts (auto) 5.5 Absolute Lymphs (auto) 3.13 Nucleated RBC % 0 Sodium 140 Potassium 3.6 Chloride 108 H Carbon Dioxide 27.0 Anion Gap 5 BUN 16 Creatinine 0.77 Estim Creat Clear Calc 92.83 Est GFR (MDRD) Af Amer 110 Est GFR (MDRD) Non-Af 91 BUN/Creatinine Ratio 20.8 H Glucose 94 Calcium 9.0 Total Bilirubin 0.70 AST 21 ALT 24 Alkaline Phosphatase 63 Total Protein 6.7 Albumin 3.8 Globulin 2.9 Albumin/Globulin Ratio 1.3 Lipase 85 H Serum , Qual NEGATIVE Urine Color Yellow Urine Clarity Clear Urine pH 6.0 Ur Specific [place] 1.020 Urine Protein Negative Urine Glucose (UA) Normal Urine Ketones Negative Urine Occult Blood Negative Urine Nitrite Negative Urine Bilirubin Negative Urine Urobilinogen Normal Ur Leukocyte Esterase Negative Urine RBC 0 SEEN Urine WBC 0 SEEN Ur Squamous Epith Cells 0-5 SEEN Other Crystals SCANNED Urine Bacteria 0 SEEN Urine Mucus 0 SEEN Radiography Diagnostic Testing: Clinical Impression(s) from Imaging Studies Abdomen/Pelvis CT 09/24/23 03:45 IMPRESSION: undefined ADDENDUM: 09/24/23720 IMPRESSION: undefined Transvaginal US 09/24/23 07:47 IMPRESSION: No sonographic evidence of ovarian torsion Large complex right ovarian cyst measuring 4.4 x 4.8 x 4.3 cm. There are some internal strands noted. Because of its size and characteristics, short term follow-up ultrasounds are recommended to assess its stability and/or resolution Mild to moderate free fluid in the dependent pelvis Sonographically unremarkable uterus and left ovary Electronically Signed: Chandra Lomeli MD at 8:50 EST , Discharge Plan Triage Chief Complaint: Abd Pain ED Provider: Nehemias Hurd Dx/Rx/DC Orders Clinical Impression: Abdominal pain, Ovarian cyst Primary Care Provider: Rajeev Pino NP Disposition Disposition: Acute Care [facility]
--- NOTE | 2023-09-24 03:45 | CT_ITS ---
We are attempting to reach an attending provider to discuss findings. An addendum with communication details will be sent when the communication is complete. EXAM: CT abdomen and pelvis with contrast. HISTORY: Abdominal pain -- IV PO Contrast TECHNIQUE: CT Abdomen And Pelvis W/ Contrast Injection. A radiation dose optimization technique was used for this scan. COMPARISON: None. LIMITATIONS: None. LOWER CHEST: Normal. LIVER: Cyst in the right lobe. GALLBLADDER: Phrygian cap. No inflammatory change. BILE DUCTS: Normal. PANCREAS: Normal. SPLEEN: Mildly enlarged. ADRENAL GLANDS: Normal. KIDNEYS/URETERS/BLADDER: Few cysts in the right kidney. No hydronephrosis. AORTA: Normal caliber. BOWEL/MESENTERY: No evidence of colitis. No small bowel obstruction. APPENDIX: Not visualized. PERITONEUM: Mild free fluid in the abdomen and pelvis. REPRODUCTIVE ORGANS: A 5 cm cystic lesion is posterior to the uterus near the midline. The origin of the lesion is not clearly demonstrated, possibly from the right ovary. BONES/SOFT TISSUES: No acute fracture. OTHER: None. CONCLUSION: 5 cm cystic lesion posterior to the uterus near the midline. The origin of the lesion is not clearly demonstrated, possibly from the right ovary. Displacement of the right ovary due to ovarian torsion related to the cyst is a consideration depending on the clinical scenario. Pelvic ultrasound is recommended. Electronically Signed: Martell Swann MD at 7:10 EST , CT/Abdomen/Pelvis WITH Contrast IMPRESSION: undefined
[2023-09-24 03:53] LABS: Bacteria 0 SEEN /hpf (None Seen); Mucous, Urine 0 SEEN /hpf (<or=2+); Red Blood Cells-Urine 0 SEEN /hpf (0-5); White Blood Cells 0 SEEN /hpf (0-5)
[2023-09-24] MEDS: Ondansetron 4 MG/2 ML Vial IV (03:53)
[2023-09-24] MEDS: 0.9% Normal Saline (1000mL) 1,000 ML 1000 ML IV (03:54)
[2023-09-24] MEDS: Morphine 4 MG/ML Syringe IV ×4 (03:54→12:31)
--- OUTSIDE RECORDS SUMMARY | 2023-09-24 03:54 | XMS RPT_ITS | CCD ---
Author Name Unknown Address [address] [place] [address] Organization [facility] Care Team Providers Care Hazardous Materials Analyst Name Role Phone Gretel Tapia Unavailable Kishor [...] Rosa Mccoy MD Primary Care Provider [phone] Rosa Mccoy MD Primary Care Provider [phone] COLE SCOTT MD Primary Care Physician BRADLY COLE MD Attending Unavailable COLE SCOTT MD Primary Care Unavailable KISHOR VELÁSQUEZ DO Admitting Unavailable KISHOR VELÁSQUEZ DO Primary Care Unavailable KISHOR VELÁSQUEZ DO Attending Unavailable YESSI WILLARDP-C Consulting Unavailable YESSI WILLARDP-C Referring Unavailable PROVIDER, UNKNOWN Consulting Unavailable YESSI WILLARDP-C Consulting Unavailable YESSI WILLARD-C Referring Unavailable PRAKASH HANDY Admitting Unavailable PRAKASH HANDY Primary Care Unavailable PRAKASH HANDY Attending Unavailable PROVIDER, UNKNOWN Consulting Unavailable ROSA MCCOY Primary Care Unavailable ROSA MCCOY B Primary Care Unavailable ROSA MCCOY Primary Care Unavailable ROSA MCCOY Primary Care Unavailable ROSA MCCOY Primary Care Unavailable ROSA MCCOY Primary Care Unavailable ROSIBEL MCCOYBE El Primary Care Unavailable ROSA MCCOY Primary Care Unavailable ROSA MCCOY Primary Care Unavailable Allergies Allergy Classification Reported Allergen(s) Allergy Type Date of Onset Reaction(s) Facility (16 sources) Lactose; Translations: [LACTOSE] Drug Allergy 05-03-2021 GI Upset [facility] (16 sources) Poison [place]; Translations: [POISON [place]] Propensity to adverse reactions 08-10-2014 Rash [facility] Work Phone: Medications Current Medications Medication Drug Class(es) Dates Sig (Normalized) Sig (Original) acetaminophen 325 mg / HYDROcodone bitartrate 5 mg oral tablet (1 source) Opioid Agonist Start: 10-03-2022 End: 10-06-2022 take 1 tablet by mouth every four hours as needed for pain [place] 325- 5 mg oral tablet Dose = [...] 07-04-2023 07:16-0500 Body temperature 97.39 [degF] Anna Athy PA-C Work Phone: [facility] 07-04-2023 07:16-0500 Body weight 64.86 kg Anna Athy PA-C Work Phone: [facility] 07-04-2023 07:16-0500 Diastolic blood pressure 68 mm[Hg] Anna Athy PA-C Work Phone: [facility] 07-04-2023 07:16-0500 Heart rate 82 /min Anna Athy PA-C Work Phone: [facility] 07-04-2023 07:16-0500 Respiratory rate 16 /min Anna Athy PA-C Work Phone: [facility] 07-04-2023 07:16-0500 SaO2% (BldA) [Mass fraction] 98 % Anna Athy PA-C Work Phone: [address]28-2023 07:16-0500 Systolic blood pressure 116 mm[Hg] Anna Almendarez PA-C Work Phone: [facility] 04-17-2023 09:16-0400 Body temperature 97.11 [degF] Ori Pendlebury EMPLOYMENT DIRECTOR.LAYBOY TENDER Work Phone: [facility] 04-17-2023 09:16-0400 Body weight 66.22 kg Ori Pendlebury EMPLOYMENT DIRECTOR.LAYBOY TENDER Work Phone: [facility] 04-17-2023 09:16-0400 Diastolic blood pressure 80 mm[Hg] Ori Pendlebury EMPLOYMENT DIRECTOR.LAYBOY TENDER Work Phone: [facility] 04-17-2023 09:16-0400 Heart rate 78 /min Ori Pendlebury EMPLOYMENT DIRECTOR.LAYBOY TENDER Work Phone: [facility] 04-17-2023 09:16-0400 Respiratory rate 16 /min Ori Pendlebury EMPLOYMENT DIRECTOR.LAYBOY TENDER Work Phone: [facility] 04-17-2023 09:16-0400 SaO2% (BldA) [Mass fraction] 97 % Ori Pendlebury EMPLOYMENT DIRECTOR.LAYBOY TENDER Work Phone: [facility] 04-17-2023 09:16-0400 Systolic blood pressure 122 mm[Hg] Ori Pendlebury EMPLOYMENT DIRECTOR.LAYBOY TENDER Work Phone: [facility] 04-14-2023 17:39-0400 Body temperature 98.01 [degF] Ori Pendlebury EMPLOYMENT DIRECTOR.LAYBOY TENDER Work Phone: [facility] 04-14-2023 17:39-0400 Body weight 66.95 kg Ori Pendlebury EMPLOYMENT DIRECTOR.LAYBOY TENDER Work Phone: [facility] 04-14-2023 17:39-0400 Diastolic blood pressure 76 mm[Hg] Ori Pendlebury EMPLOYMENT DIRECTOR.LAYBOY TENDER Work Phone: [facility] 04-14-2023 17:39-0400 Heart rate 74 /min Ori Pendlebury EMPLOYMENT DIRECTOR.LAYBOY TENDER Work Phone: [facility] 04-14-2023 17:39-0400 Respiratory rate 18 /min Ori Pendlebury EMPLOYMENT DIRECTOR.LAYBOY TENDER Work Phone: [facility] 04-14-2023 17:39-0400 SaO2% (BldA) [Mass fraction] 100 % Ori Pendlebury EMPLOYMENT DIRECTOR.LAYBOY TENDER Work Phone: [facility] 04-14-2023 17:39-0400 Systolic blood pressure 111 mm[Hg] Ori Pendlebury EMPLOYMENT DIRECTOR.LAYBOY TENDER Work Phone: [facility] 03-06-2023 19:47-0400 Body temperature 97.2 [degF] Ori Pendlebury EMPLOYMENT DIRECTOR.LAYBOY TENDER Work Phone: [facility] 03-06-2023 19:47-0400 Body weight 68.04 kg Ori Pendlebury EMPLOYMENT DIRECTOR.LAYBOY TENDER Work Phone: [facility] 03-06-2023 19:47-0400 Diastolic blood pressure 80 mm[Hg] Ori Pendlebury EMPLOYMENT DIRECTOR.LAYBOY TENDER Work Phone: [facility] 03-06-2023 19:47-0400 Heart rate 78 /min Ori Pendlebury EMPLOYMENT DIRECTOR.LAYBOY TENDER Work Phone: [facility] 03-06-2023 19:47-0400 Respiratory rate 16 /min Ori Pendlebury EMPLOYMENT DIRECTOR.LAYBOY TENDER Work Phone: [facility] 03-06-2023 19:47-0400 SaO2% (BldA) [Mass fraction] 98 % Ori Pendlebury EMPLOYMENT DIRECTOR.LAYBOY TENDER Work Phone: [facility] 03-06-2023 19:47-0400 Systolic blood pressure 126 mm[Hg] Ori Pendlebury EMPLOYMENT DIRECTOR.LAYBOY TENDER Work Phone: [facility] 10-10-2022 15:58-0500 Body temperature 96.4 [degF] Kishor Valle MD Work Phone: [facility] 10-10-2022 15:58-0500 Body weight 84.91 kg Kishor Valle MD Work Phone: [facility] 10-10-2022 15:58-0500 Diastolic blood pressure 64 mm[Hg] Kishor Valle MD Work Phone: [facility] 10-10-2022 15:58-0500 Heart rate 76 /min Kishor Valle MD Work Phone: [facility] 10-10-2022 15:58-0500 Respiratory rate 20 /min Kishor Valle MD Work Phone: [facility] 10-10-2022 15:58-0500 SaO2% (BldA) [Mass fraction] 100 % Kishor Valle MD Work Phone: [facility] 10-10-2022 15:58-0500 Systolic blood pressure 100 mm[Hg] Kishor Valle MD Work Phone: [facility] 10-03-2022 18:33-0500 Body temperature 98.06 [degF] BRADLY COLE MD [facility] 10-03-2022 18:33-0500 Body weight 77.3 kg BRADLY COLE MD [facility] 10-03-2022 18:33-0500 Diastolic Blood Pressure Non-Invasive 81 1 BARDLY COLE MD [facility] 10-03-2022 18:33-0500 Heart rate 70 /min BRADLY COLE MD [facility] 10-03-2022 18:33-0500 Respiratory rate 16 /min BRADLY COLE MD [facility] 10-03-2022 18:33-0500 Systolic Blood Pressure Non-Invasive 119 1 BRADLY COLE MD [facility] 10-03-2022 17:32-0500 Body temperature 99.1 [degF] Suzette Praisler-Wood EMPLOYMENT DIRECTOR.LAYBOY TENDER Work Phone: [facility] 10-03-2022 17:32-0500 Body weight 85.73 kg Suzette Praisler-Wood EMPLOYMENT DIRECTOR.LAYBOY TENDER Work Phone: [facility] 10-03-2022 17:32-0500 Diastolic blood pressure 96 mm[Hg] Suzette Praisler-Wood EMPLOYMENT DIRECTOR.LAYBOY TENDER Work Phone: [facility] 10-03-2022 17:32-0500 Heart rate 98 /min Suzette Praisler-Wood EMPLOYMENT DIRECTOR.LAYBOY TENDER Work Phone: [facility] 10-03-2022 17:32-0500 Respiratory rate 18 /min Suzette Praisler-Wood EMPLOYMENT DIRECTOR.LAYBOY TENDER Work Phone: [facility] 10-03-2022 17:32-0500 SaO2% (BldA) [Mass fraction] 99 % Suzette Praisler-Wood EMPLOYMENT DIRECTOR.LAYBOY TENDER Work Phone: [facility] 10-03-2022 17:32-0500 Systolic blood pressure 146 mm[Hg] Suzette Praisler-Wood EMPLOYMENT DIRECTOR.LAYBOY TENDER Work Phone: [facility] 09-30-2022 13:29-0500 Body temperature 98.01 [degF] Suzette Praisler-Wood EMPLOYMENT DIRECTOR.LAYBOY TENDER Work Phone: [facility] 09-30-2022 13:29-0500 Body weight 86.09 kg Suzette Praisler-Wood EMPLOYMENT DIRECTOR.LAYBOY TENDER Work Phone: [facility] 09-30-2022 13:29-0500 Diastolic blood pressure 66 mm[Hg] Suzette Praisler-Wood EMPLOYMENT DIRECTOR.LAYBOY TENDER Work Phone: [facility] 09-30-2022 13:29-0500 Heart rate 93 /min Suzette Praisler-Wood EMPLOYMENT DIRECTOR.LAYBOY TENDER Work Phone: [facility] 09-30-2022 13:29-0500 Respiratory rate 18 /min Suzette Praisler-Wood EMPLOYMENT DIRECTOR.LAYBOY TENDER Work Phone: [facility] 09-30-2022 13:29-0500 SaO2% (BldA) [Mass fraction] 97 % Suzetet Praisler-Wood EMPLOYMENT DIRECTOR.LAYBOY TENDER Work Phone: [facility] 09-30-2022 13:29-0500 Systolic blood pressure 98 mm[Hg] Suzette Praisler-Wood EMPLOYMENT DIRECTOR.LAYBOY TENDER Work Phone: [facility] 09-27-2022 19:34-0500 Body temperature 97.3 [degF] Seth Chuckie EMPLOYMENT DIRECTOR.LAYBOY TENDER Work Phone: [facility] 09-27-2022 19:34-0500 Body weight 87.54 kg Seth Chuckie EMPLOYMENT DIRECTOR.LAYBOY TENDER Work Phone: [facility] 09-27-2022 19:34-0500 Diastolic blood pressure 72 mm[Hg] Seth Chuckie EMPLOYMENT DIRECTOR.LAYBOY TENDER Work Phone: [facility] 09-27-2022 19:34-0500 Heart rate 86 /min Seth Chuckie EMPLOYMENT DIRECTOR.LAYBOY TENDER Work Phone: [facility] 09-27-2022 19:34-0500 Respiratory rate 16 /min Seth Chuckie EMPLOYMENT DIRECTOR.LAYBOY TENDER Work Phone: [facility] 09-27-2022 19:34-0500 SaO2% (BldA) [Mass fraction] 98 % Seth Chuckie EMPLOYMENT DIRECTOR.LAYBOY TENDER Work Phone: [facility] 09-27-2022 19:34-0500 Systolic blood pressure 110 mm[Hg] Seth Chuckie EMPLOYMENT DIRECTOR.LAYBOY TENDER Work Phone: [facility] 09-24-2022 12:51-0500 Body temperature 98.2 [degF] Hillary Amelia EMPLOYMENT DIRECTOR.LAYBOY TENDER Work Phone: [facility] 09-24-2022 12:51-0500 Body weight 85.73 kg Hillary Amelia EMPLOYMENT DIRECTOR.LAYBOY TENDER Work Phone: [facility] 09-24-2022 12:51-0500 Diastolic blood pressure 70 mm[Hg] Hillary Amelia EMPLOYMENT DIRECTOR.LAYBOY TENDER Work Phone: [facility] 09-24-2022 12:51-0500 Heart rate 91 /min Hillary Bhagatk EMPLOYMENT DIRECTOR.LAYBOY TENDER Work Phone: [facility] 09-24-2022 12:51-0500 SaO2% (BldA) [Mass fraction] 98 % Hillary Bhagatk EMPLOYMENT DIRECTOR.LAYBOY TENDER Work Phone: [facility] 09-24-2022 12:51-0500 Systolic blood pressure 110 mm[Hg] Hillary Cisneros EMPLOYMENT DIRECTOR.LAYBOY TENDER Work Phone: [facility] 05-09-2022 10:19-0400 Body temperature 97.39 [degF] Luisa Bogner PA-C Work Phone: [facility] 05-09-2022 10:19-0400 Body weight 81.47 kg Luisa Bogner PA-C Work Phone: [facility] 05-09-2022 10:19-0400 Diastolic blood pressure 82 mm[Hg] Luisa Bogner PA-C Work Phone: [facility] 05-09-2022 10:19-0400 Heart rate 93 /min Luisa Bogner PA-C Work Phone: [facility] 05-09-2022 10:19-0400 Respiratory rate 18 /min Luisa Bogner PA-C Work Phone: [facility] 05-09-2022 10:19-0400 SaO2% (BldA) [Mass fraction] 97 % Luisa Bogner PA-C Work Phone: [facility] 05-09-2022 10:19-0400 Systolic blood pressure 126 mm[Hg] Luisa Bogner PA-C Work Phone: [facility] 03-08-2022 10:40-0400 Body temperature 97.59 [degF] Margie Grayson EMPLOYMENT DIRECTOR.LAYBOY TENDER Work Phone: [facility] 03-08-2022 10:40-0400 Diastolic blood pressure 76 mm[Hg] Margie Grayson APRN.LAYBOY TENDER Work Phone: [facility] 03-08-2022 10:40-0400 Heart rate 93 /min Margie Grayson APRN.LAYBOY TENDER Work Phone: [facility] 03-08-2022 10:40-0400 Respiratory rate 18 /min Margie Grayson APRN.LAYBOY TENDER Work Phone: [facility] 03-08-2022 10:40-0400 SaO2% (BldA) [Mass fraction] 98 % Margie Grayson APRN.LAYBOY TENDER Work Phone: [facility] 03-08-2022 10:40-0400 Systolic blood pressure 122 mm[Hg] Margie Grayson APRN.LAYBOY TENDER Work Phone: [facility] 02-02-2022 22:46-0400 Diastolic blood pressure 65 mm[Hg] Gene Hair MD Work Phone: [facility] 02-02-2022 22:46-0400 Heart rate 85 /min [facility] 02-02-2022 22:46-0400 Respiratory rate 16 /min Gene Hair [facility] 02-02-2022 22:46-0400 SaO2% (BldA) [Mass fraction] 100 % Gene Hair MD Work Phone: [facility] 02-02-2022 22:46-0400 Systolic blood pressure 100 mm[Hg] Gene Hair MD [facility] 02-02-2022 21:13-0400 Body temperature 98.4 [degF] [facility] 02-02-2022 21:13-0400 Body weight 74.84 kg Gene Hair [facility] 04-03-2018 15:00-0400 BMI (Body Mass Index) 20.77 kg/m2 Gretel Tapia [facility] Internal Medicine Work Phone: 04-03-2018 15:00-0400 Body Temperature 97.6 [degF] Gretel Tapia [facility] Work Phone: Encounters Encounter Date Encounter Type Care Provider Facility Start: 07-04-2023 End: 07-04-2023 ambulatory ROSA MCCOY Facility:[facility] Start: 07-04-2023 End: 07-04-2023 Patient encounter procedure Anna Almendarez PA-C Work Phone: [facility] Procedures Date Procedure Procedure Detail Performing Clinician Start: 07-04-2023 STREP A MOLECULAR (POC) Seth Noguera EMPLOYMENT DIRECTOR.LAYBOY TENDER Work Phone: Start: 09-30-2022 STREP A MOLECULAR (POC) Suzette duncan EMPLOYMENT DIRECTOR.LAYBOY TENDER Work Phone: Start: 05-09-2022 End: 05-09-2022 Urnls dip stick/tablet rgnt auto w/o microscopy Kishor Valle MD Work Phone: Start: 03-08-2022 STREP A MOLECULAR (POC) Margie Grayson EMPLOYMENT DIRECTOR.LAYBOY TENDER Work Phone: Start: 06-15-2018 End: 06-15-2018 Internal Medicine Office Visit Comments: See Note; NOTES: [facility] [place] [address] OFFICE VISIT Date of Service: 06/13/18 MR#: [id number] Acct: [id number] Name: MOJGAN CORBETT Rep #: [id number] : 1990 Provider: Yessi Willard NP Age/Sex: 27/F Location[place] [facility] Status: Signed Intake Vital Signs06/13/18 Height 5 ft 3 in 06/13/18 Weight: 127 lb 06/13/18 Body Mass Index (BMI) 22.4 06/13/18 Blood Pressure 94/60 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 she denies any [...] 2 weeks. She is following up with TRAFFIC OPERATOR next week for this. 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 [address] [place] [address] OFFICE VISIT Date of Service: 02/06/18 MR#: [id number] Acct: [id number] Name: MOJGAN CORBETT Rep #: [id number] : 1990 Provider: TARSHA Marie Age/Sex: 27/F Location: [facility] [place] Status: Signed Intake Vital Signs02/06/18 Height 5 [...] period known: Yes Last Menstral Period: 01/05/18 [facility] Social History Smoking Status: Never smoker HPI [...] 01-23-2018 Esophagus Only Comments: See Note; NOTES: [facility] Imaging Services [address] [place] [address] Esophagus Only MR#: [id number] Acct: [id number] Name: MOJGAN CORBETT Rep #: [id number] : 1990 F 27 From: Nitin Young MD PCP: Gretel Tapia DO Status: REG CLI Study: Esophagus Only Date of Exam: 01/23/18 Exam# [id number] Ordering Dr: Gretel Tapia DO STUDY: X-RAY [...] Nitin Young MD at 13:31 EDT Tel [phone], Service support , CC: Gretel Tapia DO Ripsaw Matcher: Signed Gretel Tapia Work Phone: Start: 12-22-2017 End: 12-22-2017 Emergency Department Summary Comments: See Note; NOTES: [facility] Medical Records Department [address] [facility] [address] Emergency Department Summary 12/22/17 1840 MR#: [id number] Acct: [id number] Name: MOJGAN CORBETT Rep #: [id number] : 1990 27 From: Delbert Bass MD [...] to hypothyroidism This note was generated with [employer] software. It may contain incorrect words, spelling, [...] problems, contact your Primary Care Provider. Call [facility] ([phone]) or report to the closest Emergency Room. Call 911 if necessary. 12/22/171940 <Electronically signed by Delbert Bass MD> Date Delbert Bass MD Cosigner Signature (If Indicated): Date CC: Gretel Shelley Start: 12-22-2017 End: 12-22-2017 Office Visit Report Comments: See Note; NOTES: [place] [address] [place] [address] OFFICE VISIT Date of Service: 12/22/17 MR#: [id number] Acct: [id number] Patient: MOJGAN CORBETT Rep #: [id number] : 1990 Provider: Venkat ENCINAS Age/Sex: 27/F Location[place] [facility] Status: Signed Intake Vital Signs12/22/17 Body Mass [...] PO TID PRN Muscle Spasm g 12/22/17 8656 <Electronically signed by Venkat ENCINAS> Date Venkat ENCINAS Cosigner Signature: Date (if applicable) CC: Gretel Tapia Start: 12-22-2017 End: 12-22-2017 Urgent Care Visit Report Comments: See Note; NOTES: [facility] [address] [place] [address] OFFICE VISIT Date of Service: 12/22/17 MR#: [id number] Acct: [id number] Name: BERTAMOJGAN K Rep #: [id number] : 1990 Provider: Venkat ENCINAS Age/Sex: 27/F Location[place] [facility] Status: Signed Intake Vital Signs12/22/17 Height 5 [...] 25 Days #18 12/22/17 [History Confirmed 12/22/17] [facility] Social History Smoking Status: Never smoker HPI [...] fatigue Exam Const General: cooperative, healthy appearing [facility] Head: normocephalic, atraumatic Ears: hearing grossly normal [...] the above. This note was generated with [employer] dictation software. It may contain incorrect words, spelling, and punctuation that were not noted in checking the note before signing. Medications Discontinued: cyclobenzaprine Discontinued Reason: Pt no longer takin10 mg PO TID PRN Muscle Spasm g Coding Level of Care Code Off vis,est,level 3 Diagnoses Positional lightheadedness R42 12/22/17 2075 <Electronically signed by Venkat ENCINAS> Date Venkat ENCINAS Cosigner Signature: Date (if applicable) CC: Gretel Tapia Start: 10-27-2017 End: 10-27-2017 Discharge Instruction Comments: See Note; NOTES: [facility] Medical Records Department [address] [place] [address] Discharge Instruction 10/27/17 0107 MR#: [id number] Acct: [id number] Name: MOJGAN CORBETT Rep #: [id number] : 1990 26 From: Donavan Watt MD [...] your Primary Care Provider. Call [facility] ([phone]) or report to the closest Emergency Room. Call 911 if necessary. 10/27/17 0108 <Electronically signed by Donavan Watt MD> Date Donavan Watt MD Cosigner Signature (If Indicated): Date CC: Gretel Shelley Start: 10-27-2017 End: 10-27-2017 Emergency Department Summary Comments: See Note; NOTES: [facility] Medical Records Department [address] [place] [address] Emergency Department Summary 10/27/17 0106 MR#: [id number] Acct: [id number] Name: MOJGAN CORBETT Rep #: [id number] : 1990 26 From: Donavan Watt MD [...] trapezius strain This note was generated with [employer] dictation software. It may contain incorrect words, [...] problems, contact your Primary Care Provider. Call [facility] ([phone]) or report to the closest Emergency Room. Call 911 if necessary. 10/27/17 0107 <Electronically signed by Donavan Watt MD> Date Donavan Watt MD Cosigner Signature (If Indicated): Date CC: Greetl Shelley Start: 05-18-2017 End: 05-19-2017 Hepatobilliary Imaging Comments: See Note; NOTES: [facility] Imaging Services [address] [place] [address] Hepatobilliary Imaging MR#: [id number] Acct: [id number] Name: BERTAMOJGAN [place] Rep #: [id number] : 1990 F 26 From: Cole Bains DO PCP: Gretel Tapia DO Status: [facility] CLI Study: Hepatobilliary Imaging Date of Exam: 05/18/17 Exam# [id number] Ordering Dr: Gretel Tapia DO CLINICAL: 26-year-old [...] Service support , CC: Gretel Tapia DO Ripsaw Matcher: Signed Gretel Tapia Work Phone: Start: 05-13-2017 End: 05-13-2017 Abdomen Complete Comments: See Note; NOTES: [facility] Imaging Services [address] [place] [address] Abdomen Complete MR#: [id number] Acct: [id number] Name: MOJGAN CORBETT Rep #: [id number] : 1990 F 26 From: Harvey Moyer DO PCP: Gretel Tapia DO Status: REG CLI Study: Abdomen Complete Date of Exam: 05/13/17 Exam# [id number] Ordering Dr: Gretel Tapia DO STUDY: ABDOMINAL [...] Service support , CC: Gretel Tapia DO Ripsaw Matcher: Signed Gretel Tapia Work Phone: Start: 05-12-2017 End: 05-12-2017 Pelvic (Non ) Comments: See Note; NOTES: [facility] Imaging Services [address] [place] [address] Pelvic (Non ) MR#: [id number] Acct: [id number] Name: MOJGAN CORBETT Rep #: [id number] : 1990 F 26 From: Lyndsay Bradford MD PCP: Gretel Tapia DO Status: REG CLI Study: Pelvic (Non ) Date of Exam: 05/12/17 Exam# [id number] Ordering Dr: Gretel Tapia DO STUDY: ULTRASOUND [...] Lyndsay Bradford MD at 18:26 EDT Tel [phone], Service support , CC: Gretel Tapia DO Ripsaw Matcher: Signed Gretel Tapia Work Phone: Start: 05-12-2017 End: 05-12-2017 Transvaginal Non- Comments: See Note; NOTES: [facility] Imaging Services [address] [place] [address] Transvaginal Non- MR#: [id number] Acct: [id number] Name: MOJGAN CORBETT Rep #: [id number] : 1990 F 26 From: Lyndsay Bradford MD PCP: Gretel Tapia DO Status: REG CLI Study: Transvaginal Non- Date of Exam: 05/12/17 Exam# [id number] Ordering Dr: Gretel Tapia DO STUDY: ULTRASOUND [...] Lyndsay Bradford MD at 18:26 EDT Tel [phone], Service support , CC: Gretel Tapia DO Ripsaw Matcher: Signed Gretel Tapia Work Phone: Start: 11-05-2016 End: 11-05-2016 Discharge Instruction Comments: See Note; NOTES: [facility] Medical Records Department [address] [place] [address] Discharge Instruction 10/26/16 1820 MR#: [id number] Acct: [id number] Name: MOJGAN CORBETT Rep #: [id number] : 1990 25 From: Justo Graf PCP: [...] your Primary Care Provider. Call [facility] ([phone]) or report to the closest Emergency Room. Call 911 if necessary. 11/01/16 1903 <Electronically signed by Justo Graf > Date Justo Graf 11/05/16 0808<Electronically signed by Percy Sanchez MD> Cosigner Signature (If Indicated): Date Percy Sanchez MD CC: Gretel Shelley Start: 10-31-2016 End: 10-31-2016 12 lead ECG Comments: See Note; NOTES: [facility] Cardiovascular Services [address] [place] [address] 12 Lead EKG 10/26/161731 MR#: [id number] Acct: [id number] Name: MOJGAN CORBETT Rep #: [id number] : 1990 From: John Franco MD Attending [...] ECG Confirmed by CALLIE PADILLA, JOHN ([id number]), commercial production editor DONYA BUSTAMANTE ([id number]) on 10/31/2016 3:16:16 PM Referred By: GOYO Confirmed By:JOHN FRANCO MD 10/31/16 1516 Date John Franco MD CC: Gretel Tapia DO Date Dictated: 10/26/161731 Date Transcribed: 10/26/161731 Ripsaw Matcher: Signed Gretel Tapia Start: 10-27-2016 End: 10-27-2016 Emergency Department Summary Comments: See Note; NOTES: [facility] Medical Records Department [address] [place] [address] Emergency Department Summary MR#: [id number] Acct: [id number] Name: MOJGAN CORBETT Rep #: [id number] : 1990 25 From: Justo Graf PCP: [...] in nature. She has not seen her TRAFFIC OPERATOR for this complaint. She does not have [...] CLINICAL IMPRESSION: Costochondritis. Justo Graf MD T: [facility] JOB: [id number] Date Justo Graf 10/27/16 0055 <Electronically signed by Percy Sanchez MD> Cosigner Signature (If Indicated): Date Bert Sanchez MD CC: Gretel Tapia DO Date Dictated: 10/26/161823 Date Transcribed: 10/26/161823 Ripsaw Matcher: Signed Gretel Tapia Start: 10-26-2016 End: 10-26-2016 Chest PA and Lateral Comments: See Note; NOTES: [facility] Imaging Services [address] [place] [address] Verdana 4d Chest PA and Lateral MR#: [id number] Acct: [id number] Name: BERTAMOJGAN [place] Rep #: [id number] : 1990 F 25 From: Reddy Peralta DO PCP: Gretel Tapia DO Status: REG ER Study: Chest PA and Lateral Date of Exam: 10/26/16 Exam# [id number] Ordering Dr: Justo Graf STUDY: X-RAY CHEST [...] Reddy Peralta DO at 18:09 EDT Tel [phone], Service support [phone], CC: JUSTO GRAF M.D.; Gretel Tapia DO Ripsaw Matcher: Signed Gretel Tapia Work Phone: Start: 08-29-2016 End: 08-29-2016 Discharge Instruction Comments: See Note; NOTES: [facility] Medical Records Department [address] [place] [address] Discharge Instruction 08/27/16 0345 MR#: [id number] Acct: [id number] Name: MOJGAN CORBETT Rep #: [id number] : 1990 25 From: Pablo Castillo MD [...] your Primary Care Provider. Call [facility] ([phone]) or report to the closest Emergency Room. Call 911 if necessary. 08/29/162 <Electronically signed by Pablo Castillo MD> Date Pablo Castillo MD Cosigner Signature (If Indicated): Date CC: Gretel Shelley Start: 08-29-2016 End: 08-29-2016 Emergency Department Summary Comments: See Note; NOTES: [facility] Medical Records Department [address] [place] [address] Emergency Department Summary MR#: [id number] Acct: [id number] Name: MOJGAN CORBETT Rep #: [id number] : 1990 25 From: Pablo Castillo MD PCP: Gretel Tapia DO Status: [facility] DATE OF SERVICE: 08/27/2016 CHIEF COMPLAINT: Right [...] pimple. Pablo Castillo MD T: [facility] JOB: [id number] 08/29/162 <Electronically signed by Pablo Castillo MD> Date Pablo Castillo MD Cosigner Signature (If Indicated): Date CC: Gretel Tapia DO Date Dictated: 08/27/16348 Date Transcribed: 08/27/16348 Ripsaw Matcher: Signed Gretel Tapia Start: 05-09-2016 End: 05-09-2016 Esophagus Only Comments: See Note; NOTES: [facility] Imaging Services [address] [place] [address] Verdana 4d Esophagus Only MR#: [id number] Acct: [id number] Name: MOJGAN CORBETT Rep #: [id number] : 1990 F 25 From: Nitin Young MD PCP: Gretel Tapia DO Status: REG CLI Study: Esophagus Only Date of Exam: 05/09/16 Exam# [id number] Ordering Dr: Percy Morales MD STUDY: X-RAY [...] Nitin Young MD at 10:35 EDT Tel [phone], Service support [phone], CC: Bert Morales MD; Gretel Tapia DO Ripsaw Matcher: Signed Gretel Tapia Start: 04-24-2016 End: 04-24-2016 OB Triage Physician Note Comments: See Note; NOTES: [facility] Medical Records Department [address] [place] [address] OB Triage Physician Note 04/24/16 1330 MR#: [id number] Acct: [id number] Name: MOJGAN CORBETT Rep #: [id number] : 1990 25 From: Lyndsay Arevalo DO PCP: Gretel Tapia DO Status: [facility] CLI Y Location: [facility] History of Present [...] Triage Physician Note Comments: See Note; NOTES: [facility] Medical Records Department [address] [place] [address] OB Triage Physician Note 03/16/16800 MR#: [id number] Acct: [id number] Name: MOJGAN CORBETT Rep #: [id number] : 1990 25 From: Lyndsay Arevalo DO PCP: Gretel Tapia DO Status: [facility] CLI Y Location: [facility] History of Present Illness - History of [...] Triage Physician Note Comments: See Note; NOTES: [facility] Medical Records Department [address] [place] [address] OB Triage Physician Note 04/01/16 1311 MR#: [id number] Acct: [id number] Name: MOJGAN CORBETT Rep #: [id number] : 1990 25 From: Lyndsay Arevalo DO PCP: Gretel Tapia DO Status: [facility] Y Location: [facility] History of Present Illness - History of [...] DO Cosigner Signature (if applicable): Date CC: Lydnsay Arevalo DO; Gretel Tapia DO Signed Gretel Tapia Start: 03-24-2016 End: 03-24-2016 Brain without Contrast Comments: See Note; NOTES: [facility] Imaging Services [address] [place] [address] Verdana 4d Brain without Contrast MR#: [id number] Acct: [id number] Name: MOJGAN CORBETT Rep #: [id number] : 1990 F 25 From: Ori Green MD PCP: Gretel Tapia DO Status: REG CLI Study: Brain without Contrast Date of Exam: 03/24/16 Exam# [id number] Ordering Dr: Mari Meza MD STUDY: MRI [...] MD at 18:08 EDT , Service support [phone], CC: Mari Meza MD; Gretel Tapia DO Ripsaw Matcher: Signed Mari Meza Work Phone: Start: 03-21-2016 Adult depression screening assessment Margie Grayson APRN.CNP Work Phone: Start: 03-16-2016 End: 03-16-2016 OB Triage Physician Note Comments: See Note; NOTES: [facility] Medical Records Department [address] [place] [address] OB Triage Physician Note 03/16/16 0801 MR#: [id number] Acct: [id number] Name: MOJGAN CORBETT Rep #: [id number] : 1990 25 From: Lyndsay Arevalo DO PCP: Gretel Tapia DO Status: [facility] Y Location: [facility] History of Present Illness - History of [...] Triage Physician Note Comments: See Note; NOTES: [facility] Medical Records Department [address] [place] [address] OB Triage Physician Note 03/03/169 MR#: [id number] Acct: [id number] Name: MOJGAN CORBETT Rep #: [id number] : 1990 25 From: Patti Temple MD PCP: Gretel Tapia DO Status: REG CLI Y Location: [place] [id number] History of Present Illness - History of [...] Triage Physician Note Comments: See Note; NOTES: [facility] Medical Records Department [address] [place] [address] OB Triage Physician Note 02/10/16 0813 MR#: [id number] Acct: [id number] Name: MOJGAN CORBETT Rep #: [id number] : 1990 25 From: Patti Temple MD [...] Triage Physician Note Comments: See Note; NOTES: [facility] Medical Records Department [address] [place] [address] OB Triage Physician Note 02/09/16706 MR#: [id number] Acct: [id number] Name: MOJGAN CORBETT Rep #: [id number] : 1990 25 From: Letty Gonzalez MD PCP: Gretel Tapia DO Status: DEP CLI Y Location: [facility] History of Present Illness - History of [...] Function Report Comp Comments: See Note; NOTES: [facility] Pulmonary Services/Neurology [address] [place] [address] Pulmonary Function Test (Comp) MR#: [id number] Acct: [id number] Name: MOJGAN CORBETT Rep #: [id number] : 1990 From: Cristopher Bosch MD Referring Dr: Mandie Gandhi Status: REG CLI Ordering Dr: Mandie Gandhi Date: 12/08/15 Location: [facility] Sex: F C DATE OF SERVICE: 12/08/2015 [...] ESPITIA C: Mandie Gandhi T: [facility] JOB: [id number] 12/10/15 0452 <Electronically signed by Cristopher Bosch MD> Date Cristopher Bosch MD CC: Mandie Gandhi; Cristopher Bosch MD; Gretel Tapia DO Date Dictated: 12/09/15 0759 Date Transcribed: 12/09/15758 Ripsaw Matcher: Signed Carolann Oksana Work Phone: Start: 12-02-2015 End: 12-02-2015 Echocardiogram Complete Comments: See Note; NOTES: [facility] Cardiovascular Services [address] [place] [address] Echo Complete 12/02/15 1402 MR#: [id number] Acct: [id number] Name: MOJGAN CORBETT Rep #: [id number] : 1990 From: Ubaldo Nye MD Attending Dr: Chas Mcclain MD Status: REG CLI Ordering Dr: Chas Mcclain MD Date: 12/02/15 Location: [facility] Sex: F C Admitted: Reason For Study: [...] Dictated: 12/02/15 1402 Date Transcribed: 12/02/15 1554 Ripsaw Matcher: Signed Gretel Tapia Start: 11-24-2015 End: 11-24-2015 12 lead ECG Comments: See Note; NOTES: [facility] Cardiovascular Services [address] [place] [address] 12 Lead EKG 11/20/15 1716 MR#: [id number] Acct: [id number] Name: MOJGAN CORBETT Rep #: [id number] : 1990 25 From: John Franco MD [...] ECG Confirmed by CALLIE PADILLA, JOHN ([id number]), commercial production editor DONYA BUSTAMANTE ([id number]) on 11/24/2015 12:53:14 PM Referred By: WOLFGANG Confirmed By:JOHN FRANCO MD 11/24/15 1253 Date John Franco MD CC: Gretel Tapia DO Date Dictated: 11/20/151715 Date Transcribed: 11/20/151715 Ripsaw Matcher: Signed Gretel Tapia Start: 11-24-2015 End: 11-24-2015 Spmtry w/vc expiratory yara w/wo mxml vol vntj _ Mandie Gandhi Work Phone: Start: 11-21-2015 End: 11-21-2015 Emergency Department Summary Comments: See Note; NOTES: [facility] Medical Records Department [address] [place] [address] Emergency Department Summary MR#: [id number] Acct: [id number] Name: MOJGAN CORBETT Rep #: [id number] : 1990 25 From: Chas Mcclain MD [...] DISPOSITION: Discharge. Dr. Chas Mcclain MD T: [facility] JOB: [id number] 11/21/152024 <Electronically signed by Chas Mcclain MD> Date Chas Mcclain MD Cosigner Signature (If Indicated): Date _ CC: Gretle Tapia DO Date Dictated: 11/20/151812 Date Transcribed: 11/20/151812 Ripsaw Matcher: Signed Gretel Tapia Start: 11-20-2015 End: 11-20-2015 Discharge Instruction Comments: See Note; NOTES: [facility] Medical Records Department [address] [place] [address] Discharge Instruction 11/20/151812 MR#: [id number] Acct: [id number] Name: BERTAMOJGAN CHERY Rep #: [id number] : 1990 25 From: Chas Mcclain MD PCP: Gretel Tapia DO Status: REG ER ED Disposition - Plan for ED Patient: Chief Complaint: Bite Instructions: ED Cellulitis Skin Infection What to do if you have Problems For any increased pain, shortness of breath, bleeding, nausea or vomiting, chest pain, or any unexpected problems, contact your doctor. Call [facility] ([phone]) or report to the closest Emergency Room. Call 911 if necessary. 11/20/151813 <Electronically signed by Chas Mcclain MD> Date Chas Mcclain MD Cosigner Signature (If Indicated): Date CC: Gretel Shelley Start: 05-18-2015 End: 05-19-2015 Thyroid Comments: See Note; NOTES: [facility] Imaging Services [address] [place] [address] Ultrasound Report MR#: [id number] Acct: [id number] Name: MOJGAN CORBETT Rep #: [id number] : 1990 F 24 From: Nitin Young MD PCP: Gretel Tapia DO Status: REG CLI Study: Thyroid Date of Exam: 05/18/15 Exam# [id number] Ordering Dr: Gretel Tapia DO STUDY: THYROID [...] Nitin Young MD at 12:27 EDT Tel [phone], Service support [phone], CC: Gretel Tapia DO Ripsaw Matcher: Signed Gretel Tapia Work Phone: Start: 05-01-2015 End: 05-01-2015 Spmtry w/vc expiratory yara w/wo mxml vol vntj _ Mandie Gandhi Work Phone: Plan of Treatment Date Care Activity Detail Author Start: 2038 Shingles (RZV) Vacci ne (1 of 2) Shingles (RZV) Vaccine (1 of 2) [facility] Start: 04-07-2023 Influenza vaccination C [facility] Start: 08-07-2022 DEPRESSION ASSESSMENT DEPRESSION ASS ESSMENT [facility] Start: 05-09-2022 End: 07-09-2022 Bacteria identified in Urine by Culture [facility] Work Phone: Immunizations Immunization Date Immunization Notes Care Provider Venkat duarte 03-20-2007 tetanus toxoid, redu tim diphtheria toxoid, and acellular pertussis vaccine, adsorbed Margie Grayson APRN.[facility] Work Phone: [facility] Work Phone: Payers Date Payer Category Payer Unknown [id number] 2021 Medicaid [id number] 2021 Medicaid [id number] 2021 Medicaid [employer] [id number] 2021-Present [phone] [address] [place] [address] Medicaid [id number] 1990 Unknown [id number] 1990 Unknown [id number] 1988 Unknown [id number] 1990 Unknown [id number] Unknown Social History Date Type Detail Facility Tobacco smoking status CAIS Tobacco smoking consumption unknown [facility] Start: 1990 [facility] Start: 02-03-2011 End: 09-24-2022 Tobacco smoking status NHIS Ex-smoker [facility] End: 08-07-2007 History of tobacco use Current smoker [facility] Work Phone: Start: 03-08-2022 End: 04-17-2023 Alcohol intake Current non-drinker of alcohol (finding) [facility] Start: 02-26-2022 End: 05-09-2022 Exposure to SARS-CoV-2 (event) Not sure [facility] Work Phone: End: 08-07-2007 History of tobacco use Cigarette Smoker [facility] Work Phone: Start: 02-03-2011 End: 09-24-2022 Tobacco use and exposure Smokeless tobacco non-user [facility] Work Phone: Tobacco smoking status Never smoked tobacco (finding) [facility] Sex Assigned At Sex [facility] Start: 07-15-2020 End: 03-06-2023 History of Social function [facility] Start: 07-15-2020 End: 03-06-2023 Tobacco use panel [facility] National Score (1-100), lower number is lower risk Not on file [facility] Functional Status Date Assessment Result Facility 10-03-2022 Functional Status Standard Safet y ID band on, Call device within reach, Bed in low position, Wheels locked, Upper/Half-Length side-rails up, Bedside Cart Locked, Safety level maintained [facility] Mental Status Date Assessment Result Facility 10-03-2022 Mental Status Orientation Oriented x 4 [facility] Clinical Notes 08-11-2015 to 07-04-2023 Anna Almendarez PA-C - 07/04/2023 7:49 AM Ori Love APRN.CNP - 04/17/2023 9:19 AM Ori Greer APRN.LAYBOY TENDER - 04/14/2023 5:42 PM Crystal Valle MD - 10/10/2022 4:02 PM EST Note Date & Type Note Facility 07-04-2023 Note HNO ID: [id number] Author: Anna Almendarez PA-C Service: ? Author Type: Physician Steam Shovel Operating Engineer Type: Progress Notes Filed: 07/04/2023 7:57 AM [...] STREP A MOLECULAR (POC) Anna Almendarez PA-C [facility] 07-04-2023 History of Present illness Narrative This note was created using [employer]. Subjective Mojgan Corbett is a 32 year [...] Anna Almendarez PA-C documented in this encounter [facility] 04-17-2023 Note HNO ID: [id number] Author: Ori Garcia APRN.LAYBOY TENDER Service: ? Author Type: Nurse Practitioner Type: [...] OF WISDOM TEETH ALLERGIES Lactose and Poison [place] MEDICATIONS triamcinolone acetonide (KENALOG) 0.1 % cream [...] of care. This note was generated using [employer] software. It may contain errors in wording, punctuation, or spelling. Ori Garcia APRN.[facility] 04-17-2023 History of Present illness Narrative [...] OF WISDOM TEETH ALLERGIES Lactose and Poison [place] MEDICATIONS triamcinolone acetonide (KENALOG) 0.1 % cream [...] of care. This note was generated using [employer] software. It may contain errors in wording, punctuation, or spelling. Ori Garcia APRN.ELLIOT documented in this encounter [facility] 04-14-2023 Note HNO ID: [id number] Author: Ori Garcia APRN.LAYBOY TENDER Service: ? Author Type: Nurse Practitioner Type: [...] OF WISDOM TEETH ALLERGIES Lactose and Poison [place] MEDICATIONS levothyroxine (SYNTHROID) 25 mcg tablet ALBUTEROL [...] of care. This note was generated using [employer] software. It may contain errors in wording, punctuation, or spelling. Ori Garcia APRN.[facility] 04-14-2023 History of Present illness Narrative [...] OF WISDOM TEETH ALLERGIES Lactose and Poison [place] MEDICATIONS levothyroxine (SYNTHROID) 25 mcg tablet ALBUTEROL [...] of care. This note was generated using [employer] software. It may contain errors in wording, punctuation, or spelling. Ori Garcia APRN.ELLIOT documented in this encounter [facility] 03-06-2023 Note HNO ID: [id number] Author: Ori Garcia APRN.ELLIOT Service: ? 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 Constitutional: General: She is not in [...] of care. This note was generated using [employer] software. It may contain errors in wording, punctuation, or spelling. 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 Constitutional: General: She is not in [...] of care. This note was generated using [employer] software. It may contain errors in wording, punctuation, or spelling. Ori Garcia APRN.ELLIOT documented in this encounter [facility] 10-10-2022 Note HNO ID: [id number] Author: Kishor Valle MD Service: ? Author [...] of uncontrolled ear pain and was given Buckland. Her ear drained blood and clear fluid [...] ALLERGIES Allergen Reactions Lactose GI Upset Poison [place] Rash VITALS: BP 100/64 Pulse 76 Temp [...] anatomy and physiology reviewed. Kishor Valle MD [facility] 10-10-2022 History of Present illness Narrative Patient presents with: Ear Pain: left ear pain, SOUZA x 1 week HPI: Feeling left ear pain for 1 week. She was seen here and started on amoxicillin for left otitis media. She went to the ER then because of uncontrolled ear pain and was given Buckland. Her ear drained blood and clear fluid [...] ALLERGIES Allergen Reactions Lactose GI Upset Poison [place] Rash VITALS: BP 100/64 Pulse 76 Temp [...] Kishor Valle MD documented in this encounter [facility] 10-03-2022 Hospital Discharge instructions Patient Education [...] directed by your healthcare provider Convulsion (seizure) [id number] [employer]. [address] [place] [address]. All rights reserved. This information is not intended as a substitute for professional medical care. Always follow your healthcare professional's instructions. Follow Up Care 10/03/2022 18:28:30 With:COLE SCOTT MD Address: [address] [address] [phone] When:2-4 days With:Go to emergency room if symptoms worsen Address:Unknown When:2-4 days [facility] 10-03-2022 Note HNO ID: [id number] Author: Suzette Perry APRN.LAYBOY TENDER Service: ? Author Type: Nurse Practitioner Type: [...] OF WISDOM TEETH ALLERGIES Lactose and Poison [place] MEDICATIONS amoxicillin (AMOXIL) 875 mg tablet Take 1 tablet by mouth twice daily for 7 days. oseltamivir (TAMIFLU) 75 mg capsule Take 1 capsule by mouth twice daily for 5 days. (Patient not taking: Reported on 10/03/2022) mupirocin (BACTROBAN) 2 % ointment Apply 1 application to affected area three times daily for 10 days. (Patient not taking: Reported on 09/27/2022) ucietqoyuvWUKUN-zxesnq-qvjjoswvh (BMX 1:1:1) 1:1:1 liqd Mix in equal [...] Discussed expected course of illness Suzette Perry APRN.[facility] 10-03-2022 Note Discharge Instructions Thank you for allowing [facility] to assist you with your healthcare needs. The following is important discharge information regarding your hospital visit. Diagnosis from Today's Visit Otitis media Ear pain What to Do Next Instructions from Your Care Team Your prescription for amoxicillin 875 is ready to be picked up now at [facility] [place]. No qualifying data available. Post Acute Orders No qualifying data available. You Need to Schedule the Following Appointments Follow Up with COLE SCOTT MD When Within 2-4 days Where: [facility] [address] [place] [address]- [phone] Follow Up with Go to emergency room if symptoms worsen When Within 2-4 days Allergies NKA Medications Please ask your primary doctor or pharmacist before taking any other medication not listed, including over the counter drugs, herbal medications, vitamins and or supplements as they may interact with your home medications. What How Much When Why Instructions Last Dose New acetaminophen-hydrocodone (Buckland 325- 5 mg oral tablet) 1 tab(s) [...] directed by your healthcare provider Convulsion (seizure) [id number] [employer]. [address] [place] [address], [place] [address]. All rights reserved. This information is not intended as a substitute for professional medical care. Always follow your healthcare professional's instructions. Additional Information VACCINATE! IT SAVES LIVES! Members of the community who have not yet received the COVID-19 vaccine and would like to receive it can visit one of [facility] vaccine clinics. There are many vaccine clinic locations within the [facility]. For locations and available times, please visit [email or web address]. [email or web address] It is important to note that some COVID mobile vaccine clinics are held outdoors and may be canceled in rainy or stormy conditions. To learn more about pediatric vaccinations (ages 5-11), we invite you to visit the [facility] webpage. https://www.[facility].org/p ages/6384-Uvruf-Xnoogweylep-Freq rcfkjh-Sqviq-Mwwnxvsrh.html To learn more about the COVID-19 vaccine, we invite you to visit the CDC website for a list of frequently asked questions. https://www.cdc.gov/coronavirus/ 2019-ncov/vaccines/faq.html [facility] Patient Portal Access Instructions: Stay connected with your healthcare team and access your personal medical information anytime with the [facility] Patient Portal. If you would like a full copy of your medical records please contact the [facility] Medical Records Department Monday through Monday between 8a.m. and 4:30p.m. Please follow the directions below to access the portal: 1.Access the email account you provided upon registration to the hospital.2.Look for an invitation email from [facility].3.Open the email and access the invitation link: Accept Invitation to [facility]4.Fill in the required rodriguez to create your account. Sign into [email or web address] with your username and password that you [...] you will allow to register on the [facility] Patient Portal for access to your information. You can also access the [facility] Patient Portal on the [employer]. Simply click on Health Records under Health [...] Call your local pharmacy or go to [email or web address] to find one close to you.3.Make use of household items: Use cat litter or old coffee grounds to dispose medications if other options are not available. Mix your drugs with these household products, seal them in an airtight container and throw it into the garbage. Call [facility]: [phone] to be sure your drugs can be [...] aware that I should contact my doctor. Patient/Outpatient Surgery Rn Signature: Date/Time: Relationship to Patient: Witness Name/Signature: Date/Time: [facility] 10-03-2022 Emergency department Discharge summary Discharge Instructions Thank you for allowing [facility] to assist you with your healthcare needs. The following is important discharge information regarding your hospital visit. Diagnosis from Today's Visit Otitis media Ear pain What to Do Next Instructions from Your Care Team Your prescription for amoxicillin 875 is ready to be picked up now at [facility] in [place]. No qualifying data available. Post Acute Orders No qualifying data available. You Need to Schedule the Following Appointments Follow Up with COLE SCOTT MD When Within 2-4 days Where: [facility] [address] [place] [address]- [phone] Follow Up with Go to emergency room [...] directed by your healthcare provider Convulsion (seizure) [phone] [employer]. [address] [place] [address]. All rights reserved. This information is not intended as a substitute for professional medical care. Always follow your healthcare professional's instructions. Additional Information VACCINATE! IT SAVES LIVES! Members of the community who have not yet received the COVID-19 vaccine and would like to receive it can visit one of [facility] vaccine clinics. There are many vaccine clinic locations within the [facility]. For locations and available times, please visit [email or web address] It is important to note that some COVID mobile vaccine clinics are held outdoors and may be canceled in rainy or stormy conditions. To learn more about pediatric vaccinations (ages 5-11), we invite you to visit the [facility] webpage. [email or web address] [email or web address]-Barfu-Otgnnycezjo-Freq iwdyup-Nnyew-Ffchamzbu.html To learn more about the COVID-19 vaccine, we invite you to visit the CDC website for a list of frequently asked questions. https://www.cdc.gov/coronavirus/ 2019-ncov/vaccines/faq.html [facility] Patient Portal Access Instructions: Stay connected with your healthcare team and access your personal medical information anytime with the [facility] Patient Portal. If you would like a full copy of your medical records please contact the [facility] Medical Records Department Monday through Monday between 8a.m. and 4:30p.m. Please follow the directions below to access the portal: 1.Access the email account you provided upon registration to the [facility].2.Look for an invitation email from [facility].3.Open the email and access the invitation link: Accept Invitation to [facility].Fill in the required rodriguez to create your account. Sign into [email or web address] with your username and password that you [...] you will allow to register on the [facility] Patient Portal for access to your information. You can also access the [facility] Patient Portal on the [employer]. Simply click on Health Records under Health Data and then click on the [employer] logo. HOW TO SAFELY DISPOSE OF PRESCRIPTION [...] Call your local pharmacy or go to http://bit.Workers On Call/6P9Yj4h to find one close to you.3.Make use of household items: Use cat litter or old coffee grounds to dispose medications if other options are not available. Mix your drugs with these household products, seal them in an airtight container and throw it into the garbage. Call [facility]: [phone] to be sure your drugs can be [...] aware that I should contact my doctor. Patient/Outpatient Surgery Rn Signature: Date/Time: Relationship to Patient: Witness Name/Signature: Date/Time: [facility] 10-03-2022 History of Present illness Narrative Subjective [...] OF WISDOM TEETH ALLERGIES Lactose and Poison [place] MEDICATIONS amoxicillin (AMOXIL) 875 mg tablet Take 1 tablet by mouth twice daily for 7 days. oseltamivir (TAMIFLU) 75 mg capsule Take 1 capsule by mouth twice daily for 5 days. (Patient not taking: Reported on 10/03/2022) mupirocin (BACTROBAN) 2 % ointment Apply 1 application to affected area three times daily for 10 days. (Patient not taking: Reported on 09/27/2022) rgkrbkvjfyVNCCI-duosyq-zmzxwmrkn (BMX 1:1:1) 1:1:1 liqd Mix in equal [...] Discussed expected course of illness Suzette Perry APRN.LAYBOY TENDER documented in this encounter [facility] 10-03-2022 Instructions Suzette Perry APRN.CNP - [...] even if the symptoms go away. 2. Bfci-zgz-vrlnrfk pain medication may be taken or other [...] him or her). documented in this encounter [facility] 10-01-2022 Miscellaneous Notes Patient notified of results, verbalized understanding. Lucina Rodriguez MA Negative for flu and covid please notify thank you documented in this encounter [facility] 09-30-2022 Note HNO ID: [id number] Author: Suzette Perry APRN.ELLIOT Service: ? Author [...] OF WISDOM TEETH ALLERGIES Lactose and Poison [place] MEDICATIONS levothyroxine (SYNTHROID) 25 mcg tablet ALBUTEROL INHALATION Inhale as instructed. mupirocin (BACTROBAN) 2 % ointment Apply 1 application to affected area three times daily for 10 days. (Patient not taking: Reported on 09/27/2022) xwmrmkvqdhILGQJ-vdfrjj-owxonsgpf (BMX 1:1:1) 1:1:1 liqd Mix in equal [...] expected course of illness Suzette Perry APRN.CNP [facility] 09-30-2022 Instructions Suzette Perry APRN.CNP - 09/30/2022 [...] expected course of illness Suzette Perry APRN.ELLIOT [facility] PATIENT INFO INFLUENZA INTRODUCTION Influenza (commonly called the flu) is a highly contagious illness that can occur in children or adults of any age. It occurs more often in the winter months because people spend more time in close contact with one another. The flu is spread easily from ujuoof-tw-schpmz by coughing, sneezing, or touching surfaces. Every [...] do not become dehydrated. One way to trust manager if you are drinking enough is to [...] of antibiotic resistance. documented in this encounter [facility] 09-30-2022 History of Present illness Narrative [...] OF WISDOM TEETH ALLERGIES Lactose and Poison [place] MEDICATIONS levothyroxine (SYNTHROID) 25 mcg tablet ALBUTEROL INHALATION Inhale as instructed. mupirocin (BACTROBAN) 2 % ointment Apply 1 application to affected area three times daily for 10 days. (Patient not taking: Reported on 09/27/2022) jnbohewqsaFEYVZ-snvfkp-agepeonmx (BMX 1:1:1) 1:1:1 liqd Mix in equal [...] Discussed expected course of illness Suzette Perry APRN.LAYBOY TENDER documented in this encounter [facility] 09-27-2022 Note HNO ID: [id number] Author: Seth Noguera APRN.ELLIOT Service: ? Author [...] OF WISDOM TEETH ALLERGIES Lactose and Poison [place] MEDICATIONS levothyroxine (SYNTHROID) 25 mcg tablet cephALEXin (KEFLEX) 500 mg capsule Take 1 capsule by mouth four times daily for 5 days. (Patient not taking: Reported on 09/27/2022) mupirocin (BACTROBAN) 2 % ointment Apply 1 application to affected area three times daily for 10 days. (Patient not taking: Reported on 09/27/2022) soluqalysvSJXUS-pzlvhl-eiwjkmage (BMX 1:1:1) 1:1:1 liqd Mix in equal [...] - STREP A MOLECULAR (POC) Seth Noguera APRN.[facility] 09-27-2022 History of Present illness Narrative [...] OF WISDOM TEETH ALLERGIES Lactose and Poison [place] MEDICATIONS levothyroxine (SYNTHROID) 25 mcg tablet cephALEXin (KEFLEX) 500 mg capsule Take 1 capsule by mouth four times daily for 5 days. (Patient not taking: Reported on 09/27/2022) mupirocin (BACTROBAN) 2 % ointment Apply 1 application to affected area three times daily for 10 days. (Patient not taking: Reported on 09/27/2022) mpagqgtfrzYAAIO-bbanvw-cpdjzfmpq (BMX 1:1:1) 1:1:1 liqd Mix in equal [...] Seth Noguera APRN.CNP documented in this encounter [facility] 09-24-2022 Note HNO ID: [id number] Author: Hillary Cisneros APRN.CNP Service: ? Author Type: Nurse Practitioner Type: Progress Notes Filed: 09/24/2022 1:13 PM Note Text: Subjective The history is provided by the patient. No medical interpreter was used. HPI Mojgan Corbett is a [...] have confirmed and edited as necessary, the [facility] Review of Systems Constitutional: Negative for chills [...] detail warranting prompt ER evaluation. Hillary Cisneros APRN.[facility] 09-24-2022 History of Present illness Narrative Subjective The history is provided by the patient. No medical interpreter was used. HPI Mojgan Corbett is a [...] have confirmed and edited as necessary, the [facility] Review of Systems Constitutional: Negative for chills [...] Hillary Cisneros APRN.ELLIOT documented in this encounter [facility] 05-10-2022 Miscellaneous Notes Phone call placed, [...] found in the genital area. Follow-up with TRAFFIC OPERATOR as needed. documented in this encounter [facility] 05-10-2022 Miscellaneous Notes Patient returned call [...] Additional results pending. documented in this encounter [facility] 05-09-2022 History of Present illness Narrative [...] specified Recurrent UTI's ALLERGIES Lactose and Poison [place] MEDICATIONS Current Outpatient Medications Medication Sig kivenvnzvtFYWMQ-mtrfvb-lvtjziuxw (BMX 1:1:1) 1:1:1 liqd Mix in equal [...] which included preparing to see the patient, poeq-ll-kzjt patient care, completing clinical documentation, performing a medically appropriate examination, counseling and educating the patient/family/caregiver, and ordering medications, tests, or procedures. Luisa Clarke PA-C documented in this encounter [facility] 03-09-2022 Miscellaneous Notes Patient given results [...] ER if severe. documented in this encounter [facility] 03-08-2022 History of Present illness Narrative [...] OF WISDOM TEETH ALLERGIES Lactose and Poison [place] MEDICATIONS MULTIVITAMIN ORAL Take by mouth. levothyroxine [...] Margie Grayson APRN.ELLIOT documented in this encounter [facility] 02-02-2022 Hospital Discharge instructions Gene Hair [...] of this encounter (statuses as of 03/08/2022) [facility] History of Past illness Narrative* Problem [...] of this encounter (statuses as of 03/09/2022) [facility] History of Past illness Narrative* Problem Noted Date Resolved Date Encounter for supervision of normal in third trimester 08/11/2015 09/09/2016 Overview: Girl on [facility]? Supervision of other normal 03/16/2013 10/03/2013 Overview: [...] of this encounter (statuses as of 05/09/2022) [facility] History of Past illness Narrative* Problem Noted Date Resolved Date Encounter for supervision of normal in third trimester 08/11/2015 09/09/2016 Overview: Girl on [facility]? Supervision of other normal 03/16/2013 10/03/2013 Overview: [...] of this encounter (statuses as of 05/10/2022) [facility] of Past illness Narrative* Problem [...] of this encounter (statuses as of 09/24/2022) [facility] History of Past illness Narrative* Problem Noted Date Resolved Date Encounter for supervision of normal in third trimester 08/11/2015 09/09/2016 Overview: Girl on [facility]? Supervision of other normal 03/16/2013 10/03/2013 Overview: [...] of this encounter (statuses as of 09/28/2022) [facility] of Past illness Narrative* Problem Noted Date Resolved Date Encounter for supervision of normal in third trimester 08/11/2015 09/09/2016 Overview: Girl on [facility]? Supervision of other normal 03/16/2013 10/03/2013 Overview: [...] of this encounter (statuses as of 09/30/2022) [facility] of Past illness Narrative* Problem [...] of this encounter (statuses as of 10/01/2022) [facility] of Past illness Narrative* Problem Noted Date Resolved Date Encounter for supervision of normal in third trimester 08/11/2015 09/09/2016 Overview: Girl on [facility]? Supervision of other normal 03/16/2013 10/03/2013 Overview: [...] of this encounter (statuses as of 10/04/2022) [facility] of Past illness Narrative* Problem Noted Date Resolved Date Encounter for supervision of normal in third trimester 08/11/2015 09/09/2016 Overview: Girl on [facility]? Supervision of other normal 03/16/2013 10/03/2013 Overview: [...] of this encounter (statuses as of 10/11/2022) [facility] of Past illness Narrative* Problem [...] of this encounter (statuses as of 03/07/2023) [facility] of Past illness Narrative* Problem Noted Date Diagnosed Date Resolved Date Encounter for supervision of normal in third trimester 08/11/2015 09/09/2016 Overview: Girl on [facility]? Supervision of other normal 03/16/2013 10/03/2013 Overview: [...] of this encounter (statuses as of 04/15/2023) [facility] of Past illness Narrative* Problem Noted Date Diagnosed Date Resolved Date Encounter for supervision of normal in third trimester 08/11/2015 09/09/2016 Overview: Girl on [facility]? Supervision of other normal 03/16/2013 10/03/2013 Overview: [...] of this encounter (statuses as of 04/17/2023) [facility] of Past illness Narrative* Problem Noted Date Diagnosed Date Resolved Date Encounter for supervision of normal in third trimester 08/11/2015 09/09/2016 Overview: Girl on - [place]? Supervision of other normal 03/16/2013 10/03/2013 Overview: [...] of this encounter (statuses as of 07/04/2023) [facility] [place] [facility] No data available for this section [facility] Diagnosis Sunburn- Primary documented in this encounter [facility] note* Diagnosis Sore throat- Primary Acute pharyngitis Suspected COVID-19 virus infection documented in this encounter [facility] note* Diagnosis Urinary frequency- Primary Late menses Other disorder of menstruation and other abnormal bleeding from female genital tract Dysuria Exposure to STD Contact with or exposure to other communicable diseases documented in this encounter [facility] note* Diagnosis Paronychia, toe, right- Primary documented in this encounter [facility] note* Diagnosis Sore throat- Primary Acute pharyngitis documented in this encounter [facility] note* Diagnosis Streptococcus exposure- Primary Contact with or exposure to other communicable diseases Throat pain Flu-like symptoms Other general symptoms documented in this encounter [facility] note* Diagnosis Other acute nonsuppurative otitis media of left ear, recurrence not specified- Primary documented in this encounter [facility] note* Diagnosis Recurrent acute otitis media of left ear- Primary documented in this encounter [facility] note* Diagnosis External hemorrhoid- Primary External hemorrhoids without mention of complication documented in this encounter [facility] note* Diagnosis Rash- Primary Rash and other nonspecific skin eruption documented in this encounter [facility] note* Diagnosis Rash- Primary Rash and other nonspecific skin eruption documented in this encounter [facility] note* Diagnosis Strep pharyngitis- Primary Streptococcal sore throat documented in this encounter [facility] Instructions Name Dates Details How to [...] FoundDocuments on File Type Date Recorded Patient Outpatient Surgery Rn Expl anation Advance Directive(s) Health Concerns Infection Onset Date Last Indicated Resolved Time COVID-19 Rule-Out 03/08/2022 03/08/2022 Infection Onset Date Last Indicated Resolved Time COVID-19 Confirmed 03/08/2022 03/08/2022 Reason for Referral Specialty Diagnoses / Procedures Referred By Contac t Referred To Contact General Surgery Diagnoses External hemorrhoid Procedures CONSULT TO GENERAL SURGERY OFFICE/OUTPATIENT [facility] MDM 60-74 MINUTES Ori Garcia APRN.LAYBOY TENDER [address] [place] [address] Referral ID Status Reason Start Date Expiration Date Visits Requested Visits Authorized [id number] Pending Review PCP Requested Referral 03/06/2023 03/05/2024 [...] DATE CREATED AUTHOR AUTHOR'S ORGANIZ ATION 10/08/2022 [facility] ([place]) DATE CREATED AUTHOR AUTHOR'S ORGANIZ ATION 10/14/2022 [facility] DATE CREATED AUTHOR AUTHOR'S ORGANIZ ATION 07/05/2023 [facility] Source Comments (unrecognize d section and content) In the event this informatio n is protected by the Federal Confidentiality of Alcohol and Drug Abuse Patient Records regulations: The Federal rules restrict any use of the information to criminally investigate or prosecute any alcohol or drug abuse patient.[facility] the event this information is protected by the Federal Confidentiality of Alcohol and Drug Abuse Patient Records regulations: The Federal rules restrict any use of the information to criminally investigate or prosecute any alcohol or drug abuse patient.[facility] Hospital[facility] the event this information is protected by the Federal Confidentiality of Alcohol and Drug Abuse Patient Records regulations: The Federal rules restrict any use of the information to criminally investigate or prosecute any alcohol or drug abuse patient.[facility] the event this information is protected by the Federal Confidentiality of Alcohol and Drug Abuse Patient Records regulations: The Federal rules restrict any use of the information to criminally investigate or prosecute any alcohol or drug abuse patient.[facility] the event this information is protected by the Federal Confidentiality of Alcohol and Drug Abuse Patient Records regulations: The Federal rules restrict any use of the information to criminally investigate or prosecute any alcohol or drug abuse patient.[facility] Hospital[facility] the event this information is protected by the Federal Confidentiality of Alcohol and Drug Abuse Patient Records regulations: The Federal rules restrict any use of the information to criminally investigate or prosecute any alcohol or drug abuse patient.[facility] Hospital[facility] the event this information is protected by the Federal Confidentiality of Alcohol and Drug Abuse Patient Records regulations: The Federal rules restrict any use of the information to criminally investigate or prosecute any alcohol or drug abuse patient.[facility] the event this information is protected by the Federal Confidentiality of Alcohol and Drug Abuse Patient Records regulations: The Federal rules restrict any use of the information to criminally investigate or prosecute any alcohol or drug abuse patient.[facility] the event this information is protected by the Federal Confidentiality of Alcohol and Drug Abuse Patient Records regulations: The Federal rules restrict any use of the information to criminally investigate or prosecute any alcohol or drug abuse patient.[facility] Hospital[facility] the event this information is protected by the Federal Confidentiality of Alcohol and Drug Abuse Patient Records regulations: The Federal rules restrict any use of the information to criminally investigate or prosecute any alcohol or drug abuse patient.[facility] Hospital[facility] the event this information is protected by the Federal Confidentiality of Alcohol and Drug Abuse Patient Records regulations: The Federal rules restrict any use of the information to criminally investigate or prosecute any alcohol or drug abuse patient.[facility] Hospital[facility] the event this information is protected by the Federal Confidentiality of Alcohol and Drug Abuse Patient Records regulations: The Federal rules restrict any use of the information to criminally investigate or prosecute any alcohol or drug abuse patient.[facility] Hospital[facility] the event this information is protected by the Federal Confidentiality of Alcohol and Drug Abuse Patient Records regulations: The Federal rules restrict any use of the information to criminally investigate or prosecute any alcohol or drug abuse patient.[facility] HospitalIn the event this information is protected by the Federal Confidentiality of Alcohol and Drug Abuse Patient Records regulations: The Federal rules restrict any use of the information to criminally investigate or prosecute any alcohol or drug abuse patient.[facility] Hospital[facility] the event this information is protected by the Federal Confidentiality of Alcohol and Drug Abuse Patient Records regulations: The Federal rules restrict any use of the information to criminally investigate or prosecute any alcohol or drug abuse patient.[facility] Care Teams (unrecognized sec tion and content) Hazardous Materials Analyst Relationship Specialty Start Date End Date Rosa Mccoy MD PCP - General Internal Medicine 01/24/19 Hazardous Materials Analyst Relationship Specialty Start Date End Date Rosa Mccoy MD PCP - General Internal Medicine 01/24/19 Hazardous Materials Analyst Relationship Specialty Start Date End Date Rosa Mccoy MD PCP - General Internal Medicine 01/24/19 [employer]ardous Materials Analyst Relationship Specialty Start Date End Date Rosa Mccoy MD PCP - General Internal Medicine 01/24/19 Hazardous Materials Analyst Relationship Specialty Start Date End Date Rosa Mccoy MD PCP - General Internal Medicine 01/24/19 Hazardous Materials Analyst Relationship Specialty Start Date End Date Rosa Mccoy MD PCP - General Internal Medicine 01/24/19 Hazardous Materials Analyst Relationship Specialty Start Date End Date Rosa Mccoy MD PCP - General Internal Medicine 01/24/19 Hazardous Materials Analyst Relationship Specialty Start Date End Date Rosa Mccoy MD PCP - General Internal Medicine 01/24/19 Hazardous Materials Analyst Relationship Specialty Start Date End Date Rosa Mccoy MD PCP - General Internal Medicine 01/24/19 Hazardous Materials Analyst Relationship Specialty Start Date End Date Rosa Mccoy MD PCP - General Internal Medicine 01/24/19 Hazardous Materials Analyst Relationship Specialty Start Date End Date Rosa Mccoy MD PCP - General Internal Medicine 01/24/19 Hazardous Materials Analyst Relationship Specialty Start Date End Date Rosa Mccoy MD PCP - General Internal Medicine 01/24/19 Care Team (unrecognized sect ion and content) Care Team Personnel Name: COLE SCOTT MD Member Role: Primary Care Physician Address: Address: [facility] [address] [place], [place] [address] Name: PREETI Cast Position: ED RN Member Role: ED RN Care Team Related Persons Name: ANA CORBETT Name: MARIA C CORBETTJavier Cummings Address: Home [address] [place] [address] Name: DOROTA CORBETT Address: Home [address] [place] [address] FOR RECORDS PERTAINING TO PATIENTS WHO ARE [...] BE BASED ON THE PRIMARY CLINICAL RECORDS. [facility] [employer] provides no warranty or guarantee of the accuracy or completeness of information in this document.
[2023-09-24 03:55] LABS: Absolute Lymphocyte Count 3.13 X10^3/uL (0.83-4.51); Absolute Neutrophil Count 5.5 X10^3/uL (2.0-7.7); Basophil# 0.06 X10^3/uL; Basophil% 0.6 % (0-1); Eosinophil# 0.14 X10^3/uL; Eosinophils% 1.5 % (0-5); Hematocrit 40.8 % (37-47); Hemoglobin 13.1 g/dL (12.0-15.0); Lymphocyte # 3.13 X10^3/ul (0.83-4.51); Lymphocyte % 32.7 % (19-41); Mean Corp Hgb Conc 32.1 g/dL (32-36); Mean Corpuscular Hgb 29.8 pg (27.0-32.0); Mean Corpuscular Volume 92.7 fL (81-99); Mean Platelet Vol. 11.3 fl (6.2-12.0); Monocyte# 0.72 X10^3/uL; Monocyte% 7.5 % (0-10); NRBC Flagged by Analyzer 0 % (0-5); Neutrophil # 5.48 X10^3/uL (2.7-7.7); Neutrophil % 57.4 % (47-70); Platelet Count 227 K/mm3 (150-450); RBC Distribution Width CV 13.1 % (11.6-14.6); RBC Distribution Width SD 44.3 fl (35.1-43.9); White Blood Count 9.6 K/mm3 (4.4-11.0)
[2023-09-24 04:02] LABS: Glucose, Dipstick Normal (Normal); Ketone-Dipstick Negative (Negative); Leukocyte Esterase-Dipstick Negative /ul (Negative); Nitrite-Dipstick Negative (Negative); Occult Blood-Urine Negative /ul (Negative); Protein-Dipstick Negative (Negative); Urine Bilirubin Dipstick Negative (Negative); Urine Urobilinogen Normal (Normal)
[2023-09-24 04:09] LABS: Color, Urine Yellow (Yellow)
[2023-09-24 04:10] LABS: Squamous Epithelial Cells - UA 0-5 SEEN /hpf (5-10); Urine Clarity Clear (Clear)
[2023-09-24 04:11] LABS: Other Crystals-Urine SCANNED /hpf (None Seen)
[2023-09-24 04:13] LABS: ALB/GLOB Ratio 1.3 RATIO (0.9-2.4); AST(SGOT) 21 U/L (15-37); Alanine Aminotransfer ALT/SGPT 24 U/L (13-56); Albumin, Serum 3.8 g/dL (3.2-5.0); Alkaline Phosphatase 63 U/L (45-117); Anion Gap 5 (5-15); BUN 16 mg/dL (7-18); BUN/Creat Ratio 20.8 RATIO (10-20); Chloride 108 mmol/L (98-107); Creatinine, Serum 0.77 mg/dL (0.55-1.02); EST Glomerular Filtration Rate 91 mL/min (>60); Est Glom Filt Rate - Afr Amer 110 mL/min (>60); Estimated Creatinine Clearance 92.83 ml/min; Globulin 2.9 g/dL (2.2-4.2); Glucose 94 mg/dL (74-106); Lipase 85 U/L (13-75); Potassium 3.6 mmol/L (3.5-5.1); Protein, Total 6.7 g/dL (6.4-8.2); Sodium Level 140 mmol/L (136-145)
[2023-09-24 04:19] LABS: Internal QC Validated? YES +Cl - CLEAR BKGD; Pregnancy, Serum, hCG Quali. NEGATIVE Negative
[2023-09-24] MEDS: DiphenhydrAMINE 50 MG/ML Syringe 25 MG IV ×2 (04:33→20:37)
[2023-09-24] MEDS: MethylPREDNISolone 125 MG/2 ML Vial 60 MG IV (04:33)
--- NOTE | 2023-09-24 07:47 | US_ITS ---
STUDY: ULTRASOUND TRANSVAGINAL CLINICAL: Female, 32 years old. Pelvic pain, rule out ovarian torsion TECHNIQUE: Transvaginal COMPARISON: None. FINDINGS: Normal uterine size measuring 10.5 cm in maximal craniocaudal dimension. There are no myometrial masses. Uterus is retroflexed and tilted to the left. Normal endometrial thickness measuring 15 mm. There are no endometrial masses, and there is no fluid in the endometrial cavity. Normal uterine cervix. Normal right ovary, measuring 5.6 x 5.0 x 5.0 cm. There is a complex, likely hemorrhagic cyst measuring 4.4 x 4.8 x 4.3 cm, because there are some internal stranding, and its size, short term follow-up ultrasounds are recommended to assess stability/resolution. There is normal color Doppler vascular flow to the right ovary. Normal left ovary, measuring 4.3 cm. There are multiple follicles without a dominant cyst. Normal color Doppler vascular flow noted Mild to moderate free fluid in the dependent pelvis Polycystic ovary disease: No. US/Transvaginal Non- IMPRESSION: No sonographic evidence of ovarian torsion Large complex right ovarian cyst measuring 4.4 x 4.8 x 4.3 cm. There are some internal strands noted. Because of its size and characteristics, short term follow-up ultrasounds are recommended to assess its stability and/or resolution Mild to moderate free fluid in the dependent pelvis Sonographically unremarkable uterus and left ovary Electronically Signed: Chandra Lomeli MD at 8:50 EST ,
--- NOTE | 2023-09-24 07:56 | ED.RN ---
THIS NURSE IN TO DISCHARGE PT. PT STATES PAIN HAS RETURNED AND IS WORSE. DR VELOZ AWARE. ULTRASOUND ORDERED MEDS. PT BP LOW. DR IRELAND. MEDS N OT GIVEN
[2023-09-24] MEDS: Mag Hydrox/Al Hydrox/Simeth 30 ML UDC PO (09:18)
--- NOTE | 2023-09-24 09:19 | NURSING ---
DR BAH FOR DR JOHNSON
--- NOTE | 2023-09-24 09:36 | NURSING ---
MED SURG OBS TERELETSKY INTRACTABLE ABD PAIN
--- OUTSIDE RECORDS SUMMARY | 2023-09-24 09:38 | XMS RPT_ITS | CCD ---
Author Name Unknown Address [address] [place] [address] Organization [facility] Care Team Providers Care Exercise Manager Name Role Phone Gretel Tapia Unavailable Kishor [...] Rosa Mccoy MD Primary Care Provider [phone] Rosa Mccoy MD Primary Care Provider [phone] Rosa Mccoy MD Primary Care Provider [phone] COLE SCOTT MD Primary Care Physician BRADLY [...] Translations: [LACTOSE] Drug Allergy 05-03-2021 GI Upset [facility] (16 sources) Poison [place]; Translations: [POISON [place]] Propensity to adverse reactions 08-10-2014 Rash [facility] Work Phone: Medications Current Medications Medication Drug Class(es) Dates Sig (Normalized) Sig (Original) acetaminophen 325 mg / HYDROcodone bitartrate 5 mg oral tablet (1 source) Opioid Agonist Start: 10-03-2022 End: 10-06-2022 take 1 tablet by mouth every four hours as needed for pain [place] 325- 5 mg oral tablet Dose = [...] 97.39 [degF] Anna Athy PA-C Work Phone: [facility] 07-04-2023 07:16-0500 Body weight 64.86 kg Anna Athy PA-C Work Phone: [facility] 07-04-2023 07:16-0500 Diastolic blood pressure 68 mm[Hg] Anna Athy PA-C Work Phone: [facility] 07-04-2023 07:16-0500 Heart rate 82 /min Anna Athy PA-C Work Phone: [facility] 07-04-2023 07:16-0500 Respiratory rate 16 /min Anna Athy PA-C Work Phone: [facility] 07-04-2023 07:16-0500 SaO2% (BldA) [Mass fraction] 98 % Anna Athy PA-C Work Phone: [address]28-2023 07:16-0500 Systolic blood pressure 116 mm[Hg] Anna Almendarez PA-C Work Phone: [facility] 04-17-2023 09:16-0400 Body temperature 97.11 [degF] Ori Pendlebury SECURITY FIELD SUPERVISOR.WIDE PIECE GOODS INSPECTOR Work Phone: [facility] 04-17-2023 09:16-0400 Body weight 66.22 kg Ori Pendlebury SECURITY FIELD SUPERVISOR.WIDE PIECE GOODS INSPECTOR Work Phone: [facility] 04-17-2023 09:16-0400 Diastolic blood pressure 80 mm[Hg] Ori Pendlebury SECURITY FIELD SUPERVISOR.WIDE PIECE GOODS INSPECTOR Work Phone: [facility] 04-17-2023 09:16-0400 Heart rate 78 /min Ori Pendlebury SECURITY FIELD SUPERVISOR.WIDE PIECE GOODS INSPECTOR Work Phone: [facility] 04-17-2023 09:16-0400 Respiratory rate 16 /min Ori Pendlebury SECURITY FIELD SUPERVISOR.WIDE PIECE GOODS INSPECTOR Work Phone: [facility] 04-17-2023 09:16-0400 SaO2% (BldA) [Mass fraction] 97 % Ori Pendlebury SECURITY FIELD SUPERVISOR.WIDE PIECE GOODS INSPECTOR Work Phone: [facility] 04-17-2023 09:16-0400 Systolic blood pressure 122 mm[Hg] Ori Pendlebury SECURITY FIELD SUPERVISOR.WIDE PIECE GOODS INSPECTOR Work Phone: [facility] 04-14-2023 17:39-0400 Body temperature 98.01 [degF] Ori Pendlebury SECURITY FIELD SUPERVISOR.WIDE [employer]IE[employer] GOODS INSPECTOR Work Phone: [facility] 04-14-2023 17:39-0400 Body weight 66.95 kg Ori Pendlebury SECURITY FIELD SUPERVISOR.WIDE [employer] GOODS INSPECTOR Work Phone: [facility] 04-14-2023 17:39-0400 Diastolic blood pressure 76 mm[Hg] Ori Pendlebury SECURITY FIELD SUPERVISOR.WIDE PIECE GOODS INSPECTOR Work Phone: [facility] 04-14-2023 17:39-0400 Heart rate 74 /min Ori Pendlebury SECURITY FIELD SUPERVISOR.WIDE [employer]IE[employer] GOODS INSPECTOR Work Phone: [facility] 04-14-2023 17:39-0400 Respiratory rate 18 /min Ori Pendlebury SECURITY FIELD SUPERVISOR.WIDE PIECE GOODS INSPECTOR Work Phone: [facility] 04-14-2023 17:39-0400 SaO2% (BldA) [Mass fraction] 100 % Ori Pendlebury SECURITY FIELD SUPERVISOR.WIDE PIECE GOODS INSPECTOR Work Phone: [facility] 04-14-2023 17:39-0400 Systolic blood pressure 111 mm[Hg] Ori Pendlebury SECURITY FIELD SUPERVISOR.WIDE PIE[employer] GOODS INSPECTOR Work Phone: [facility] 03-06-2023 19:47-0400 Body temperature 97.2 [degF] Ori Pendlebury SECURITY FIELD SUPERVISOR.WIDE [employer]CE GOODS INSPECTOR Work Phone: [facility] 03-06-2023 19:47-0400 Body weight 68.04 kg Ori Pendlebury SECURITY FIELD SUPERVISOR.W[employer] GOODS INSPECTOR Work Phone: [facility] 03-06-2023 19:47-0400 Diastolic blood pressure 80 mm[Hg] Ori Pendlebury SECURITY FIELD SUPERVISOR.WIDE PIECE GOODS INSPECTOR Work Phone: [facility] 03-06-2023 19:47-0400 Heart rate 78 /min Ori Pendlebury SECURITY FIELD SUPERVISOR.WIDE PIECE GOODS INSPECTOR Work Phone: [facility] 03-06-2023 19:47-0400 Respiratory rate 16 /min Ori Pendlebury SECURITY FIELD SUPERVISOR.WIDE PIECE GOODS INSPECTOR Work Phone: [facility] 03-06-2023 19:47-0400 SaO2% (BldA) [Mass fraction] 98 % Ori Pendlebury SECURITY FIELD SUPERVISOR.WIDE PIECE GOODS INSPECTOR Work Phone: [facility] 03-06-2023 19:47-0400 Systolic blood pressure 126 mm[Hg] Ori Pendlebury SECURITY FIELD SUPERVISOR.W[employer]IE[employer] GOODS INSPECTOR Work Phone: [facility] 10-10-2022 15:58-0500 Body temperature 96.4 [degF] Kishor Valle MD Work Phone: [facility] 10-10-2022 15:58-0500 Body weight 84.91 kg Kishor Valle MD Work Phone: [facility] 10-10-2022 15:58-0500 Diastolic blood pressure 64 mm[Hg] Kishor Valle MD Work Phone: [facility] 10-10-2022 15:58-0500 Heart rate 76 /min Kishor Valle MD Work Phone: [facility] 10-10-2022 15:58-0500 Respiratory rate 20 /min Kishor Valle MD Work Phone: [facility] 10-10-2022 15:58-0500 SaO2% (BldA) [Mass fraction] 100 % Kishor Valle MD Work Phone: [facility] 10-10-2022 15:58-0500 Systolic blood pressure 100 mm[Hg] Kishor Valle MD Work Phone: [facility] 10-03-2022 18:33-0500 Body temperature 98.06 [degF] BRADLY COLE MD [facility] 10-03-2022 18:33-0500 Body weight 77.3 kg BRADLY COLE MD [facility] 10-03-2022 18:33-0500 Diastolic Blood Pressure Non-Invasive 81 1 BRADLY COLE MD [facility] 10-03-2022 18:33-0500 Heart rate 70 /min BRADLY COLE MD [facility] 10-03-2022 18:33-0500 Respiratory rate 16 /min BRADLY COLE MD [facility] 10-03-2022 18:33-0500 Systolic Blood Pressure Non-Invasive 119 1 BRADLY COLE MD [facility] 10-03-2022 17:32-0500 Body temperature 99.1 [degF] Suzette Praisler-Wood SECURITY FIELD SUPERVISOR.WIDE P[employer]CE GOODS INSPECTOR Work Phone: [facility] 10-03-2022 17:32-0500 Body weight 85.73 kg Suzette Praisler-Wood SECURITY FIELD SUPERVISOR.WIDE [employer] GOODS INSPECTOR Work Phone: [facility] 10-03-2022 17:32-0500 Diastolic blood pressure 96 mm[Hg] Suzette Praisler-Wood SECURITY FIELD SUPERVISOR.WIDE PIECE GOODS INSPECTOR Work Phone: [facility] 10-03-2022 17:32-0500 Heart rate 98 /min Suzette Praisler-Wood SECURITY FIELD SUPERVISOR.WIDE [employer]CE GOODS INSPECTOR Work Phone: [facility] 10-03-2022 17:32-0500 Respiratory rate 18 /min Suzette Praisler-Wood SECURITY FIELD SUPERVISOR.WIDE PIECE GOODS INSPECTOR Work Phone: [facility] 10-03-2022 17:32-0500 SaO2% (BldA) [Mass fraction] 99 % Suzette Praisler-Wood SECURITY FIELD SUPERVISOR.WIDE PIECE GOODS INSPECTOR Work Phone: [facility] 10-03-2022 17:32-0500 Systolic blood pressure 146 mm[Hg] Suzette Praisler-Wood SECURITY FIELD SUPERVISOR.WIDE PIECE GOODS INSPECTOR Work Phone: [facility] 09-30-2022 13:29-0500 Body temperature 98.01 [degF] Suzette Praisler-Wood SECURITY FIELD SUPERVISOR.WIDE PIECE GOODS INSPECTOR Work Phone: [facility] 09-30-2022 13:29-0500 Body weight 86.09 kg Suzette Praisler-Wood SECURITY FIELD SUPERVISOR.WIDE [employer] GOODS INSPECTOR Work Phone: [facility] 09-30-2022 13:29-0500 Diastolic blood pressure 66 mm[Hg] Suzette Praisler-Wood SECURITY FIELD SUPERVISOR.WIDE P[employer]CE GOODS INSPECTOR Work Phone: [facility] 09-30-2022 13:29-0500 Heart rate 93 /min Suzette Praisler-Wood SECURITY FIELD SUPERVISOR.WIDE P[employer] GOODS INSPECTOR Work Phone: [facility] 09-30-2022 13:29-0500 Respiratory rate 18 /min Suzette Praisler-Wood SECURITY FIELD SUPERVISOR.WIDE PIECE GOODS INSPECTOR Work Phone: [facility] 09-30-2022 13:29-0500 SaO2% (BldA) [Mass fraction] 97 % Suzette Praisler-Wood SECURITY FIELD SUPERVISOR.WIDE PIECE GOODS INSPECTOR Work Phone: [facility] 09-30-2022 13:29-0500 Systolic blood pressure 98 mm[Hg] Suzette Praisler-Wood SECURITY FIELD SUPERVISOR.WIDE P[employer]CE GOODS INSPECTOR Work Phone: [facility] 09-27-2022 19:34-0500 Body temperature 97.3 [degF] Seth Chuckie SECURITY FIELD SUPERVISOR.WIDE PIECE GOODS INSPECTOR Work Phone: [facility] 09-27-2022 19:34-0500 Body weight 87.54 kg Seth Chuckie SECURITY FIELD SUPERVISOR.WIDE PIECE GOODS INSPECTOR Work Phone: [facility] 09-27-2022 19:34-0500 Diastolic blood pressure 72 mm[Hg] Seth Chuckie SECURITY FIELD SUPERVISOR.WIDE PIECE GOODS INSPECTOR Work Phone: [facility] 09-27-2022 19:34-0500 Heart rate 86 /min Seth Chuckie SECURITY FIELD SUPERVISOR.WIDE PIE[employer] GOODS INSPECTOR Work Phone: [facility] 09-27-2022 19:34-0500 Respiratory rate 16 /min Seth Chuckie SECURITY FIELD SUPERVISOR.WIDE PIECE GOODS INSPECTOR Work Phone: [facility] 09-27-2022 19:34-0500 SaO2% (BldA) [Mass fraction] 98 % Seth Chuckie SECURITY FIELD SUPERVISOR.WIDE PIECE GOODS INSPECTOR Work Phone: [facility] 09-27-2022 19:34-0500 Systolic blood pressure 110 mm[Hg] Seth Chuckie SECURITY FIELD SUPERVISOR.WIDE PIECE GOODS INSPECTOR Work Phone: [facility] 09-24-2022 12:51-0500 Body temperature 98.2 [degF] Hillary Amelia SECURITY FIELD SUPERVISOR.WIDE PIECE GOODS INSPECTOR Work Phone: [facility] 09-24-2022 12:51-0500 Body weight 85.73 kg Hillary Amelia SECURITY FIELD SUPERVISOR.WIDE PIECE GOODS INSPECTOR Work Phone: [facility] 09-24-2022 12:51-0500 Diastolic blood pressure 70 mm[Hg] Hillary Amelia SECURITY FIELD SUPERVISOR.WIDE PIECE GOODS INSPECTOR Work Phone: [facility] 09-24-2022 12:51-0500 Heart rate 91 /min Hillary Bhagatk SECURITY FIELD SUPERVISOR.WIDE PIECE GOODS INSPECTOR Work Phone: [facility] 09-24-2022 12:51-0500 SaO2% (BldA) [Mass fraction] 98 % Hillary Bhagatk SECURITY FIELD SUPERVISOR.WIDE PIECE GOODS INSPECTOR Work Phone: [facility] 09-24-2022 12:51-0500 Systolic blood pressure 110 mm[Hg] Hillary Cisneros SECURITY FIELD SUPERVISOR.WIDE PIECE GOODS INSPECTOR Work Phone: [facility] 05-09-2022 10:19-0400 Body temperature 97.39 [degF] Luisa Bogner PA-C Work Phone: [facility] 05-09-2022 10:19-0400 Body weight 81.47 kg Luisa Bogner PA-C Work Phone: [facility] 05-09-2022 10:19-0400 Diastolic blood pressure 82 mm[Hg] Luisa Bogner PA-C Work Phone: [facility] 05-09-2022 10:19-0400 Heart rate 93 /min Luisa Bogner PA-C Work Phone: [facility] 05-09-2022 10:19-0400 Respiratory rate 18 /min Luisa Bogner PA-C Work Phone: [facility] 05-09-2022 10:19-0400 SaO2% (BldA) [Mass fraction] 97 % Luisa Bogner PA-C Work Phone: [facility] 05-09-2022 10:19-0400 Systolic blood pressure 126 mm[Hg] Luisa Bogner PA-C Work Phone: [facility] 03-08-2022 10:40-0400 Body temperature 97.59 [degF] Margie Grayson SECURITY FIELD SUPERVISOR.WIDE PIECE GOODS INSPECTOR Work Phone: [facility] 03-08-2022 10:40-0400 Diastolic blood pressure 76 mm[Hg] Margie Grayson APRN.WIDE [employer]IECE GOODS INSPECTOR Work Phone: [facility] 03-08-2022 10:40-0400 Heart rate 93 /min Margie Grayson APRN.WIDE PIECE GOODS INSPECTOR Work Phone: [facility] 03-08-2022 10:40-0400 Respiratory rate 18 /min Margie Grayson APRN.WIDE PIECE GOODS INSPECTOR Work Phone: [facility] 03-08-2022 10:40-0400 SaO2% (BldA) [Mass fraction] 98 % Margie Grayson APRN.WIDE PIECE GOODS INSPECTOR Work Phone: [facility] 03-08-2022 10:40-0400 Systolic blood pressure 122 mm[Hg] Margie Grayson APRN.WIDE PIECE GOODS INSPECTOR Work Phone: [facility] 02-02-2022 22:46-0400 Diastolic blood pressure 65 mm[Hg] Gene Hair MD Work Phone: [facility] 02-02-2022 22:46-0400 Heart rate 85 /min Gene Hair MD [facility] 02-02-2022 22:46-0400 Respiratory rate 16 /min Gene Hair MD [facility] 02-02-2022 22:46-0400 SaO2% (BldA) [Mass fraction] 100 % Gene Hair MD Work Phone: [facility] 02-02-2022 22:46-0400 Systolic blood pressure 100 mm[Hg] Gene Hair MD [facility] 02-02-2022 21:13-0400 Body temperature 98.4 [degF] Gene Hair MD [facility] 02-02-2022 21:13-0400 Body weight 74.84 kg Gene Hair MD [facility] 04-03-2018 15:00-0400 BMI (Body Mass Index) 20.77 kg/m2 Gretel Tapia [facility] Internal Medicine Work Phone: 04-03-2018 15:00-0400 Body Temperature 97.6 [degF] Gretel Tapia [facility] Work Phone: Encounters Encounter Date Encounter Type Care Provider Facility Start: 07-04-2023 End: 07-04-2023 ambulatory ROSA MCCOY Facility:[facility] Start: 07-04-2023 End: 07-04-2023 Patient encounter procedure Anna Almendarez PA-C Work Phone: [facility] Procedures Date Procedure Procedure Detail Performing Clinician Start: 07-04-2023 STREP A MOLECULAR (POC) Seth Noguera SECURITY FIELD SUPERVISOR.WIDE [employer]IECE GOODS INSPECTOR Work Phone: Start: 09-30-2022 STREP A MOLECULAR (POC) Suzette duncan SECURITY FIELD SUPERVISOR.WIDE PIECE GOODS INSPECTOR Work Phone: Start: 05-09-2022 End: 05-09-2022 Urnls dip stick/tablet rgnt auto w/o microscopy Kishor Valle MD Work Phone: Start: 03-08-2022 STREP A MOLECULAR (POC) Margie Grayson SECURITY FIELD SUPERVISOR.WIDE PIECE GOODS INSPECTOR Work Phone: Start: 06-15-2018 End: 06-15-2018 Internal Medicine Office Visit Comments: See Note; NOTES: [facility] [place] [address] OFFICE VISIT Date of Service: 06/13/18 MR#: [id number] Acct: [id number] Name: MOJGAN CORBETT Rep #: [id number] : 1990 Provider: Yessi Willard NP Age/Sex: 27/F Location: [facility] Status: Signed Intake Vital Signs06/13/18 Height 5 ft 3 in 06/13/18 Weight: 127 lb 06/13/18 Body Mass Index (BMI) 22.4 06/13/18 Blood Pressure 94/60 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 she denies any [...] 2 weeks. She is following up with [facility] next week for this. A test was [...] CC: Gretel Tapia Start: 02-06-2018 End: 02-06-2018 Department Helper Office Visit Report Comments: See Note; NOTES: [facility] [address] [place] [address]. [address] [place] [address] OFFICE VISIT Date of Service: 02/06/18 MR#: [id number] Acct: [id number] Name: MOJGAN CORBETT Rep #: [id number] : 1990 Provider: TARSHA Marie Age/Sex: 27/F Location: [facility] Status: Signed Intake Vital Signs02/06/18 Height 5 [...] period known: Yes Last Menstral Period: 01/05/18 [facility] Social History Smoking Status: Never smoker HPI [...] 01-23-2018 Esophagus Only Comments: See Note; NOTES: [facility] Imaging Services [address] [place] [address] Esophagus Only MR#: [id number] Acct: [id number] Name: MOJGAN CORBETT Rep #: [id number] : 1990 F 27 From: Nitin Young MD PCP: Gretel Tapia DO Status: REG CLI Study: Esophagus Only Date of Exam: 01/23/18 Exam# [id number] Ordering Dr: Gretel Tapia DO STUDY: X-RAY [...] Nitin Young MD at 13:31 EDT Tel [phone], Service support , CC: Gretel Tapia DO Contract Runner: Signed Gretel Tapia Work Phone: Start: 12-22-2017 End: 12-22-2017 Emergency Department Summary Comments: See Note; NOTES: [facility] Medical Records Department [address] [facility] [place] [place] [address] Emergency Department Summary 12/22/17 1840 MR#: [id number] Acct: [id number] Name: MOJGAN CORBETT Rep #: [id number] : 1990 27 From: Delbert Bass MD [...] to hypothyroidism This note was generated with Door 6ation software. It may contain incorrect words, spelling, [...] problems, contact your Primary Care Provider. Call [facility] ([phone]) or report to the closest Emergency Room. Call 911 if necessary. 12/22/171940 <Electronically signed by Delbert Bass MD> Date Delbert Bass MD Cosigner Signature (If Indicated): Date CC: Gretel Shelley Start: 12-22-2017 End: 12-22-2017 Office Visit Report Comments: See Note; NOTES: [place] [address] [address] [place] [address] OFFICE VISIT Date of Service: 12/22/17 MR#: [id number] Acct: [id number] Patient: MOJGAN CORBETT Rep #: [id number] : 1990 Provider: Venkat ENCINAS Age/Sex: 27/F Location: [facility] Status: Signed Intake Vital Signs12/22/17 Body Mass [...] PO TID PRN Muscle Spasm g 12/22/17 1853 <Electronically signed by Venkat ENCINAS> Date Venkat ENCINAS Cosigner Signature: Date (if applicable) CC: Gretel Tapia Start: 12-22-2017 End: 12-22-2017 Urgent Care Visit Report Comments: See Note; NOTES: [facility] [address] [place] [address] OFFICE VISIT Date of Service: 12/22/17 MR#: [id number] Acct: [id number] Name: BERTAMOJGAN K Rep #: [id number] : 1990 Provider: Venkat ENCINAS Age/Sex: 27/F Location: [facility] Status: Signed Intake Vital Signs12/22/17 Height 5 [...] 25 Days #18 12/22/17 [History Confirmed 12/22/17] [facility] Social History Smoking Status: Never smoker HPI [...] fatigue Exam Const General: cooperative, healthy appearing [facility] Head: normocephalic, atraumatic Ears: hearing grossly normal [...] the above. This note was generated with The 5th Base dictation software. It may contain incorrect words, spelling, and punctuation that were not noted in checking the note before signing. Medications Discontinued: cyclobenzaprine Discontinued Reason: Pt no longer takin10 mg PO TID PRN Muscle Spasm g Coding Level of Care Code Off vis,est,level 3 Diagnoses Positional lightheadedness R42 12/22/17 3515 <Electronically signed by Venkat ENCINAS> Date Venkat ENCINAS Cosigner Signature: Date (if applicable) CC: Gretel Tapia Start: 10-27-2017 End: 10-27-2017 Discharge Instruction Comments: See Note; NOTES: [facility] Medical Records Department [address] [place] [address] Discharge Instruction 10/27/17 0107 MR#: [id number] Acct: [id number] Name: MOJGAN CORBETT Rep #: [id number] : 1990 26 From: Donavan Watt MD [...] your Primary Care Provider. Call [facility] ([phone]) or report to the closest Emergency Room. Call 911 if necessary. 10/27/17 0108 <Electronically signed by Donavan Watt MD> Date Donavan Watt MD Cosigner Signature (If Indicated): Date CC: Gretel Shelley Start: 10-27-2017 End: 10-27-2017 Emergency Department Summary Comments: See Note; NOTES: [facility] Medical Records Department [address] [place] [address] Emergency Department Summary 10/27/17 0106 MR#: [id number] Acct: [id number] Name: MOJGAN CORBETT Rep #: [id number] : 1990 26 From: Donavan Watt MD [...] trapezius strain This note was generated with The 5th Base dictation software. It may contain incorrect words, [...] problems, contact your Primary Care Provider. Call [facility] ([phone]) or report to the closest Emergency Room. Call 911 if necessary. 10/27/17 0107 <Electronically signed by Donavan Watt MD> Date Donavan Watt MD Cosigner Signature (If Indicated): Date CC: Gretel Shelley Start: 05-18-2017 End: 05-19-2017 Hepatobilliary Imaging Comments: See Note; NOTES: [facility] Imaging Services [address] [place] [address] Hepatobilliary Imaging MR#: [id number] Acct: [id number] Name: BERTAMOJGAN [place] Rep #: [id number] : 1990 F 26 From: Cole Bains DO PCP: Gretel Tapia DO Status: [facility] CLI Study: Hepatobilliary Imaging Date of Exam: 05/18/17 Exam# [id number] Ordering Dr: Gretel Tapia DO CLINICAL: 26-year-old [...] Service support , CC: Gretel Tapia DO Contract Runner: Signed Gretel Tapia Work Phone: Start: 05-13-2017 End: 05-13-2017 Abdomen Complete Comments: See Note; NOTES: [facility] Imaging Services [address] [place] [address] Abdomen Complete MR#: [id number] Acct: [id number] Name: MOJGAN CORBETT Rep #: [id number] : 1990 F 26 From: Harvey Moyer DO PCP: Gretel Tapia DO Status: REG CLI Study: Abdomen Complete Date of Exam: 05/13/17 Exam# [id number] Ordering Dr: Gretel Tapia DO STUDY: ABDOMINAL [...] Service support , CC: Gretel Tapia DO Contract Runner: Signed Gretel Tapia Work Phone: Start: 05-12-2017 End: 05-12-2017 Pelvic (Non ) Comments: See Note; NOTES: [facility] Imaging Services [address] [place] [address] Pelvic (Non ) MR#: [id number] Acct: [id number] Name: MOJGAN CORBETT Rep #: [id number] : 1990 F 26 From: Lyndsay Bradford MD PCP: Gretel Tapia DO Status: REG CLI Study: Pelvic (Non ) Date of Exam: 05/12/17 Exam# [id number] Ordering Dr: Gretel Tapia DO STUDY: ULTRASOUND [...] Lyndsay Bradford MD at 18:26 EDT Tel [phone], Service support , CC: Gretel Tapia DO Contract Runner: Signed Gretel Tapia Work Phone: Start: 05-12-2017 End: 05-12-2017 Transvaginal Non- Comments: See Note; NOTES: [facility] Imaging Services [address] [place] [address] Transvaginal Non- MR#: [id number] Acct: [id number] Name: MOJGAN CORBETT Rep #: [id number] : 1990 F 26 From: Lyndsay Bradford MD PCP: Gretel Tapia DO Status: REG CLI Study: Transvaginal Non- Date of Exam: 05/12/17 Exam# [id number] Ordering Dr: Gretel Tapia DO STUDY: ULTRASOUND [...] Lyndsay Bradford MD at 18:26 EDT Tel [phone], Service support , CC: Gretel Tapia DO Contract Runner: Signed Gretel Tapia Work Phone: Start: 11-05-2016 End: 11-05-2016 Discharge Instruction Comments: See Note; NOTES: [facility] Medical Records Department [address] [place] [address] Discharge Instruction 10/26/16 1820 MR#: [id number] Acct: [id number] Name: MOJGAN CORBETT Rep #: [id number] : 1990 25 From: Justo Graf PCP: [...] your Primary Care Provider. Call [facility] ([phone]) or report to the closest Emergency Room. Call 911 if necessary. 11/01/16 1903 <Electronically signed by Justo Graf > Date Justo Graf 11/05/16 0808<Electronically signed by Percy Sanchez MD> Cosigner Signature (If Indicated): Date Percy Sanchez MD CC: Gretel Shelley Start: 10-31-2016 End: 10-31-2016 12 lead ECG Comments: See Note; NOTES: [facility] Cardiovascular Services [address] [place] [address] 12 Lead EKG 10/26/161731 MR#: [id number] Acct: [id number] Name: MOJGAN CORBETT Rep #: [id number] : 1990 From: Jonh Franco MD Attending Dr: Status: DEP ER [...] ECG Confirmed by CALLIE PADILLA, JOHN ([id number]), editorial writer DONYA BUSTAMANTE ([id number]) on 10/31/2016 3:16:16 PM Referred By: GOYO Confirmed By:JOHN FRANCO MD 10/31/16 1516 Date John Franco MD CC: Gretel Tapia DO Date Dictated: 10/26/161731 Date Transcribed: 10/26/161731 Contract Runner: Signed Gretel Tapia Start: 10-27-2016 End: 10-27-2016 Emergency Department Summary Comments: See Note; NOTES: [facility] Medical Records Department [address] [place] [address] Emergency Department Summary MR#: [id number] Acct: [id number] Name: MOJGAN CORBETT Rep #: [id number] : 1990 25 From: Justo Graf PCP: [...] in nature. She has not seen her VP MEDICAL for this complaint. She does not have [...] CLINICAL IMPRESSION: Costochondritis. Justo Graf MD T: [facility] JOB: [id number] Date Justo Graf 10/27/16 0055 <Electronically signed by Percy Sanchez MD> Cosigner Signature (If Indicated): Date Bert Sanchez MD CC: Gretel Tapia DO Date Dictated: 10/26/161823 Date Transcribed: 10/26/161823 Contract Runner: Signed Gretel Tapia Start: 10-26-2016 End: 10-26-2016 Chest PA and Lateral Comments: See Note; NOTES: [facility] Imaging Services [address] [place] [address] Verdana 4d Chest PA and Lateral MR#: [id number] Acct: [id number] Name: BERTAMOJGAN Charlotte Rep #: [id number] : 1990 F 25 From: Reddy Peralta DO PCP: Gretel Tapia DO Status: REG ER Study: Chest PA and Lateral Date of Exam: 10/26/16 Exam# [id number] Ordering Dr: Justo Graf STUDY: X-RAY CHEST [...] Reddy Peralta DO at 18:09 EDT Tel [phone], Service support [phone], CC: JUSTO GRAF M.D.; Gretel Tapia DO Contract Runner: Signed Gretel Tapia Work Phone: Start: 08-29-2016 End: 08-29-2016 Discharge Instruction Comments: See Note; NOTES: [facility] Medical Records Department [address] [place] [address] Discharge Instruction 08/27/16 0345 MR#: [id number] Acct: [id number] Name: MOJGAN CORBETT Rep #: [id number] : 1990 25 From: Pablo Castillo MD [...] your Primary Care Provider. Call [facility] ([phone]) or report to the closest Emergency Room. Call 911 if necessary. 08/29/162 <Electronically signed by Pablo Castillo MD> Date Pablo Castillo MD Cosigner Signature (If Indicated): Date CC: Gretel Shelley Start: 08-29-2016 End: 08-29-2016 Emergency Department Summary Comments: See Note; NOTES: [facility] Medical Records Department [address] [place] [address] Emergency Department Summary MR#: [id number] Acct: [id number] Name: MOJGAN CORBETT Rep #: [id number] : 1990 25 From: Pablo Castillo MD PCP: Gretel Tapia DO Status: [facility] DATE OF SERVICE: 08/27/2016 CHIEF COMPLAINT: Right [...] pimple. Pablo Castillo MD T: [facility] JOB: [id number] 08/29/162 <Electronically signed by Pablo Castillo MD> Date Pablo Castillo MD Cosigner Signature (If Indicated): Date CC: Gretel Tapia DO Date Dictated: 08/27/16348 Date Transcribed: 08/27/16348 Contract Runner: Signed Gretel Tapia Start: 05-09-2016 End: 05-09-2016 Esophagus Only Comments: See Note; NOTES: [facility] Imaging Services [address] [place] [address] Verdana 4d Esophagus Only MR#: [id number] Acct: [id number] Name: MOJGAN CORBETT Rep #: [id number] : 1990 F 25 From: Nitin Young MD PCP: Gretel Tapia DO Status: REG CLI Study: Esophagus Only Date of Exam: 05/09/16 Exam# [id number] Ordering Dr: Percy Morales MD STUDY: X-RAY [...] Nitin Young MD at 10:35 EDT Tel [phone], Service support [phone], CC: Bert Morales MD; Gretel Tapia DO Contract Runner: Signed Gretel Tapia Start: 04-24-2016 End: 04-24-2016 OB Triage Physician Note Comments: See Note; NOTES: [facility] Medical Records Department [address] [place] [address] OB Triage Physician Note 04/24/16 1330 MR#: [id number] Acct: [id number] Name: MOJGAN CORBETT Rep #: [id number] : 1990 25 From: Lyndsay Arevalo DO PCP: Gretel Tapia DO Status: [facility] CLI Y Location: [facility] History [...] Triage Physician Note Comments: See Note; NOTES: [facility] Medical Records Department [address] [place] [address] OB Triage Physician Note 03/16/16800 MR#: [id number] Acct: [id number] Name: MOJGAN CORBETT Rep #: [id number] : 1990 25 From: Lyndsay Arevalo DO PCP: Gretel Tapia DO Status: [facility] CLI Y Location: [facility] History of Present Illness - History [...] Triage Physician Note Comments: See Note; NOTES: [facility] Medical Records Department [address] [place] [address] OB Triage Physician Note 04/01/16 1311 MR#: [id number] Acct: [id number] Name: MOJGAN CORBETT Rep #: [id number] : 1990 25 From: Lyndsay Arevalo DO PCP: Gretel Tapia DO Status: [facility] Y Location: [facility] History of Present Illness - History [...] Brain without Contrast Comments: See Note; NOTES: [facility] Imaging Services [address] [place] [address] Verdana 4d Brain without Contrast MR#: [id number] Acct: [id number] Name: MOJGAN CORBETT Rep #: [id number] : 1990 F 25 From: Ori Green MD PCP: Gretel Tapia DO Status: REG CLI Study: Brain without Contrast Date of Exam: 03/24/16 Exam# [id number] Ordering Dr: Mari Meza MD STUDY: MRI [...] MD at 18:08 EDT , Service support [phone], CC: Mari Meza MD; Gretel Tapia DO Contract Runner: Signed Mari Meza Work Phone: Start: 03-21-2016 Adult depression screening assessment Margie Grayson APRN.CNP Work Phone: Start: 03-16-2016 End: 03-16-2016 OB Triage Physician Note Comments: See Note; NOTES: [facility] Medical Records Department [address] [place] [address] OB Triage Physician Note 03/16/16 0801 MR#: [id number] Acct: [id number] Name: MOJGAN CORBETT Rep #: [id number] : 1990 25 From: Lyndsay Arevalo DO PCP: Gretel Tapia DO Status: [facility] Y Location: [facility] History of Present Illness - History [...] Triage Physician Note Comments: See Note; NOTES: [facility] Medical Records Department [address] [place] [address] OB Triage Physician Note 03/03/169 MR#: [id number] Acct: [id number] Name: MOJGAN CORBTET Rep #: [id number] : 1990 25 From: Patti Temple MD PCP: Gretel Tapia DO Status: REG CLI Y Location: [place] [id number] History of Present Illness - History of [...] Triage Physician Note Comments: See Note; NOTES: [facility] Medical Records Department [address] [place] [address] OB Triage Physician Note 02/10/16 0813 MR#: [id number] Acct: [id number] Name: MOJGAN CORBETT Rep #: [id number] : 1990 25 From: Patti Temple MD [...] Triage Physician Note Comments: See Note; NOTES: [facility] Medical Records Department [address] [place] [address] OB Triage Physician Note 02/09/16706 MR#: [id number] Acct: [id number] Name: MOJGAN CORBETT Rep #: [id number] : 1990 25 From: Letty Gonzalez MD PCP: Gretel Tapia DO Status: DEP CLI Y Location: [facility] History of Present Illness - History [...] Function Report Comp Comments: See Note; NOTES: [facility] Pulmonary Services/Neurology [address] [place] [address] Pulmonary Function Test (Comp) MR#: [id number] Acct: [id number] Name: MOJGAN CORBETT Rep #: [id number] : 1990 From: Cristopher Bosch MD Referring Dr: Mandie Gandhi Status: REG CLI Ordering Dr: Mandie Gandhi Date: 12/08/15 Location: [facility] Sex: F C DATE OF [...] ESPITIA C: Mandie Gandhi T: [facility] JOB: [id number] 12/10/15 0452 <Electronically signed by Cristopher Bosch MD> Date Cristopher Bosch MD CC: Mandie Gandhi; Cristopher Bosch MD; Gretel Tapia DO Date Dictated: 12/09/15 0759 Date Transcribed: 12/09/15758 Contract Runner: Signed Carolann Oksana Work Phone: Start: 12-02-2015 End: 12-02-2015 Echocardiogram Complete Comments: See Note; NOTES: [facility] Cardiovascular Services [address] [place] [address] Echo Complete 12/02/15 1402 MR#: [id number] Acct: [id number] Name: MOJGAN CORBETT Rep #: [id number] : 1990 From: Ubaldo Nye MD Attending Dr: Chas Mcclain MD Status: REG CLI Ordering Dr: Chas Mcclain MD Date: 12/02/15 Location: [facility] Sex: F C Admitted: Reason For Study: [...] Dictated: 12/02/15 1402 Date Transcribed: 12/02/15 1554 Contract Runner: Signed Gretel Tapia Start: 11-24-2015 End: 11-24-2015 12 lead ECG Comments: See Note; NOTES: [facility] Cardiovascular Services [address] [place] [address] 12 Lead EKG 11/20/15 1716 MR#: [id number] Acct: [id number] Name: MOJGAN CORBETT Rep #: [id number] : 1990 25 From: John Franco MD [...] ECG Confirmed by CALLIE PADILLA, JOHN ([id number]), editorial writer DONYA BUSTAMANTE ([id number]) on 11/24/2015 12:53:14 PM Referred By: WOLFGANG Confirmed By:JOHN FRANCO MD 11/24/15 1253 Date John Franco MD CC: Gretel Tapia DO Date Dictated: 11/20/151715 Date Transcribed: 11/20/151715 Contract Runner: Signed Gretel Tapia Start: 11-24-2015 End: 11-24-2015 Spmtry w/vc expiratory yara w/wo mxml vol vntj _ Mandie Gandhi Work Phone: Start: 11-21-2015 End: 11-21-2015 Emergency Department Summary Comments: See Note; NOTES: [facility] Medical Records Department [address] [place] [address] Emergency Department Summary MR#: [id number] Acct: [id number] Name: MOJGAN CORBETT Rep #: [id number] : 1990 25 From: Chas Mcclain MD [...] DISPOSITION: Discharge. Dr. Chas Mcclain MD T: [facility] JOB: [id number] 11/21/152024 <Electronically signed by Chas Mcclain MD> Date Chas Mcclain MD Cosigner Signature (If Indicated): Date _ CC: Gretel Tapia DO Date Dictated: 11/20/151812 Date Transcribed: 11/20/151812 Contract Runner: Signed Gretel Tapia Start: 11-20-2015 End: 11-20-2015 Discharge Instruction Comments: See Note; NOTES: [facility] Medical Records Department [address] [place] [address] Discharge Instruction 11/20/151812 MR#: [id number] Acct: [id number] Name: BERTAMOJGAN CHERY Rep #: [id number] : 1990 25 From: Chas Mcclain MD PCP: Gretel Tapia DO Status: REG ER ED Disposition - Plan for ED Patient: Chief Complaint: Bite Instructions: ED Cellulitis Skin Infection What to do if you have Problems For any increased pain, shortness of breath, bleeding, nausea or vomiting, chest pain, or any unexpected problems, contact your doctor. Call [facility] ([phone]) or report to the closest Emergency Room. Call 911 if necessary. 11/20/151813 <Electronically signed by Chas Mcclain MD> Date Chas Mcclain MD Cosigner Signature (If Indicated): Date CC: Gretel Shelley Start: 05-18-2015 End: 05-19-2015 Thyroid Comments: See Note; NOTES: [facility] Imaging Services [address] [place] [address] Ultrasound Report MR#: [id number] Acct: [id number] Name: MOJGAN CORBETT Rep #: [id number] : 1990 F 24 From: Nitin Young MD PCP: Gretel Tapia DO Status: REG CLI Study: Thyroid Date of Exam: 05/18/15 Exam# [id number] Ordering Dr: Gretel Tapia DO STUDY: THYROID [...] Nitin Young MD at 12:27 EDT Tel [phone], Service support [phone], CC: Gretel Tapia DO Contract Runner: Signed Gretel Tapia Work Phone: Start: 05-01-2015 End: 05-01-2015 Spmtry w/vc expiratory yara w/wo mxml vol vntj _ Mandie Gandhi Work Phone: Plan of Treatment Date Care Activity Detail Author Start: 2038 Shingles (RZV) Vacci ne (1 of 2) Shingles (RZV) Vaccine (1 of 2) [facility] Start: 04-07-2023 Influenza vaccination [facility] Start: 08-07-2022 DEPRESSION ASSESSMENT DEPRESSION ASS ESSMENT [facility] Start: 05-09-2022 End: 07-09-2022 Bacteria identified in Urine by Culture [facility] Work Phone: Immunizations Immunization Date Immunization Notes Care Provider Venkat duarte 03-20-2007 tetanus toxoid, redu tim diphtheria toxoid, and acellular pertussis vaccine, adsorbed Magrie Grayson APRN.[facility] Work Phone: [facility] Work Phone: Payers Date Payer Category Payer Unknown [id number] 2021 Medicaid [id number] 2021 Medicaid [id number] 2021 Medicaid [employer] [id number] 2021-Present [phone] [address] [place] [address] Medicaid [id number] 1990 Unknown [id number] 1990 Unknown [id number] 1988 Unknown [id number] 1990 Unknown [id number] Unknown Social History Date Type Detail Facility Tobacco smoking status MEIS Tobacco smoking consumption unknown [facility] Start: 1990 [facility] Start: 02-03-2011 End: 09-24-2022 Tobacco smoking status NHIS Ex-smoker [facility] End: 08-07-2007 History of tobacco use Current smoker [facility] Work Phone: Start: 03-08-2022 End: 04-17-2023 Alcohol intake Current non-drinker of alcohol (finding) [facility] Start: 02-26-2022 End: 05-09-2022 Exposure to SARS-CoV-2 (event) Not sure [facility] Work Phone: End: 08-07-2007 History of tobacco use Cigarette Smoker [facility] Work Phone: Start: 02-03-2011 End: 09-24-2022 Tobacco use and exposure Smokeless tobacco non-user [facility] Work Phone: Tobacco smoking status Never smoked tobacco (finding) [facility] Sex Assigned At Sex [facility] Start: 07-15-2020 End: 03-06-2023 History of Social function [facility] Start: 07-15-2020 End: 03-06-2023 Tobacco use panel [facility] National Score (1-100), lower number is lower risk Not on file [facility] Functional Status Date Assessment Result Facility 10-03-2022 Functional Status Standard Safet y ID band on, Call device within reach, Bed in low position, Wheels locked, Upper/Half-Length side-rails up, Bedside Cart Locked, Safety level maintained [facility] Mental Status Date Assessment Result Facility 10-03-2022 Mental Status Orientation Oriented x 4 [facility] Clinical Notes 08-11-2015 to 07-04-2023 Anna Almendarez PA-C - 07/04/2023 7:49 AM Ori Love APRN.CNP - 04/17/2023 9:19 AM Ori Greer APRN.WIDE PIECE GOODS INSPECTOR - 04/14/2023 5:42 PM Crystal Valle MD - 10/10/2022 4:02 PM EST Note Date & Type Note Facility 07-04-2023 Note HNO ID: [id number] Author: Anna Almendarez PA-C Service: ? Author Type: Physician Powertrain Engineer Type: Progress Notes Filed: 07/04/2023 7:57 [...] STREP A MOLECULAR (POC) Anna Almendarez PA-C [facility] 07-04-2023 History of Present illness Narrative This note was created using MiNeedsriter. Subjective Mojgan Corbett is a 32 year [...] Anna Almendarez PA-C documented in this encounter [facility] 04-17-2023 Note HNO ID: [id number] Author: Ori Garcia APRN.WIDE PIECE GOODS INSPECTOR Service: ? Author Type: Nurse Practitioner Type: [...] OF WISDOM TEETH ALLERGIES Lactose and Poison [place] MEDICATIONS triamcinolone acetonide (KENALOG) 0.1 % cream [...] of care. This note was generated using The 5th Base software. It may contain errors in wording, punctuation, or spelling. Ori Garcia APRN.[facility] 04-17-2023 History of Present illness Narrative Images [...] OF WISDOM TEETH ALLERGIES Lactose and Poison [place] MEDICATIONS triamcinolone acetonide (KENALOG) 0.1 % cream [...] of care. This note was generated using The [employer] software. It may contain errors in wording, punctuation, or spelling. Ori Garcia APRN.ELLIOT documented in this encounter [facility] 04-14-2023 Note HNO ID: [id number] Author: Ori Garcia APRN.WIDE PIECE GOODS INSPECTOR Service: ? Author Type: Nurse Practitioner Type: [...] OF WISDOM TEETH ALLERGIES Lactose and Poison [place] MEDICATIONS levothyroxine (SYNTHROID) 25 mcg tablet ALBUTEROL [...] of care. This note was generated using The [employer] software. It may contain errors in wording, punctuation, or spelling. Ori Garcia APRN.[facility] 04-14-2023 History of Present illness Narrative Images [...] OF WISDOM TEETH ALLERGIES Lactose and Poison [place] MEDICATIONS levothyroxine (SYNTHROID) 25 mcg tablet ALBUTEROL [...] of care. This note was generated using The [employer] software. It may contain errors in wording, punctuation, or spelling. Ori Garcia APRN.ELLIOT documented in this encounter [facility] 03-06-2023 Note HNO ID: [id number] Author: Ori Garcia APRN.ELLIOT Service: ? Author [...] OF WISDOM TEETH ALLERGIES Lactose and Poison [place] MEDICATIONS levothyroxine (SYNTHROID) 25 mcg tablet ALBUTEROL [...] Objective Physical Exam Exam conducted with a dry talc racker present. Constitutional: General: She is not in [...] of care. This note was generated using The 5[employer] Base software. It may contain errors in wording, punctuation, or spelling. Ori Garcia APRN.ELLIOT [facility] 03-06-2023 Miscellaneous Notes Addended by: ORI GARCIA on: 03/06/2023 08:15 PM Modules accepted: Orders documented in this encounter [facility] 03-06-2023 History of Present illness Narrative [...] OF WISDOM TEETH ALLERGIES Lactose and Poison [place] MEDICATIONS levothyroxine (SYNTHROID) 25 mcg tablet ALBUTEROL [...] Objective Physical Exam Exam conducted with a dry talc racker present. Constitutional: General: She is not in [...] of care. This note was generated using The 5[employer] Base software. It may contain errors in wording, punctuation, or spelling. Ori Garcia APRN.ELLIOT documented in this encounter [facility] 10-10-2022 Note HNO ID: [id number] Author: Kishor Valle MD Service: ? Author [...] of uncontrolled ear pain and was given [place]. Her ear drained blood and clear fluid [...] ALLERGIES Allergen Reactions Lactose GI Upset Poison [place] Rash VITALS: BP 100/64 Pulse 76 Temp [...] anatomy and physiology reviewed. Kishor Valle MD [facility] 10-10-2022 History of Present illness Narrative Patient presents with: Ear Pain: left ear pain, SOUZA x 1 week HPI: Feeling left ear pain for 1 week. She was seen here and started on amoxicillin for left otitis media. She went to the ER then because of uncontrolled ear pain and was given [place]. Her ear drained blood and clear fluid [...] ALLERGIES Allergen Reactions Lactose GI Upset Poison [place] Rash VITALS: BP 100/64 Pulse 76 Temp [...] Kishor Valle MD documented in this encounter [facility] 10-03-2022 Hospital Discharge instructions Patient Education [...] directed by your healthcare provider Convulsion (seizure) [id number] [employer]. [address] [place] [address]. All rights reserved. This information is not intended as a substitute for professional medical care. Always follow your healthcare professional's instructions. Follow Up Care 10/03/2022 18:28:30 With:COLE SCOTT MD Address: [address] [address] [phone] When:2-4 days With:Go to emergency room if symptoms worsen Address:Unknown When:2-4 days [facility] 10-03-2022 Note HNO ID: [id number] Author: Suzette Perry APRN.WIDE PIECE GOODS INSPECTOR Service: ? Author Type: Nurse Practitioner Type: [...] OF WISDOM TEETH ALLERGIES Lactose and Poison [place] MEDICATIONS amoxicillin (AMOXIL) 875 mg tablet Take 1 tablet by mouth twice daily for 7 days. oseltamivir (TAMIFLU) 75 mg capsule Take 1 capsule by mouth twice daily for 5 days. (Patient not taking: Reported on 10/03/2022) mupirocin (BACTROBAN) 2 % ointment Apply 1 application to affected area three times daily for 10 days. (Patient not taking: Reported on 09/27/2022) pmbeoysekaLPKPO-yxvbwo-knzsuknfi (BMX 1:1:1) 1:1:1 liqd Mix in equal [...] Discussed expected course of illness Suzette Perry APRN.[facility] 10-03-2022 Note Discharge Instructions Thank you for allowing [facility] to assist you with your healthcare needs. The following is important discharge information regarding your hospital visit. Diagnosis from Today's Visit Otitis media Ear pain What to Do Next Instructions from Your Care Team Your prescription for amoxicillin 875 is ready to be picked up now at [facility] [place]. No qualifying data available. Post Acute Orders No qualifying data available. You Need to Schedule the Following Appointments Follow Up with COLE SCOTT MD When Within 2-4 days Where: [facility] [address] [place] [address]- [phone] Follow Up with Go to emergency room if symptoms worsen When Within 2-4 days Allergies NKA Medications Please ask your primary doctor or pharmacist before taking any other medication not listed, including over the counter drugs, herbal medications, vitamins and or supplements as they may interact with your home medications. What How Much When Why Instructions Last Dose New acetaminophen-hydrocodone ([place] 325- 5 mg oral tablet) 1 tab(s) [...] directed by your healthcare provider Convulsion (seizure) [id number] [employer]. [address] [place] [address], [place] [address]. All rights reserved. This information is not intended as a substitute for professional medical care. Always follow your healthcare professional's instructions. Additional Information VACCINATE! IT SAVES LIVES! Members of the community who have not yet received the COVID-19 vaccine and would like to receive it can visit one of [facility] vaccine clinics. There are many vaccine clinic locations within the [facility]. For locations and available times, please visit [email or web address]. gov/. It is important to note that some COVID mobile vaccine clinics are held outdoors and may be canceled in rainy or stormy conditions. To learn more about pediatric vaccinations (ages 5-11), we invite you to visit the [facility] webpage. https://www.[facility].org/p ages/9290-Ggiut-Xxttnaqdean-Freq tzxgyp-Pnnwq-Sskljizej.html To learn more about the COVID-19 vaccine, we invite you to visit the CDC website for a list of frequently asked questions. https://www.cdc.gov/coronavirus/ 2019-ncov/vaccines/faq.html [facility] Patient Portal Access Instructions: Stay connected with your healthcare team and access your personal medical information anytime with the [facility] Patient Portal. If you would like a full copy of your medical records please contact the [facility] Medical Records Department Monday through Monday between 8a.m. and 4:30p.m. Please follow the directions below to access the portal: 1.Access the email account you provided upon registration to the hospital.2.Look for an invitation email from [facility].3.Open the email and access the invitation link: Accept Invitation to [facility]4.Fill in the required [email or web address] to create your account. Sign into [email or web address] with your username and password that you [...] you will allow to register on the [facility] Patient Portal for access to your information. You can also access the [facility] Patient Portal on the [employer]. Simply click on Health Records under Health [...] Call your local pharmacy or go to [email or web address] to find one close to you.3.Make use of household items: Use cat litter or old coffee grounds to dispose medications if other options are not available. Mix your drugs with these household products, seal them in an airtight container and throw it into the garbage. Call [facility]: [phone] to be sure your drugs can be [...] aware that I should contact my doctor. Patient/Assurance Analyst Signature: Date/Time: Relationship to Patient: Witness Name/Signature: Date/Time: [facility] 10-03-2022 Emergency department Discharge summary Discharge Instructions Thank you for allowing [facility] to assist you with your healthcare needs. The following is important discharge information regarding your hospital visit. Diagnosis from Today's Visit Otitis media Ear pain What to Do Next Instructions from Your Care Team Your prescription for amoxicillin 875 is ready to be picked up now at [facility] in [place]. No qualifying data available. Post Acute Orders No qualifying data available. You Need to Schedule the Following Appointments Follow Up with COLE SCOTT MD When Within 2-4 days Where: [facility] [address] [place] [address]- [phone] Follow Up with Go to emergency room [...] directed by your healthcare provider Convulsion (seizure) [phone] [employer]. [address] [place] [address]. All rights reserved. This information is not intended as a substitute for professional medical care. Always follow your healthcare professional's instructions. Additional Information VACCINATE! IT SAVES LIVES! Members of the community who have not yet received the COVID-19 vaccine and would like to receive it can visit one of [facility] vaccine clinics. There are many vaccine clinic locations within the [facility]. For locations and available times, please visit [email or web address] It is important to note that some COVID mobile vaccine clinics are held outdoors and may be canceled in rainy or stormy conditions. To learn more about pediatric vaccinations (ages 5-11), we invite you to visit the [facility] webpage. [email or web address]://[email or web address] [email or web address]-Hdgtu-Hkqawkbikmm-Freq riosgo-[email or web address]-[email or web address].html To learn more about the COVID-19 vaccine, we invite you to visit the CDC website for a list of frequently asked questions. https://www.cdc.gov/coronavirus/ 2019-ncov/vaccines/faq.html [facility] Patient Portal Access Instructions: Stay connected with your healthcare team and access your personal medical information anytime with the [facility] Patient Portal. If you would like a full copy of your medical records please contact the [facility] Medical Records Department Monday through Monday between 8a.m. and 4:30p.m. Please follow the directions below to access the portal: 1.Access the email account you provided upon registration to the [facility].2.Look for an invitation email from [facility].3.Open the email and access the invitation link: Accept Invitation to [facility]4.Fill in the required rodriguez to create your account. Sign into [email or web address] with your username and password that you [...] you will allow to register on the [facility] Patient Portal for access to your information. You can also access the [facility] Patient Portal on the [employer]. Simply click on Health Records under Health Data and then click on the [employer] logo. HOW TO SAFELY DISPOSE OF PRESCRIPTION [...] Call your local pharmacy or go to http://[email or web address] to find one close to you.3.Make use of household items: Use cat litter or old coffee grounds to dispose medications if other options are not available. Mix your drugs with these household products, seal them in an airtight container and throw it into the garbage. Call [facility]: [phone] to be sure your drugs can be [...] aware that I should contact my doctor. Patient/Assurance Analyst Signature: Date/Time: Relationship to Patient: Witness Name/Signature: Date/Time: [facility] 10-03-2022 History of Present illness Narrative [...] OF WISDOM TEETH ALLERGIES Lactose and Poison [place] MEDICATIONS amoxicillin (AMOXIL) 875 mg tablet Take 1 tablet by mouth twice daily for 7 days. oseltamivir (TAMIFLU) 75 mg capsule Take 1 capsule by mouth twice daily for 5 days. (Patient not taking: Reported on 10/03/2022) mupirocin (BACTROBAN) 2 % ointment Apply 1 application to affected area three times daily for 10 days. (Patient not taking: Reported on 09/27/2022) ynsehuwspcZAGYD-ycwatf-twztieord (BMX 1:1:1) 1:1:1 liqd Mix in equal [...] Discussed expected course of illness Suzette Perry APRN.WIDE PIECE GOODS INSPECTOR documented in this encounter [facility] 10-03-2022 Instructions Suzette Perry APRN.CNP - [...] even if the symptoms go away. 2. Ruun-zrp-koauped pain medication may be taken or other [...] him or her). documented in this encounter [facility] 10-01-2022 Miscellaneous Notes Patient notified of results, verbalized understanding. Lucina Rodriguez MA Negative for flu and covid please notify thank you documented in this encounter [facility] 09-30-2022 Note HNO ID: [id number] Author: Suzette Perry APRN.ELLIOT Service: ? Author [...] OF WISDOM TEETH ALLERGIES Lactose and Poison [place] MEDICATIONS levothyroxine (SYNTHROID) 25 mcg tablet ALBUTEROL INHALATION Inhale as instructed. mupirocin (BACTROBAN) 2 % ointment Apply 1 application to affected area three times daily for 10 days. (Patient not taking: Reported on 09/27/2022) cziccrpxabHNDXP-uvgcfd-kgttiidko (BMX 1:1:1) 1:1:1 liqd Mix in equal [...] expected course of illness Suzette Perry APRN.CNP [facility] 09-30-2022 Instructions Suzette Perry APRN.CNP - 09/30/2022 [...] course of illness Suzette Perry APRN.ELLIOT [facility] PATIENT INFO INFLUENZA INTRODUCTION Influenza (commonly called the flu) is a highly contagious illness that can occur in children or adults of any age. It occurs more often in the winter months because people spend more time in close contact with one another. The flu is spread easily from mvzkov-ay-bugstr by coughing, sneezing, or touching surfaces. Every [...] age of 65, people who live in retirement care facilities (nursing homes), and those with [...] do not become dehydrated. 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 documented in this encounter [facility] 09-30-2022 History of Present illness Narrative [...] OF WISDOM TEETH ALLERGIES Lactose and Poison [place] MEDICATIONS levothyroxine (SYNTHROID) 25 mcg tablet ALBUTEROL INHALATION Inhale as instructed. mupirocin (BACTROBAN) 2 % ointment Apply 1 application to affected area three times daily for 10 days. (Patient not taking: Reported on 09/27/2022) pntmxdcqzxXWIPO-krnqps-mojstowlb (BMX 1:1:1) 1:1:1 liqd Mix in equal [...] Discussed expected course of illness Suzette Perry APRN.WIDE PIECE GOODS INSPECTOR documented in this encounter [facility] 09-27-2022 Note HNO ID: [id number] Author: Seth Noguera APRN.ELLIOT Service: ? Author [...] OF WISDOM TEETH ALLERGIES Lactose and Poison [place] MEDICATIONS levothyroxine (SYNTHROID) 25 mcg tablet cephALEXin (KEFLEX) 500 mg capsule Take 1 capsule by mouth four times daily for 5 days. (Patient not taking: Reported on 09/27/2022) mupirocin (BACTROBAN) 2 % ointment Apply 1 application to affected area three times daily for 10 days. (Patient not taking: Reported on 09/27/2022) wndhqdovvbBQXFG-ifiuma-vsegimkoh (BMX 1:1:1) 1:1:1 liqd Mix in equal [...] - STREP A MOLECULAR (POC) Seth Noguera APRN.[facility] 09-27-2022 History of Present illness Narrative Subjective [...] OF WISDOM TEETH ALLERGIES Lactose and Poison [place] MEDICATIONS levothyroxine (SYNTHROID) 25 mcg tablet cephALEXin (KEFLEX) 500 mg capsule Take 1 capsule by mouth four times daily for 5 days. (Patient not taking: Reported on 09/27/2022) mupirocin (BACTROBAN) 2 % ointment Apply 1 application to affected area three times daily for 10 days. (Patient not taking: Reported on 09/27/2022) iafkfukwqeFYECU-kkmdxf-gqdqmdeia (BMX 1:1:1) 1:1:1 liqd Mix in equal [...] Seth Noguera APRN.CNP documented in this encounter [facility] 09-24-2022 Note HNO ID: [id number] Author: Hillary Cisneros APRN.CNP Service: ? Author Type: Nurse Practitioner Type: Progress Notes Filed: 09/24/2022 1:13 PM Note Text: Subjective The history is provided by the patient. No language instructor was used. HPI Mojgan Corbett is a [...] have confirmed and edited as necessary, the [facility] Review of Systems Constitutional: Negative for [...] detail warranting prompt ER evaluation. Hillary Cisneros APRN.[facility] 09-24-2022 History of Present illness Narrative Subjective The history is provided by the patient. No language instructor was used. HPI Mojgan Corbett is a [...] have confirmed and edited as necessary, the [facility] Review of Systems Constitutional: Negative for [...] Hillary Cisneros APRN.ELLIOT documented in this encounter [facility] 05-10-2022 Miscellaneous Notes Phone call placed, [...] found in the genital area. Follow-up with [facility] as needed. documented in this encounter [facility] 05-10-2022 Miscellaneous Notes Patient returned call [...] Additional results pending. documented in this encounter [facility] 05-09-2022 History of Present illness Narrative [...] specified Recurrent UTI's ALLERGIES Lactose and Poison [place] MEDICATIONS Current Outpatient Medications Medication Sig ptvuefmhfhYIZWT-xcdhup-dnwfogclr (BMX 1:1:1) 1:1:1 liqd Mix in equal [...] which included preparing to see the patient, ecof-iz-dyiu patient care, completing clinical documentation, performing a medically appropriate examination, counseling and educating the patient/family/caregiver, and ordering medications, tests, or procedures. Luisa Clarke PA-C documented in this encounter [facility] 03-09-2022 Miscellaneous Notes Patient given results [...] ER if severe. documented in this encounter [facility] 03-08-2022 History of Present illness Narrative [...] OF WISDOM TEETH ALLERGIES Lactose and Poison [place] MEDICATIONS MULTIVITAMIN ORAL Take by mouth. levothyroxine [...] Margie Grayson APRN.ELLIOT documented in this encounter [facility] 02-02-2022 Hospital Discharge instructions Gene Hair [...] of this encounter (statuses as of 03/08/2022) [facility] History of Past illness Narrative* Problem [...] of this encounter (statuses as of 03/09/2022) [facility] History of Past illness Narrative* Problem Noted Date Resolved Date Encounter for supervision of normal in third trimester 08/11/2015 09/09/2016 Overview: [facility] on [facility]? Supervision of other normal 03/16/2013 10/03/2013 [...] of this encounter (statuses as of 05/09/2022) [facility] History of Past illness Narrative* Problem Noted Date Resolved Date Encounter for supervision of normal in third trimester 08/11/2015 09/09/2016 Overview: [facility] on [facility]? Supervision of other normal 03/16/2013 10/03/2013 [...] of this encounter (statuses as of 05/10/2022) [facility] History of Past illness Narrative* Problem [...] of this encounter (statuses as of 09/24/2022) [facility] History of Past illness Narrative* Problem Noted Date Resolved Date Encounter for supervision of normal in third trimester 08/11/2015 09/09/2016 Overview: [facility] on [facility]? Supervision of other normal 03/16/2013 10/03/2013 [...] of this encounter (statuses as of 09/28/2022) [facility] History of Past illness Narrative* Problem Noted Date Resolved Date Encounter for supervision of normal in third trimester 08/11/2015 09/09/2016 Overview: [facility] on [facility]? Supervision of other normal 03/16/2013 10/03/2013 [...] of this encounter (statuses as of 09/30/2022) [facility] History of Past illness Narrative* Problem [...] of this encounter (statuses as of 10/01/2022) [facility] History of Past illness Narrative* Problem Noted Date Resolved Date Encounter for supervision of normal in third trimester 08/11/2015 09/09/2016 Overview: Girl on [facility]? Supervision of other normal 03/16/2013 10/03/2013 [...] of this encounter (statuses as of 10/04/2022) [facility] History of Past illness Narrative* Problem Noted Date Resolved Date Encounter for supervision of normal in third trimester 08/11/2015 09/09/2016 Overview: [facility] on [facility]? Supervision of other normal 03/16/2013 10/03/2013 [...] of this encounter (statuses as of 10/11/2022) [facility] History of Past illness Narrative* Problem [...] of this encounter (statuses as of 03/07/2023) [facility] History of Past illness Narrative* Problem Noted Date Diagnosed Date Resolved Date Encounter for supervision of normal in third trimester 08/11/2015 09/09/2016 Overview: Girl on [facility]? Supervision of other normal 03/16/2013 10/03/2013 [...] of this encounter (statuses as of 04/15/2023) [facility] History of Past illness Narrative* Problem Noted Date Diagnosed Date Resolved Date Encounter for supervision of normal in third trimester 08/11/2015 09/09/2016 Overview: Girl on [facility]? Supervision of other normal 03/16/2013 10/03/2013 [...] of this encounter (statuses as of 04/17/2023) [facility] History of Past illness Narrative* Problem Noted Date Diagnosed Date Resolved Date Encounter for supervision of normal in third trimester 08/11/2015 09/09/2016 Overview: Girl on - [place]? Supervision of other normal 03/16/2013 10/03/2013 Overview: [...] of this encounter (statuses as of 07/04/2023) [facility] No data available for this section [facility] Diagnosis [place]- Primary documented in this encounter [facility] note* Diagnosis Sore throat- Primary Acute pharyngitis Suspected COVID-19 virus infection documented in this encounter [facility] note* Diagnosis Urinary frequency- Primary Late menses Other disorder of menstruation and other abnormal bleeding from female genital tract Dysuria Exposure to STD Contact with or exposure to other communicable diseases documented in this encounter [facility] note* Diagnosis Paronychia, toe, right- Primary documented in this encounter [facility] note* Diagnosis Sore throat- Primary Acute pharyngitis documented in this encounter [facility] note* Diagnosis Streptococcus exposure- Primary Contact with or exposure to other communicable diseases Throat pain Flu-like symptoms Other general symptoms documented in this encounter [facility] note* Diagnosis Other acute nonsuppurative otitis media of left ear, recurrence not specified- Primary documented in this encounter [facility] note* Diagnosis Recurrent acute otitis media of left ear- Primary documented in this encounter [facility] note* Diagnosis External hemorrhoid- Primary External hemorrhoids without mention of complication documented in this encounter [facility] note* Diagnosis Rash- Primary Rash and other nonspecific skin eruption documented in this encounter [facility] note* Diagnosis Rash- Primary Rash and other nonspecific skin eruption documented in this encounter [facility] note* Diagnosis Strep pharyngitis- Primary Streptococcal sore throat documented in this encounter [facility] Instructions Name Dates Details How to [...] FoundDocuments on File Type Date Recorded Patient Assurance Analyst Expl anation Advance Directive(s) Health Concerns Infection Onset Date Last Indicated Resolved Time COVID-19 Rule-Out 03/08/2022 03/08/2022 Infection Onset Date Last Indicated Resolved Time COVID-19 Confirmed 03/08/2022 03/08/2022 Reason for Referral Specialty Diagnoses / Procedures Referred By Contac t Referred To Contact General Surgery Diagnoses External hemorrhoid Procedures CONSULT TO GENERAL SURGERY OFFICE/OUTPATIENT [facility] MDM 60-74 MINUTES Ori Garcia APRN.WIDE PIECE GOODS INSPECTOR [address] [place] [address] Referral ID Status Reason Start Date Expiration Date Visits Requested Visits Authorized [id number] Pending Review PCP Requested Referral 03/06/2023 03/05/2024 [...] DATE CREATED AUTHOR AUTHOR'S ORGANIZ ATION 10/08/2022 [facility] ([place]) DATE CREATED AUTHOR AUTHOR'S ORGANIZ ATION 10/14/2022 [facility] DATE CREATED AUTHOR AUTHOR'S ORGANIZ ATION 07/05/2023 [facility] Source Comments (unrecognize d section and content) In the event this informatio n is protected by the Federal Confidentiality of Alcohol and Drug Abuse Patient Records regulations: The Federal rules restrict any use of the information to criminally investigate or prosecute any alcohol or drug abuse patient.[facility] the event this information is protected by the Federal Confidentiality of Alcohol and Drug Abuse Patient Records regulations: The Federal rules restrict any use of the information to criminally investigate or prosecute any alcohol or drug abuse patient.[facility] the event this information is protected by the Federal Confidentiality of Alcohol and Drug Abuse Patient Records regulations: The Federal rules restrict any use of the information to criminally investigate or prosecute any alcohol or drug abuse patient.[facility] the event this information is protected by the Federal Confidentiality of Alcohol and Drug Abuse Patient Records regulations: The Federal rules restrict any use of the information to criminally investigate or prosecute any alcohol or drug abuse patient.[facility] the event this information is protected by the Federal Confidentiality of Alcohol and Drug Abuse Patient Records regulations: The Federal rules restrict any use of the information to criminally investigate or prosecute any alcohol or drug abuse patient.[facility] the event this information is protected by the Federal Confidentiality of Alcohol and Drug Abuse Patient Records regulations: The Federal rules restrict any use of the information to criminally investigate or prosecute any alcohol or drug abuse patient.[facility] the event this information is protected by the Federal Confidentiality of Alcohol and Drug Abuse Patient Records regulations: The Federal rules restrict any use of the information to criminally investigate or prosecute any alcohol or drug abuse patient.[facility] the event this information is protected by the Federal Confidentiality of Alcohol and Drug Abuse Patient Records regulations: The Federal rules restrict any use of the information to criminally investigate or prosecute any alcohol or drug abuse patient.[facility] the event this information is protected by the Federal Confidentiality of Alcohol and Drug Abuse Patient Records regulations: The Federal rules restrict any use of the information to criminally investigate or prosecute any alcohol or drug abuse patient.[facility] the event this information is protected by the Federal Confidentiality of Alcohol and Drug Abuse Patient Records regulations: The Federal rules restrict any use of the information to criminally investigate or prosecute any alcohol or drug abuse patient.[facility] the event this information is protected by the Federal Confidentiality of Alcohol and Drug Abuse Patient Records regulations: The Federal rules restrict any use of the information to criminally investigate or prosecute any alcohol or drug abuse patient.[facility] Hospital[facility] the event this information is protected by the Federal Confidentiality of Alcohol and Drug Abuse Patient Records regulations: The Federal rules restrict any use of the information to criminally investigate or prosecute any alcohol or drug abuse patient.[facility] Hospital[facility] the event this information is protected by the Federal Confidentiality of Alcohol and Drug Abuse Patient Records regulations: The Federal rules restrict any use of the information to criminally investigate or prosecute any alcohol or drug abuse patient.[facility] Hospital[facility] the event this information is protected by the Federal Confidentiality of Alcohol and Drug Abuse Patient Records regulations: The Federal rules restrict any use of the information to criminally investigate or prosecute any alcohol or drug abuse patient.[facility] Hospital[facility] the event this information is protected by the Federal Confidentiality of Alcohol and Drug Abuse Patient Records regulations: The Federal rules restrict any use of the information to criminally investigate or prosecute any alcohol or drug abuse patient.[facility] Care Teams (unrecognized sec tion and content) Exercise Manager Relationship Specialty Start Date End Date Rosa Mccoy MD PCP - General Internal Medicine 01/24/19 Exercise Manager Relationship Specialty Start Date End Date Rosa Mccoy MD PCP - General Internal Medicine 01/24/19 Exercise Manager Relationship Specialty Start Date End Date Rosa Mccoy MD PCP - General Internal Medicine 01/24/19 Exercise Manager Relationship Specialty Start Date End Date Rosa Mccoy MD PCP - General Internal Medicine 01/24/19 Exercise Manager Relationship Specialty Start Date End Date Rosa Mccoy MD PCP - General Internal Medicine 01/24/19 Exercise Manager Relationship Specialty Start Date End Date Rosa Mccoy MD PCP - General Internal Medicine 01/24/19 Exercise Manager Relationship Specialty Start Date End Date Rosa Mccoy MD PCP - General Internal Medicine 01/24/19 Exercise Manager Relationship Specialty Start Date End Date Rosa Mccoy MD PCP - General Internal Medicine 01/24/19 Exercise Manager Relationship Specialty Start Date End Date Rosa Mccoy MD PCP - General Internal Medicine 01/24/19 Exercise Manager Relationship Specialty Start Date End Date Rosa Mccoy MD PCP - General Internal Medicine 01/24/19 Exercise Manager Relationship Specialty Start Date End Date Rosa Mccoy MD PCP - General Internal Medicine 01/24/19 Exercise Manager Relationship Specialty Start Date End Date Rosa Mccoy MD PCP - General Internal Medicine 01/24/19 Care Team (unrecognized sect ion and content) Care Team Personnel Name: COLE SCOTT MD Member Role: Primary Care Physician Address: Address: [facility] [address], [place] [address] Name: PREETI Cast Position: ED RN Member Role: ED RN Care Team Related Persons Name: ANA CORBETT Name: MARIA C CORBETTJavier Cummings Address: Home [address] [place] [address] Name: DOROTA CORBETT Address: Home [address] [place] [address] FOR RECORDS PERTAINING TO PATIENTS WHO ARE [...] BE BASED ON THE PRIMARY CLINICAL RECORDS. [facility] [employer] provides no warranty or guarantee of the accuracy or completeness of information in this document.
--- NOTE | 2023-09-24 09:53 | CON.PCM.SX_ITS ---
Assessment & Plan Assessment/Plan (1) LUQ pain: PLAN: Plan Patient's history does sound like possible gastritis. Patient was given a GI cocktail in the ER also ordered Protonix 40 mg IV. Plan to observe patient okay for clears n.p.o. at midnight continue Protonix IV. Plan for an EGD later in the morning. Patient is when her pain got better she would not need to do the scope discussed with patient we will discuss about that in the morning as she did require morphine x 3 in the ER. Did personally review CT abdomen pelvis no acute findings to cause her left upper quadrant pain on my review. I have discussed the above with the patient. I have offered the patient esophagogastroduodenoscopy for evaluation. I have explained the risks/benefits of the procedure and described the procedure. I have discussed the risks with the patient, including but not limited to: infection, bleeding, perforation of the GI tract requiring emergency surgery, inability to complete the procedure, injury to any internal organs, complications of anesthesia, etc. - the patient understands and agrees to proceed. I have answered all the patient's questions to the patient's satisfaction and the patient has no further questions. Leatha Buck M.D. Pager: [phone] [facility] [address] [place] [address], [facility], [address] [place] [address] Office: [phone] HPI Consult Data Date of Consult: 09/24/23 HPI Narrative HPI Narrative: KATIA HAMPTON, is a 32 F who presents ER due to LUQ pain which woke her up from sleeping at 2AM. Pt ate and had 1 shot of alcohol about 10 pm. Pt had GERD years ago but not recently. Pt has had abx for strept x 3 recently. Pt got morphine 4mg IV x 3 in ER and was still having pain. CT a/p showed ovarian cyst otherwise neg acutely, lipase 85, normal LFTs, normal WBC no shift. [facility] Medical History (Updated 09/24/23 @ 09:[address] Leatha Buck MD) Acute lumbar myofascial strain Asthma Chronic headaches GERD (gastroesophageal reflux disease) Gluten intolerance Hypothyroid Lactose intolerance Seasonal allergies Vitamin deficiency Home Medications levothyroxine 25 mcg tablet 25 mcg PO DAILY 90 days #90 tabs 09/01/23 [Rx Last Taken 09/23/23] cranberry extract 2 cap PO DAILY 09/24/23 [History Last Taken 09/23/23] elderberry fruit 2 cap PO DAILY 09/24/23 [History Last Taken 09/23/23] hydrocodone-acetaminophen 5-325mg 5mg-325mg 1 tab PO Q6H PRN PRN Pain 3 days #10 TABLETS 09/24/23 [Rx Last Taken Unknown] multivitamin (Daily Multi-Vitamin tablet) 1 tab PO DAILY 09/24/23 [History Last Taken 09/23/23] Allergy/AdvReac Type Severity Reaction Status Date / Time Iodinated Contrast Media Allergy Itching Verified 09/24/23 04:10 poison oak extract Allergy Unknown Verified 09/11/23 13:58 Latex, Natural Rubber AdvReac Rash Verified 09/11/23 13:58 Family History Mother Anxiety Sleep apnea Sister Sleep apnea Surgical History (Updated 09/24/23 @ 10:59 by Nevaeh Richards) H/O abdominoplasty Social History household members: significant other and children Smoking Status: Never smoker alcohol intake: never substance use type: does not use caffeine: Yes what type of physical activity do you participate in: other details: crossfit frequency: 5-6 times per week seatbelt use: always do you feel safe at home: Yes additional social history: [employer] Constitutional Constitutional: Reports anorexia Eyes Eyes: Denies blurry vision ENT HEENT: Denies dysphagia Cardiovascular Cardiovascular: Denies chest pain Respiratory/Chest Respiratory/Chest: Denies cough Gastrointestinal Gastrointestinal: Reports abdominal pain, nausea and vomiting; Denies diarrhea Genitourinary Genitourinary: Denies dysuria Musculoskeletal Musculoskeletal: Denies joint swelling Integumentary Integumentary: Denies rash Neurologic Neurologic: Denies focal weakness Endocrine Endocrinology: Denies palpitations Hematologic/Lymphatic Hematologic/Lymphatic: Denies easy bleeding Physical Exam Const alert, oriented x3 and no apparent distress HEENT normocephalic and head/scalp atraumatic Resp normal respiratory effort Cardio regular rate GI soft to palpation; Negative for non-distended Palpation: tender LUQ (No rebound); Negative for guarding Extremity no clubbing, cyanosis or edema Neuro CN's II-XII intact bilaterally Psych mental status grossly normal Lab / Micro Data 09/24/23 03:50 09/24/23 03:50 Labs: Laboratory Results - last 24 hr 09/24/23 03:50: WBC 9.6, RBC 4.40, Hgb 13.1, Hct 40.8, MCV 92.7, MCH 29.8, MCHC 32.1, RDW Std Deviation 44.3 H, RDW Coeff of Cindy 13.1, Plt Count 227, MPV 11.3, Immature Gran % (Auto) 0.300, Neut % (Auto) 57.4, Lymph % (Auto) 32.7, [place] % (Auto) 7.5, Eos % (Auto) 1.5, Baso % (Auto) 0.6, Absolute Neuts (auto) 5.5, Absolute Lymphs (auto) 3.13, Nucleated RBC % 0, Sodium 140, Potassium 3.6, Chloride 108 H, Carbon Dioxide 27.0, Anion Gap 5, BUN 16, Creatinine 0.77, Estim Creat Clear Calc 92.83, Est GFR (MDRD) Af Amer 110, Est GFR (MDRD) Non-Af 91, BUN/Creatinine Ratio 20.8 H, Glucose 94, Calcium 9.0, Total Bilirubin 0.70, AST 21, ALT 24, Alkaline Phosphatase 63, Total Protein 6.7, Albumin 3.8, Globulin 2 .9, Albumin/Globulin Ratio 1.3, Lipase 85 H, Serum , Qual NEGATIVE, Urine Color Yellow, Urine Clarity Clear, Urine pH 6.0, Ur Specific [place] 1.020, Urine Protein Negative, Urine Glucose (UA) Normal, Urine Ketones Negative, Urine Occult Blood Negative, Urine Nitrite Negative, Urine Bilirubin Negative, Urine Urobilinogen Normal, Ur Leukocyte Esterase Negative, Urine RBC 0 SEEN, Urine WBC 0 SEEN, Ur Squamous Epith Cells 0-5 SEEN, Other Crystals SCANNED, Urine Bacteria 0 SEEN, Urine Mucus 0 SEEN Imaging Radiology Impression Abdomen/Pelvis CT 09/24/23 03:45 IMPRESSION: undefined ADDENDUM: 09/24/23720 IMPRESSION: undefined Transvaginal US 09/24/23 07:47 IMPRESSION: No sonographic evidence of ovarian torsion Large complex right ovarian cyst measuring 4.4 x 4.8 x 4.3 cm. There are some internal strands noted. Because of its size and characteristics, short term follow-up ultrasounds are recommended to assess its stability and/or resolution Mild to moderate free fluid in the dependent pelvis Sonographically unremarkable uterus and left ovary Electronically Signed: Chandra Lomeli MD at 8:50 EST , Charges/Coding Visit Charges Inpatient E&M: 80962 Init Hosp L3
--- OUTSIDE RECORDS SUMMARY | 2023-09-24 10:11 | XMS RPT_ITS | CCD ---
Author Name Unknown Address [address] [place] [address] Organization [facility] Care Team Providers Care Weight Control Engineer Name Role Phone Gretel Tapia Unavailable Kishor [...] Rosa Mccoy MD Primary Care Provider [phone] Rosa Mccoy MD Primary Care Provider [phone] Rosa Mccoy MD Primary Care Provider [phone] COLE SCOTT MD Primary Care Physician BRADLY [...] Translations: [LACTOSE] Drug Allergy 05-03-2021 GI Upset [facility] (16 sources) Poison [place]; Translations: [POISON [place]] Propensity to adverse reactions 08-10-2014 Rash [facility] Work Phone: Medications Current Medications Medication Drug Class(es) Dates Sig (Normalized) Sig (Original) acetaminophen 325 mg / HYDROcodone bitartrate 5 mg oral tablet (1 source) Opioid Agonist Start: 10-03-2022 End: 10-06-2022 take 1 tablet by mouth every four hours as needed for pain [place] 325- 5 mg oral tablet Dose = [...] 97.39 [degF] Anna Athy PA-C Work Phone: [facility] 07-04-2023 07:16-0500 Body weight 64.86 kg Anna Athy PA-C Work Phone: [facility] 07-04-2023 07:16-0500 Diastolic blood pressure 68 mm[Hg] Anna Athy PA-C Work Phone: [facility] 07-04-2023 07:16-0500 Heart rate 82 /min Anna Athy PA-C Work Phone: [facility] 07-04-2023 07:16-0500 Respiratory rate 16 /min Anna Athy PA-C Work Phone: [facility] 07-04-2023 07:16-0500 SaO2% (BldA) [Mass fraction] 98 % Anna Athy PA-C Work Phone: [address]28-2023 07:16-0500 Systolic blood pressure 116 mm[Hg] Anna Almendarez PA-C Work Phone: [facility] 04-17-2023 09:16-0400 Body temperature 97.11 [degF] Ori Pendlebury CASH MANAGEMENT COORDINATOR.RUBBER CUTTER AND SHAPE CARVER Work Phone: [facility] 04-17-2023 09:16-0400 Body weight 66.22 kg Ori Pendlebury CASH MANAGEMENT COORDINATOR.RUBBER CUTTER AND SHAPE CARVER Work Phone: [facility] 04-17-2023 09:16-0400 Diastolic blood pressure 80 mm[Hg] Ori Pendlebury CASH MANAGEMENT COORDINATOR.RUBBER CUTTER AND SHAPE CARVER Work Phone: [facility] 04-17-2023 09:16-0400 Heart rate 78 /min Ori Pendlebury CASH MANAGEMENT COORDINATOR.RUBBER CUTTER AND SHAPE CARVER Work Phone: [facility] 04-17-2023 09:16-0400 Respiratory rate 16 /min Ori Pendlebury CASH MANAGEMENT COORDINATOR.RUBBER CUTTER AND SHAPE CARVER Work Phone: [facility] 04-17-2023 09:16-0400 SaO2% (BldA) [Mass fraction] 97 % Ori Pendlebury CASH MANAGEMENT COORDINATOR.RUBBER CUTTER AND SHAPE CARVER Work Phone: [facility] 04-17-2023 09:16-0400 Systolic blood pressure 122 mm[Hg] Ori Pendlebury CASH MANAGEMENT COORDINATOR.RUBBER CUTTER AND SHAPE CARVER Work Phone: [facility] 04-14-2023 17:39-0400 Body temperature 98.01 [degF] Ori Pendlebury CASH MANAGEMENT COORDINATOR.RUBBER CUTTER AND SHAPE CARVER Work Phone: [facility] 04-14-2023 17:39-0400 Body weight 66.95 kg Ori Pendlebury CASH MANAGEMENT COORDINATOR.RUBBER CUTTER AND SHAPE CARVER Work Phone: [facility] 04-14-2023 17:39-0400 Diastolic blood pressure 76 mm[Hg] Ori Pendlebury CASH MANAGEMENT COORDINATOR.RUBBER CUTTER AND SHAPE CARVER Work Phone: [facility] 04-14-2023 17:39-0400 Heart rate 74 /min Ori Pendlebury CASH MANAGEMENT COORDINATOR.RUBBER CUTTER AND SHAPE CARVER Work Phone: [facility] 04-14-2023 17:39-0400 Respiratory rate 18 /min Ori Pendlebury CASH MANAGEMENT COORDINATOR.RUBBER CUTTER AND SHAPE CARVER Work Phone: [facility] 04-14-2023 17:39-0400 SaO2% (BldA) [Mass fraction] 100 % Ori Pendlebury CASH MANAGEMENT COORDINATOR.RUBBER CUTTER AND SHAPE CARVER Work Phone: [facility] 04-14-2023 17:39-0400 Systolic blood pressure 111 mm[Hg] Ori Pendlebury CASH MANAGEMENT COORDINATOR.RUBBER CUTTER AND SHAPE CARVER Work Phone: [facility] 03-06-2023 19:47-0400 Body temperature 97.2 [degF] Ori Pendlebury CASH MANAGEMENT COORDINATOR.RUBBER CUTTER AND SHAPE CARVER Work Phone: [facility] 03-06-2023 19:47-0400 Body weight 68.04 kg Ori Pendlebury CASH MANAGEMENT COORDINATOR.RUBBER CUTTER AND SHAPE CARVER Work Phone: [facility] 03-06-2023 19:47-0400 Diastolic blood pressure 80 mm[Hg] Ori Pendlebury CASH MANAGEMENT COORDINATOR.RUBBER CUTTER AND SHAPE CARVER Work Phone: [facility] 03-06-2023 19:47-0400 Heart rate 78 /min Ori Pendlebury CASH MANAGEMENT COORDINATOR.RUBBER CUTTER AND SHAPE CARVER Work Phone: [facility] 03-06-2023 19:47-0400 Respiratory rate 16 /min Ori Pendlebury CASH MANAGEMENT COORDINATOR.RUBBER CUTTER AND SHAPE CARVER Work Phone: [facility] 03-06-2023 19:47-0400 SaO2% (BldA) [Mass fraction] 98 % Ori Pendlebury CASH MANAGEMENT COORDINATOR.RUBBER CUTTER AND SHAPE CARVER Work Phone: [facility] 03-06-2023 19:47-0400 Systolic blood pressure 126 mm[Hg] Ori Pendlebury CASH MANAGEMENT COORDINATOR.RUBBER CUTTER AND SHAPE CARVER Work Phone: [facility] 10-10-2022 15:58-0500 Body temperature 96.4 [degF] Kishor Valle MD Work Phone: [facility] 10-10-2022 15:58-0500 Body weight 84.91 kg Kishor Valle MD Work Phone: [facility] 10-10-2022 15:58-0500 Diastolic blood pressure 64 mm[Hg] Kishor Valle MD Work Phone: [facility] 10-10-2022 15:58-0500 Heart rate 76 /min Kishor Valle MD Work Phone: [facility] 10-10-2022 15:58-0500 Respiratory rate 20 /min Kishor Valle MD Work Phone: [facility] 10-10-2022 15:58-0500 SaO2% (BldA) [Mass fraction] 100 % Kishor Valle MD Work Phone: [facility] 10-10-2022 15:58-0500 Systolic blood pressure 100 mm[Hg] Kishor Valle MD Work Phone: [facility] 10-03-2022 18:33-0500 Body temperature 98.06 [degF] BRADLY OCLE MD [facility] 10-03-2022 18:33-0500 Body weight 77.3 kg BRADLY COLE MD [facility] 10-03-2022 18:33-0500 Diastolic Blood Pressure Non-Invasive 81 1 BRADLY COLE MD [facility] 10-03-2022 18:33-0500 Heart rate 70 /min BRADLY COLE MD [facility] 10-03-2022 18:33-0500 Respiratory rate 16 /min BRADLY COLE MD [facility] 10-03-2022 18:33-0500 Systolic Blood Pressure Non-Invasive 119 1 BRADLY COLE MD [facility] 10-03-2022 17:32-0500 Body temperature 99.1 [degF] Suzette Praisler-Wood CASH MANAGEMENT COORDINATOR.RUBBER CUTTER AND SHAPE CARVER Work Phone: [facility] 10-03-2022 17:32-0500 Body weight 85.73 kg Suzette Praisler-Wood CASH MANAGEMENT COORDINATOR.RUBBER CUTTER AND SHAPE CARVER Work Phone: [facility] 10-03-2022 17:32-0500 Diastolic blood pressure 96 mm[Hg] Suzette Praisler-Wood CASH MANAGEMENT COORDINATOR.RUBBER CUTTER AND SHAPE CARVER Work Phone: [facility] 10-03-2022 17:32-0500 Heart rate 98 /min Suzette Praisler-Wood CASH MANAGEMENT COORDINATOR.RUBBER CUTTER AND SHAPE CARVER Work Phone: [facility] 10-03-2022 17:32-0500 Respiratory rate 18 /min Suzette Praisler-Wood CASH MANAGEMENT COORDINATOR.RUBBER CUTTER AND SHAPE CARVER Work Phone: [facility] 10-03-2022 17:32-0500 SaO2% (BldA) [Mass fraction] 99 % Suzette Praisler-Wood CASH MANAGEMENT COORDINATOR.RUBBER CUTTER AND SHAPE CARVER Work Phone: [facility] 10-03-2022 17:32-0500 Systolic blood pressure 146 mm[Hg] Suzette Praisler-Wood CASH MANAGEMENT COORDINATOR.RUBBER CUTTER AND SHAPE CARVER Work Phone: [facility] 09-30-2022 13:29-0500 Body temperature 98.01 [degF] Suzette Praisler-Wood CASH MANAGEMENT COORDINATOR.RUBBER CUTTER AND SHAPE CARVER Work Phone: [facility] 09-30-2022 13:29-0500 Body weight 86.09 kg Suzette Praisler-Wood CASH MANAGEMENT COORDINATOR.RUBBER CUTTER AND SHAPE CARVER Work Phone: [facility] 09-30-2022 13:29-0500 Diastolic blood pressure 66 mm[Hg] Suzette Praisler-Wood CASH MANAGEMENT COORDINATOR.RUBBER CUTTER AND SHAPE CARVER Work Phone: [facility] 09-30-2022 13:29-0500 Heart rate 93 /min Suzette Praisler-Wood CASH MANAGEMENT COORDINATOR.RUBBER CUTTER AND SHAPE CARVER Work Phone: [facility] 09-30-2022 13:29-0500 Respiratory rate 18 /min Suzette Praisler-Wood CASH MANAGEMENT COORDINATOR.RUBBER CUTTER AND SHAPE CARVER Work Phone: [facility] 09-30-2022 13:29-0500 SaO2% (BldA) [Mass fraction] 97 % Suzette Praisler-Wood CASH MANAGEMENT COORDINATOR.RUBBER CUTTER AND SHAPE CARVER Work Phone: [facility] 09-30-2022 13:29-0500 Systolic blood pressure 98 mm[Hg] Suzette Praisler-Wood CASH MANAGEMENT COORDINATOR.RUBBER CUTTER AND SHAPE CARVER Work Phone: [facility] 09-27-2022 19:34-0500 Body temperature 97.3 [degF] Seth Chuckie CASH MANAGEMENT COORDINATOR.RUBBER CUTTER AND SHAPE CARVER Work Phone: [facility] 09-27-2022 19:34-0500 Body weight 87.54 kg Seth Chuckie CASH MANAGEMENT COORDINATOR.RUBBER CUTTER AND SHAPE CARVER Work Phone: [facility] 09-27-2022 19:34-0500 Diastolic blood pressure 72 mm[Hg] Seth Chuckie CASH MANAGEMENT COORDINATOR.RUBBER CUTTER AND SHAPE CARVER Work Phone: [facility] 09-27-2022 19:34-0500 Heart rate 86 /min Seth Chuckie CASH MANAGEMENT COORDINATOR.RUBBER CUTTER AND SHAPE CARVER Work Phone: [facility] 09-27-2022 19:34-0500 Respiratory rate 16 /min Seth Chuckie CASH MANAGEMENT COORDINATOR.RUBBER CUTTER AND SHAPE CARVER Work Phone: [facility] 09-27-2022 19:34-0500 SaO2% (BldA) [Mass fraction] 98 % Seth Chuckie CASH MANAGEMENT COORDINATOR.RUBBER CUTTER AND SHAPE CARVER Work Phone: [facility] 09-27-2022 19:34-0500 Systolic blood pressure 110 mm[Hg] Seth Chuckie CASH MANAGEMENT COORDINATOR.RUBBER CUTTER AND SHAPE CARVER Work Phone: [facility] 09-24-2022 12:51-0500 Body temperature 98.2 [degF] Hillary Amelia CASH MANAGEMENT COORDINATOR.RUBBER CUTTER AND SHAPE CARVER Work Phone: [facility] 09-24-2022 12:51-0500 Body weight 85.73 kg Hillary Amelia CASH MANAGEMENT COORDINATOR.RUBBER CUTTER AND SHAPE CARVER Work Phone: [facility] 09-24-2022 12:51-0500 Diastolic blood pressure 70 mm[Hg] Hillary Amelia CASH MANAGEMENT COORDINATOR.RUBBER CUTTER AND SHAPE CARVER Work Phone: [facility] 09-24-2022 12:51-0500 Heart rate 91 /min Hillary Bhagatk CASH MANAGEMENT COORDINATOR.RUBBER CUTTER AND SHAPE CARVER Work Phone: [facility] 09-24-2022 12:51-0500 SaO2% (BldA) [Mass fraction] 98 % Hillary Bhagatk CASH MANAGEMENT COORDINATOR.RUBBER CUTTER AND SHAPE CARVER Work Phone: [facility] 09-24-2022 12:51-0500 Systolic blood pressure 110 mm[Hg] Hillary Cisneros CASH MANAGEMENT COORDINATOR.RUBBER CUTTER AND SHAPE CARVER Work Phone: [facility] 05-09-2022 10:19-0400 Body temperature 97.39 [degF] Luisa Bogner PA-C Work Phone: [facility] 05-09-2022 10:19-0400 Body weight 81.47 kg Luisa Bogner PA-C Work Phone: [facility] 05-09-2022 10:19-0400 Diastolic blood pressure 82 mm[Hg] Luisa Bogner PA-C Work Phone: [facility] 05-09-2022 10:19-0400 Heart rate 93 /min Luisa Bogner PA-C Work Phone: [facility] 05-09-2022 10:19-0400 Respiratory rate 18 /min Luisa Bogner PA-C Work Phone: [facility] 05-09-2022 10:19-0400 SaO2% (BldA) [Mass fraction] 97 % Luisa Bogner PA-C Work Phone: [facility] 05-09-2022 10:19-0400 Systolic blood pressure 126 mm[Hg] Luisa Bogner PA-C Work Phone: [facility] 03-08-2022 10:40-0400 Body temperature 97.59 [degF] Margie Grayson CASH MANAGEMENT COORDINATOR.RUBBER CUTTER AND SHAPE CARVER Work Phone: [facility] 03-08-2022 10:40-0400 Diastolic blood pressure 76 mm[Hg] Margie Grayson APRN.RUBBER CUTTER AND SHAPE CARVER Work Phone: [facility] 03-08-2022 10:40-0400 Heart rate 93 /min Margie Grayson APRN.RUBBER CUTTER AND SHAPE CARVER Work Phone: [facility] 03-08-2022 10:40-0400 Respiratory rate 18 /min Margie Grayson APRN.RUBBER CUTTER AND SHAPE CARVER Work Phone: [facility] 03-08-2022 10:40-0400 SaO2% (BldA) [Mass fraction] 98 % Margie Grayson APRN.RUBBER CUTTER AND SHAPE CARVER Work Phone: [facility] 03-08-2022 10:40-0400 Systolic blood pressure 122 mm[Hg] Margie Grayson APRN.RUBBER CUTTER AND SHAPE CARVER Work Phone: [facility] 02-02-2022 22:46-0400 Diastolic blood pressure 65 mm[Hg] Gene Hair MD Work Phone: [facility] 02-02-2022 22:46-0400 Heart rate 85 /min [facility] 02-02-2022 22:46-0400 Respiratory rate 16 /min Gene Hair [facility] 02-02-2022 22:46-0400 SaO2% (BldA) [Mass fraction] 100 % Gene Hair MD Work Phone: [facility] 02-02-2022 22:46-0400 Systolic blood pressure 100 mm[Hg] Gene Hair MD [facility] 02-02-2022 21:13-0400 Body temperature 98.4 [degF] [facility] 02-02-2022 21:13-0400 Body weight 74.84 kg Gene Hair MD [facility] 04-03-2018 15:00-0400 BMI (Body Mass Index) 20.77 kg/m2 Gretel Tapia [facility] Internal Medicine Work Phone: 04-03-2018 15:00-0400 Body Temperature 97.6 [degF] Gretel Tapia [facility] Work Phone: Encounters Encounter Date Encounter Type Care Provider Facility Start: 07-04-2023 End: 07-04-2023 ambulatory ROSA MCCOY Facility:[facility] Start: 07-04-2023 End: 07-04-2023 Patient encounter procedure Anna Almendarez PA-C Work Phone: [facility] Procedures Date Procedure Procedure Detail Performing Clinician Start: 07-04-2023 STREP A MOLECULAR (POC) Seth Noguera CASH MANAGEMENT COORDINATOR.RUBBER CUTTER AND SHAPE CARVER Work Phone: Start: 09-30-2022 STREP A MOLECULAR (POC) Suzette duncan CASH MANAGEMENT COORDINATOR.RUBBER CUTTER AND SHAPE CARVER Work Phone: Start: 05-09-2022 End: 05-09-2022 Urnls dip stick/tablet rgnt auto w/o microscopy Kishor Valle MD Work Phone: Start: 03-08-2022 STREP A MOLECULAR (POC) Margie Grayson CASH MANAGEMENT COORDINATOR.RUBBER CUTTER AND SHAPE CARVER Work Phone: Start: 06-15-2018 End: 06-15-2018 Internal Medicine Office Visit Comments: See Note; NOTES: [facility] [place] [address] OFFICE VISIT Date of Service: 06/13/18 MR#: [id number] Acct: [id number] Name: MOJGAN CORBETT Rep #: [id number] : 1990 Provider: Yessi Willard NP Age/Sex: 27/F Location: [facility] Status: Signed Intake Vital Signs06/13/18 Height 5 ft 3 in 06/13/18 Weight: 127 lb 06/13/18 Body Mass Index (BMI) 22.4 06/13/18 Blood Pressure 94/60 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 she denies any [...] 2 weeks. She is following up with SENIOR INVESTMENT MANAGER next week for this. A test was [...] CC: Gretel Tapia Start: 02-06-2018 End: 02-06-2018 Foreign Languages Professor Office Visit Report Comments: See Note; NOTES: [facility] [address] [place] [address]. [address] [place] [address] OFFICE VISIT Date of Service: 02/06/18 MR#: [id number] Acct: [id number] Name: MOJGAN CORBETT Rep #: [id number] : 1990 Provider: TARSHA Marie Age/Sex: 27/F Location[place] [facility] Status: Signed Intake Vital Signs02/06/18 Height 5 [...] period known: Yes Last Menstral Period: 01/05/18 [facility] Social History Smoking Status: Never smoker HPI [...] 01-23-2018 Esophagus Only Comments: See Note; NOTES: [facility] Imaging Services [address] [place] [address] Esophagus Only MR#: [id number] Acct: [id number] Name: MOJGAN CORBETT Rep #: [id number] : 1990 F 27 From: Nitin Young MD PCP: Gretel Tapia DO Status: REG CLI Study: Esophagus Only Date of Exam: 01/23/18 Exam# [id number] Ordering Dr: Gretel Tapia DO STUDY: X-RAY [...] Nitin Young MD at 13:31 EDT Tel [phone], Service support , CC: Gretel Tapia DO Delicatessen Slicer: Signed Gretel Tapia Work Phone: Start: 12-22-2017 End: 12-22-2017 Emergency Department Summary Comments: See Note; NOTES: [facility] Medical Records Department [address] [facility] [place] [address] Emergency Department Summary 12/22/17 1840 MR#: [id number] Acct: [id number] Name: MOJGAN CORBETT Rep #: [id number] : 1990 27 From: Delbert Bass MD [...] to hypothyroidism This note was generated with [employer] software. It may contain incorrect words, spelling, [...] problems, contact your Primary Care Provider. Call Mobile Messenger Registry ([phone]) or report to the closest Emergency Room. Call 911 if necessary. 12/22/171940 <Electronically signed by Delbert Bass MD> Date Delbert Bass MD Cosigner Signature (If Indicated): Date CC: Gretel Shelley Start: 12-22-2017 End: 12-22-2017 Office Visit Report Comments: See Note; NOTES: [place] [address] [address] [place] [address] OFFICE VISIT Date of Service: 12/22/17 MR#: [id number] Acct: [id number] Patient: MOJGAN CORBETT Rep #: [id number] : 1990 Provider: Venkat ENCINAS Age/Sex: 27/F Location: [facility] Status: Signed Intake Vital Signs12/22/17 Body Mass [...] PO TID PRN Muscle Spasm g 12/22/17 3754 <Electronically signed by Venkat ENCINAS> Date Venkat ENCINAS Cosigner Signature: Date (if applicable) CC: Gretel Tapia Start: 12-22-2017 End: 12-22-2017 Urgent Care Visit Report Comments: See Note; NOTES: [facility] [address] [place] [address] OFFICE VISIT Date of Service: 12/22/17 MR#: [id number] Acct: [id number] Name: BERTAMOJGAN K Rep #: [id number] : 1990 Provider: Venkat ENCINAS Age/Sex: 27/F Location: [facility] Status: Signed Intake Vital Signs12/22/17 Height 5 [...] 25 Days #18 12/22/17 [History Confirmed 12/22/17] [facility] Social History Smoking Status: Never smoker HPI [...] fatigue Exam Const General: cooperative, healthy appearing [facility] Head: normocephalic, atraumatic Ears: hearing grossly normal [...] the above. This note was generated with [employer] dictation software. It may contain incorrect words, spelling, and punctuation that were not noted in checking the note before signing. Medications Discontinued: cyclobenzaprine Discontinued Reason: Pt no longer takin10 mg PO TID PRN Muscle Spasm g Coding Level of Care Code Off vis,est,level 3 Diagnoses Positional lightheadedness R42 12/22/17 9185 <Electronically signed by Venkat ENCINAS> Date Venkat ENCINAS Cosigner Signature: Date (if applicable) CC: Gretel Tapia Start: 10-27-2017 End: 10-27-2017 Discharge Instruction Comments: See Note; NOTES: [facility] Medical Records Department [address] [place] [address] Discharge Instruction 10/27/17 0107 MR#: [id number] Acct: [id number] Name: MOJGAN CORBETT Rep #: [id number] : 1990 26 From: Donavan Watt MD [...] your Primary Care Provider. Call [facility] Registry ([phone]) or report to the closest Emergency Room. Call 911 if necessary. 10/27/17 0108 <Electronically signed by Donavan Watt MD> Date Donavan Watt MD Cosigner Signature (If Indicated): Date CC: Gretel Shelley Start: 10-27-2017 End: 10-27-2017 Emergency Department Summary Comments: See Note; NOTES: [facility] Medical Records Department [address] [place] [address] Emergency Department Summary 10/27/17 0106 MR#: [id number] Acct: [id number] Name: MOJGAN CORBETT Rep #: [id number] : 1990 26 From: Donavan Watt MD [...] trapezius strain This note was generated with [employer] dictation software. It may contain incorrect words, [...] problems, contact your Primary Care Provider. Call Mobile Messenger Registry ([phone]) or report to the closest Emergency Room. Call 911 if necessary. 10/27/17 0107 <Electronically signed by Donavan Watt MD> Date Donavan Watt MD Cosigner Signature (If Indicated): Date CC: Gretel Shelley Start: 05-18-2017 End: 05-19-2017 Hepatobilliary Imaging Comments: See Note; NOTES: [facility] Imaging Services [address] [place] [address] Hepatobilliary Imaging MR#: [id number] Acct: [id number] Name: BERTAMOJGAN [place] Rep #: [id number] : 1990 F 26 From: Cole Bains DO PCP: Gretel Tapia DO Status: [facility] CLI Study: Hepatobilliary Imaging Date of Exam: 05/18/17 Exam# [id number] Ordering Dr: Gretel Tapia DO CLINICAL: 26-year-old [...] Service support , CC: Gretel Tapia DO Delicatessen Slicer: Signed Gretel Tapia Work Phone: Start: 05-13-2017 End: 05-13-2017 Abdomen Complete Comments: See Note; NOTES: [facility] Imaging Services [address] [place] [address] Abdomen Complete MR#: [id number] Acct: [id number] Name: MOJGAN CORBETT Rep #: [id number] : 1990 F 26 From: Harvey Moyer DO PCP: Gretel Tapia DO Status: REG CLI Study: Abdomen Complete Date of Exam: 05/13/17 Exam# [id number] Ordering Dr: Gretel Tapia DO STUDY: ABDOMINAL [...] Service support , CC: Gretel Tapia DO Delicatessen Slicer: Signed Gretel Tapia Work Phone: Start: 05-12-2017 End: 05-12-2017 Pelvic (Non ) Comments: See Note; NOTES: [facility] Imaging Services [address] [place] [address] Pelvic (Non ) MR#: [id number] Acct: [id number] Name: MOJGAN CORBETT Rep #: [id number] : 1990 F 26 From: Lyndsay Bradford MD PCP: Gretel Tapia DO Status: REG CLI Study: Pelvic (Non ) Date of Exam: 05/12/17 Exam# [id number] Ordering Dr: Gretel Tapia DO STUDY: ULTRASOUND [...] Lyndsay Bradford MD at 18:26 EDT Tel [phone], Service support , CC: Gretel Tapia DO Delicatessen Slicer: Signed Gretel Tapia Work Phone: Start: 05-12-2017 End: 05-12-2017 Transvaginal Non- Comments: See Note; NOTES: [facility] Imaging Services [address] [place] [address] Transvaginal Non- MR#: [id number] Acct: [id number] Name: MOJGAN CORBETT Rep #: [id number] : 1990 F 26 From: Lyndsay Bradford MD PCP: Gretel Tapia DO Status: REG CLI Study: Transvaginal Non- Date of Exam: 05/12/17 Exam# [id number] Ordering Dr: Gretel Tapia DO STUDY: ULTRASOUND [...] Lyndsay Bradford MD at 18:26 EDT Tel [phone], Service support , CC: Gretel Tapia DO Delicatessen Slicer: Signed Gretel Tapia Work Phone: Start: 11-05-2016 End: 11-05-2016 Discharge Instruction Comments: See Note; NOTES: [facility] Medical Records Department [address] [place] [address] Discharge Instruction 10/26/16 1820 MR#: [id number] Acct: [id number] Name: MOJGAN CORBETT Rep #: [id number] : 1990 25 From: Justo Graf PCP: [...] your Primary Care Provider. Call Doctors Registry ([phone]) or report to the closest Emergency Room. Call 911 if necessary. 11/01/16 1903 <Electronically signed by Justo Graf > Date Justo Graf 11/05/16 0808<Electronically signed by Percy Sanchez MD> Cosigner Signature (If Indicated): Date Percy Sanchez MD CC: Gretel Shelley Start: 10-31-2016 End: 10-31-2016 12 lead ECG Comments: See Note; NOTES: [facility] Cardiovascular Services [address] [place] [address] 11443 12 Lead EKG 10/26/161731 MR#: [id number] Acct: [id number] Name: MOJGAN CORBETT Rep #: [id number] : 1990 From: John Franco MD Attending [...] ECG Confirmed by CALLIE PADILLA, JOHN ([id number]), proposal editor DONYA BUSTAMANTE ([id number]) on 10/31/2016 3:16:16 PM Referred By: GOYO Confirmed By:JOHN FRANCO MD 10/31/16 1516 Date John Franco MD CC: Gretel Tapia DO Date Dictated: 10/26/161731 Date Transcribed: 10/26/161731 Delicatessen Slicer: Signed Gretel Tapia Start: 10-27-2016 End: 10-27-2016 Emergency Department Summary Comments: See Note; NOTES: [facility] Medical Records Department [address] [place] [address] Emergency Department Summary MR#: [id number] Acct: [id number] Name: MOJGAN CORBETT Rep #: [id number] : 1990 25 From: Justo Graf PCP: [...] in nature. She has not seen her SENIOR INVESTMENT MANAGER for this complaint. She does not have [...] CLINICAL IMPRESSION: Costochondritis. Justo Graf MD T: [facility] JOB: [id number] Date Justo Graf 10/27/16 0055 <Electronically signed by Percy Sanchez MD> Cosigner Signature (If Indicated): Date Bert Sanchez MD CC: Gretel Tapia DO Date Dictated: 10/26/161823 Date Transcribed: 10/26/161823 Delicatessen Slicer: Signed Gretel Tapia Start: 10-26-2016 End: 10-26-2016 Chest PA and Lateral Comments: See Note; NOTES: [facility] Imaging Services [address] [place] [address] Verdana 4d Chest PA and Lateral MR#: [id number] Acct: [id number] Name: BERTAMOJGAN Charlotte Rep #: [id number] : 1990 F 25 From: Reddy Peralta DO PCP: Gretel Tapia DO Status: REG ER Study: Chest PA and Lateral Date of Exam: 10/26/16 Exam# [id number] Ordering Dr: Justo Graf STUDY: X-RAY CHEST [...] Reddy Peralta DO at 18:09 EDT Tel [phone], Service support [phone], CC: JUSTO GRAF M.D.; Gretel Tapia DO Delicatessen Slicer: Signed Gretel Tapia Work Phone: Start: 08-29-2016 End: 08-29-2016 Discharge Instruction Comments: See Note; NOTES: [facility] Medical Records Department [address] [place] [address] Discharge Instruction 08/27/16 0345 MR#: [id number] Acct: [id number] Name: MOJGAN CORBETT Rep #: [id number] : 1990 25 From: Pablo Castillo MD [...] your Primary Care Provider. Call [facility] ([phone]) or report to the closest Emergency Room. Call 911 if necessary. 08/29/162 <Electronically signed by Pablo Castillo MD> Date Pablo Castillo MD Cosigner Signature (If Indicated): Date CC: Gretel Shelley Start: 08-29-2016 End: 08-29-2016 Emergency Department Summary Comments: See Note; NOTES: [facility] Medical Records Department [address] [place] [address] Emergency Department Summary MR#: [id number] Acct: [id number] Name: MOJGAN CORBETT Rep #: [id number] : 1990 25 From: Pablo Castillo MD PCP: Gretel Tapia DO Status: [facility] DATE OF SERVICE: 08/27/2016 CHIEF COMPLAINT: [...] pimple. Pablo Castillo MD T: [facility] JOB: [id number] 08/29/162 <Electronically signed by Pablo Castillo MD> Date Pablo Castillo MD Cosigner Signature (If Indicated): Date CC: Gretel Tapia DO Date Dictated: 08/27/16348 Date Transcribed: 08/27/16348 Delicatessen Slicer: Signed Gretel Tapia Start: 05-09-2016 End: 05-09-2016 Esophagus Only Comments: See Note; NOTES: [facility] Imaging Services [address] [place] [address] Verdana 4d Esophagus Only MR#: [id number] Acct: [id number] Name: MOJGAN CORBETT Rep #: [id number] : 1990 F 25 From: Nitin Young MD PCP: Gretel Tapia DO Status: REG CLI Study: Esophagus Only Date of Exam: 05/09/16 Exam# [id number] Ordering Dr: Percy Morales MD STUDY: X-RAY [...] Nitin Young MD at 10:35 EDT Tel [phone], Service support [phone], CC: Bert Morales MD; Gretel Tapia DO Delicatessen Slicer: Signed Gretel Tapia Start: 04-24-2016 End: 04-24-2016 OB Triage Physician Note Comments: See Note; NOTES: [facility] Medical Records Department [address] [place] [address] OB Triage Physician Note 04/24/16 1330 MR#: [id number] Acct: [id number] Name: MOJGAN CORBETT Rep #: [id number] : 1990 25 From: Lyndsay Arevalo DO PCP: Gretel Tapia DO Status: [facility] CLI Y Location: [facility] History [...] Triage Physician Note Comments: See Note; NOTES: [facility] Medical Records Department [address] [place] [address] OB Triage Physician Note 03/16/16800 MR#: [id number] Acct: [id number] Name: MOJGAN CORBETT Rep #: [id number] : 1990 25 From: Lyndsay Arevalo DO PCP: Gretel Tapia DO Status: [facility] CLI Y Location: [facility] History of Present Illness - History [...] Triage Physician Note Comments: See Note; NOTES: [facility] Medical Records Department [address] [place] [address] OB Triage Physician Note 04/01/16 1311 MR#: [id number] Acct: [id number] Name: MOJGAN CORBETT Rep #: [id number] : 1990 25 From: Lyndsay Arevalo DO PCP: Gretel Tapia DO Status: [facility] Y Location: [facility] History of Present Illness - History [...] Brain without Contrast Comments: See Note; NOTES: [facility] Imaging Services [address] [place] [address] Verdana 4d Brain without Contrast MR#: [id number] Acct: [id number] Name: MOJGAN CORBETT Rep #: [id number] : 1990 F 25 From: Ori Green MD PCP: Gretel Tapia DO Status: REG CLI Study: Brain without Contrast Date of Exam: 03/24/16 Exam# [id number] Ordering Dr: Mari Meza MD STUDY: MRI [...] MD at 18:08 EDT , Service support [phone], CC: Mari Meza MD; Gretel Tapia DO Delicatessen Slicer: Signed Mari Meza Work Phone: Start: 03-21-2016 Adult depression screening assessment Margie Grayson APRN.CNP Work Phone: Start: 03-16-2016 End: 03-16-2016 OB Triage Physician Note Comments: See Note; NOTES: [facility] Medical Records Department [address] [place] [address] OB Triage Physician Note 03/16/16 0801 MR#: [id number] Acct: [id number] Name: MOJGAN CORBETT Rep #: [id number] : 1990 25 From: Lyndsay Arevalo DO PCP: Gretel Tapia DO Status: [facility] Y Location: [facility] History of Present Illness - History [...] Triage Physician Note Comments: See Note; NOTES: [facility] Medical Records Department [address] [place] [address] OB Triage Physician Note 03/03/169 MR#: [id number] Acct: [id number] Name: MOJGAN CORBETT Rep #: [id number] : 1990 25 From: Patti Temple MD PCP: Gretel Tapia DO Status: REG CLI Y Location: [place] [id number] History of Present Illness - History of [...] Triage Physician Note Comments: See Note; NOTES: [facility] Medical Records Department [address] [place] [address] OB Triage Physician Note 02/10/16 0813 MR#: [id number] Acct: [id number] Name: MOJGAN CORBETT Rep #: [id number] : 1990 25 From: Patti Temple MD [...] Triage Physician Note Comments: See Note; NOTES: [facility] Medical Records Department [address] [place] [address] OB Triage Physician Note 02/09/16706 MR#: [id number] Acct: [id number] Name: MOJGAN CORBETT Rep #: [id number] : 1990 25 From: Letty Gonzalez MD PCP: Gretel Tapia DO Status: DEP CLI Y Location: [facility] History of Present Illness - History [...] Function Report Comp Comments: See Note; NOTES: [facility] Pulmonary Services/Neurology [address] [place] [address] Pulmonary Function Test (Comp) MR#: [id number] Acct: [id number] Name: MOJGAN CORBETT Rep #: [id number] : 1990 From: Cristopher Bosch MD Referring Dr: Mandie Gandhi Status: REG CLI Ordering Dr: Mandie Gandhi Date: 12/08/15 Location: [facility] Sex: F C DATE OF [...] ESPITIA C: Mandie Gandhi T: [facility] JOB: [id number] 12/10/15 0452 <Electronically signed by Cristopher Bosch MD> Date Cristopher Bosch MD CC: Mandie Gandhi; Cristopher Bosch MD; Gretel Tapia DO Date Dictated: 12/09/15 0759 Date Transcribed: 12/09/15758 Delicatessen Slicer: Signed Carolann Oksana Work Phone: Start: 12-02-2015 End: 12-02-2015 Echocardiogram Complete Comments: See Note; NOTES: [facility] Cardiovascular Services [address] [place] [address] Echo Complete 12/02/15 1402 MR#: [id number] Acct: [id number] Name: MOJGAN CORBETT Rep #: [id number] : 1990 From: Ubaldo Nye MD Attending Dr: Chas Mcclain MD Status: REG CLI Ordering Dr: Chas Mcclain MD Date: 12/02/15 Location: [facility] Sex: F C Admitted: Reason For [...] Dictated: 12/02/15 1402 Date Transcribed: 12/02/15 1554 Delicatessen Slicer: Signed Gretel Tapia Start: 11-24-2015 End: 11-24-2015 12 lead ECG Comments: See Note; NOTES: [facility] Cardiovascular Services [address] [place] [address] 12 Lead EKG 11/20/15 1716 MR#: [id number] Acct: [id number] Name: MOJGAN CORBETT Rep #: [id number] : 1990 25 From: John Franco MD [...] ECG Confirmed by CALLIE PADILLA, JOHN ([id number]), proposal editor DONYA BUSTAMANTE ([id number]) on 11/24/2015 12:53:14 PM Referred By: WOLFGANG Confirmed By:JOHN FRANCO MD 11/24/15 1253 Date John Franco MD CC: Gretel Tapia DO Date Dictated: 11/20/151715 Date Transcribed: 11/20/151715 Delicatessen Slicer: Signed Gretel Tapia Start: 11-24-2015 End: 11-24-2015 Spmtry w/vc expiratory yara w/wo mxml vol vntj _ Mandie Gandhi Work Phone: Start: 11-21-2015 End: 11-21-2015 Emergency Department Summary Comments: See Note; NOTES: [facility] Medical Records Department [address] [place] [address] Emergency Department Summary MR#: [id number] Acct: [id number] Name: MOJGAN CORBETT Rep #: [id number] : 1990 25 From: Chas Mcclain MD [...] DISPOSITION: Discharge. Dr. Chas Mcclain MD T: [facility] JOB: [id number] 11/21/152024 <Electronically signed by Chas Mcclain MD> Date Chas Mcclain MD Cosigner Signature (If Indicated): Date _ CC: Gretel Tapia DO Date Dictated: 11/20/151812 Date Transcribed: 11/20/151812 Delicatessen Slicer: Signed Gretel Tapia Start: 11-20-2015 End: 11-20-2015 Discharge Instruction Comments: See Note; NOTES: [facility] Medical Records Department [address] [place] [address] Discharge Instruction 11/20/151812 MR#: [id number] Acct: [id number] Name: BERTAMOJGAN CHERY Rep #: [id number] : 1990 25 From: Chas Mcclain MD PCP: Gretel Tapia DO Status: REG ER ED Disposition - Plan for ED Patient: Chief Complaint: Bite Instructions: ED Cellulitis Skin Infection What to do if you have Problems For any increased pain, shortness of breath, bleeding, nausea or vomiting, chest pain, or any unexpected problems, contact your doctor. Call [facility] ([phone]) or report to the closest Emergency Room. Call 911 if necessary. 11/20/151813 <Electronically signed by Chas Mcclain MD> Date Chas Mcclain MD Cosigner Signature (If Indicated): Date CC: Gretel Shelley Start: 05-18-2015 End: 05-19-2015 Thyroid Comments: See Note; NOTES: [facility] Imaging Services [address] [address] Ultrasound Report MR#: [id number] Acct: [id number] Name: MOJGAN CORBETT Rep #: [id number] : 1990 F 24 From: Nitin Young MD PCP: Gretel Tapia DO Status: REG CLI Study: Thyroid Date of Exam: 05/18/15 Exam# [id number] Ordering Dr: Gretel Tapia DO STUDY: THYROID [...] Nitin Young MD at 12:27 EDT Tel [phone], Service support [phone], CC: Gretel Tapia DO Delicatessen Slicer: Signed Gretel Tapia Work Phone: Start: 05-01-2015 End: 05-01-2015 Spmtry w/vc expiratory yara w/wo mxml vol vntj _ Mandie Gandhi Work Phone: Plan of Treatment Date Care Activity Detail Author Start: 2038 Shingles (RZV) Vacci ne (1 of 2) Shingles (RZV) Vaccine (1 of 2) [facility] Start: 04-07-2023 Influenza vaccination [facility] Start: 08-07-2022 DEPRESSION ASSESSMENT DEPRESSION ASS ESSMENT [facility] Start: 05-09-2022 End: 07-09-2022 Bacteria identified in Urine by Culture [facility] Work Phone: Immunizations Immunization Date Immunization Notes Care Provider Venkat duarte 03-20-2007 tetanus toxoid, redu tim diphtheria toxoid, and acellular pertussis vaccine, adsorbed Margie Grayson APRN.[facility] Work Phone: [facility] Work Phone: Payers Date Payer Category Payer Unknown [id number] 2021 Medicaid [id number] 2021 Medicaid [id number] 2021 Medicaid [employer] [id number] 2021-Present [phone] [address] [place] [address] Medicaid [id number] 1990 Unknown [id number] 1990 Unknown [id number] 1990 Unknown [id number] 1990 Unknown [id number] Unknown Social History Date Type Detail Facility Tobacco smoking status NVIS Tobacco smoking consumption unknown [facility] Start: 1990 [facility] Start: 02-03-2011 End: 09-24-2022 Tobacco smoking status NHIS Ex-smoker [facility] End: 08-07-2007 History of tobacco use Current smoker [facility] Work Phone: Start: 03-08-2022 End: 04-17-2023 Alcohol intake Current non-drinker of alcohol (finding) [facility] Start: 02-26-2022 End: 05-09-2022 Exposure to SARS-CoV-2 (event) Not sure [facility] Work Phone: End: 08-07-2007 History of tobacco use Cigarette Smoker [facility] Work Phone: Start: 02-03-2011 End: 09-24-2022 Tobacco use and exposure Smokeless tobacco non-user [facility] Work Phone: Tobacco smoking status Never smoked tobacco (finding) [facility] Sex Assigned At Sex [facility] Start: 07-15-2020 End: 03-06-2023 History of Social function [facility] Start: 07-15-2020 End: 03-06-2023 Tobacco use panel [facility] National Score (1-100), lower number is lower risk Not on file [facility] Functional Status Date Assessment Result Facility 10-03-2022 Functional Status Standard Safet y ID band on, Call device within reach, Bed in low position, Wheels locked, Upper/Half-Length side-rails up, Bedside Cart Locked, Safety level maintained [facility] Mental Status Date Assessment Result Facility 10-03-2022 Mental Status Orientation Oriented x 4 [facility] Clinical Notes 08-11-2015 to 07-04-2023 Anna Almendarez PA-C - 07/04/2023 7:49 AM Ori Love APRN.CNP - 04/17/2023 9:19 AM Ori Greer APRN.[employer] - 04/14/2023 5:42 PM Crystal Valle MD - 10/10/2022 4:02 PM EST Note Date & Type Note Facility 07-04-2023 Note HNO ID: [id number] Author: Anna Almendarez PA-C Service: ? Author Type: Physician Gravity Flow Irrigator Type: Progress Notes Filed: 07/04/2023 7:57 AM [...] STREP A MOLECULAR (POC) Anna Almendarez PA-C [facility] 07-04-2023 History of Present illness Narrative This note was created using R-Squaredriter. Subjective Mojgan Corbett is a 32 year [...] Anna Almendarez PA-C documented in this encounter [facility] 04-17-2023 Note HNO ID: [id number] Author: Ori Garcia APRN.[employer] Service: ? Author Type: Nurse Practitioner Type: [...] OF WISDOM TEETH ALLERGIES Lactose and Poison [place] MEDICATIONS triamcinolone acetonide (KENALOG) 0.1 % cream [...] of care. This note was generated using [employer] software. It may contain errors in wording, punctuation, or spelling. Ori Garcia APRN.[facility] 04-17-2023 History of Present illness Narrative [...] OF WISDOM TEETH ALLERGIES Lactose and Poison [place] MEDICATIONS triamcinolone acetonide (KENALOG) 0.1 % cream [...] of care. This note was generated using [employer] software. It may contain errors in wording, punctuation, or spelling. Ori Garcia APRN.ELLIOT documented in this encounter [facility] 04-14-2023 Note HNO ID: [id number] Author: rOi Garcia APRN.[employer] Service: ? Author Type: Nurse Practitioner Type: [...] OF WISDOM TEETH ALLERGIES Lactose and Poison [place] MEDICATIONS levothyroxine (SYNTHROID) 25 mcg tablet ALBUTEROL [...] of care. This note was generated using [employer] software. It may contain errors in wording, punctuation, or spelling. Ori Garcia APRN.[facility] 04-14-2023 History of Present illness Narrative [...] OF WISDOM TEETH ALLERGIES Lactose and Poison [place] MEDICATIONS levothyroxine (SYNTHROID) 25 mcg tablet ALBUTEROL [...] of care. This note was generated using [employer] software. It may contain errors in wording, punctuation, or spelling. Ori Garcia APRN.ELLIOT documented in this encounter [facility] 03-06-2023 Note HNO ID: [id number] Author: Ori Garcia APRN.ELLIOT Service: ? Author [...] OF WISDOM TEETH ALLERGIES Lactose and Poison [place] MEDICATIONS levothyroxine (SYNTHROID) 25 mcg tablet ALBUTEROL [...] Objective Physical Exam Exam conducted with a configurator present. Constitutional: General: She is not in [...] of care. This note was generated using [employer] software. It may contain errors in wording, punctuation, or spelling. Ori Garcia APRN.ELLIOT [facility] 03-06-2023 Miscellaneous Notes Addended by: ORI GARCIA on: 03/06/2023 08:15 PM Modules accepted: Orders documented in this encounter [facility] 03-06-2023 History of Present illness Narrative [...] OF WISDOM TEETH ALLERGIES Lactose and Poison [place] MEDICATIONS levothyroxine (SYNTHROID) 25 mcg tablet ALBUTEROL [...] Objective Physical Exam Exam conducted with a configurator present. Constitutional: General: She is not in [...] of care. This note was generated using [employer] software. It may contain errors in wording, punctuation, or spelling. Ori Garcia APRN.ELLIOT documented in this encounter [facility] 10-10-2022 Note HNO ID: [id number] Author: Kishor Valle MD Service: ? Author [...] of uncontrolled ear pain and was given Concord. Her ear drained blood and clear fluid [...] ALLERGIES Allergen Reactions Lactose GI Upset Poison [place] Rash VITALS: BP 100/64 Pulse 76 Temp [...] anatomy and physiology reviewed. Kishor Valle MD [facility] 10-10-2022 History of Present illness Narrative Patient presents with: Ear Pain: left ear pain, SOUZA x 1 week HPI: Feeling left ear pain for 1 week. She was seen here and started on amoxicillin for left otitis media. She went to the ER then because of uncontrolled ear pain and was given Concord. Her ear drained blood and clear fluid [...] ALLERGIES Allergen Reactions Lactose GI Upset Poison [place] Rash VITALS: BP 100/64 Pulse 76 Temp [...] Kishor Valle MD documented in this encounter [facility] 10-03-2022 Hospital Discharge instructions Patient Education [...] directed by your healthcare provider Convulsion (seizure) [id number] [employer] [place] [address]. All rights reserved. This information is not intended as a substitute for professional medical care. Always follow your healthcare professional's instructions. Follow Up Care 10/03/2022 18:28:30 With:COLE SCOTT MD Address: [address] [address] [phone] When:2-4 days With:Go to emergency room if symptoms worsen Address:Unknown When:2-4 days [facility] 10-03-2022 Note HNO ID: [id number] Author: Suzette Perry APRN.[employer] Service: ? Author Type: Nurse Practitioner Type: [...] OF WISDOM TEETH ALLERGIES Lactose and Poison [place] MEDICATIONS amoxicillin (AMOXIL) 875 mg tablet Take 1 tablet by mouth twice daily for 7 days. oseltamivir (TAMIFLU) 75 mg capsule Take 1 capsule by mouth twice daily for 5 days. (Patient not taking: Reported on 10/03/2022) mupirocin (BACTROBAN) 2 % ointment Apply 1 application to affected area three times daily for 10 days. (Patient not taking: Reported on 09/27/2022) jumpbgsdgwBUGDG-szonze-hroxrueza (BMX 1:1:1) 1:1:1 liqd Mix in equal [...] Discussed expected course of illness Suzette Perry APRN.[facility] 10-03-2022 Note Discharge Instructions Thank you for allowing [facility] to assist you with your healthcare needs. The following is important discharge information regarding your hospital visit. Diagnosis from Today's Visit Otitis media Ear pain What to Do Next Instructions from Your Care Team Your prescription for amoxicillin 875 is ready to be picked up now at [facility] [place]. No qualifying data available. Post Acute Orders No qualifying data available. You Need to Schedule the Following Appointments Follow Up with COLE SCOTT MD When Within 2-4 days Where: [facility] [address] [place] [address]- [phone] Follow Up with Go to emergency room if symptoms worsen When Within 2-4 days Allergies NKA Medications Please ask your primary doctor or pharmacist before taking any other medication not listed, including over the counter drugs, herbal medications, vitamins and or supplements as they may interact with your home medications. What How Much When Why Instructions Last Dose New acetaminophen-hydrocodone (Concord 325- 5 mg oral tablet) 1 tab(s) [...] directed by your healthcare provider Convulsion (seizure) [id number] [employer]. [address] [place] [address], [place] [address]. All rights reserved. This information is not intended as a substitute for professional medical care. Always follow your healthcare professional's instructions. Additional Information VACCINATE! IT SAVES LIVES! Members of the community who have not yet received the COVID-19 vaccine and would like to receive it can visit one of [facility] vaccine clinics. There are many vaccine clinic locations within the [facility]. For locations and available times, please visit [email or web address].[place]. gov/. It is important to note that some COVID mobile vaccine clinics are held outdoors and may be canceled in rainy or stormy conditions. To learn more about pediatric vaccinations (ages 5-11), we invite you to visit the [facility] webpage. https://www.[email or web address].org/p ages/5432-Vxked-Talmpgvzlts-Freq jlnhes-Woron-Wsywjkwbo.html To learn more about the COVID-19 vaccine, we invite you to visit the CDC website for a list of frequently asked questions. https://www.cdc.gov/coronavirus/ 2019-ncov/vaccines/faq.html [facility] Patient Portal Access Instructions: Stay connected with your healthcare team and access your personal medical information anytime with the [facility] Patient Portal. If you would like a full copy of your medical records please contact the [facility] Medical Records Department Monday through Monday between 8a.m. and 4:30p.m. Please follow the directions below to access the portal: 1.Access the email account you provided upon registration to the hospital.2.Look for an invitation email from [facility].3.Open the email and access the invitation link: Accept Invitation to [facility].Fill in the required rodriguez to create your account. Sign into www.[email or web address] with your username and password that you [...] you will allow to register on the [facility] Patient Portal for access to your information. You can also access the [facility] Patient Portal on the [employer]. Simply click on Health Records under Health [...] Call your local pharmacy or go to [email or web address] to find one close to you.3.Make use of household items: Use cat litter or old coffee grounds to dispose medications if other options are not available. Mix your drugs with these household products, seal them in an airtight container and throw it into the garbage. Call [facility]: [phone] to be sure your drugs can be [...] aware that I should contact my doctor. Patient/Butcher Apprentice Signature: Date/Time: Relationship to Patient: Witness Name/Signature: Date/Time: [facility] 10-03-2022 Emergency department Discharge summary Discharge Instructions Thank you for allowing [facility] to assist you with your healthcare needs. The following is important discharge information regarding your hospital visit. Diagnosis from Today's Visit Otitis media Ear pain What to Do Next Instructions from Your Care Team Your prescription for amoxicillin 875 is ready to be picked up now at [facility] in [place]. No qualifying data available. Post Acute Orders No qualifying data available. You Need to Schedule the Following Appointments Follow Up with COLE SCOTT MD When Within 2-4 days Where: [facility] [address] [place] [address]- [phone] Follow Up with Go to emergency room [...] directed by your healthcare provider Convulsion (seizure) [phone] [employer] [place] [address]. All rights reserved. This information is not intended as a substitute for professional medical care. Always follow your healthcare professional's instructions. Additional Information VACCINATE! IT SAVES LIVES! Members of the community who have not yet received the COVID-19 vaccine and would like to receive it can visit one of [facility] vaccine clinics. There are many vaccine clinic locations within the [facility]. For locations and available times, please visit [email or web address] It is important to note that some COVID mobile vaccine clinics are held outdoors and may be canceled in rainy or stormy conditions. To learn more about pediatric vaccinations (ages 5-11), we invite you to visit the [facility] webpage. [email or web address] To learn more about the COVID-19 vaccine, we invite you to visit the CDC website for a list of frequently asked questions. https://www.cdc.gov/coronavirus/ 2019-ncov/vaccines/faq.html [facility] Patient Portal Access Instructions: Stay connected with your healthcare team and access your personal medical information anytime with the [facility] Patient Portal. If you would like a full copy of your medical records please contact the [facility] Medical Records Department Monday through Monday between 8a.m. and 4:30p.m. Please follow the directions below to access the portal: 1.Access the email account you provided upon registration to the [facility].2.Look for an invitation email from [facility].3.Open the email and access the invitation link: Accept Invitation to [facility]4.Fill in the required rodriguez to create your account. Sign into www.[employer] with your username and password that you [...] you will allow to register on the [facility] Patient Portal for access to your information. You can also access the [facility] Patient Portal on the [employer]. Simply click on Health Records under Health Data and then click on the [employer] logo. HOW TO SAFELY DISPOSE OF PRESCRIPTION [...] Call your local pharmacy or go to http://bit.[employer]/4K2Ug5h to find one close to you.3.Make use of household items: Use cat litter or old coffee grounds to dispose medications if other options are not available. Mix your drugs with these household products, seal them in an airtight container and throw it into the garbage. Call [facility]: [phone] to be sure your drugs can be [...] aware that I should contact my doctor. Patient/Butcher Apprentice Signature: Date/Time: Relationship to Patient: Witness Name/Signature: Date/Time: [facility] 10-03-2022 History of Present illness Narrative [...] OF WISDOM TEETH ALLERGIES Lactose and Poison [place] MEDICATIONS amoxicillin (AMOXIL) 875 mg tablet Take 1 tablet by mouth twice daily for 7 days. oseltamivir (TAMIFLU) 75 mg capsule Take 1 capsule by mouth twice daily for 5 days. (Patient not taking: Reported on 10/03/2022) mupirocin (BACTROBAN) 2 % ointment Apply 1 application to affected area three times daily for 10 days. (Patient not taking: Reported on 09/27/2022) crgcllwxamMAACU-oyaerr-uzovizzdm (BMX 1:1:1) 1:1:1 liqd Mix in equal [...] Discussed expected course of illness Suzette Perry APRN.RUBBER CUTTER AND SHAPE CARVER documented in this encounter [facility] 10-03-2022 Instructions Suzette Perry APRN.CNP - [...] even if the symptoms go away. 2. Bwnq-pgx-vdojand pain medication may be taken or other [...] him or her). documented in this encounter [facility] 10-01-2022 Miscellaneous Notes Patient notified of results, verbalized understanding. Lucina Rodriguez MA Negative for flu and covid please notify thank you documented in this encounter [facility] 09-30-2022 Note HNO ID: [id number] Author: Suzette Perry APRN.ELLIOT Service: ? Author [...] OF WISDOM TEETH ALLERGIES Lactose and Poison [place] MEDICATIONS levothyroxine (SYNTHROID) 25 mcg tablet ALBUTEROL INHALATION Inhale as instructed. mupirocin (BACTROBAN) 2 % ointment Apply 1 application to affected area three times daily for 10 days. (Patient not taking: Reported on 09/27/2022) rgxkshsjkbBWFGO-wcdalh-uojpffkiy (BMX 1:1:1) 1:1:1 liqd Mix in equal [...] expected course of illness Suzette Perry APRN.CNP [facility] 09-30-2022 Instructions Suzette Perry APRN.CNP - [...] expected course of illness Suzette Perry APRN.ELLIOT [facility] PATIENT INFO INFLUENZA INTRODUCTION Influenza (commonly called the flu) is a highly contagious illness that can occur in children or adults of any age. It occurs more often in the winter months because people spend more time in close contact with one another. The flu is spread easily from weqipg-xy-vlzsbb by coughing, sneezing, or touching surfaces. Every [...] age of 65, people who live in fdc care facilities (nursing homes), and those with [...] do not become dehydrated. One way to circuit court judge if you are drinking enough is to [...] of antibiotic resistance. documented in this encounter [facility] 09-30-2022 History of Present illness Narrative [...] OF WISDOM TEETH ALLERGIES Lactose and Poison [place] MEDICATIONS levothyroxine (SYNTHROID) 25 mcg tablet ALBUTEROL INHALATION Inhale as instructed. mupirocin (BACTROBAN) 2 % ointment Apply 1 application to affected area three times daily for 10 days. (Patient not taking: Reported on 09/27/2022) iansegvyhdJKWNJ-vcrxsg-ohexennqr (BMX 1:1:1) 1:1:1 liqd Mix in equal [...] Discussed expected course of illness Suzette Perry APRN.RUBBER C[employer]TER AND SHAPE CARVER documented in this encounter [facility] 09-27-2022 Note HNO ID: [id number] Author: Seth Noguera APRN.ELLIOT Service: ? Author [...] OF WISDOM TEETH ALLERGIES Lactose and Poison [place] MEDICATIONS levothyroxine (SYNTHROID) 25 mcg tablet cephALEXin (KEFLEX) 500 mg capsule Take 1 capsule by mouth four times daily for 5 days. (Patient not taking: Reported on 09/27/2022) mupirocin (BACTROBAN) 2 % ointment Apply 1 application to affected area three times daily for 10 days. (Patient not taking: Reported on 09/27/2022) hdcypupbqcJEAIY-nfrfye-vlsigplhv (BMX 1:1:1) 1:1:1 liqd Mix in equal [...] - STREP A MOLECULAR (POC) Seth Noguera APRN.[facility] 09-27-2022 History of Present illness Narrative [...] OF WISDOM TEETH ALLERGIES Lactose and Poison [place] MEDICATIONS levothyroxine (SYNTHROID) 25 mcg tablet cephALEXin (KEFLEX) 500 mg capsule Take 1 capsule by mouth four times daily for 5 days. (Patient not taking: Reported on 09/27/2022) mupirocin (BACTROBAN) 2 % ointment Apply 1 application to affected area three times daily for 10 days. (Patient not taking: Reported on 09/27/2022) uqsktxqssuQCMHS-ihjbse-bctihzizt (BMX 1:1:1) 1:1:1 liqd Mix in equal [...] Seth Noguera APRN.CNP documented in this encounter [facility] 09-24-2022 Note HNO ID: [id number] Author: Hillary Cisneros APRN.CNP Service: ? Author Type: Nurse Practitioner Type: Progress Notes Filed: 09/24/2022 1:13 PM Note Text: Subjective The history is provided by the patient. No foreign languages professor was used. HPI Mojgan Corbett is a [...] have confirmed and edited as necessary, the [facility] Review of Systems Constitutional: Negative for [...] detail warranting prompt ER evaluation. Hillary Cisneros APRN.[facility] 09-24-2022 History of Present illness Narrative Subjective The history is provided by the patient. No foreign languages professor was used. HPI Mojgan Corbett is a [...] have confirmed and edited as necessary, the [facility] Review of Systems Constitutional: Negative for [...] Hillary Cisneros APRN.ELLIOT documented in this encounter [facility] 05-10-2022 Miscellaneous Notes Phone call placed, [...] found in the genital area. Follow-up with SENIOR INVESTMENT MANAGER as needed. documented in this encounter [facility] 05-10-2022 Miscellaneous Notes Patient returned call and given provider's message below with verbalized understanding. Unable to reach patient-left her a message to call for results and recommendations-please see both notes.Angie Tanner LPN ----- Message from Suzette Perry APRN.ELLITO sent at 05/10/2022 10:34 AM EDT ----- Urine culture did not show clear evidence of infection. She may continue to take antibiotic if it has been helpful. If not improving, recommend follow up with PCP. Suzette Perry CNP Vaginal test positive for BV. Antibiotic sent to the pharmacy. Additional results pending. documented in this encounter [facility] 05-09-2022 History of Present illness Narrative [...] specified Recurrent UTI's ALLERGIES Lactose and Poison [place] MEDICATIONS Current Outpatient Medications Medication Sig fninhaddljOOWQL-wnjzqr-nbyhpjjtw (BMX 1:1:1) 1:1:1 liqd Mix in equal [...] which included preparing to see the patient, lzbf-rg-vavq patient care, completing clinical documentation, performing a medically appropriate examination, counseling and educating the patient/family/caregiver, and ordering medications, tests, or procedures. Luisa Clarke PA-C documented in this encounter [facility] 03-09-2022 Miscellaneous Notes Patient given results [...] ER if severe. documented in this encounter [facility] 03-08-2022 History of Present illness Narrative [...] OF WISDOM TEETH ALLERGIES Lactose and Poison [place] MEDICATIONS MULTIVITAMIN ORAL Take by mouth. levothyroxine [...] Margie Grayson APRN.ELLIOT documented in this encounter [facility] 02-02-2022 Hospital Discharge instructions Gene Hair [...] of this encounter (statuses as of 03/08/2022) [facility] History of Past illness Narrative* Problem [...] of this encounter (statuses as of 03/09/2022) [facility] History of Past illness Narrative* Problem Noted Date Resolved Date Encounter for supervision of normal in third trimester 08/11/2015 09/09/2016 Overview: Girl on [facility]? Supervision of other normal 03/16/2013 10/03/2013 Overview: [...] of this encounter (statuses as of 05/09/2022) [facility] History of Past illness Narrative* Problem Noted Date Resolved Date Encounter for supervision of normal in third trimester 08/11/2015 09/09/2016 Overview: Girl on [facility]? Supervision of other normal 03/16/2013 10/03/2013 Overview: [...] of this encounter (statuses as of 05/10/2022) [facility] History of Past illness Narrative* Problem [...] of this encounter (statuses as of 09/24/2022) [facility] History of Past illness Narrative* Problem Noted Date Resolved Date Encounter for supervision of normal in third trimester 08/11/2015 09/09/2016 Overview: Girl on [facility]? Supervision of other normal 03/16/2013 10/03/2013 Overview: [...] of this encounter (statuses as of 09/28/2022) [facility] History of Past illness Narrative* Problem Noted Date Resolved Date Encounter for supervision of normal in third trimester 08/11/2015 09/09/2016 Overview: Girl on [facility]? Supervision of other normal 03/16/2013 10/03/2013 Overview: [...] of this encounter (statuses as of 09/30/2022) [facility] History of Past illness Narrative* Problem [...] of this encounter (statuses as of 10/01/2022) [facility] History of Past illness Narrative* Problem Noted Date Resolved Date Encounter for supervision of normal in third trimester 08/11/2015 09/09/2016 Overview: Girl on [facility]? Supervision of other normal 03/16/2013 10/03/2013 Overview: [...] of this encounter (statuses as of 10/04/2022) [facility] History of Past illness Narrative* Problem Noted Date Resolved Date Encounter for supervision of normal in third trimester 08/11/2015 09/09/2016 Overview: Girl on [facility]? Supervision of other normal 03/16/2013 10/03/2013 Overview: [...] of this encounter (statuses as of 10/11/2022) [facility] of Past illness Narrative* Problem [...] of this encounter (statuses as of 03/07/2023) [facility] History of Past illness Narrative* Problem Noted Date Diagnosed Date Resolved Date Encounter for supervision of normal in third trimester 08/11/2015 09/09/2016 Overview: Girl on [facility]? Supervision of other normal 03/16/2013 10/03/2013 Overview: [...] of this encounter (statuses as of 04/15/2023) [facility] History of Past illness Narrative* Problem Noted Date Diagnosed Date Resolved Date Encounter for supervision of normal in third trimester 08/11/2015 09/09/2016 Overview: Girl on [facility]? Supervision of other normal 03/16/2013 10/03/2013 Overview: [...] of this encounter (statuses as of 04/17/2023) [facility] History of Past illness Narrative* Problem Noted Date Diagnosed Date Resolved Date Encounter for supervision of normal in third trimester 08/11/2015 09/09/2016 Overview: Girl on - [facility]? Supervision of other normal 03/16/2013 10/03/2013 Overview: [...] of this encounter (statuses as of 07/04/2023) [facility] No data available for this section [facility] Diagnosis Sunburn- Primary documented in this encounter [facility] note* Diagnosis Sore throat- Primary Acute pharyngitis Suspected COVID-19 virus infection documented in this encounter [facility] note* Diagnosis Urinary frequency- Primary Late menses Other disorder of menstruation and other abnormal bleeding from female genital tract Dysuria Exposure to STD Contact with or exposure to other communicable diseases documented in this encounter [facility] note* Diagnosis Paronychia, toe, right- Primary documented in this encounter [facility] note* Diagnosis Sore throat- Primary Acute pharyngitis documented in this encounter [facility] note* Diagnosis Streptococcus exposure- Primary Contact with or exposure to other communicable diseases Throat pain Flu-like symptoms Other general symptoms documented in this encounter [facility] note* Diagnosis Other acute nonsuppurative otitis media of left ear, recurrence not specified- Primary documented in this encounter [facility] note* Diagnosis Recurrent acute otitis media of left ear- Primary documented in this encounter [facility] note* Diagnosis External hemorrhoid- Primary External hemorrhoids without mention of complication documented in this encounter [facility] note* Diagnosis Rash- Primary Rash and other nonspecific skin eruption documented in this encounter [facility] note* Diagnosis Rash- Primary Rash and other nonspecific skin eruption documented in this encounter [facility] note* Diagnosis Strep pharyngitis- Primary Streptococcal sore throat documented in this encounter [facility] Instructions Name Dates Details How to [...] FoundDocuments on File Type Date Recorded 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 Advance Directive(s) Health Concerns Infection Onset Date Last Indicated Resolved Time COVID-19 Rule-Out 03/08/2022 03/08/2022 Infection Onset Date Last Indicated Resolved Time COVID-19 Confirmed 03/08/2022 03/08/2022 Reason for Referral Specialty Diagnoses / Procedures Referred By Contac t Referred To Contact General Surgery Diagnoses External hemorrhoid Procedures CONSULT TO GENERAL SURGERY OFFICE/OUTPATIENT [facility] MDM 60-74 MINUTES Ori Garcia APRN.RUBBER CUTTER AND SHAPE CARVER [address] [place] [address] Referral ID Status Reason Start Date Expiration Date Visits Requested Visits Authorized [id number] Pending Review PCP Requested Referral 03/06/2023 03/05/2024 [...] CREATED AUTHOR AUTHOR'S ORGANIZ ATION 10/08/2022 [facility] ([place]) DATE CREATED AUTHOR AUTHOR'S ORGANIZ ATION 10/14/2022 [facility] DATE CREATED AUTHOR AUTHOR'S ORGANIZ ATION 07/05/2023 [facility] Source Comments (unrecognize d section and content) In the event this informatio n is protected by the Federal Confidentiality of Alcohol and Drug Abuse Patient Records regulations: The Federal rules restrict any use of the information to criminally investigate or prosecute any alcohol or drug abuse patient.[facility] the event this information is protected by the Federal Confidentiality of Alcohol and Drug Abuse Patient Records regulations: The Federal rules restrict any use of the information to criminally investigate or prosecute any alcohol or drug abuse patient.[facility] the event this information is protected by the Federal Confidentiality of Alcohol and Drug Abuse Patient Records regulations: The Federal rules restrict any use of the information to criminally investigate or prosecute any alcohol or drug abuse patient.[facility] the event this information is protected by the Federal Confidentiality of Alcohol and Drug Abuse Patient Records regulations: The Federal rules restrict any use of the information to criminally investigate or prosecute any alcohol or drug abuse patient.[facility] the event this information is protected by the Federal Confidentiality of Alcohol and Drug Abuse Patient Records regulations: The Federal rules restrict any use of the information to criminally investigate or prosecute any alcohol or drug abuse patient.[facility] the event this information is protected by the Federal Confidentiality of Alcohol and Drug Abuse Patient Records regulations: The Federal rules restrict any use of the information to criminally investigate or prosecute any alcohol or drug abuse patient.[facility] the event this information is protected by the Federal Confidentiality of Alcohol and Drug Abuse Patient Records regulations: The Federal rules restrict any use of the information to criminally investigate or prosecute any alcohol or drug abuse patient.[facility] the event this information is protected by the Federal Confidentiality of Alcohol and Drug Abuse Patient Records regulations: The Federal rules restrict any use of the information to criminally investigate or prosecute any alcohol or drug abuse patient.[facility] the event this information is protected by the Federal Confidentiality of Alcohol and Drug Abuse Patient Records regulations: The Federal rules restrict any use of the information to criminally investigate or prosecute any alcohol or drug abuse patient.[facility] the event this information is protected by the Federal Confidentiality of Alcohol and Drug Abuse Patient Records regulations: The Federal rules restrict any use of the information to criminally investigate or prosecute any alcohol or drug abuse patient.[facility] the event this information is protected by the Federal Confidentiality of Alcohol and Drug Abuse Patient Records regulations: The Federal rules restrict any use of the information to criminally investigate or prosecute any alcohol or drug abuse patient.[facility] the event this information is protected by the Federal Confidentiality of Alcohol and Drug Abuse Patient Records regulations: The Federal rules restrict any use of the information to criminally investigate or prosecute any alcohol or drug abuse patient.[facility] the event this information is protected by the Federal Confidentiality of Alcohol and Drug Abuse Patient Records regulations: The Federal rules restrict any use of the information to criminally investigate or prosecute any alcohol or drug abuse patient.[facility] the event this information is protected by the Federal Confidentiality of Alcohol and Drug Abuse Patient Records regulations: The Federal rules restrict any use of the information to criminally investigate or prosecute any alcohol or drug abuse patient.[facility] the event this information is protected by the Federal Confidentiality of Alcohol and Drug Abuse Patient Records regulations: The Federal rules restrict any use of the information to criminally investigate or prosecute any alcohol or drug abuse patient.[facility] Care Teams (unrecognized sec tion and content) Weight Control Engineer Relationship Specialty Start Date End Date Rosa Mccoy MD PCP - General Internal Medicine 01/24/19 Weight Control Engineer Relationship Specialty Start Date End Date Rosa Mccoy MD PCP - General Internal Medicine 01/24/19 Weight Control Engineer Relationship Specialty Start Date End Date Rosa Mccoy MD PCP - General Internal Medicine 01/24/19 Weight Control Engineer Relationship Specialty Start Date End Date Rosa Mccoy MD PCP - General Internal Medicine 01/24/19 Weight Control Engineer Relationship Specialty Start Date End Date Rosa Mccoy MD PCP - General Internal Medicine 01/24/19 Weight Control Engineer Relationship Specialty Start Date End Date Rosa Mccoy MD PCP - General Internal Medicine 01/24/19 Weight Control Engineer Relationship Specialty Start Date End Date Rosa Mccoy MD PCP - General Internal Medicine 01/24/19 Weight Control Engineer Relationship Specialty Start Date End Date Rosa Mccoy MD PCP - General Internal Medicine 01/24/19 Weight Control Engineer Relationship Specialty Start Date End Date Rosa Mccoy MD PCP - General Internal Medicine 01/24/19 Weight Control Engineer Relationship Specialty Start Date End Date Rosa Mccoy MD PCP - General Internal Medicine 01/24/19 Weight Control Engineer Relationship Specialty Start Date End Date Rosa Mccoy MD PCP - General Internal Medicine 01/24/19 Weight Control Engineer Relationship Specialty Start Date End Date Rosa Mccoy MD PCP - General Internal Medicine 01/24/19 Care Team (unrecognized sect ion and content) Care Team Personnel Name: COLE SCOTT MD Member Role: Primary Care Physician Address: Address: [facility] [address] [place], [place] [address] Name: PREETI Cast Position: ED RN Member Role: ED RN Care Team Related Persons Name: ANA CORBETT Name: MARIA C CORBETTJavier Cummings Address: Home [address] [place] [address] Name: DOROTA CORBETT Address: Home [address] [place] [address] FOR RECORDS PERTAINING TO PATIENTS WHO ARE [...] BE BASED ON THE PRIMARY CLINICAL RECORDS. [facility] [employer] provides no warranty or guarantee of the accuracy or completeness of information in this document.
[2023-09-24] MEDS: 0.9% Saline Lock 10 ML Syringe IV (12:30)
[2023-09-24] MEDS: Pantoprazole Sodium 40 MG in 0.9% Normal Saline (100mL MB+) 100 ML 330 MG IV ×2 (12:31→22:09)
[2023-09-24] MEDS: 0.9% Normal Saline (1000mL) 1,000 ML 100 ML IV ×2 (12:35→22:09)
[2023-09-24] MEDS: Levothyroxine 25 MCG TABLET PO (12:43)
--- NOTE | 2023-09-24 15:20 | PCM.HP.STD ---
HPI - General General Date of Admission: 09/24/23 Date of Service: 09/24/23 Chief Complaint: Left upper and mid upper abdominal pain HPI Narrative KATIA HAMPTON, is a 32 F who presents to the emergency room for evaluation of left upper and left mid abdominal pain that began approximately 2 hours prior to arrival in the full time hours of 09/24/2023, patient states that it woke her up from sleep. Patient states nothing makes it worse, it is better when she bends forward. Patient denies any nausea vomiting or diarrhea. Patient denies any pelvic pain. Workup in the emergency room included a CT of the abdomen and pelvis, there was question about a possible ovarian torsion but she had a vaginal ultrasound performed after that which was unremarkable. Patient's labs were unremarkable except for slightly elevated lipase. Patient was given IV morphine in the emergency room with some relief of the pain but it was felt she would benefit from hospitalization to possibly do further testing. Patient will be placed in observation status on [facility] 3. General surgery will see the patient for possible EGD. Patient will be given IV Protonix and IV narcotics for pain. [facility] Medical History (Updated 09/24/23 @ 09:[address] Leatha uBck MD) Acute lumbar myofascial strain Asthma Chronic headaches GERD (gastroesophageal reflux disease) Gluten intolerance Hypothyroid Lactose intolerance Seasonal allergies Vitamin deficiency Home Medications levothyroxine 25 mcg tablet 25 mcg PO DAILY 90 days #90 tabs 09/01/23 [Rx Last Taken 09/23/23] cranberry extract 2 cap PO DAILY 09/24/23 [History Last Taken 09/23/23] elderberry fruit 2 cap PO DAILY 09/24/23 [History Last Taken 09/23/23] hydrocodone-acetaminophen 5-325mg 5mg-325mg 1 tab PO Q6H PRN PRN Pain 3 days #10 TABLETS 09/24/23 [Rx Last Taken Unknown] multivitamin (Daily Multi-Vitamin tablet) 1 tab PO DAILY 09/24/23 [History Last Taken 09/23/23] Allergy/AdvReac Type Severity Reaction Status Date / Time Iodinated Contrast Media Allergy Itching Verified 09/24/23 04:10 poison oak extract Allergy Unknown Verified 09/11/23 13:58 Latex, Natural Rubber AdvReac Rash Verified 09/11/23 13:58 Family History Mother Anxiety Sleep apnea Sister Sleep apnea Surgical History (Updated 09/24/23 @ 10:59 by Nevaeh Richards) H/O abdominoplasty Social History household members: significant other and children Smoking Status: Never smoker alcohol intake: never substance use type: does not use caffeine: Yes what type of physical activity do you participate in: other details: crossfit frequency: 5-6 times per week seatbelt use: always do you feel safe at home: Yes additional social history: [employer] GOMEZ Constitutional Constitutional: Denies anorexia, change in weight, chills, fatigue, fever(s), night sweats or weakness Eyes Eyes: Denies blurry vision, change in vision, discharge from eye(s) or eye pain Cardiovascular Cardiovascular: Denies chest pain, claudication, edema or palpitations Respiratory/Chest Respiratory/Chest: Denies cough, excessive phlegm production, hemoptysis, shortness of breath at rest or shortness of breath with exertion Gastrointestinal Gastrointestinal: Reports abdominal pain; Denies constipation, diarrhea, dyspepsia, hematemesis, hematochezia, loose stools, melena, nausea or vomiting Genitourinary Genitourinary: Denies dysuria, hematuria, urinary frequency, urinary hesitancy, urinary incontinence or urinary urgency Musculoskeletal Musculoskeletal: Denies back pain, joint pain, joint stiffness, joint swelling, myalgias or neck pain Neurologic Neurologic: Denies abnormal gait, abnormal speech, dizziness, focal weakness, headache(s), loss of vision, numbness, other visual disturbances, paresthesias, syncope or tingling Psychiatric Psychiatric: Denies anxiety, cognitive impairment, depression, irritability, mood swings or suicidal ideation Endocrine Endocrinology: Denies change in body appearance, cold intolerance, excessive sweating, heat intolerance, polydipsia or polyuria Hematologic/Lymphatic Hematologic/Lymphatic: Denies none, anemia, easy bleeding, easy bruising or lymphadenopathy Allergic/Immunologic Allergic/Immunologic: Denies rhinitis, urticaria, eczemia or asthma Vital Signs Vital Signs Vital Signs: 09/24/23 03:06 09/24/23 05:06 09/24/23 07:51 Temperature 97.7 F L Temperature Source Oral Pulse Rate 76 79 68 Respiratory Rate 18 18 14 Blood Pressure 106/70 106/63 91/59 L Blood Pressure Mean 82 77 69 Blood Pressure Source Blood Pressure Position Blood Pressure Location Pulse Ox 100 100 97 Oxygen Delivery Method Room Air Room Air Room Air 09/24/23 09:00 09/24/23 09:30 09/24/23 10:52 Temperature 98.1 F 97.5 F L Temperature Source Oral Pulse Rate 72 67 Respiratory Rate 14 18 Blood Pressure 98/60 98/60 107/62 Blood Pressure Mean 72 72 77 Blood Pressure Source Monitor Blood Pressure Position Semi-Fowlers Blood Pressure Location Left Arm Pulse Ox 96 96 Oxygen Delivery Method Room Air Weight Weight: 65.1 kg Body Mass Index (BMI) 25.4 Physical Exam Const alert, oriented x3, no apparent distress and healthy appearing General Appearance: cooperative, well kempt and well developed Orientation / Consciousness: awake, oriented to person, oriented to place and oriented to time HEENT normocephalic and moist oral mucous membranes Eyes PERRL, EOMs intact bilaterally and conjunctivae normal Neck supple, no JVD, thyroid normal and no carotid bruits General: trachea midline Resp normal respiratory effort and clear to auscultation bilaterally Auscultation: Negative for rales, rhonchi or wheezes Cardio regular rate, regular rhythm, no murmurs, no rub and no gallops GI normal to inspection, nondistended, normoactive bowel sounds, soft to palpation and non-distended GI Narrative: Patient has some mild left upper quadrant abdominal tenderness to palpation along with some mild mid abdominal tenderness to palpation, no rebound tenderness was noted. Extremity no clubbing, cyanosis or edema Skin no rashes or lesions noted General Skin Exam: no breakdown Neuro oriented x3, CN's II-XII intact bilaterally, no focal motor deficits and no sensory deficits noted Sensorium / Orientation: awake, alert, oriented to person, oriented to place and oriented to time Speech: speech normal Psych affect normal Results Lab / Micro Data 09/24/23 03:50 09/24/23 03:50 Labs: Laboratory Results - last 24 hr 09/24/23 03:50: WBC 9.6, RBC 4.40, Hgb 13.1, Hct 40.8, MCV 92.7, MCH 29.8, MCHC 32.1, RDW Std Deviation 44.3 H, RDW Coeff of Cindy 13.1, Plt Count 227, MPV 11.3, Immature Gran % (Auto) 0.300, Neut % (Auto) 57.4, Lymph % (Auto) 32.7, [place] % (Auto) 7.5, Eos % (Auto) 1.5, Baso % (Auto) 0.6, Absolute Neuts (auto) 5.5, Absolute Lymphs (auto) 3.13, Nucleated RBC % 0, Sodium 140, Potassium 3.6, Chloride 108 H, Carbon Dioxide 27.0, Anion Gap 5, BUN 16, Creatinine 0.77, Estim Creat Clear Calc 92.83, Est GFR (MDRD) Af Amer 110, Est GFR (MDRD) Non-Af 91, BUN/Creatinine Ratio 20.8 H, Glucose 94, Calcium 9.0, Total Bilirubin 0.70, AST 21, ALT 24, Alkaline Phosphatase 63, Total Protein 6.7, Albumin 3.8, Globulin 2.9, Albumin/Globulin Ratio 1.3, Lipase 85 H, Serum , Qual NEGATIVE, Urine Color Yellow, Urine Clarity Clear, Urine pH 6.0, Ur Specific [place] 1.020, Urine Protein Negative, Urine Glucose (UA) Normal, Urine Ketones Negative, Urine Occult Blood Negative, Urine Nitrite Negative, Urine Bilirubin Negative, Urine Urobilinogen Normal, Ur Leukocyte Esterase Negative, Urine RBC 0 SEEN, Urine WBC 0 SEEN, Ur Squamous Epith Cells 0-5 SEEN, Other Crystals SCANNED, Urine Bacteria 0 SEEN, Urine Mucus 0 SEEN Imaging Radiology Impression Abdomen/Pelvis CT 09/24/23 03:45 IMPRESSION: undefined ADDENDUM: 09/24/23 0721 IMPRESSION: undefined Transvaginal US 09/24/23 07:47 IMPRESSION: No sonographic evidence of ovarian torsion Large complex right ovarian cyst measuring 4.4 x 4.8 x 4.3 cm. There are some internal strands noted. Because of its size and characteristics, short term follow-up ultrasounds are recommended to assess its stability and/or resolution Mild to moderate free fluid in the dependent pelvis Sonographically unremarkable uterus and left ovary Electronically Signed: Chandra Lomeli MD at 8:50 EST Reading Location ID and State: [address] [place] [address] , Service support , Assessment & Plan Assessment/Plan (1) LUQ pain: PLAN: Plan 1. Left upper quadrant abdominal pain/med upper abdominal pain-etiology unclear at this point, patient was placed in observation status on MedSurg 3, IV Protonix will be given, she will be seen in consultation by general surgery and most likely will need an EGD tomorrow. Patient will be given IV narcotics for pain. #2 hypothyroidism-patient is on Synthroid Total clinical time spent by myself addressing the patient's medical issues, reviewing her data, and collaborating with patient's care team: 40 minutes Charges/Coding Visit Charges Inpatient E&M: 39569 Init Hosp L1
[2023-09-24] MEDS: oxyCODONE 5 MG Tablet PO (19:54)
--- NOTE | 2023-09-25 01:10 | EKG12_ITS ---
Test Reason : PRE-OP Blood Pressure : / mmHG Vent. Rate : 057 BPM Atrial Rate : 057 BPM P-R Int : 118 ms QRS Dur : 084 ms QT Int : 416 ms P-R-T Axes : 018 084 027 degrees QTc Int : 404 ms Sinus bradycardia with sinus arrhythmia Otherwise normal ECG Confirmed by TOM PADILLA, HAYDER ([id number]), publication editor BLAS GAMEZ ([id number]) on 09/26/2023 6:29:29 AM Referred By: Confirmed By:HAYDER SANTOS MD
[2023-09-25 02:30] VITALS: BP 99/62; PULSE 58; RESP 14; TEMP 36.9; O2SAT 98
[2023-09-25 06:15] LABS: Absolute Lymphocyte Count 2.68 X10^3/uL (0.83-4.51); Basophil# 0.02 X10^3/uL; Basophil% 0.2 % (0-1); Eosinophil# 0.03 X10^3/uL; Eosinophils% 0.4 % (0-5); Hematocrit 35.3 % (37-47); Hemoglobin 11.3 g/dL (12.0-15.0); Lymphocyte # 2.68 X10^3/ul (0.83-4.51); Lymphocyte % 32.4 % (19-41); Mean Corpuscular Hgb 29.9 pg (27.0-32.0); Mean Corpuscular Volume 93.4 fL (81-99); Mean Platelet Vol. 11.4 fl (6.2-12.0); Monocyte# 0.54 X10^3/uL; Monocyte% 6.5 % (0-10); NRBC Flagged by Analyzer 0 % (0-5); Neutrophil # 4.98 X10^3/uL (2.7-7.7); Neutrophil % 60.1 % (47-70); Platelet Count 183 K/mm3 (150-450); RBC Distribution Width CV 13.2 % (11.6-14.6); RBC Distribution Width SD 45.3 fl (35.1-43.9); Red Blood Count 3.78 M/mm3 (4.2-5.4); White Blood Count 8.3 K/mm3 (4.4-11.0)
[2023-09-25 06:31] LABS: Thyroid Stim Hormone (TSH) 1.01 uIU/mL (0.358-3.74)
--- NOTE | 2023-09-25 07:53 | PCM.PN.SRG ---
Subjective Subjective Patient is evaluated resting comfortably in bed. She denies any abdominal pain. Her last dose of pain medication was at 7:00pm. She has not required or noted any further assistance with her pain. She denies nausea, vomiting. Objective Data Objective Data Vital Signs: Vital Signs Temp Pulse Resp BP Pulse Ox O2 Del Method 98.5 F 58 L 14 99/62 98 Room Air 09/25/23 02:30 09/25/23 02:30 09/25/23 02:30 09/25/23 02:30 09/25/23 02:30 09/25/23 02:30 Oxygen Delivery Method Room Air Weight: 143 lb 8.335 oz Body Mass Index (BMI) 25.4 Intake & Output: Intake and Output for Last 24 Hours 09/23/23 09/24/23 09/25/23 23:59 23:59 23:59 Intake Total 2176.67 / 2376.67 350 / 350 Balance 2176.67 / 2376.67 350 / 350 Lab / Micro Data 09/25/23 04:45 09/24/23 03:50 Labs: Laboratory Results - last 24 hr 09/25/23 04:45: WBC 8.3, RBC 3.78 L, Hgb 11.3 L, Hct 35.3 L, MCV 93.4, MCH 29.9, MCHC 32.0, RDW Std Deviation 45.3 H, RDW Coeff of Cindy 13.2, Plt Count 183, MPV 11.4, Immature Gran % (Auto) 0.400, Neut % (Auto) 60.1, Lymph % (Auto) 32.4, [place] % (Auto) 6.5, Eos % (Auto) 0.4, Baso % (Auto) 0.2, Absolute Neuts (auto) 5.0, Absolute Lymphs (auto) 2.68, Nucleated RBC % 0, TSH 1.01 Radiography Diagnostic Testing: Radiology Impression Transvaginal US 09/24/23 07:47 IMPRESSION: No sonographic evidence of ovarian torsion Large complex right ovarian cyst measuring 4.4 x 4.8 x 4.3 cm. There are some internal strands noted. Because of its size and characteristics, short term follow-up ultrasounds are recommended to assess its stability and/or resolution Mild to moderate free fluid in the dependent pelvis Sonographically unremarkable uterus and left ovary Electronically Signed: Chandra Lomeli MD at 8:50 EST , Physical Exam GI GI Narrative: Abdomen- soft, benign. Positive bowel sounds Assessment & Plan Assessment/Plan (1) LUQ pain: PLAN: I am seeing this patient in conjunction with Dr. Buck. Patient was offered an EGD and declined at this time to pursue the procedure. She noted if the pain returned she would pursue the procedure at that time. Will place patient on a regular diet. If she tolerates the diet, she is ready for discharge. Plan to discharge patient home on omeprazole for 3 months Follow-up with Dr. Buck in 1 month or sooner to assess symptoms Charges/Coding Visit Charges Inpatient E&M: 84557 Subs Hosp L1
[2023-09-25] MEDS: Pantoprazole Sodium 40 MG in 0.9% Normal Saline (100mL MB+) 100 ML 330 MG IV (07:58)
[2023-09-25] MEDS: 0.9% Normal Saline (1000mL) 1,000 ML 100 ML IV (07:58)
[2023-09-25 08:36] VITALS: BP 92/65; PULSE 74; RESP 16; TEMP 36.9; O2SAT 99
[2023-09-25 11:24] VITALS: BP 90/61; PULSE 106; RESP 16; TEMP 36.8; O2SAT 98
[2023-09-25] MEDS: oxyCODONE 5 MG Tablet PO (12:16)
[2023-09-25 13:56] VITALS: BP 98/63; PULSE 73; RESP 16; TEMP 37.2; O2SAT 98
--- NOTE | 2023-09-25 14:54 | DCINST_ITS ---
Discharge Instructions Diet Discharge Diet: Low fat / Low cholesterol Activity Discharge Activity: Return to Normal Activity Weight Bearing Status: Weight bearing as tolerated Dressing / Incision Call your doctor if you observe: Fever of 101 or Higher, Shortness of breath, Dizziness, Swelling in the ankles and Chest pain Follow Up Care Test Results: Test results from this visit will be discussed in further detail at your follow- up appointment, if applicable. Discharge Plan Admission Admit Date/Time: 09/24/23 09:28 Primary Reason for Your Visit: abdominal pain, gastritis Attending Provider: Tata Mccarthy Primary Care Provider: Rajeev Pino NP Consulting Providers: Leatha Buck; Rajeev Blackmon Instructions Patient Instructions: ED Abdominal Pain Unkn Cause Fem Discharge Orders/Prescriptions Prescriptions: New hydrocodone-acetaminophen [hydrocodone-acetaminophen] 5-325 mg tablet 1 tab PO Q6H PRN PRN (Reason: Pain) 3 Days Qty: 10 0RF omeprazole 40 mg capsule,delayed release(DR/EC) 40 mg PO DAILY Qty: 30 2RF Continued multivitamin [Daily Multi-Vitamin] Tablet 1 tab PO DAILY cranberry extract 2 cap PO DAILY elderberry fruit 2 cap PO DAILY levothyroxine 25 mcg tablet 25 mcg PO DAILY 90 Days Qty: 90 1RF Referrals / Follow Up: Leatha Buck MD [Med Staff - Active Staff] - (Follow-up in 1 month or sooner if pain returns) Rajeev Pino WELDER APPRENTICE GAS, WELDER APPRENTICE GAS-C [Primary Care Provider] - 3-5 Days Disposition Disposition (needs filled in before D/C Order can be placed): Home, Self Care
--- NOTE | 2023-09-25 14:55 | DS.PCM_ITS ---
Providers Date of Admission: 09/24/23 Date of Discharge: 09/25/23 Primary Care Physician: JEAN Marie Consultations 09/24/23 10:39 Consult: General Surgery Routine Consulting Provider: Leatha Buck Reason for Consult: abdominal pain EMERGENT Consult: No MD Notified: Yes Date Notified: 09/24/23 Time Notified: 09:34 Method of Notification: Verbal Reason For Visit: ABDOMINAL PAIN Diagnosis Discharge Diagnosis (1) LUQ pain: Status: Acute Code(s): R10.12 - Left upper quadrant pain Medications at Discharge Home Medications levothyroxine 25 mcg tablet 25 mcg PO DAILY 90 days #90 tabs 09/01/23 cranberry extract 2 cap PO DAILY 09/24/23 elderberry fruit 2 cap PO DAILY 09/24/23 hydrocodone-acetaminophen 5-325mg 5mg-325mg 1 tab PO Q6H PRN PRN Pain 3 days #10 TABLETS 09/24/23 multivitamin (Daily Multi-Vitamin tablet) 1 tab PO DAILY 09/24/23 omeprazole 40 mg capsule,delayed release 40 mg PO DAILY #30 caps 09/25/23 Hospital Course Operations None Summary of Care Provided Minutes Spent on Discharge: 55 Hospital Course: Patient is a 32-year-old female with a past medical history as outlined was admitted through the ED on 09/24/2023 with a complaint of left upper and left mid abdominal pain which started about 2 hours prior to admission. Said the pain woke her up from his sleep. Had no aggravating factors but got better when she leaned forward. She denied any nausea vomiting or diarrhea. CT of the abdomen and pelvis done showed a questionable ovarian torsion. However she had a vaginal ultrasound which showed no evidence of this. Lipase was only mildly elevated. She was admitted and managed for abdominal pain due to probable probable gastritis. General surgery was consulted. She was started on IV Protonix and IV pain meds. General surgery initially recommended EGD. However her pain did get better and she was able to tolerate a diet. Per general surgery, had diagnosis probable gastritis in the management would not change irrespective of EGD. They therefore decided not to do EGD. She was discharged on p.o. Protonix and p.o. [place] with prescription written by general surgery. She is follow-up with her primary care doctor within 1 to 2 weeks. She is also to follow-up with general surgery on outpatient basis. Patient seen and examined prior to discharge. She had no complaints. Abdominal pain had improved. She had no tolerated diet. Review of systems otherwise negative. Labs and vitals reviewed. Home medication reviewed and reconciled. Physical Exam Const alert, oriented x3 and no apparent distress General Appearance: cooperative, comfortable and well kempt Orientation / Consciousness: awake Exam Limitations: no limitations HEENT normocephalic, head/scalp atraumatic, hearing grossly normal bilaterally, moist oral mucous membranes and oropharynx normal Resp normal respiratory effort, no retractions, no use of accessory muscles and clear to auscultation bilaterally Cardio regular rate, regular rhythm, S1 normal heart sound, S2 normal heart sound and no murmurs GI normal to inspection, nondistended, normoactive bowel sounds, soft to palpation, non-tender and non-distended Extremity normal to inspection, full ROM and no clubbing, cyanosis or edema Skin no rashes or lesions noted and no wounds Neuro oriented x3, CN's II-XII intact bilaterally, moves all extremities, no focal motor deficits and no sensory deficits noted Sensorium / Orientation: awake and alert Motor Exam: strength 5/5 throughout Psych affect normal Weight / BMI Weight Weight: 143 lb 8.335 oz Body Mass Index (BMI) 25.4 ABG / Lab / Microbiology Data 09/25/23 04:45 09/24/23 03:50 Laboratory: Laboratory Results - last 24 hr 09/25/23 04:45: WBC 8.3, RBC 3.78 L, Hgb 11.3 L, Hct 35.3 L, MCV 93.4, MCH 29.9, MCHC 32.0, RDW Std Deviation 45.3 H, RDW Coeff of Cindy 13.2, Plt Count 183, MPV 11.4, Immature Gran % (Auto) 0.400, Neut % (Auto) 60.1, Lymph % (Auto) 32.4, [place] % (Auto) 6.5, Eos % (Auto) 0.4, Baso % (Auto) 0.2, Absolute Neuts (auto) 5.0, Absolute Lymphs (auto) 2.68, Nucleated RBC % 0, TSH 1.01 D/C Instructions Discharge Diet: Low fat / Low cholesterol Discharge Activity: Return to Normal Activity Weight Bearing Status: Weight bearing as tolerated Call your doctor if you observe: Fever of 101 or Higher, Shortness of breath, Dizziness, Swelling in the ankles and Chest pain Meaningful Use Info Meaningful Use Diagnoses (Choose all that apply): None applicable Discharge Plan Admission Admit Date/Time: 09/24/23 09:28 Primary Reason for Your Visit: abdominal pain, gastritis Attending Provider: Tata Mccarthy Primary Care Provider: Rajeev Pino [employer] SUPERVISOR Consulting Providers: Leatha Buck; Rajeev Blackmon Instructions Patient Instructions: ED Abdominal Pain Unkn Cause Fem Discharge Orders/Prescriptions Prescriptions: New hydrocodone-acetaminophen [hydrocodone-acetaminophen] 5-325 mg tablet 1 tab PO Q6H PRN PRN (Reason: Pain) 3 Days Qty: 10 0RF omeprazole 40 mg capsule,delayed release(DR/EC) 40 mg PO DAILY Qty: 30 2RF Continued multivitamin [Daily Multi-Vitamin] Tablet 1 tab PO DAILY cranberry extract 2 cap PO DAILY elderberry fruit 2 cap PO DAILY levothyroxine 25 mcg tablet 25 mcg PO DAILY 90 Days Qty: 90 1RF Referrals / Follow Up: Leatha Buck MD [Med Staff - Active Staff] - (Follow-up in 1 month or sooner if pain returns) Rajeev Pino [employer] SUPERVISOR, [employer]AY SUPERVISOR-C [Primary Care Provider] - 3-5 Days Disposition Disposition (needs filled in before D/C Order can be placed): Home, Self Care Charges/Coding Visit Charges Inpatient E&M: 50266 Disch Hosp >30min
--- NOTE | 2023-09-25 15:24 | PHA.DC_ITS ---
Pharmacy [facility] has performed discharge medication reconciliation and counseling for this patient. 1. NORCO 5/325MG 1T PO Q6H PRN PAIN 2. OMEPRAZOLE 40MG PO DAILY The patient's discharge medication list was reviewed for discrepancies and discrepancies were resolved. The patient was counseled on the following discharge medications and changes in medications for homegoing were reviewed. The Reason for Use, instructions for use, and potential side effects were reviewed for all new medications. The patient's questions regarding all of their medications were answered. The patient was able to verbally demonstrate an understanding of their discharge medications. Medications at Discharge Home Medications levothyroxine 25 mcg tablet 25 mcg PO DAILY 90 days #90 tabs 09/01/23 cranberry extract 2 cap PO DAILY 09/24/23 elderberry fruit 2 cap PO DAILY 09/24/23 hydrocodone-acetaminophen 5-325mg 5mg-325mg 1 tab PO Q6H PRN PRN Pain 3 days #10 TABLETS 09/24/23 multivitamin (Daily Multi-Vitamin tablet) 1 tab PO DAILY 09/24/23 omeprazole 40 mg capsule,delayed release 40 mg PO DAILY #30 caps 09/25/23
== END 2023-09-25 15:38 | disposition home or self-care (01) ==
LOC: ED 07:49 → MS3 10:02
PROVIDERS: Surgery; Admitting Provider Internal Medicine; Emergency Provider Emergency Medicine; PCP Nurse Practitioner Family; Visit Provider Student in an Organized Health Care Education/Training Program
DX: R10.12 Left upper quadrant pain (principal); K21.9 Gastro-esophageal reflux disease without esophagitis; J45.909 Unspecified asthma, uncomplicated; K90.41 Non-celiac gluten sensitivity; Z79.890 Hormone replacement therapy; E03.9 Hypothyroidism, unspecified; N83.201 Unspecified ovarian cyst, right side
CPT/HCPCS: 74177; 76830; 80053; 81001; 83690; 84443; 84703; 85025; 93005; 93976; 96361; 96365; 96366; 96375; 96376; 99221; 99284; J7030; Q9967; A4216; G0378; J2405

== ENCOUNTER → 2023-12-13 | Outpatient (CLI) | payer MEDICAID, SELFPAY ==
[2023-12-13 12:32] LABS: Absolute Lymphocyte Count 1.68 X10^3/uL (0.83-4.51); Absolute Neutrophil Count 2.4 X10^3/uL (2.0-7.7); Basophil# 0.05 X10^3/uL; Eosinophil# 0.24 X10^3/uL; Hematocrit 40.9 % (37-47); Hemoglobin 13.4 g/dL (12.0-15.0); Lymphocyte # 1.68 X10^3/ul (0.83-4.51); Lymphocyte % 35.1 % (19-41); Mean Corp Hgb Conc 32.8 g/dL (32-36); Mean Corpuscular Hgb 29.9 pg (27.0-32.0); Mean Corpuscular Volume 91.3 fL (81-99); Mean Platelet Vol. 11.4 fl (6.2-12.0); Monocyte# 0.45 X10^3/uL; Monocyte% 9.4 % (0-10); NRBC Flagged by Analyzer 0 % (0-5); Neutrophil # 2.36 X10^3/uL (2.7-7.7); Neutrophil % 49.3 % (47-70); Platelet Count 238 K/mm3 (150-450); RBC Distribution Width CV 12.5 % (11.6-14.6); RBC Distribution Width SD 41.2 fl (35.1-43.9); Red Blood Count 4.48 M/mm3 (4.2-5.4); White Blood Count 4.8 K/mm3 (4.4-11.0)
[2023-12-13 13:13] LABS: Thyroid Stim Hormone (TSH) 1.71 uIU/mL (0.358-3.74)
== END | disposition home or self-care (01) ==
LOC: BIMLAB 09:06
PROVIDERS: PCP Nurse Practitioner; Visit Provider Physician Assistant
DX: R53.83 Other fatigue (principal)
CPT/HCPCS: 36415; 84443; 85025

== ENCOUNTER → 2024-01-29 | Outpatient (CLI) | payer MEDICAID, SELFPAY | END | disposition home or self-care (01) | LOC: LABSPEC 16:22 | PROVIDERS: PCP Nurse Practitioner; Visit Provider Nurse Practitioner | DX: J02.0 Streptococcal pharyngitis (principal) | CPT/HCPCS: 87070 ==

== ENCOUNTER → 2024-02-01 | Outpatient (CLI) | payer MEDICAID, SELFPAY ==
[2024-02-01 12:47] LABS: Internal QC Validated? YES +Cl - CLEAR BKGD; Monotest Negative (Negative); Record Kit Lot#, Mono 13241033
[2024-02-07 01:07] LABS: Lyme IgG P18 Ab Absent (.); Lyme IgG P23 Ab Absent (.); Lyme IgG P28 Ab Absent (.); Lyme IgG P30 Ab Absent (.); Lyme IgG P39 Ab Absent (.); Lyme IgG P41 Ab Absent (.); Lyme IgG P45 Ab Absent (.); Lyme IgG P58 Ab Absent (.); Lyme IgG P66 Ab Absent (.); Lyme IgG P93 Ab Absent (.); Lyme IgG WB Interpretation Negative (.); Lyme IgM P23 Ab Absent (.); Lyme IgM P39 Ab Absent (.); Lyme IgM P41 Ab Absent (.); Lyme IgM WB Interpretation Negative (.)
== END | disposition home or self-care (01) ==
LOC: BIMLAB 10:33
PROVIDERS: PCP Nurse Practitioner; Referring Provider Nurse Practitioner; Visit Provider Nurse Practitioner
DX: J02.0 Streptococcal pharyngitis (principal); W57.XXXA Bitten or stung by nonvenomous insect and other nonvenomous arthropods, initial encounter
CPT/HCPCS: 36415; 86308; 86617

== ENCOUNTER 2024-06-26 03:03 | Emergency (ER) | payer MEDICAID, SELFPAY ==
[2024-06-26 03:05] VITALS: BP 102/68; PULSE 74; RESP 18; TEMP 36.7; O2SAT 98; BMI 28.9
[2024-06-26 03:09] VITALS: O2SAT 98
[2024-06-26] MEDS: dexAMETHasone 10 MG/ML Vial PO.IVFORM (04:00)
[2024-06-26] MEDS: guaiFENesin/Codeine 5 ML UDC 10 ML PO (04:04)
--- NOTE | 2024-06-26 05:03 | EDS_ITS ---
HPI History of Present Illness Chief Complaint: Cold Sx Informant: patient Narrative Narrative: Patient is a 33-year-old female with past medical history of GERD hypothyroidism and asthma. She states her asthma is typically well-controlled with just an occasional inhaler here and there. She reports that the last 3 to 5 days she has had congestion drainage and cough. She reports her son has been diagnosed with pneumonia and she has been around him at home. She states she feels like her symptoms are worsening and she is concerned she may be developing pneumonia as well and therefore comes in for evaluation [facility] Medical History Left medial knee pain Lumbar radiculopathy Cervical radiculopathy Cervical strain Ovarian cyst Acute lumbar myofascial strain Vitamin deficiency Lactose intolerance Gluten intolerance GERD (gastroesophageal reflux disease) Hypothyroid Chronic headaches Asthma Seasonal allergies Home Medications ?Medication ?Instructions ?Recorded ?Last Taken ?Type cranberry extract 2 cap PO DAILY 09/24/23 09/23/23 History elderberry fruit 2 cap PO DAILY 09/24/23 09/23/23 History multivitamin (Daily Multi-Vitamin 1 tab PO DAILY 09/24/23 09/23/23 History tablet) albuterol sulfate 90 mcg/actuation 2 puff inhalation Q4-6H PRN 12/07/23 Unknown Rx aerosol inhaler shortness of breath or wheezing #8.5 grams epinephrine 0.3 mg/0.3 mL 0.3 ml IM ONCE #1 ea 12/07/23 Unknown Rx injection, auto-injector levothyroxine 25 mcg tablet 25 mcg PO DAILY 90 days #90 tabs 03/18/24 Unknown Rx azithromycin 250 mg tablet See Rx Instructions PO .COMPLEX #6 06/26/24 Unknown Rx (Zithromax Z-Marciano) tabs codeine 10 mg-guaifenesin 100 mg/5 10 ml PO 4X/DAY PRN cough 5 days 06/26/24 Unknown Rx mL oral liquid (Guaifenesin AC) #200 mL prednisone 20 mg tablet 40 mg (2 x 20 mg) PO DAILY 5 days 06/26/24 Unknown Rx #10 tabs Allergy/AdvReac Type Severity Reaction Status Date / Time Iodinated Contrast Media Allergy Itching Verified 06/26/24 03:05 poison oak extract Allergy Unknown Verified 06/26/24 03:05 Latex, Natural Rubber AdvReac Rash Verified 06/26/24 03:05 Family History Mother Anxiety Sleep apnea Sister Sleep apnea Surgical History H/O abdominoplasty Social History household members: significant other and children Smoking Status: Never smoker alcohol intake: never substance use type: does not use caffeine: Yes what type of physical activity do you participate in: other details: crossfit frequency: 5-6 times per week seatbelt use: always do you feel safe at home: Yes additional social history: Onesimo GOMEZ ED Constitutional Constitutional ED: Reports chills, fever(s) and subjective Eyes Eyes: Denies change in vision ENT ENT ED: Reports rhinorrhea and sore throat; Denies ear pain Cardiovascular Cardiovascular: Denies chest pain Respiratory/Chest Respiratory/Chest: Reports cough and dyspnea Gastrointestinal Gastrointestinal: Denies abdominal pain, diarrhea, nausea or vomiting Genitourinary Genitourinary ED: Denies dysuria Musculoskeletal Musculoskeletal: Reports myalgias Integumentary Denies rash Neurologic Neurologic: Denies headache(s) Hematologic/Lymphatic Hematologic/Lymphatic: Denies easy bleeding or easy bruising Allergic/Immunologic Allergic/Immunologic ED: Denies mouth swelling or tongue swelling EXAM Physical Exam Const Vital Signs: 06/26/24 03:05 06/26/24 03:09 06/26/24 03:09 Temperature 98.1 F Temperature Source Oral Pulse Rate 74 Respiratory Rate 18 Respiratory Effort Normal Non-Labored Normal Non-Labored Respiratory Depth Normal Respiratory Pattern Normal Normal Blood Pressure 102/68 Blood Pressure Mean 79 Pulse Ox 98 Oxygen Delivery Method Room Air Room Air 06/26/24 05:04 06/26/24 05:28 Temperature 98.5 F Temperature Source Pulse Rate 60 62 Respiratory Rate 18 16 Respiratory Effort Respiratory Depth Respiratory Pattern Blood Pressure 103/74 103/74 Blood Pressure Mean 83 83 Pulse Ox 97 98 Oxygen Delivery Method Room Air Positive well nourished and well developed General Appearance ED: well developed; Negative for pallor HEENT HEENT Narrative: Bilateral TMs are retracted but show no secondary findings to suggest infection Nasal mucosa is hyperemic and boggy There is cobblestoning noted in the posterior pharynx consistent with sinus drainage without airway edema or compromise No secondary findings in the posterior pharynx to suggest infection Eyes PERRL and EOMs intact bilaterally Neck supple and no JVD Neck Narrative: No nuchal rigidity or meningeal signs noted Chest Wall palpation of chest normal Resp normal respiratory effort Resp Narrative: Breath sounds are diminished throughout with diffuse expiratory wheeze consistent with history of asthma however no nasal flaring retractions tachypnea accessory muscle use or stridor Cardio regular rate and regular rhythm Extremity normal to inspection Extremity Narrative: No asymmetric edema no pitting edema negative Homans' sign bilaterally Neuro oriented x3, CN's II-XII intact bilaterally and no sensory deficits noted Sensorium / Orientation: alert Motor Exam: strength 5/5 throughout Psych mental status grossly normal Skin no rashes or lesions noted and no wounds General Skin Exam: Negative for jaundice or pallor MDM MDM MDM Narrative Medical decision making narrative: Patient arrived to the ER in no acute respiratory distress satting in the mid to high 90s on room air. She has known sick exposures at home and there is concern for viral upper respiratory tract infection secondary to COVID versus influenza versus RSV versus pneumonia. As the patient is presenting with her child who is also sick and the child has a elevated temperature she will receive the chest x- ray as I have low concern for pneumonia based on the patient's physical presentation. However as there is potential for viral infection between the both of them a viral swab will be performed and the mother. The COVID influenza and RSV test was negative. On reevaluation she is resting comfortably and remains in no acute respiratory distress. However as there are multiple sick contacts at home she has history of asthma and reports her son has pneumonia which she has been exposed to recurrently I will cover her with a Z-Marciano to ensure there is no secondary infection. But as she is not hypoxic or in respiratory distress there is no need for further workup and she is otherwise safe for discharge History & Record Review Discussion w/independent historian: Patient Discharge Plan Triage Chief Complaint: Cold Sx ED Provider: Sedrick Bravo Dx/Rx/DC Orders Clinical Impression: Acute upper respiratory infection, Hypothyroid, Asthma Instructions: ED Bronchitis with Wheezing (Adult), ED Pneumonia (Adult) Prescriptions: New prednisone 20 mg tablet 40 mg PO DAILY 5 Days Qty: 10 0RF codeine-guaifenesin [Guaifenesin AC] 10-100 mg/5 mL liquid 10 ml PO 4X/DAY PRN (Reason: cough) 5 Days Qty: 200 0RF azithromycin [Zithromax Z-Marciano] 250 mg tablet See Rx Instructions .ROUTE .COMPLEX Qty: 6 0RF Rx Instructions: For 250 mg dose pack: take 500 mg today (day 1), then 250 mg for 4 days (days 2-5) No Action multivitamin [Daily Multi-Vitamin] Tablet 1 tab PO DAILY cranberry extract 2 cap PO DAILY elderberry fruit 2 cap PO DAILY epinephrine 0.3 mg/0.3 mL auto-injector 0.3 ml IM ONCE Qty: 1 0RF Rx Instructions: as a single dose; may repeat once albuterol sulfate 90 mcg/actuation HFA aerosol inhaler 2 puff inhalation Q4-6H PRN (Reason: shortness of breath or wheezing) Qty: 8.5 1RF levothyroxine 25 mcg tablet 25 mcg PO DAILY 90 Days Qty: 90 1RF Primary Care Provider: Dacia Islas Referrals: Dacia Islas, [facility] [Primary Care Provider] - Activity Restrictions/Additional Instructions: Your COVID influenza and RSV swab was negative. However based on your symptoms and the fact that your child has pneumonia you most likely also have the infection. Continue your albuterol inhaler but take the prescribed medications in the ER as directed to help resolve your symptoms. Return if you have any further concerns Print Language: Icelandic Disposition Disposition: Home, Self Care Discharge Date/Time: 06/26/24 05:54
[2024-06-26 05:04] VITALS: BP 103/74; PULSE 60; RESP 18; O2SAT 97
[2024-06-26] MEDS: Azithromycin 250 MG Tablet 500 MG PO (05:16)
[2024-06-26 05:28] VITALS: BP 103/74; PULSE 62; RESP 16; TEMP 36.9; O2SAT 98
== END 2024-06-26 05:54 | disposition home or self-care (01) ==
PROVIDERS: Emergency Provider Emergency Medicine; PCP Nurse Practitioner; Visit Provider Emergency Medicine
DX: J06.9 Acute upper respiratory infection, unspecified (principal); Z11.52 Encounter for screening for COVID-19; E03.9 Hypothyroidism, unspecified; J45.909 Unspecified asthma, uncomplicated; K21.9 Gastro-esophageal reflux disease without esophagitis; Z79.890 Hormone replacement therapy; Z79.899 Other long term (current) drug therapy
CPT/HCPCS: 87631; 99284

== ENCOUNTER → 2024-11-18 | Outpatient (CLI) | payer MEDICAID, SELFPAY | END | disposition home or self-care (01) | LOC: LABSPEC 15:22 | PROVIDERS: PCP Nurse Practitioner; Referring Provider Physician Assistant; Visit Provider Physician Assistant | DX: R82.90 Unspecified abnormal findings in urine (principal) | CPT/HCPCS: 87077; 87086; 87088; 87186 ==

== ENCOUNTER → 2024-11-27 | Outpatient (CLI) | payer MEDICAID, SELFPAY ==
[2024-11-27 12:22] LABS: Absolute Lymphocyte Count 1.75 X10^3/uL (0.83-4.51); Absolute Neutrophil Count 3.5 X10^3/uL (2.0-7.7); Basophil# 0.04 X10^3/uL; Basophil% 0.7 % (0-1); Eosinophil# 0.14 X10^3/uL; Eosinophils% 2.4 % (0-5); Hematocrit 40.1 % (37-47); Hemoglobin 13.7 g/dL (12.0-15.0); Lymphocyte # 1.75 X10^3/ul (0.83-4.51); Mean Corp Hgb Conc 34.2 g/dL (32-36); Mean Corpuscular Hgb 31.1 pg (27.0-32.0); Mean Corpuscular Volume 91.1 fL (81-99); Mean Platelet Vol. 11.4 fl (6.2-12.0); Monocyte# 0.42 X10^3/uL; Monocyte% 7.2 % (0-10); NRBC Flagged by Analyzer 0 % (0-5); Neutrophil # 3.48 X10^3/uL (2.7-7.7); Neutrophil % 59.5 % (47-70); Platelet Count 259 K/mm3 (150-450); RBC Distribution Width CV 12.6 % (11.6-14.6); RBC Distribution Width SD 42.3 fl (35.1-43.9); White Blood Count 5.8 K/mm3 (4.4-11.0)
[2024-11-27 13:27] LABS: ALB/GLOB Ratio 1.5 RATIO (0.9-2.4); AST(SGOT) 18 U/L (<=31); Alanine Aminotransfer ALT/SGPT 12 U/L (<=34); Alkaline Phosphatase 73 U/L (35-104); Anion Gap 12 (5-15); BUN 20 mg/dL (4-19); BUN/Creat Ratio 23.5 RATIO (10-20); Calcium,Total 8.9 mg/dL (7.6-11.0); Carbon Dioxide 20.8 mmol/L (21.0-32.0); Chloride 108 mmol/L (98-108); Creatinine, Serum 0.84 mg/dL (0.70-1.20); EST Glomerular Filtration Rate 92 (>60); Globulin 2.7 g/dL (2.2-4.2); Glucose 86 mg/dL (70-99); Potassium 4.1 mmol/L (3.3-5.1); Protein, Total 6.7 g/dL (5.9-8.4); Sodium Level 141 mmol/L (133-145); T4 Total, Thyroxin 5.9 ug/dL (4.8-13.9); Total Bilirubin 0.47 mg/dL (0.00-1.30)
== END | disposition home or self-care (01) ==
LOC: BIMLAB 08:26
PROVIDERS: PCP Internal Medicine; Referring Provider Physician Assistant; Visit Provider Physician Assistant
DX: Z00.00 Encounter for general adult medical examination without abnormal findings (principal); E03.9 Hypothyroidism, unspecified
CPT/HCPCS: 36415; 80053; 84436; 84439; 84443; 85025

== ENCOUNTER 2024-12-25 09:38 | Emergency (ER) | payer MEDICAID, SELFPAY ==
[2024-12-25 09:39] VITALS: BP 118/79; PULSE 66; RESP 19; TEMP 36.7; O2SAT 98; BMI 29.9
--- NOTE | 2024-12-25 09:47 | EKG12_ITS ---
Test Reason : CP Blood Pressure : */* mmHG Vent. Rate : 67 BPM Atrial Rate : 67 BPM P-R Int : 122 ms QRS Dur : 80 ms QT Int : 416 ms P-R-T Axes : 36 93 42 degrees QTcB Int : 439 ms Normal sinus rhythm Rightward axis Borderline ECG Confirmed by MELITA PADILLA, GLENN ([id number]), fashion editor ERNESTO MURCIA ([id number]) on 12/31/2024 6:38:27 AM Referred By: Confirmed By: GLENN HUA MD
--- NOTE | 2024-12-25 09:48 | EX.ED.DYSGE1 ---
HPI History of Present Illness Chief Complaint: Chest Pain Narrative Narrative: 34-year-old female past medical history of hypothyroidism presents with cough, and chest discomfort that she has had over the last few days. She relates history that her symptoms began mainly as a cough on Monday, 4 days ago. Sometimes she has a productive cough, denies any overt fever. She states last night she woke up in a cold sweat and was experiencing chest pressure yesterday evening. It was more of a heaviness on her chest. When she coughs she may have some chest discomfort and pain as well. No recent leg swelling. She states she dropped her kids off and then drove to the emergency department because of her chest discomfort and mild shortness of breath and cough. [facility] Medical History Left medial knee pain Lumbar radiculopathy Cervical radiculopathy Cervical strain Ovarian cyst Acute lumbar myofascial strain Vitamin deficiency Lactose intolerance Gluten intolerance GERD (gastroesophageal reflux disease) Hypothyroid Chronic headaches Asthma Seasonal allergies Home Medications ?Medication ?Instructions ?Recorded ?Last Taken ?Type cranberry extract 2 cap PO DAILY 09/24/23 09/23/23 History elderberry fruit 2 cap PO DAILY 09/24/23 09/23/23 History multivitamin (Daily Multi-Vitamin 1 tab PO DAILY 09/24/23 09/23/23 History tablet) albuterol sulfate 90 mcg/actuation 2 puff inhalation Q4-6H PRN 12/07/23 Unknown Rx aerosol inhaler shortness of breath or wheezing #8.5 grams phenazopyridine 200 mg tablet 200 mg PO TID PRN pain #7 tabs 11/18/24 Unknown Rx (Pyridium) epinephrine 0.3 mg/0.3 mL 0.3 ml IM ONCE #1 ea 11/27/24 Unknown Rx injection, auto-injector levothyroxine 25 mcg tablet 25 mcg PO DAILY 90 days #90 tabs 12/03/24 Unknown Rx albuterol sulfate 90 mcg/actuation 1 - 2 puff inhalation Q4H PRN PRN 12/25/24 Unknown Rx aerosol inhaler (Ventolin HFA) Wheezing #1 ea Allergy/AdvReac Type Severity Reaction Status Date / Time Iodinated Contrast Media Allergy Itching Verified 12/25/24 09:39 poison oak extract Allergy Unknown Verified 12/25/24 09:39 Latex, Natural Rubber AdvReac Rash Verified 12/25/24 09:39 Family History Mother Anxiety Sleep apnea Sister Sleep apnea Surgical History H/O abdominoplasty Social History household members: significant other and children Smoking Status: Never smoker alcohol intake: never substance use type: does not use caffeine: Yes what type of physical activity do you participate in: other details: crossfit frequency: 5-6 times per week seatbelt use: always do you feel safe at home: Yes additional social history: Onesimo GOMEZ ROS ED ROS Narrative Constitutional: No fever, no chills. Positive diaphoresis yesterday evening. HEENT:. No neck pain. No rhinorrhea. Cardiovascular: Chest heaviness/chest pain starting yesterday evening, over 6 hours ago. No palpitations. No pedal edema. Respiratory: Positive cough, mild shortness of breath. Abdominal: No abdominal pain. No nausea. No vomiting. Musculoskeletal: No myalgias. No arthralgias. EXAM Physical Exam Narrative Exam Narrative: Afebrile. Vital signs noted. HEENT: Normocephalic. Atraumatic. PERRL, EOMI. Neck soft and supple. No point tenderness or step off. Cardiovascular: Regular rate and rhythm. No murmurs, rubs, or gallops appreciated. Respiratory: No tachypnea. Lungs clear to auscultation bilaterally. No wheezing. Gastrointestinal: Abdomen soft, nontender, with normoactive bowel sounds. No rebound or guarding. Neurological: Awake. Alert. Nonfocal, nonlateralizing. Skin: Normal color. No pallor. Musculoskeletal: No pedal edema. Full range of motion extremities. Const Vital Signs: 12/25/24 09:39 12/25/24 09:47 12/25/24 09:47 Temperature 98.1 F Temperature Source Oral Pulse Rate 66 Respiratory Rate 19 H Respiratory Effort Normal Blood Pressure 118/79 Blood Pressure Mean 92 Pulse Ox 98 Oxygen Delivery Method Room Air Room Air 12/25/24 10:39 12/25/24 11:00 12/25/24 12:00 Temperature Temperature Source Pulse Rate 67 78 78 Respiratory Rate 18 18 16 Respiratory Effort Blood Pressure 124/78 H 124/67 H 118/76 Blood Pressure Mean 93 86 90 Pulse Ox 98 99 98 Oxygen Delivery Method Room Air Room Air Room Air MDM MDM MDM Narrative Medical decision making narrative: The differential diagnosis includes but not limited to ACS versus pneumonia versus viral syndrome versus bronchitis versus pneumothorax. History and physical does not support pneumonia. While pulmonary embolism may be in the differential as well, she is PERC negative with pulse ox 98% on room air, heart rate of 66, and no hypotension. She is afebrile here. EKG was obtained and interpreted by myself independently as normal sinus rhythm at 67 bpm without ectopy or acute ST changes. No STEMI. CBC shows normal white count of 5.1 with hemoglobin 13.8, hematocrit 40.6, platelet count normal at 210. BMP grossly unremarkable. High-sensitivity troponin less than 6. Once again I do not feel she needs serial enzymes. Chest x-ray interpreted by myself independently in 2 views shows no evidence of pneumonia or consolidation, no pneumothorax. I reviewed the radiology report which confirms my independent interpretation. At this point in time, I feel that she does not need antibiotics, her viral swab was obtained and reviewed and is negative as well. She states that she used to use an inhaler when she would get sick because of well-controlled asthma. I wrote her prescription for an albuterol inhaler but she requested 1 prior to discharge as well as she states she is going to work after this. She was given 1 to 2 puffs inhaled here in the emergency department and the remainder dispensed to her. I feel she can be discharged to follow-up with her primary care provider. Return instructions to the emergency department were reviewed. Disposition is discharged home in stable condition. History & Record Review Discussion w/independent historian: Patient Lab Data Attestation: I reviewed the patient's lab results. Labs: Laboratory Results - last 24 hr 12/25/24 09:55 WBC 5.1 RBC 4.51 Hgb 13.8 Hct 40.6 MCV 90.0 MCH 30.6 MCHC 34.0 RDW Std Deviation 40.1 RDW Coeff of Cindy 12.3 Plt Count 210 MPV 10.6 Immature Gran % (Auto) 0.400 Neut % (Auto) 59.2 Lymph % (Auto) 27.9 [place] % (Auto) 8.9 Eos % (Auto) 3.0 Baso % (Auto) 0.6 Absolute Neuts (auto) 3.0 Absolute Lymphs (auto) 1.41 Nucleated RBC % 0 Sodium 141 Potassium 4.3 Chloride 107 Carbon Dioxide 23.7 Anion Gap 10 BUN 14 Creatinine 0.86 Estim Creat Clear Calc 88.74 Est GFR (MDRD) Non-Af 89 BUN/Creatinine Ratio 16.7 Glucose 80 Calcium 9.2 Troponin T High Sens < 6 Radiography Diagnostic Testing: Clinical Impression(s) from Imaging Studies Chest X-Ray 12/25/24 10:10 IMPRESSION: No acute cardiopulmonary process. Reading Location: [facility] Discharge Plan Triage Chief Complaint: Chest Pain ED Provider: Ayan Lafleur Dx/Rx/DC Orders Clinical Impression: Shortness of breath, Chest heaviness, Bronchitis Instructions: ED Bronchitis, No Antibiotic (Adult), ED Chest Pain, Uncertain Cause, ED Dyspnea Prescriptions: New albuterol sulfate [Ventolin HFA] 90 mcg/actuation HFA aerosol inhaler 1 - 2 puff inhalation Q4H PRN PRN (Reason: Wheezing) Qty: 1 0RF No Action epinephrine 0.3 mg/0.3 mL auto-injector 0.3 ml IM ONCE Qty: 1 0RF Rx Instructions: as a single dose; may repeat once phenazopyridine [Pyridium] 200 mg tablet 200 mg PO TID PRN (Reason: pain) Qty: 7 0RF multivitamin [Daily Multi-Vitamin] Tablet 1 tab PO DAILY cranberry extract 2 cap PO DAILY elderberry fruit 2 cap PO DAILY albuterol sulfate 90 mcg/actuation HFA aerosol inhaler 2 puff inhalation Q4-6H PRN (Reason: shortness of breath or wheezing) Qty: 8.5 1RF levothyroxine 25 mcg tablet 25 mcg PO DAILY 90 Days Qty: 90 1RF Primary Care Provider: Care Physician,No Primary Referrals: Viviana Rangel MD [Med Staff - Active Staff] - 3-5 Days if not improving Activity Restrictions/Additional Instructions: Use the inhaler 1 to 2 puffs inhaled every 4-6 hours as needed for shortness of breath. Return to the emergency department with increasing chest heaviness, new or worsening symptoms. Follow-up with your primary care provider. Print Language: Belgian Disposition Disposition: Home, Self Care
--- NOTE | 2024-12-25 10:10 | RAD_ITS ---
EXAM: XR Chest, 2 Views CLINICAL INDICATION: COUGH, SHORTNESS OF BREATH TECHNIQUE: Frontal and lateral views of the chest. COMPARISON: No relevant prior studies available. FINDINGS: LUNGS AND PLEURAL SPACES: Unremarkable. No consolidation. No pneumothorax. HEART: Unremarkable. No cardiomegaly. MEDIASTINUM: Unremarkable. Normal mediastinal contour. BONES/JOINTS: Unremarkable. No acute fracture. RAD/Chest PA and Lateral IMPRESSION: No acute cardiopulmonary process. Reading Location: [facility]
[2024-12-25 10:12] LABS: Absolute Lymphocyte Count 1.41 X10^3/uL (0.83-4.51); Basophil# 0.03 X10^3/uL; Basophil% 0.6 % (0-1); Eosinophil# 0.15 X10^3/uL; Hematocrit 40.6 % (37-47); Hemoglobin 13.8 g/dL (12.0-15.0); Lymphocyte # 1.41 X10^3/ul (0.83-4.51); Lymphocyte % 27.9 % (19-41); Mean Corpuscular Hgb 30.6 pg (27.0-32.0); Mean Platelet Vol. 10.6 fl (6.2-12.0); Monocyte# 0.45 X10^3/uL; Monocyte% 8.9 % (0-10); NRBC Flagged by Analyzer 0 % (0-5); Neutrophil % 59.2 % (47-70); Platelet Count 210 K/mm3 (150-450); RBC Distribution Width CV 12.3 % (11.6-14.6); RBC Distribution Width SD 40.1 fl (35.1-43.9); Red Blood Count 4.51 M/mm3 (4.2-5.4); White Blood Count 5.1 K/mm3 (4.4-11.0)
[2024-12-25 10:39] VITALS: BP 124/78; PULSE 67; RESP 18; O2SAT 98
[2024-12-25 10:44] LABS: Anion Gap 10 (5-15); BUN 14 mg/dL (4-19); BUN/Creat Ratio 16.7 RATIO (10-20); Calcium,Total 9.2 mg/dL (7.6-11.0); Carbon Dioxide 23.7 mmol/L (21.0-32.0); Chloride 107 mmol/L (98-108); Creatinine, Serum 0.86 mg/dL (0.70-1.20); EST Glomerular Filtration Rate 89 (>60); Estimated Creatinine Clearance 88.74 ml/min (50-250); Glucose 80 mg/dL (70-99); Potassium 4.3 mmol/L (3.3-5.1); Sodium Level 141 mmol/L (133-145)
[2024-12-25 11:00] VITALS: BP 124/67; PULSE 78; RESP 18; O2SAT 99
[2024-12-25 11:10] LABS: Troponin T High Sensitivity < 6 ng/L (<=14)
[2024-12-25 12:00] VITALS: BP 118/76; PULSE 78; RESP 16; O2SAT 98
[2024-12-25] MEDS: Albuterol Sulfate 8 gm Inhaler (60 puffs) 2 PUFF INHALATION (12:14)
[2024-12-25 12:26] VITALS: PULSE 58; RESP 18; O2SAT 99
== END 2024-12-25 12:28 | disposition home or self-care (01) ==
PROVIDERS: Emergency Provider Emergency Medicine; Visit Provider Emergency Medicine
DX: R07.89 Other chest pain (principal); J45.909 Unspecified asthma, uncomplicated; E03.9 Hypothyroidism, unspecified; Z79.890 Hormone replacement therapy; Z79.899 Other long term (current) drug therapy
CPT/HCPCS: 71046; 80048; 84484; 85025; 87631; 93005; 99284; A4216